=== PATIENT | male | born 1965 | race Caucasian/White ===

== ENCOUNTER 2018-11-05 15:27 | Inpatient (IN) ==
--- NOTE | 2018-11-05 16:39 | Emergency Department Note ---
History of Present Illness General Chief complaint: Groin Pain Stated complaint: GROIN SWELLING Time Seen by Provider: 11/05/18 15:53 History of Present Illness Maximum Pain Intensity: 4 This 52-year-old male presents to the ER from [facility] with chief complaint of mass in his right groin. The patient had a cardiac cath and stent placement on September 082018. Over the past 24 hours he has developed a large mass in the right inguinal area where they placed a stent. He denies any fever. The patient denies any right leg pain. The patient admits that he is on heparin twice daily. The also states that they were to have an appointment with Dr. Gabriel today at 3 PM but transportation did not arrive at [facility] in time and therefore they were directed to come to the emergency room. They thought that Dr. Gabriel was just going to meet them in the emergency room. Home Medications Home Medications Medication Instructions Recorded Confirmed Type acetaminophen 650 mg FEEDING TUBE Q4H PRN 11/05/18 11/05/18 History albuterol sulfate 2 puff INHALATION Q4H PRN 11/05/18 11/05/18 History amiodarone 200 mg FEEDING TUBE DAILY 11/05/18 11/05/18 History amoxicillin-pot clavulanate 1 tab FEEDING TUBE .DAILY@ LUNCH 11/05/18 11/05/18 History [Augmentin] amoxicillin-pot clavulanate 1 tab FEEDING TUBE UD 11/05/18 11/05/18 History [Augmentin] aspirin 81 mg FEEDING TUBE QAM 11/05/18 11/05/18 History bisacodyl 10 mg MT DAILY PRN 11/05/18 11/05/18 History calcium acetate 667 mg FEEDING TUBE TIDM 11/05/18 11/05/18 History clopidogrel 75 mg FEEDING TUBE DAILY 11/05/18 11/05/18 History codeine-guaifenesin 10 ml PO Q4H PRN 11/05/18 11/05/18 History colchicine 0.3 mg FEEDING TUBE UD 11/05/18 11/05/18 History darbepoetin ting in polysorbat 1 dose SUBCUT UD 11/05/18 11/05/18 History dextrose [Glucose Gel] 15 g PO UD PRN 11/05/18 11/05/18 History glucagon (human recombinant) 1 mg SUBCUT UD PRN 11/05/18 11/05/18 History heparin (porcine) 5,000 unit SUBCUT Q12H 11/05/18 11/05/18 History midodrine 5 mg FEEDING TUBE TIDM 11/05/18 11/05/18 History oxycodone 5 mg FEEDING TUBE Q4H PRN 11/05/18 11/05/18 History pantoprazole 40 mg FEEDING TUBE QAM 11/05/18 11/05/18 History phenol 1 spray MUCOUS MEMBRANE Q4H PRN 11/05/18 11/05/18 History saliva substitute combo no.3 1 spray MUCOUS MEMBRANE Q1H PRN 11/05/18 11/05/18 History sodium phosphates [Fleet Enema] 118 ml MT DAILY PRN 11/05/18 11/05/18 History Allergies Allergy/AdvReac Type Severity Reaction Status Date / Time No Known Allergies Allergy Verified 09/02/18 14:08 Past Med/Surg History Medical History Facial cellulitis (Resolved) Acute renal failure CAD (coronary artery disease) Cardiogenic shock Hemodialysis patient Renal function recovering Hx of extracorporeal membrane oxygenation treatment Myocardial infarct Surgical History Hx of angioplasty History of tooth extraction Hx of LASIK Social History Preferred Language: Chinese Beliefs That Will Affect Care: None Current Living Situation: Other Current Living Situation Comment: "LIVES WITH SOMEONE" current occupational status: employed Feels Safe at Home: Yes Smoking Status: Never smoker Hx Alcohol Use: Yes Hx Substance Use: No Review of Systems A total of 10 systems reviewed and were otherwise negative Physical Exam Vital Signs Vital Signs - 24 hr 11/05/18 15:30 11/05/18 18:13 11/05/18 18:14 Temperature 36.8 C Temperature Source Oral Sepsis Recent Fever Within 48 Hours No Sepsis New/Unexplained Change in Mental Status No Sepsis Action Taken by Nursing No Action Required Pulse Rate 89 90 88 Pulse Rate from SpO2 Sensor 90 88 Respiratory Rate 18 27 H 22 Respiratory Effort / Characteristics Non-Labored Respiratory Depth Normal Respiratory Pattern Regular Blood Pressure 104/71 91/64 L Blood Pressure Mean 82 73 Blood Pressure Position Sitting Pulse Oximetry 97 95 99 Oxygen Delivery Method Room Air 11/05/18 18:15 11/05/18 18:16 11/05/18 18:19 Temperature Temperature Source Sepsis Recent Fever Within 48 Hours Sepsis New/Unexplained Change in Mental Status Sepsis Action Taken by Nursing Pulse Rate 89 89 88 Pulse Rate from SpO2 Sensor 91 H 90 86 Respiratory Rate 15 13 20 Respiratory Effort / Characteristics Respiratory Depth Respiratory Pattern Blood Pressure 95/73 L 102/73 Blood Pressure Mean 80 82 Blood Pressure Position Pulse Oximetry 93 97 Oxygen Delivery Method 11/05/18 18:20 11/05/18 18:25 11/05/18 18:26 Temperature Temperature Source Sepsis Recent Fever Within 48 Hours Sepsis New/Unexplained Change in Mental Status Sepsis Action Taken by Nursing Pulse Rate 88 93 H 92 H Pulse Rate from SpO2 Sensor 89 94 H 92 H Respiratory Rate 21 26 H 30 H Respiratory Effort / Characteristics Respiratory Depth Respiratory Pattern Blood Pressure 115/78 116/79 125/95 Blood Pressure Mean 90 91 105 Blood Pressure Position Pulse Oximetry 96 99 100 Oxygen Delivery Method 11/05/18 18:30 11/05/18 18:35 11/05/18 18:38 Temperature Temperature Source Sepsis Recent Fever Within 48 Hours Sepsis New/Unexplained Change in Mental Status Sepsis Action Taken by Nursing Pulse Rate 93 H 94 H Pulse Rate from SpO2 Sensor 93 H 94 H Respiratory Rate 27 H 16 Respiratory Effort / Characteristics Respiratory Depth Respiratory Pattern Blood Pressure 121/87 127/85 122/88 Blood Pressure Mean 98 99 99 Blood Pressure Position Pulse Oximetry 96 98 Oxygen Delivery Method 11/05/18 18:40 11/05/18 18:54 Temperature Temperature Source Sepsis Recent Fever Within 48 Hours Sepsis New/Unexplained Change in Mental Status Sepsis Action Taken by Nursing Pulse Rate Pulse Rate from SpO2 Sensor Respiratory Rate Respiratory Effort / Characteristics Respiratory Depth Respiratory Pattern Blood Pressure 126/90 Blood Pressure Mean 102 Blood Pressure Position Pulse Oximetry Oxygen Delivery Method Room Air GENERAL: 52-year-old male appears in no acute distress. MENTAL Status: Alert and oriented x3. EYES: PERRLA. EOMs intact. NECK: Supple, no lymphadenopathy noted. No carotid bruits noted. LUNGS: Clear auscultation without wheezes rales or rhonchi. CARDIAC: Regular rate and rhythm without murmur. Pulses is full and equal throughout. ABDOMEN: Positive bowel sounds all 4 quadrants. There is approximately a 12 cm mass in the right inguinal area which is tender to palpation. It is slightly increased temperature to touch with mild erythema. Remainder of abdomen is unremarkable. Course Administered Medications Sodium Chloride (Nss 1000ml) 1,000 mls @ 999 mls/hr IV .Q1H1M ONE Stop: 11/05/18 19:15 Last Infusion: 11/05/18 18:58 Dose: 0 mls/hr Documented by: [id number] Admin: 11/05/18 18:28 Dose: 999 mls/hr Documented by: [id number] Sodium Chloride (Nss 1000ml) 1,000 mls @ 999 mls/hr IV .Q1H1M ONE Stop: 11/05/18 19:15 Last Infusion: 11/05/18 18:58 Dose: 100 mls/hr Documented by: [id number] Admin: 11/05/18 18:28 Dose: 999 mls/hr Documented by: [id number] Discontinued Medications Tranexamic Acid (Cyklokapron) Confirm Administered Dose 1,000 mg .ROUTE .STK-MED ONE Stop: 11/05/18 18:22 Last Admin: 11/05/18 18:28 Dose: 1,000 mg Documented by: [id number] Medical Decision Making Differential Diagnosis Hematoma, abscess Medical Records Attestation: I reviewed the patient's medical records. Home Medications Current Medication List: was personally reviewed by me Laboratory Data Result diagrams: 11/05/18 17:06 11/05/18 17:06 Lab Results 11/05/18 11/05/18 11/05/18 Range/Units 17:06 17:06 17:06 WBC 9.99 (4.8-10.8) K/uL RBC 3.21 L (4.7-6.1) M/uL Hgb 10.1 L (14.0-18.0) g/dL POC Hgb (14.0-18.0) g/dl Hct 30.6 L (42-52) % POC Hct (42-52) % MCV 95.3 (80-100) fL MCH 31.5 (25-34) pg MCHC 33.0 (32-36) g/dL RDW Std Deviation 51.4 H (36.4-46.3) fL RDW Coeff of Luna 14.8 H (11.5-14.5) % Plt Count 373 (130-400) K/uL MPV 10.6 H (7.4-10.4) fL Immature Gran % (Auto) 0.4 % Neut % (Auto) 80.3 % Lymph % (Auto) 8.2 % [place] % (Auto) 8.8 % Eos % (Auto) 2.2 % Baso % (Auto) 0.1 % Immature Gran # (Auto) 0.04 H (0.00-0.02) K/uL Neut # (Auto) 8.02 H (1.4-6.5) K/uL Lymph # (Auto) 0.82 L (1.2-3.4) K/uL [place] # (Auto) 0.88 H (0.11-0.59) K/uL Eos # (Auto) 0.22 (0-0.5) K/uL Baso # (Auto) 0.01 (0-0.2) K/uL PT 10.6 (9.0-12.0) Seconds INR 1.0 (0.9-1.1) POC Sodium (135-144) mEq/L Sodium 132 L (136-145) mmol/L POC Potassium (3.3-5.0) mEq/L Potassium 4.2 (3.5-5.1) mmol/L POC Chloride (101-112) mEq/L Chloride 97 L (98-107) mmol/L Carbon Dioxide 28 (21-32) mmol/L POC Total CO2 (24-31) mEq/l Anion Gap 7.0 (3-11) POC Anion Gap (16-25) mmol/L POC BUN (7-18) mg/dl BUN 62 H (7-18) mg/dl Creatinine 3.38 H (0.6-1.4) mg/dl POC Creatinine (0.6-1.3) mg/dl Est Cr Clr Drug Dosing 26.1 ml/min Est GFR ( Amer) 22.7 Est GFR (Non-Af Amer) 19.6 BUN/Creatinine Ratio 18.2 (10-20) Glucose 105 H (70-99) mg/dl POC Glucose (other) (70-99) mg/dl Calcium 9.2 (8.5-10.1) mg/dl POC Ioniz Calcium Yoly (1.12-1.32) mmol/l Phosphorus 5.5 H (2.5-4.9) mg/dl Total Bilirubin 0.5 (0.2-1) mg/dl AST 23 (15-37) U/L ALT 23 (12-78) U/L Alkaline Phosphatase 65 (45-117) U/L Total Protein 6.8 (6.4-8.2) gm/dl Albumin 2.7 L (3.4-5.0) gm/dl Globulin 4.1 H (2.5-4.0) gm/dl Albumin/Globulin Ratio 0.7 L (0.9-2) Crossmatch 11/05/18 11/05/18 Range/Units 18:19 18:24 WBC (4.8-10.8) K/uL RBC (4.7-6.1) M/uL Hgb (14.0-18.0) g/dL POC Hgb 10.5 L (14.0-18.0) g/dl Hct (42-52) % POC Hct 31 L (42-52) % MCV (80-100) fL MCH (25-34) pg MCHC (32-36) g/dL RDW Std Deviation (36.4-46.3) fL RDW Coeff of Luna (11.5-14.5) % Plt Count (130-400) K/uL MPV (7.4-10.4) fL Immature Gran % (Auto) % Neut % (Auto) % Lymph % (Auto) % [place] % (Auto) % Eos % (Auto) % Baso % (Auto) % Immature Gran # (Auto) (0.00-0.02) K/uL Neut # (Auto) (1.4-6.5) K/uL Lymph # (Auto) (1.2-3.4) K/uL [place] # (Auto) (0.11-0.59) K/uL Eos # (Auto) (0-0.5) K/uL Baso # (Auto) (0-0.2) K/uL PT (9.0-12.0) Seconds INR (0.9-1.1) POC Sodium 133 L (135-144) mEq/L Sodium (136-145) mmol/L POC Potassium 4.3 (3.3-5.0) mEq/L Potassium (3.5-5.1) mmol/L POC Chloride 96 L (101-112) mEq/L Chloride (98-107) mmol/L Carbon Dioxide (21-32) mmol/L POC Total CO2 25 (24-31) mEq/l Anion Gap (3-11) POC Anion Gap 16.0 (16-25) mmol/L POC BUN 59 H (7-18) mg/dl BUN (7-18) mg/dl Creatinine (0.6-1.4) mg/dl POC Creatinine 3.2 H (0.6-1.3) mg/dl Est Cr Clr Drug Dosing ml/min Est GFR ( Amer) Est GFR (Non-Af Amer) BUN/Creatinine Ratio (10-20) Glucose (70-99) mg/dl POC Glucose (other) 99 (70-99) mg/dl Calcium (8.5-10.1) mg/dl POC Ioniz Calcium Yoly 1.18 (1.12-1.32) mmol/l Phosphorus (2.5-4.9) mg/dl Total Bilirubin (0.2-1) mg/dl AST (15-37) U/L ALT (12-78) U/L Alkaline Phosphatase (45-117) U/L Total Protein (6.4-8.2) gm/dl Albumin (3.4-5.0) gm/dl Globulin (2.5-4.0) gm/dl Albumin/Globulin Ratio (0.9-2) Crossmatch See Detail Imaging Data Attestation: I personally reviewed and interpreted this imaging study as follows: Radiologist's Impression: NONVASCULAR RIGHT INGUINAL ULTRASOUND CLINICAL HISTORY: Right inguinal mass COMPARISON STUDY: No previous studies for comparison. FINDINGS: There is a complex septated avascular collection in the area of swelling/incision at the right inguinal level. This measures 9 x 7 x 7 cm. The findings are suggestive of a postprocedural organizing hematoma. Infection cannot be excluded. IMPRESSION: Complex collection in the right inguinal region measuring 9 x 7 x 7 cm. The appearance is suggestive of post procedural organizing hematoma. An infected collection cannot be excluded. Electronically signed by: Leoncio Gonzales M.D. 11/05/2018 4:39 PM Blood Pressure Blood Pressure Findings: Normal blood pressure MDM Narrative The patient was evaluated. I reviewed documents from [facility]. It appears that the patient was supposed to be scheduled for an ultrasound of this area today and had an appointment with Dr. Gabriel at 3 PM. It is unclear why he was directed to the ER. The patient currently is on heparin 5000 units every 12 gaurav rs. Ultrasound of this area was ordered interpreted by the radiologist as above with a 9 x 7 x 7 cm septated avascular collection. This is suggestive of a postprocedural organizing hematoma but infection cannot be excluded. Therefore IV access was obtained. CBC and differential, renal profile, coags were ordered. Labs are reviewed. White count was normal. I consulted Dr. Gabriel who agreed to come see the patient in the ER. Dr. Gabriel was evaluating the patient and pressed on the area of concern and the patient started bleeding profusely. It was spraying all over the room. He felt that he tore the arterial graft. He started holding pressure immediately. Dr. Lindsey came to bedside immediately and helped hold pressure. The patient's blood pressure began to drop and therefore he was placed in Trendelenburg. The patient's blood was typed and crossed. A second IV site was obtained. He was given 2 L of normal saline IV. The patient's blood pressure returned to normal at 126/90. Dr. Gleason was consulted as well as Dr. Aguiar. Dr. Gleason stated that the patient needed to go to the OR immediately. All forms were completed by the patient's power of admitted attorneys. Dr. Lindsey and myself remained at bedside until the patient left for the OR. Impression & Plan Arterial hemorrhage Critical Care Time I have personally spent greater than 60 minutes of critical care time in the d irect management of this patient. This includes bedside care, interpretation of diagnostic studies, and testing, discussion with consultants, patient, and family members, and other required patient management activities. This 60 minutes is in excess of all separately billable procedures. Critical Care Time: Yes Total Critical Care Time: 60 Discharge Plan Visit Data Chief Complaint: Groin Pain Stated Complaint: GROIN SWELLING ED Provider: Pierre Lindsey ED Midlevel Provider: Muna Lawson Discharge Problem: Arterial hemorrhage Patient Disposition: Being Evaluated by Surgeon Condition: Critical Discharge Instructions Interventions: ED Discharge Assessment Last Done: 11/05/18 18:54 Forms Stand Alone Forms: My [facility] [employer] Prescriptions Prescriptions: No Action amiodarone 200 mg Tablet 200 mg feeding tube DAILY RF: 0 aspirin 81 mg Tablet,Chewable 81 mg feeding tube QAM RF: 0 calcium acetate 667 mg Tablet 667 mg feeding tube TIDM RF: 0 clopidogrel 75 mg Tablet 75 mg feeding tube DAILY RF: 0 colchicine 0.6 mg Tablet 0.3 mg feeding tube UD RF: 0 heparin (porcine) 5,000 unit/mL Syringe 5,000 unit SUBCUT Q12H RF: 0 oxycodone 5 mg Tablet 5 mg feeding tube Q4H PRN (Reason: . PAIN ( 4-10 )) RF: 0 bisacodyl 10 mg Suppository 10 mg MT DAILY PRN (Reason: Constipation) RF: 0 Fleet Enema 19-7 gram/118 mL Enema 118 ml MT DAILY PRN (Reason: Constipation) RF: 0 acetaminophen 325 mg Tablet 650 mg feeding tube Q4H PRN (Reason: .PAIN ( 1-3 )) RF: 0 glucagon (human recombinant) 1 mg/mL Recon Soln 1 mg subcut UD PRN (Reason: Hypoglycemia) RF: 0 dextrose [Glucose Gel] 40 % Gel 15 g PO UD PRN (Reason: Hypoglycemia) RF: 0 pantoprazole [address] For Susp In Packet 40 mg feeding tube QAM RF: 0 saliva substitute combo no.3 Aerosol,[place] 1 spray mucous membrane Q1H PRN (Reason: Dry Mouth) RF: 0 midodrine 5 mg Tablet 5 mg feeding tube TIDM RF: 0 amoxicillin-pot clavulanate [Augmentin] 500-125 mg Tablet 1 tab feeding tube .DAILY@ LUNCH RF: 0 amoxicillin-pot clavulanate [Augmentin] 500-125 mg Tablet 1 tab feeding tube UD RF: 0 phenol 1.4 % Aerosol,[place] 1 spray MUCOUS MEMBRANE Q4H PRN (Reason: Sore Throat) RF: 0 darbepoetin ting in polysorbat 60 mcg/0.3 mL Syringe 1 dose subcut UD RF: 0 codeine-guaifenesin 6.3-100 mg/5 mL Liquid 10 ml PO Q4H PRN (Reason: Cough) RF: 0 albuterol sulfate 90 mcg/actuation Hfa Aerosol Inhaler 2 puff inhalation Q4H PRN (Reason: Wheezing) RF: 0 Referrals Referrals: Pedro Silveira MD [Primary Care Provider] -
--- NOTE | 2018-11-05 16:40 | Ultrasound Report ---
NONVASCULAR RIGHT INGUINAL ULTRASOUND CLINICAL HISTORY: Right inguinal mass COMPARISON STUDY: No previous studies for comparison. FINDINGS: There is a complex septated avascular collection in the area of swelling/incision at the ri ght inguinal level. This measures 9 x 7 x 7 cm. The findings are suggestive of a postprocedural organ izing hematoma. Infection cannot be excluded. IMPRESSION: Complex collection in the right inguinal region measuring 9 x 7 x 7 cm. The appearance i s suggestive of post procedural organizing hematoma. An infected collection cannot be excluded. Electronically signed by: Leoncio Gonzales M.D. 11/05/2018 4:39 PM
[2018-11-05 17:21] LABS: Basophils # (auto) 0.01 K/uL (0-0.2); Basophils % (auto) 0.1 %; Eosinophils # (auto) 0.22 K/uL (0-0.5); Eosinophils % (auto) 2.2 %; Hematocrit (blood only) 30.6 % (42-52); Hemoglobin 10.1 g/dL (14.0-18.0); Immature Granulocytes # (auto) 0.04 K/uL (0.00-0.02); Immature Granulocytes % (auto) 0.4 %; Lymphocytes # (auto) 0.82 K/uL (1.2-3.4); Lymphocytes % (auto) 8.2 %; Mean Corpuscular Volume 95.3 fL (80-100); Mean Platelet Volume 10.6 fL (7.4-10.4); Monocytes # (auto) 0.88 K/uL (0.11-0.59); Monocytes % (auto) 8.8 %; Neutrophils # (auto) 8.02 K/uL (1.4-6.5); Neutrophils % (auto) 80.3 %; Platelet Count 373 K/uL (130-400); RDW Coefficient of Variation 14.8 % (11.5-14.5); RDW Standard Deviation 51.4 fL (36.4-46.3); Red Blood Count 3.21 M/uL (4.7-6.1); White Blood Count 9.99 K/uL (4.8-10.8)
[2018-11-05 17:33] LABS: Prothrombin Time 10.6 Seconds (9.0-12.0)
[2018-11-05 17:40] LABS: Albumin Level 2.7 gm/dl (3.4-5.0); BUN Creatinine Ratio 18.2 (10-20); Calcium 9.2 mg/dl (8.5-10.1); Creatinine Clr Calc Pharmacy 26.1 ml/min; Est GFR (African American) 22.7; Est GFR (Non-African American) 19.6; Potassium 4.2 mmol/L (3.5-5.1)
[2018-11-05 17:42] LABS: Albumin Globulin Ratio 0.7 (0.9-2); Bilirubin,Total 0.5 mg/dl (0.2-1); Globulin 4.1 gm/dl (2.5-4.0); Phosphorus 5.5 mg/dl (2.5-4.9); Total Protein 6.8 gm/dl (6.4-8.2)
[2018-11-05] MEDS ORDERED: SODIUM CHLORIDE 0.9% 1000ML 1,000 ML IV ONE ×2 (18:15)
[2018-11-05] MEDS ORDERED: TRANEXAMIC ACID 100 MG/ML 10 ML VIAL ONE (18:21)
[2018-11-05] MEDS ORDERED: TRANEXAMIC ACID 1,000 MG in 0.9 % SODIUM CHLORIDE 100 ML IV STA (18:22)
[2018-11-05] MEDS ORDERED: HEPARIN (PORCINE) 1000 UNIT/ML 10 ML (CATH LAB USE ONLY) ONE (18:23)
[2018-11-05] MEDS ORDERED: PAPAVERINE HCL INJ 30 MG/ML 2 ML VIAL ONE (18:23)
[2018-11-05] MEDS ORDERED: THROMBIN 5000 UNITS KIT ONE (18:23)
[2018-11-05] MEDS ORDERED: LIDOCAINE HCL 1% 20 ML VIAL ONE (18:23)
[2018-11-05] MEDS ORDERED: IODIXANOL (VISIPAQUE) 270 MG/ML 50ML ONE (18:24)
[2018-11-05] MEDS ORDERED: GELATIN SPONGE SZ 100 ONE (18:24)
[2018-11-05] MEDS ORDERED: CEFAZOLIN 250 MG/ML 1 GM VIAL ONE (18:24)
[2018-11-05] MEDS ORDERED: BUPIVACAINE/EPINEPHRINE 0.5% MPF 1:200,000 30 ML VIAL ONE (18:24)
[2018-11-05] MEDS ORDERED: MIDAZOLAM HCL 1 MG/ML 2ML VIAL ONE (18:26)
[2018-11-05] MEDS ORDERED: fentaNYL citrate 100 MCG/2 ML VIAL ONE (18:26)
[2018-11-05 18:38] LABS: iSTAT Creatinine 3.2 mg/dl (0.6-1.3); iSTAT Hemoglobin 10.5 g/dl (14.0-18.0); iSTAT Ionized Calcium 1.18 mmol/l (1.12-1.32); iSTAT Potassium 4.3 mEq/L (3.3-5.0)
--- NOTE | 2018-11-05 18:47 | Anesthesiology Consultation ---
Date of Service November 05, 2018 Assessment & Plan (1) Encounter for pre-operative examination: Chart Review Chart Review: Acceptable Risk for Surgery (Emergency) History Surgery Operation Date: 11/05/18 18:20 Proposed Procedures p Femoral Popliteal Bypass Graft - Lisandro Gleason MD Height/Weight Height: 5 ft 10 in Weight: 80.286 kg Allergies Allergy/AdvReac Type Severity Reaction Status Date / Time No Known Allergies Allergy Verified 09/02/18 14:08 Medications Home Medications Medication Instructions Recorded Confirmed Last Taken acetaminophen 650 mg FEEDING TUBE Q4H PRN 11/05/18 11/05/18 Unknown amiodarone 200 mg FEEDING TUBE DAILY 11/05/18 11/05/18 Unknown amoxicillin-pot clavulanate 1 tab FEEDING TUBE .DAILY@ LUNCH 11/05/18 11/05/18 Unknown [Augmentin] aspirin 81 mg FEEDING TUBE QAM 11/05/18 11/05/18 Unknown bisacodyl 10 mg MD DAILY PRN 11/05/18 11/05/18 Unknown calcium acetate 667 mg FEEDING TUBE TIDM 11/05/18 11/05/18 Unknown clopidogrel 75 mg FEEDING TUBE DAILY 11/05/18 11/05/18 Unknown colchicine 0.3 mg FEEDING TUBE UD 11/05/18 11/05/18 Unknown dextrose [Glucose Gel] 15 g PO UD PRN 11/05/18 11/05/18 Unknown glucagon (human recombinant) 1 mg SUBCUT UD PRN 11/05/18 11/05/18 Unknown heparin (porcine) 5,000 unit SUBCUT Q12H 11/05/18 11/05/18 Unknown midodrine 5 mg FEEDING TUBE TIDM 11/05/18 11/05/18 Unknown oxycodone 5 mg FEEDING TUBE Q4H PRN 11/05/18 11/05/18 Unknown pantoprazole 40 mg FEEDING TUBE QAM 11/05/18 11/05/18 Unknown saliva substitute combo no.3 1 spray MUCOUS MEMBRANE Q1H PRN 11/05/18 11/05/18 Unknown sodium phosphates [Fleet Enema] 118 ml MD DAILY PRN 11/05/18 11/05/18 Unknown Active Medications Generic Name Dose Route Start Last Admin Trade Name Freq PRN Reason Stop Dose Admin Sodium Chloride 1,000 mls @ 999 mls/hr 11/05/18 18:15 11/05/18 18:28 Nss 1000ml IV 11/05/18 19:15 999 mls/hr .Q1H1M ONE Administration Sodium Chloride 1,000 mls @ 999 mls/hr 11/05/18 18:15 11/05/18 18:28 Nss 1000ml IV 11/05/18 19:15 999 mls/hr .Q1H1M ONE Administration Past Medical History Medical History Facial cellulitis (Resolved) Acute renal failure CAD (coronary artery disease) Cardiogenic shock Hemodialysis patient Renal function recovering Hx of extracorporeal membrane oxygenation treatment Myocardial infarct Past Surgical History Surgical History Hx of angioplasty History of tooth extraction Hx of LASIK Past Anesthesia History Difficult Airway (Vocal cord dysfunction afterward) Social History Smoking Status: Never smoker Hx Alcohol Use: Yes Alcohol type: wine alcohol intake frequency: holidays/special occasions only Hx Substance Use: No substance use type: does not use Physical Exam Vital Signs Last Vital Signs Temp 36.8 C 11/05/18 15:30 Pulse 89 11/05/18 15:30 Resp 18 11/05/18 15:30 BP 104/71 11/05/18 15:30 Pulse Ox 97 11/05/18 15:30 Testing Laboratory Results 11/05/18 17:06 11/05/18 17:06 PT 10.6 Seconds (9.0-12.0) 11/05/18 17:06 INR 1.0 (0.9-1.1) 11/05/18 17:06
[2018-11-05] MEDS ORDERED: CLINDAMYCIN PHOS 300 MG/2 ML VIAL ONE (19:12)
[2018-11-05] MEDS ORDERED: ONDANSETRON INJ 2 MG/ML 2 ML VIAL ONE (19:22)
[2018-11-05] MEDS ORDERED: CISATRACURIUM BESYLATE IV SOLN 2 MG/ML 10 ML VIAL IV ONE (19:22)
[2018-11-05] MEDS ORDERED: SUCCINYLCHOLINE CHLORIDE 20 MG/ML 10 ML VIAL ONE (19:22)
[2018-11-05] MEDS ORDERED: PROPOFOL IV EMULSION 10 MG/ML 20 ML VIAL IV ONE (19:22)
[2018-11-05] MEDS ORDERED: ETOMIDATE 2 MG/ML 20 ML VIAL IV ONE (19:22)
[2018-11-05] MEDS ORDERED: NEOSTIGMINE METHYLSULFATE 5 MG/5 ML SYR ONE (19:22)
[2018-11-05] MEDS ORDERED: GLYCOPYRROLATE 0.2 MG/ML VIAL ONE (19:22)
[2018-11-05] MEDS ORDERED: ePHEDrine sulfate 50 MG/ML SYR ONE (19:22)
[2018-11-05] MEDS ORDERED: MoRPHine SULFATE 4 MG/ML 1 ML CARP\\VIAL IV PRN (19:27)
[2018-11-05] MEDS ORDERED: ACETAMINOPHEN 325 MG TAB PEG PRN (19:34)
[2018-11-05] MEDS ORDERED: ALBUTEROL HFA 8 GM INHALER INH PRN (19:34)
[2018-11-05] MEDS ORDERED: SOD PHOSPHATE/SOD BIPHOSPHATE ENEMA 132 ML BTL PR PRN ×2 (19:34→20:45)
[2018-11-05] MEDS ORDERED: GLUCOSE 40% GEL 15 GM TUBE PO PRN (19:34)
[2018-11-05] MEDS ORDERED: GLUCAGON FOR INJ 1 MG VIAL SQ PRN (19:34)
[2018-11-05] MEDS ORDERED: BISACODYL 10 MG SUPP PR PRN (19:34)
[2018-11-05] MEDS ORDERED: [UNRECOGNIZED DRUG - OTHER] mucous membrane PRN (19:34)
[2018-11-05] MEDS ORDERED: ATROPINE SULFATE 0.1 MG/ML 10ML SYR IV PRN (19:35)
[2018-11-05] MEDS ORDERED: ONDANSETRON INJ 2 MG/ML 2 ML VIAL IV PRN (19:35)
[2018-11-05] MEDS ORDERED: AMOXICILLIN/CLAVULANATE 500 MG TAB PO SCH ×2 (19:45)
[2018-11-05] MEDS ORDERED: CLINDAMYCIN 600 MG in DEXTROSE 5% 50 ML IV SCH (19:45)
--- NOTE | 2018-11-05 19:52 | Post Operative Brief Note ---
Immediate Post Op Note v1 Date of Surgery November 05, 2018 Pre & Post Diagnosis Operation Date: 11/05/18 18:20 Pre-Op Diagnosis: Bleeding right groin Post-Op Diagnosis: Bleeding right groin Procedure Operation Date: 11/05/18 18:20 Actual Procedures p Exploration of Right Groin Evacuation of Hematoma(Right) - Lisandro Gleason MD Surgeon Lisandro Gleason MD Windows System Admin MD [place] Estimated Blood Loss 50 Findings Consistent with Post-Op Diagnosis Anesthesia Type General Complications none Disposition Accompanied Patient To Recovery: No Disposition: Recovery Room
--- NOTE | 2018-11-05 19:56 | Cardiology Consultation ---
Date of Consultation November 05, 2018 Assessment & Plan (1) Arterial hemorrhage: 2. Recent right GASKET INSPECTOR patch repair following extended Impella suport 3. Ischemic cardiomyopathy EF 30-35% 4. Coronary artery disease post PCI with 3 DESTINY (left main and the circumflex, ostial and proximal LAD). 5. Improving renal failure on intermittent dialysis 6. Persistent vocal cord dysfunction, dysphagia on PEG tube 7. Critical illness myopathy 8. Prior RP bleed post intercostal coil embolectomy 9. Prior A. fib with RVR, nonsustained VT on amiodarone 10. Relative hypotension on intermittent midodrine Patient taken emergently to OR by Dr. Gleason. Will follow from a cardiac standpoint postoperatively. Appreciate vascular surgery and emergency department care. History of Present Illness Attending Physician: Lisandro Gleason MD History of Present Illness Mr. Rivera is a 52-year-old man with a complex recent medical history who presented today in the setting of right groin swelling. Patient was previously seen in [facility] in August 2018 as a late presenting anterior STEMI. Intervention complicated by left main dissection, cardiogenic shock/rest requiring impella mechanical support and transferred to [facility]. Had a prolonged hospital course over 50 days with ECMO and impella for 30 days. Impella removed approximately 3 weeks ago while hospitalized by vascular surgery with right GASKET INSPECTOR patch repair. Patient discharged to rehab approximately week and a half ago. Has been doing well kidney function improving requiring intermittent dialysis, still on tube feeds but exercise tolerance improving. Yesterday noted new swelling at his right groin site. Swelling increased this morning with increasing pain and cardiology office contacted. Evaluation at ED recommended. Had an ultrasound which showed a 7 cm hematoma without clear flow from GASKET INSPECTOR. Was called to evaluate patient in the ED. While compressing hematoma surgical incision opened up and initially serosanguineous fluid sprayed across room later followed by tony blood. Compression held, fluids administered and vascular surgery consulted. Allergies Allergy/AdvReac Type Severity Reaction Status Date / Time cefepime Allergy Unknown Unverified 11/05/18 19:27 vancomycin Allergy Unknown Unverified 11/05/18 19:25 Home Medications Home Medications Medication Instructions Recorded Confirmed Type acetaminophen 650 mg FEEDING TUBE Q4H PRN 11/05/18 11/05/18 History albuterol sulfate 2 puff INHALATION Q4H PRN 11/05/18 11/05/18 History amiodarone 200 mg FEEDING TUBE DAILY 11/05/18 11/05/18 History amoxicillin-pot clavulanate 1 tab FEEDING TUBE .DAILY@ LUNCH 11/05/18 11/05/18 History [Augmentin] amoxicillin-pot clavulanate 1 tab FEEDING TUBE UD 11/05/18 11/05/18 History [Augmentin] aspirin 81 mg FEEDING TUBE QAM 11/05/18 11/05/18 History bisacodyl 10 mg CO DAILY PRN 11/05/18 11/05/18 History calcium acetate 667 mg FEEDING TUBE TIDM 11/05/18 11/05/18 History clopidogrel 75 mg FEEDING TUBE DAILY 11/05/18 11/05/18 History codeine-guaifenesin 10 ml PO Q4H PRN 11/05/18 11/05/18 History colchicine 0.3 mg FEEDING TUBE UD 11/05/18 11/05/18 History darbepoetin ting in polysorbat 1 dose SUBCUT UD 11/05/18 11/05/18 History dextrose [Glucose Gel] 15 g PO UD PRN 11/05/18 11/05/18 History glucagon (human recombinant) 1 mg SUBCUT UD PRN 11/05/18 11/05/18 History heparin (porcine) 5,000 unit SUBCUT Q12H 11/05/18 11/05/18 History midodrine 5 mg FEEDING TUBE TIDM 11/05/18 11/05/18 History oxycodone 5 mg FEEDING TUBE Q4H PRN 11/05/18 11/05/18 History pantoprazole 40 mg FEEDING TUBE QAM 11/05/18 11/05/18 History phenol 1 spray MUCOUS MEMBRANE Q4H PRN 11/05/18 11/05/18 History saliva substitute combo no.3 1 spray MUCOUS MEMBRANE Q1H PRN 11/05/18 11/05/18 History simethicone 20 mg FEEDING TUBE QAM 11/05/18 11/05/18 History sodium phosphates [Fleet Enema] 118 ml CO DAILY PRN 11/05/18 11/05/18 History Patient History Medical History Facial cellulitis (Resolved) Acute renal failure CAD (coronary artery disease) Cardiogenic shock Hemodialysis patient Renal function recovering Hx of extracorporeal membrane oxygenation treatment Myocardial infarct Surgical History Hx of angioplasty History of tooth extraction Hx of LASIK Social History Preferred Language: Burmese Beliefs That Will Affect Care: None Current Living Situation: Other Current Living Situation Comment: "LIVES WITH SOMEONE" current occupational status: employed Feels Safe at Home: Yes Smoking Status: Never smoker Hx Alcohol Use: Yes Hx Substance Use: No Review of Systems Otherwise negative see HPI Physical Exam Vital Signs (Past 24 Hours): Last Vital Signs Temp 36.8 C 11/05/18 15:30 Pulse 94 H 11/05/18 18:35 Resp 16 11/05/18 18:35 BP 126/90 11/05/18 18:40 Pulse Ox 98 11/05/18 18:35 Physical Exam: General: Comfortable initially with no acute distress Eyes: Sclerae anicteric, extraocular movements intact HENT: Oropharynx clear mucous membranes moist, missing dentition Lungs: Clear to auscultation bilaterally, no rhonchi or wheezes Cardiac: Regular rate and rhythm, no murmurs, rubs or gallops. Vascular: Initial surgical incision intact with large surrounding hematoma prior to bleeding event Abdomen: Soft, nontender, nondistended, positive bowel sounds. Extremities: Well perfused, no peripheral edema, 2+ distal pulses Skin: No rashes or lesions. Neuro: Nonfocal Psych: Alert orient x3, normal affect and mood
--- NOTE | 2018-11-05 19:58 | History & Physical Report ---
Date of Service November 05, 2018 Assessment & Plan (1) Bleeding: Due to the finding of bleeding from the right groin was operative exploration control the bleeding was recommended. I have discussed the risks options and benefits of the procedure with the patient. The patient understands the risks options and benefits and agrees to the procedure. History of Present Illness Chief Complaint: Bleeding right groin Primary Care Provider: Pedro Silveira MD Patient is a 52-year-old male who bleeding from his right groin. This was the site of of his decannulation from his ECMO Cannulas. He complains of swelling earlier today. In the emergency room this evening he had tony bleeding from the groin. This was controlled with pressure. He has a complicated history of myocardial infarction followed by stenting followed by respiratory insufficiency with intubation, renal failure, respiratory failure, cardiac shock, ECMO for 30 days, and a patch of his common femoral artery after the cannula was removed. Presently he is at rehab. Allergies Allergy/AdvReac Type Severity Reaction Status Date / Time cefepime Allergy Unknown Unverified 11/05/18 19:27 vancomycin Allergy Unknown Unverified 11/05/18 19:25 Home Medications Home Medications Medication Instructions Recorded Confirmed Type acetaminophen 650 mg FEEDING TUBE Q4H PRN 11/05/18 11/05/18 History albuterol sulfate 2 puff INHALATION Q4H PRN 11/05/18 11/05/18 History amiodarone 200 mg FEEDING TUBE DAILY 11/05/18 11/05/18 History amoxicillin-pot clavulanate 1 tab FEEDING TUBE .DAILY@ LUNCH 11/05/18 11/05/18 History [Augmentin] amoxicillin-pot clavulanate 1 tab FEEDING TUBE UD 11/05/18 11/05/18 History [Augmentin] aspirin 81 mg FEEDING TUBE QAM 11/05/18 11/05/18 History bisacodyl 10 mg ID DAILY PRN 11/05/18 11/05/18 History calcium acetate 667 mg FEEDING TUBE TIDM 11/05/18 11/05/18 History clopidogrel 75 mg FEEDING TUBE DAILY 11/05/18 11/05/18 History codeine-guaifenesin 10 ml PO Q4H PRN 11/05/18 11/05/18 History colchicine 0.3 mg FEEDING TUBE UD 11/05/18 11/05/18 History darbepoetin ting in polysorbat 1 dose SUBCUT UD 11/05/18 11/05/18 History dextrose [Glucose Gel] 15 g PO UD PRN 11/05/18 11/05/18 History glucagon (human recombinant) 1 mg SUBCUT UD PRN 11/05/18 11/05/18 History heparin (porcine) 5,000 unit SUBCUT Q12H 11/05/18 11/05/18 History midodrine 5 mg FEEDING TUBE TIDM 11/05/18 11/05/18 History oxycodone 5 mg FEEDING TUBE Q4H PRN 11/05/18 11/05/18 History pantoprazole 40 mg FEEDING TUBE QAM 11/05/18 11/05/18 History phenol 1 spray MUCOUS MEMBRANE Q4H PRN 11/05/18 11/05/18 History saliva substitute combo no.3 1 spray MUCOUS MEMBRANE Q1H PRN 11/05/18 11/05/18 History simethicone 20 mg FEEDING TUBE QAM 11/05/18 11/05/18 History sodium phosphates [Fleet Enema] 118 ml ID DAILY PRN 11/05/18 11/05/18 History Past Med/Surg History Medical History Facial cellulitis (Resolved) Acute renal failure CAD (coronary artery disease) Cardiogenic shock Hemodialysis patient Renal function recovering Hx of extracorporeal membrane oxygenation treatment Myocardial infarct Surgical History Hx of angioplasty History of tooth extraction Hx of LASIK Social History Preferred Language: Czech Beliefs That Will Affect Care: None Current Living Situation: Other Current Living Situation Comment: "LIVES WITH SOMEONE" current occupational status: employed Feels Safe at Home: Yes Smoking Status: Never smoker Hx Alcohol Use: Yes Hx Substance Use: No Review of Systems Unobtainable due to the emergent situation. Physical Exam Vital Signs (Past 24 Hours): Last Vital Signs Temp 36.8 C 11/05/18 15:30 Pulse 94 H 11/05/18 18:35 Resp 16 11/05/18 18:35 BP 126/90 11/05/18 18:40 Pulse Ox 98 11/05/18 18:35 Patient is awake alert and oriented. He was in moderate distress. There is bleeding noted from the right groin. Pressure was being held. He did have palpable pedal pulses in his feet. Abdominal exam is benign lungs were clear heart had a regular rhythm.
--- NOTE | 2018-11-05 20:04 | Operative Report ---
Post Operative Report Pre & Post Diagnosis Operation Date: 11/05/18 18:20 Pre-Op Diagnosis: Bleeding right groin Post-Op Diagnosis: Bleeding right groin Procedure Operation Date: 11/05/18 18:20 Actual Procedures p Exploration of Right Groin Evacuation of Hematoma(Right) - Lisandro Gleason MD Surgeon Dr. Rosibel Berumen MD Schedule Checker MD [place] Estimated Blood Loss 50 Findings Consistent with Post-Op Diagnosis The right groin was opened surgically and evaluated there was a large size hematoma that was evacuated and washed out no obvious signs of bleeding from the arterial site or the patch. The patch seem to be well incorporated without any oozing or bleeding around it. The remainder of the wound was evaluated hemostasis was achieved. No obvious sign of excessive bleeding was noted. Specimens None Anesthesia Type General Complications none Disposition Accompanied Patient To Recovery: Yes Disposition: Recovery Room Indications Bleeding right groin incision Description of Procedure The patient was placed supine on the operating room table. The right groin was prepped and draped in a sterile fashion. Using a 10 blade the prior incision wa s reopened. Digital dissection was used to dissect down the incision to the artery and patch. A large amount of clot and old hematoma was evacuated and suctioned. The patch was then examined and washed and it showed a well incorporated patch without any bleeding from the site of the patch or the artery. The remainder of the wound was washed thoroughly and examined for any sign of bleeding. There was no obvious sign of bleeding that was noted and so a thorough washout and hemostasis using electrocautery of the skin edges and raw surfaces was achieved. Once hemostasis was achieved a multilayered closure of the wound was completed with 2-0 Vicryl sutures a 3-0 Vicryl suture was then used to approximate the skin edges and the skin was closed with solo. A sterile dressing was applied over top of the incision and the patient was moved to the hospital bed. The patient tolerated the procedure well the end of the case the patient had palpable DP and PT pulses in the right foot. Dr. Gleason was present for the entirety of the procedure. I attest to the content of the Intraoperative Record and any orders documented therein. Any exceptions are noted below.
[2018-11-05] MEDS: fentaNYL citrate 100 MCG/2 ML VIAL IV PRN ×4 (20:28→20:43)
--- NOTE | 2018-11-05 20:35 | Anesthesiology Progress Note ---
Date of Service November 05, 2018 Anesthesia Post Procedure Vital Signs Vital Signs: Temp Pulse Pulse Resp BP BP Pulse Ox 11/05/18 20:31 94 H 26 H 100 11/05/18 20:30 95 H 24 126/91 100 11/05/18 20:27 100 H 27 H 125/85 98 11/05/18 20:26 36.6 C 88 20 134/95 93 11/05/18 20:25 100 H 20 99 11/05/18 20:20 94 H 24 125/89 100 11/05/18 20:15 100 H 22 11/05/18 20:11 98 H 32 H 11/05/18 20:10 99 H 12 134/95 11/05/18 18:40 126/90 11/05/18 18:38 122/88 11/05/18 18:35 94 H 16 127/85 98 11/05/18 18:30 93 H 27 H 121/87 96 11/05/18 18:26 92 H 30 H 125/95 100 11/05/18 18:25 93 H 26 H 116/79 99 11/05/18 18:20 88 21 115/78 96 11/05/18 18:19 88 20 102/73 11/05/18 18:16 89 13 95/73 L 97 11/05/18 18:15 89 15 93 11/05/18 18:14 88 22 99 11/05/18 18:13 90 27 H 91/64 L 95 11/05/18 15:30 36.8 C 89 18 104/71 97 Pain Intensity Right Groin: Pain Intensity: 0 Notes Mental Status: alert / awake / arousable Patient Amnestic to Procedure: Yes Nausea / Vomiting: adequately controlled Pain: adequately controlled Airway Patency, RR, SpO2: stable & adequate BP & HR: stable & adequate Hydration State: stable & adequate Anesthetic Complications: no major complications apparent
[2018-11-05 20:43] LABS: Basophils # (auto) 0.01 K/uL (0-0.2); Basophils % (auto) 0.1 %; Eosinophils # (auto) 0.34 K/uL (0-0.5); Eosinophils % (auto) 3.3 %; Hematocrit (blood only) 29.8 % (42-52); Immature Granulocytes # (auto) 0.02 K/uL (0.00-0.02); Immature Granulocytes % (auto) 0.2 %; Lymphocytes # (auto) 0.86 K/uL (1.2-3.4); Lymphocytes % (auto) 8.3 %; Mean Corpuscular Hgb Conc 33.6 g/dL (32-36); Mean Platelet Volume 10.2 fL (7.4-10.4); Monocytes # (auto) 0.87 K/uL (0.11-0.59); Monocytes % (auto) 8.4 %; Neutrophils # (auto) 8.27 K/uL (1.4-6.5); Neutrophils % (auto) 79.7 %; Platelet Count 351 K/uL (130-400); RDW Coefficient of Variation 15.3 % (11.5-14.5); RDW Standard Deviation 52.9 fL (36.4-46.3); Red Blood Count 3.17 M/uL (4.7-6.1); White Blood Count 10.37 K/uL (4.8-10.8)
[2018-11-05 21:03] LABS: BUN Creatinine Ratio 18.7 (10-20); Calcium 8.3 mg/dl (8.5-10.1); Creatinine Clr Calc Pharmacy 29.5 ml/min; Est GFR (African American) 26.4; Est GFR (Non-African American) 22.8; Magnesium 1.9 mg/dl (1.8-2.4); Potassium 4.3 mmol/L (3.5-5.1)
--- NOTE | 2018-11-05 21:21 | Critical Care Consultation ---
Date of Consultation November 05, 2018 Assessment & Plan (1) Admitted to intensive care unit: Reason Critically Ill: 52-year-old male status post evacuation of hematoma to the RIGHT groin. NEURO - * CAM ICU: NEGATIVE * PAIN: * Tylenol, Percocet, Morphine CARDIAC/VASCULAR - * Recent anterior ND on 09/02 with complication of cardiogenic shock requiring extended Impella device and ECMO therapies. * Continue all medications as previously prescribed. * Monitor on telemetry. RESPIRATORY - * Monitor for signs and symptoms of volume overload after aggressive IV fluid resuscitation and administration of 1 unit PRBCs in the setting of acute blood loss with concerns for anemia. GI/NUTRITION - * Continue nutrition through PED tube as prior. * Prophylaxis: RENAL/LYTES - * Renal Failure - Previously on HD T//Sat. * PermCath in place to the RIGHT chest. * Consider dialysis tomorrow after reassessment with chest x-ray for evaluation of volume accumulation. * Has not required hemodialysis since Saturday. * No significant electrolyte derangements at this point. * IVF: NSS per surgery. - * No concerns at this time. ENDO - * No h/o DM or Thyroid Dz * BSGs per unit protocol. ISS --> gtt per unit policy. HEME - * Stable H&H. * Received 1U PRBCs intraoperatively. * Will recheck AM H&H ID - * Prophylaxis w/ clindamycin LINES/IV ACCESS - * PIVs x2 DVT PROPHYLAXIS - * Heparin sq * SCDs I have personally spent 35 minutes of critical care time in the direct management of this patient. This is a life/limb threatening event. This includes time spent evaluating patient, direct bedside care, chart review, placing orders, interpretation of diagnostic studies, discussion with consultants, patient, and family members, as well as other required patient management activities. This time is exclusive of all separately billable procedures, and teaching time and separate from and in addition to any other critical care service time. Thank you for allowing us to participate in the care of this patient. Please refer to my attending physician's documentation for any further recommendations. (2) Hematoma of groin: (3) Bleeding: (4) S/P vascular surgery: (5) Renal failure: Supervising Physician Co-Signing Physician Notes I have personally evaluated and examined this patient. I agree with assessment and plan of S. Estuardo PA-C. History of Present Illness Attending Physician: Lisandro Gleason MD Patient is a 52-year-old male with recent past medical history of anterior STEMI on 09/02 requiring PTCI with DESTINY x2. Intra-procedurally, the patient did become unstable and dissection was noted of the LAD. This was repaired, however the patient did develop cardiogenic shock requiring placement of Impella device as well as vasoactive support. He was subsequently transferred to [facility]'s CT surgery ICU. While at [facility], the patient had ECMO placed in the RIGHT groin. The Impella device was in place for approximately 35 days while the ECMO cannulas were in place for 30 days. His stay was complicated by acute renal failure requiring CVVH with transition to hemodialysis on days Saturday//Saturday. Initial cardiac function was poor, but recent echocardiogram demonstrated an EF of approximately 35%. Eventually, the patient did make great improvement and he was able to be transferred to [facility] where he has been rehabbing for the past 2 weeks. The patient is to the point where he is able to ambulate with minimal assistance. He has been undergoing aggressive PT and OT to help regarding [facility]. Today, there is noted increasing swelling and pain to the RIGHT groin area at the site of cannulation. He was brought to the emergency department where there was concern for active bleeding at the cannulation site from previous graft placement. He was taken emergently to the operating room where he received a unit of blood as well as 2 L of IV fluids. After extensive evaluation, there appeared only to be hematoma and no active bleeding of the graft site. He tolerated intervention well and was brought to the ICU for continued monitoring. On evaluation in the ICU, the patient is awake, alert, and oriented. He complains of pain at the site of hematoma, but otherwise offers no complaints at this time. Allergies Allergy/AdvReac Type Severity Reaction Status Date / Time cefepime Allergy Unknown Unverified 11/05/18 19:27 vancomycin Allergy Unknown Unverified 11/05/18 19:25 Home Medications Home Medications Medication Instructions Recorded Confirmed Type acetaminophen 650 mg FEEDING TUBE Q4H PRN 11/05/18 11/05/18 History albuterol sulfate 2 puff INHALATION Q4H PRN 11/05/18 11/05/18 History amiodarone 200 mg FEEDING TUBE DAILY 11/05/18 11/05/18 History amoxicillin-pot clavulanate 1 tab FEEDING TUBE .DAILY@ LUNCH 11/05/18 11/05/18 History [Augmentin] amoxicillin-pot clavulanate 1 tab FEEDING TUBE UD 11/05/18 11/05/18 History [Augmentin] aspirin 81 mg FEEDING TUBE QAM 11/05/18 11/05/18 History bisacodyl 10 mg CA DAILY PRN 11/05/18 11/05/18 History calcium acetate 667 mg FEEDING TUBE TIDM 11/05/18 11/05/18 History clopidogrel 75 mg FEEDING TUBE DAILY 11/05/18 11/05/18 History codeine-guaifenesin 10 ml PO Q4H PRN 11/05/18 11/05/18 History colchicine 0.3 mg FEEDING TUBE UD 11/05/18 11/05/18 History darbepoetin ting in polysorbat 1 dose SUBCUT UD 11/05/18 11/05/18 History dextrose [Glucose Gel] 15 g PO UD PRN 11/05/18 11/05/18 History glucagon (human recombinant) 1 mg SUBCUT UD PRN 11/05/18 11/05/18 History heparin (porcine) 5,000 unit SUBCUT Q12H 11/05/18 11/05/18 History midodrine 5 mg FEEDING TUBE TIDM 11/05/18 11/05/18 History oxycodone 5 mg FEEDING TUBE Q4H PRN 11/05/18 11/05/18 History pantoprazole 40 mg FEEDING TUBE QAM 11/05/18 11/05/18 History phenol 1 spray MUCOUS MEMBRANE Q4H PRN 11/05/18 11/05/18 History saliva substitute combo no.3 1 spray MUCOUS MEMBRANE Q1H PRN 11/05/18 11/05/18 History simethicone 20 mg FEEDING TUBE QAM 11/05/18 11/05/18 History sodium phosphates [Fleet Enema] 118 ml CA DAILY PRN 11/05/18 11/05/18 History Patient History Medical History Facial cellulitis (Resolved) Acute renal failure CAD (coronary artery disease) Cardiogenic shock Hemodialysis patient Renal function recovering Hx of extracorporeal membrane oxygenation treatment Myocardial infarct Surgical History Hx of angioplasty History of tooth extraction Hx of LASIK Social History Preferred Language: Romanian Communication Ability: Effective Roadmaster Required: No Beliefs That Will Affect Care: None Current Living Situation: Rehab Current Living Situation Comment: "LIVES WITH SOMEONE" current occupational status: employed Other Information That Helps Us Care for You: No Feels Safe at Home: Yes Safety Concerns: Feels Safe At This Time Smoking Status: Never smoker Hx Alcohol Use: Yes Hx Substance Use: No Review of Systems A complete 10 point review of systems was reviewed with the patient with pertinent positives and negatives as per history of present illness. All else were negative. Physical Exam Vital Signs (Past 24 Hours): Last Vital Signs Temp 36.7 C 11/05/18 20:58 Pulse 91 H 11/05/18 20:51 Resp 17 11/05/18 20:51 BP 110/77 11/05/18 20:50 Pulse Ox 100 11/05/18 20:58 Physical Exam: VITAL SIGNS - Vital signs and nursing notes were reviewed. GENERAL - 52-year-old male appearing his stated age who is in no acute distress. Communicates well with provider and answers questions appropriately. HEAD - NC/AT. EYES - PERRL with EOMI bilaterally. Sclera anicteric. EARS - No deformities of external structures noted on gross examination bilaterally. NOSE - Midline and without cyanosis. No epistaxis or purulent drainage noted. MOUTH/OROPHARYNX - Without perioral cyanosis. Buccal mucosa pink and moist and without leukoplakia. NECK - Neck with FROM. Supple to palpation. LUNGS - Chest wall symmetric without accessory muscle use, intercostals retractions, or central cyanosis. Normal vesicular breath sounds CTA B/L. No wheezes, rales, or rhonchi appreciated. CARDIAC - RRR with S1/S2. No murmur, rubs, or gallops appreciated. ABDOMEN - Abdominal contour flat without pulsations or visible masses. BS normoactive all four quadrants. No tenderness, palpable masses, hepatosplenomegaly, or ascites noted. EXTREMITIES - Surgical dressing in place to the RIGHT groin with now bleeding noted. No clubbing or peripheral cyanosis. No pretibial edema present. +3/5 radial and dorsalis pedis pulses palpated throughout. +4/5 strength noted in UE/LE bilaterally. NEUROLOGIC - Cranial nerves II through XII grossly intact. Sensory intact to li ght touch throughout. PSYCH - A&Ox3 and cooperates fully with examiner. Pt is very pleasant and interacts well with examiner.
[2018-11-05] MEDS: SODIUM CHLORIDE 0.9% 1000ML 1,000 ML IV SCH (21:27)
[2018-11-05] MEDS ORDERED: AUGMENTIN CONSULT PHARMACY PRN (21:27)
[2018-11-05] MEDS: HEPARIN SOD 5,000 UNIT/0.5 ML VIAL SQ SCH (21:27)
[2018-11-05] MEDS: AMOXICILLIN/CLAV POTAS 600 MG/42.9MG/5 ML 75 ML PO SCH (22:16)
[2018-11-05] MEDS ORDERED: ICU PROTOCOL FOR HYPERGLYCEMIA PRN (22:33)
[2018-11-05] MEDS: CLINDAMYCIN 600 MG in DEXTROSE 5% 50 ML IV SCH (23:15)
[2018-11-06 04:52] LABS: Basophils # (auto) 0.01 K/uL (0-0.2); Basophils % (auto) 0.1 %; Eosinophils # (auto) 0.48 K/uL (0-0.5); Eosinophils % (auto) 4.8 %; Hematocrit (blood only) 28.6 % (42-52); Hemoglobin 9.3 g/dL (14.0-18.0); Immature Granulocytes # (auto) 0.03 K/uL (0.00-0.02); Immature Granulocytes % (auto) 0.3 %; Lymphocytes # (auto) 0.83 K/uL (1.2-3.4); Lymphocytes % (auto) 8.3 %; Mean Corpuscular Hgb Conc 32.5 g/dL (32-36); Mean Corpuscular Volume 95.3 fL (80-100); Mean Platelet Volume 10.6 fL (7.4-10.4); Monocytes # (auto) 0.77 K/uL (0.11-0.59); Monocytes % (auto) 7.7 %; Neutrophils # (auto) 7.92 K/uL (1.4-6.5); Neutrophils % (auto) 78.8 %; Platelet Count 346 K/uL (130-400); RDW Standard Deviation 56.1 fL (36.4-46.3); White Blood Count 10.04 K/uL (4.8-10.8)
[2018-11-06] MEDS: SODIUM CHLORIDE 0.9% 1000ML 1,000 ML IV SCH ×3 (04:55→21:35)
[2018-11-06 05:15] LABS: BUN Creatinine Ratio 19.3 (10-20); Calcium 8.1 mg/dl (8.5-10.1); Creatinine Clr Calc Pharmacy 31.1 ml/min; Est GFR (African American) 28.1; Est GFR (Non-African American) 24.2; Magnesium 1.8 mg/dl (1.8-2.4); Potassium 3.8 mmol/L (3.5-5.1)
[2018-11-06 05:16] LABS: Phosphorus 5.8 mg/dl (2.5-4.9)
[2018-11-06] MEDS: OXYCODONE HCL IR 5 MG TAB (IMMEDIATE RELEASE) PEG PRN ×2 (05:58→09:45)
--- NOTE | 2018-11-06 06:58 | XRay Report ---
XR chest 1V portable HISTORY: 52 years-old Male f/u follow-up study in a patient with acute shortness of breath COMPARISON: Chest radiograph 09/02/2018 TECHNIQUE: Portable AP view of the chest FINDINGS: Status post placement of a right internal jugular dual-lumen hemodialysis catheter, distal tip termin ating in the expected location of the right atrium. No postprocedural pneumothorax. Cardiac silhouett e is enlarged, unchanged. Trace pleural effusions. Mild right hemidiaphragmatic elevation. Progressiv e mixed interstitial and alveolar opacities throughout the left lung with improved aeration of the ri ght. Persistent interstitial coarsening throughout the right lung. Bibasilar densities persist. Degen erative changes of the shoulders and spine. IMPRESSION: 1. Right internal jugular central venous catheter, distal tip terminating in the expected location of the right atrium. No postprocedural pneumothorax identified. 2. Cardiomegaly with trace effusions. 3. Mixed interstitial and alveolar opacities are most pronounced about the left lung suggestive of as ymmetric pulmonary edema or multifocal pneumonia. The above report was generated using voice recognition software. It may contain grammatical, syntax o r spelling errors. Electronically signed by: Giovanny Quintero M.D. 11/06/2018 6:57 AM
--- NOTE | 2018-11-06 07:01 | Critical Care Progress Note ---
Date of Service November 06, 2018 Assessment & Plan (1) Admitted to intensive care unit: Reason Critically Ill: 52-year-old male here for s/p r groin hematoma evacuation. Past medical history significant for anterior STEMI on 09/02 requiring PTCI with DESTINY x2, cardiogenic shock requiring impella, LAD dissection, ELISABETH requiring HD, EF of 35% Neuro: -CAM ICU: NEGATIVE -AAOx3 -Pain -tylenol, percocet, morphine Cardiac: -HX recent MIcomplication by cardiogenic shock requiring impella and ecmo -continue home cardiac meds -on tele Respiratory: -S/p fluid resuscitation and unit prbc, monitor for si/sx of volume overload GI: -Tube feeding, resume today RENAL/LYTES: -No significant electrolyte derangement. -Replace lytes as needed. -Was on HD T//Sat -Permacath right chest -HD per primary team, last HD Wednesday 11/01 -NSS @ 125mls/hr per Simioni : - Johnson in place ENDO: -Hyperglycemia protocol HEME: -HGB droped from 10.0->9.3 overnight, dilutional?. s/p 1 unit prbc post op -no si/sx of acute anemia or bleeding ID: -[] [No concerns for infection at this point.] -[Monitor fever curve.] INTEGUMENTARY: -[] LINES/IV ACCESS: -PIVs intact. DVT PROPHYLAXIS: -[] [Heparin gtt.] Dispo:[] Thank you for allowing us to be part of this patient's care. Please refer to []'s documentation for any further recommendations. Subjective Pt laying in bed this morning talking with visitor. Pt in no acute distress, did well overnight. Pt slept well, making good uring, has not had tube feeding since yesterday. No current concerns answered all questions. Pt continues to recover well Physical Exam Vital Signs (Past 24 Hours): Last Vital Signs Temp 36.7 C 11/06/18 04:11 Pulse 85 11/06/18 06:30 Resp 21 11/06/18 06:30 BP 102/62 11/06/18 06:30 Pulse Ox 96 11/06/18 06:30 Physical Exam: Gen: WD/WN, NAD Eyes: EOMI/PERRLA Neck: Trachea midline, -JVD Resp:CTAB/L Cards: RRR, did not appreciate any MRG, Nl S1/S2 ABD: soft, nontender, nondistended. Nl Bs, peg in place MSK: moves extremities Skin: warm dry intact, surgical site clean dry and intact Neuro: AAOx3, Cooperative Results & Data Laboratory Results 11/06/18 04:12 11/06/18 04:12 11/06/18 11/06/18 11/05/18 Range/Units 04:12 04:12 23:32 WBC 10.04 (4.8-10.8) K/uL RBC 3.00 L (4.7-6.1) M/uL Hgb 9.3 L (14.0-18.0) g/dL POC Hgb (14.0-18.0) g/dl Hct 28.6 L (42-52) % POC Hct (42-52) % MCV 95.3 (80-100) fL MCH 31.0 (25-34) pg MCHC 32.5 (32-36) g/dL RDW Std Deviation 56.1 H (36.4-46.3) fL RDW Coeff of Luna 16.0 H (11.5-14.5) % Plt Count 346 (130-400) K/uL MPV 10.6 H (7.4-10.4) fL Immature Gran % (Auto) 0.3 % Neut % (Auto) 78.8 % Lymph % (Auto) 8.3 % Garfield % (Auto) 7.7 % Eos % (Auto) 4.8 % Baso % (Auto) 0.1 % Immature Gran # (Auto) 0.03 H (0.00-0.02) K/uL Neut # (Auto) 7.92 H (1.4-6.5) K/uL Lymph # (Auto) 0.83 L (1.2-3.4) K/uL Garfield # (Auto) 0.77 H (0.11-0.59) K/uL Eos # (Auto) 0.48 (0-0.5) K/uL Baso # (Auto) 0.01 (0-0.2) K/uL PT (9.0-12.0) Seconds INR (0.9-1.1) POC Sodium (135-144) mEq/L Sodium 137 (136-145) mmol/L POC Potassium (3.3-5.0) mEq/L Potassium 3.8 (3.5-5.1) mmol/L POC Chloride (101-112) mEq/L Chloride 106 (98-107) mmol/L Carbon Dioxide 24 (21-32) mmol/L POC Total CO2 (24-31) mEq/l Anion Gap 7.0 (3-11) POC Anion Gap (16-25) mmol/L POC BUN (7-18) mg/dl BUN 55 H (7-18) mg/dl Creatinine 2.84 H (0.6-1.4) mg/dl POC Creatinine (0.6-1.3) mg/dl Est Cr Clr Drug Dosing 31.1 ml/min Est GFR ( Amer) 28.1 Est GFR (Non-Af Amer) 24.2 BUN/Creatinine Ratio 19.3 (10-20) Glucose 89 (70-99) mg/dl POC Glucose 105 H (70-99) POC Glucose (other) (70-99) mg/dl Calcium 8.1 L (8.5-10.1) mg/dl POC Ioniz Calcium Yoly (1.12-1.32) mmol/l Phosphorus 5.8 H (2.5-4.9) mg/dl Magnesium 1.8 (1.8-2.4) mg/dl Total Bilirubin (0.2-1) mg/dl AST (15-37) U/L ALT (12-78) U/L Alkaline Phosphatase (45-117) U/L Total Protein (6.4-8.2) gm/dl Albumin (3.4-5.0) gm/dl Globulin (2.5-4.0) gm/dl Albumin/Globulin Ratio (0.9-2) Nasal Screen MRSA (PCR) (Negative) Blood Type Blood Type Recheck Antibody Screen Crossmatch 11/05/18 11/05/18 11/05/18 Range/Units 21:25 20:36 20:36 WBC 10.37 (4.8-10.8) K/uL RBC 3.17 L (4.7-6.1) M/uL Hgb 10.0 L (14.0-18.0) g/dL POC Hgb (14.0-18.0) g/dl Hct 29.8 L (42-52) % POC Hct (42-52) % MCV 94.0 (80-100) fL MCH 31.5 (25-34) pg MCHC 33.6 (32-36) g/dL RDW Std Deviation 52.9 H (36.4-46.3) fL RDW Coeff of Luna 15.3 H (11.5-14.5) % Plt Count 351 (130-400) K/uL MPV 10.2 (7.4-10.4) fL Immature Gran % (Auto) 0.2 % Neut % (Auto) 79.7 % Lymph % (Auto) 8.3 % Garfield % (Auto) 8.4 % Eos % (Auto) 3.3 % Baso % (Auto) 0.1 % Immature Gran # (Auto) 0.02 (0.00-0.02) K/uL Neut # (Auto) 8.27 H (1.4-6.5) K/uL Lymph # (Auto) 0.86 L (1.2-3.4) K/uL Garfield # (Auto) 0.87 H (0.11-0.59) K/uL Eos # (Auto) 0.34 (0-0.5) K/uL Baso # (Auto) 0.01 (0-0.2) K/uL PT (9.0-12.0) Seconds INR (0.9-1.1) POC Sodium (135-144) mEq/L Sodium 138 (136-145) mmol/L POC Potassium (3.3-5.0) mEq/L Potassium 4.3 (3.5-5.1) mmol/L POC Chloride (101-112) mEq/L Chloride 107 (98-107) mmol/L Carbon Dioxide 22 (21-32) mmol/L POC Total CO2 (24-31) mEq/l Anion Gap 10.0 (3-11) POC Anion Gap (16-25) mmol/L POC BUN (7-18) mg/dl BUN 56 H (7-18) mg/dl Creatinine 2.99 H D (0.6-1.4) mg/dl POC Creatinine (0.6-1.3) mg/dl Est Cr Clr Drug Dosing 29.5 ml/min Est GFR ( Amer) 26.4 Est GFR (Non-Af Amer) 22.8 BUN/Creatinine Ratio 18.7 (10-20) Glucose 102 H (70-99) mg/dl POC Glucose (70-99) POC Glucose (other) (70-99) mg/dl Calcium 8.3 L (8.5-10.1) mg/dl POC Ioniz Calcium Yoly (1.12-1.32) mmol/l Phosphorus (2.5-4.9) mg/dl Magnesium 1.9 (1.8-2.4) mg/dl Total Bilirubin (0.2-1) mg/dl AST (15-37) U/L ALT (12-78) U/L Alkaline Phosphatase (45-117) U/L Total Protein (6.4-8.2) gm/dl Albumin (3.4-5.0) gm/dl Globulin (2.5-4.0) gm/dl Albumin/Globulin Ratio (0.9-2) Nasal Screen MRSA (PCR) Negative (Negative) Blood Type Blood Type Recheck Antibody Screen Crossmatch 11/05/18 11/05/18 11/05/18 Range/Units 18:24 18:19 17:06 WBC (4.8-10.8) K/uL RBC (4.7-6.1) M/uL Hgb (14.0-18.0) g/dL POC Hgb 10.5 L (14.0-18.0) g/dl Hct (42-52) % POC Hct 31 L (42-52) % MCV (80-100) fL MCH (25-34) pg MCHC (32-36) g/dL RDW Std Deviation (36.4-46.3) fL RDW Coeff of Luna (11.5-14.5) % Plt Count (130-400) K/uL MPV (7.4-10.4) fL Immature Gran % (Auto) % Neut % (Auto) % Lymph % (Auto) % Garfield % (Auto) % Eos % (Auto) % Baso % (Auto) % Immature Gran # (Auto) (0.00-0.02) K/uL Neut # (Auto) (1.4-6.5) K/uL Lymph # (Auto) (1.2-3.4) K/uL Garfield # (Auto) (0.11-0.59) K/uL Eos # (Auto) (0-0.5) K/uL Baso # (Auto) (0-0.2) K/uL PT (9.0-12.0) Seconds INR (0.9-1.1) POC Sodium 133 L (135-144) mEq/L Sodium (136-145) mmol/L POC Potassium 4.3 (3.3-5.0) mEq/L Potassium (3.5-5.1) mmol/L POC Chloride 96 L (101-112) mEq/L Chloride (98-107) mmol/L Carbon Dioxide (21-32) mmol/L POC Total CO2 25 (24-31) mEq/l Anion Gap (3-11) POC Anion Gap 16.0 (16-25) mmol/L POC BUN 59 H (7-18) mg/dl BUN (7-18) mg/dl Creatinine (0.6-1.4) mg/dl POC Creatinine 3.2 H (0.6-1.3) mg/dl Est Cr Clr Drug Dosing ml/min Est GFR ( Amer) Est GFR (Non-Af Amer) BUN/Creatinine Ratio (10-20) Glucose (70-99) mg/dl POC Glucose (70-99) POC Glucose (other) 99 (70-99) mg/dl Calcium (8.5-10.1) mg/dl POC Ioniz Calcium Yoly 1.18 (1.12-1.32) mmol/l Phosphorus (2.5-4.9) mg/dl Magnesium (1.8-2.4) mg/dl Total Bilirubin (0.2-1) mg/dl AST (15-37) U/L ALT (12-78) U/L Alkaline Phosphatase (45-117) U/L Total Protein (6.4-8.2) gm/dl Albumin (3.4-5.0) gm/dl Globulin (2.5-4.0) gm/dl Albumin/Globulin Ratio (0.9-2) Nasal Screen MRSA (PCR) (Negative) Blood Type O Positive Blood Type Recheck O Positive Antibody Screen NEGATIVE Crossmatch See Detail 04/10/19 04/10/19 04/10/19 Range/Units 17:06 17:06 17:06 WBC 9.99 (4.8-10.8) K/uL RBC 3.21 L (4.7-6.1) M/uL Hgb 10.1 L (14.0-18.0) g/dL POC Hgb (14.0-18.0) g/dl Hct 30.6 L (42-52) % POC Hct (42-52) % MCV 95.3 (80-100) fL MCH 31.5 (25-34) pg MCHC 33.0 (32-36) g/dL RDW Std Deviation 51.4 H (36.4-46.3) fL RDW Coeff of Luna 14.8 H (11.5-14.5) % Plt Count 373 (130-400) K/uL MPV 10.6 H (7.4-10.4) fL Immature Gran % (Auto) 0.4 % Neut % (Auto) 80.3 % Lymph % (Auto) 8.2 % Garfield % (Auto) 8.8 % Eos % (Auto) 2.2 % Baso % (Auto) 0.1 % Immature Gran # (Auto) 0.04 H (0.00-0.02) K/uL Neut # (Auto) 8.02 H (1.4-6.5) K/uL Lymph # (Auto) 0.82 L (1.2-3.4) K/uL Garfield # (Auto) 0.88 H (0.11-0.59) K/uL Eos # (Auto) 0.22 (0-0.5) K/uL Baso # (Auto) 0.01 (0-0.2) K/uL PT 10.6 (9.0-12.0) Seconds INR 1.0 (0.9-1.1) POC Sodium (135-144) mEq/L Sodium 132 L (136-145) mmol/L POC Potassium (3.3-5.0) mEq/L Potassium 4.2 (3.5-5.1) mmol/L POC Chloride (101-112) mEq/L Chloride 97 L (98-107) mmol/L Carbon Dioxide 28 (21-32) mmol/L POC Total CO2 (24-31) mEq/l Anion Gap 7.0 (3-11) POC Anion Gap (16-25) mmol/L POC BUN (7-18) mg/dl BUN 62 H (7-18) mg/dl Creatinine 3.38 H (0.6-1.4) mg/dl POC Creatinine (0.6-1.3) mg/dl Est Cr Clr Drug Dosing 26.1 ml/min Est GFR ( Amer) 22.7 Est GFR (Non-Af Amer) 19.6 BUN/Creatinine Ratio 18.2 (10-20) Glucose 105 H (70-99) mg/dl POC Glucose (70-99) POC Glucose (other) (70-99) mg/dl Calcium 9.2 (8.5-10.1) mg/dl POC Ioniz Calcium Yoly (1.12-1.32) mmol/l Phosphorus 5.5 H (2.5-4.9) mg/dl Magnesium (1.8-2.4) mg/dl Total Bilirubin 0.5 (0.2-1) mg/dl AST 23 (15-37) U/L ALT 23 (12-78) U/L Alkaline Phosphatase 65 (45-117) U/L Total Protein 6.8 (6.4-8.2) gm/dl Albumin 2.7 L (3.4-5.0) gm/dl Globulin 4.1 H (2.5-4.0) gm/dl Albumin/Globulin Ratio 0.7 L (0.9-2) Nasal Screen MRSA (PCR) (Negative) Blood Type Blood Type Recheck Antibody Screen Crossmatch Medications Administered Current Inpatient Medications Acetaminophen (Tylenol) 650 mg PEG Q4H PRN PRN Reason: PAIN ( 1-3 ) Stop: 12/05/18 19:33 Albuterol (Ventolin Hfa) 2 puffs INH Q4H PRN PRN Reason: Wheezing Stop: 12/05/18 19:33 Amiodarone HCl (Cordarone) 200 mg PO DAILY [facility] Stop: 12/06/18 08:59 Last Admin: 11/06/18 07:40 Dose: 200 mg Documented by: Amoxicillin/Clavulanate Potassium (Augmentin Es Susp) 500 mg PO BIDM [facility]; Protocol Stop: 11/15/18 21:59 Last Admin: 11/06/18 07:39 Dose: 500 mg Documented by: Aspirin (Aspirin Chew) 81 mg PEG QAM [facility] Stop: 12/06/18 08:59 Last Admin: 11/06/18 07:40 Dose: 81 mg Documented by: Bisacodyl (Dulcolax) 10 mg AL DAILY PRN PRN Reason: Constipation Stop: 12/05/18 19:33 Calcium Acetate (Phoslo) 667 mg PO TIDM JIMMY Stop: 12/06/18 07:59 Last Admin: 11/06/18 07:39 Dose: 667 mg Documented by: Clopidogrel Bisulfate (Plavix) 75 mg PEG DAILY JIMMY Stop: 12/06/18 08:59 Last Admin: 11/06/18 07:42 Dose: 75 mg Documented by: Colchicine (Colcrys) 0.3 mg PO MoFr@0900 [facility] Stop: 12/07/18 08:59 Glucagon (Glucagen) 1 mg SQ UD PRN PRN Reason: Hypoglycemia Stop: 12/05/18 19:33 Glucose (Glucose 40%) 15 gm PO UD PRN PRN Reason: Hypoglycemia Stop: 12/05/18 19:33 Guaifenesin/Codeine Phosphate (Robitussin-Ac Sugar Free) 10 ml PO Q4H PRN PRN Reason: Cough Stop: 12/05/18 19:33 Heparin Sodium (Porcine) (Heparin Sodium (Porcine)) 5,000 units SQ Q12 [facility] Stop: 12/05/18 20:59 Last Admin: 11/06/18 07:41 Dose: 5,000 units Documented by: Sodium Chloride (Nss 1000ml) 1,000 mls @ 125 mls/hr IV .Q8H [facility] Stop: 12/05/18 20:44 Last Admin: 11/06/18 04:55 Dose: 125 mls/hr Documented by: Clindamycin Phosphate 600 mg/ (Dextrose) 54 mls @ 100 mls/hr IV Q8H [facility] Stop: 11/06/18 08:33 Last Admin: 11/06/18 07:38 Dose: 100 mls/hr Documented by: Lansoprazole (Prevacid) 30 mg PEG QAM [facility] Stop: 12/06/18 08:59 Last Admin: 11/06/18 07:43 Dose: 30 mg Documented by: Midodrine (Proamatine) 5 mg PO TIDM [facility] Stop: 12/06/18 07:59 Last Admin: 11/06/18 07:40 Dose: 5 mg Documented by: Miscellaneous (Order Awaiting Action) 1 ea N/A QS JIMMY Stop: 12/06/18 00:00 Last Admin: 11/06/18 07:28 Dose: Not Given Documented by: Ceciliacellaneous (Icu Protocol For Hyperglycemia) 1 ea N/A PRN PRN; Protocol PRN Reason: Hyperglycemia Protocol Stop: 11/07/18 22:32 Miscellaneous Information (Pharmacy Consult) 1 ea N/A UD PRN PRN Reason: Consult Stop: 12/05/18 21:26 Morphine Sulfate (Morphine Sulfate) 1 - 4 mg IV Q2H PRN PRN Reason: Severe Pain Stop: 11/19/18 19:26 Oxycodone HCl (Roxicodone Immediate Rel) 5 mg PEG Q4H PRN PRN Reason: PAIN ( 4-10 ) Stop: 11/19/18 19:33 Last Admin: 11/06/18 05:58 Dose: 5 mg Documented by: Phenol (Chloraseptic 1.4% [place]) 1 sprays GT Q4H PRN PRN Reason: Sore Throat Stop: 12/05/18 19:33 Simethicone (Mylicon) 20 mg PO QAM JIMMY Stop: 12/06/18 08:59 Last Admin: 11/06/18 07:41 Dose: 20 mg Documented by: Sodium Biphosphate/Sodium Phosphate (Fleet Enema) 132 ml AL DAILY PRN PRN Reason: Constipation Stop: 12/05/18 19:33
--- NOTE | 2018-11-06 07:31 | Surgery Progress Note ---
Date of Service November 06, 2018 Assessment & Plan (1) Bleeding: At this point he is doing well from his surgical exploration of the right groin. No further bleeding was noted. We will transfer him to the floor today and start physical therapy. Most likely will be ready to go back to rehab tomorrow. Subjective The patient is not complaining of any groin pain at this time. All his only complaint is some discomfort behind his right knee which is chronic. His occurred while he was at [place] and at rehab. He denies any foot pain or numbness of the foot. Physical Exam Vital Signs (Past 24 Hours): Last Vital Signs Temp 36.7 C 11/06/18 04:11 Pulse 85 11/06/18 06:30 Resp 21 11/06/18 06:30 BP 102/62 11/06/18 06:30 Pulse Ox 96 11/06/18 06:30 Patient is awake and oriented x3 is in no apparent distress. His vital signs are stable. He is afebrile. Groin incision is dry and clean. There is no evidence of hematoma seen. He has good distal pulses in the right foot.
[2018-11-06] MEDS: CLINDAMYCIN 600 MG in DEXTROSE 5% 50 ML IV SCH (07:38)
[2018-11-06] MEDS: AMOXICILLIN/CLAV POTAS 600 MG/42.9MG/5 ML 75 ML PO SCH ×2 (07:39→19:54)
[2018-11-06] MEDS: CALCIUM ACETATE 667 MG CAP PO SCH ×3 (07:39→17:38)
[2018-11-06] MEDS: AMIODARONE 200 MG TAB PO SCH (07:40)
[2018-11-06] MEDS: ASPIRIN 81 MG CHEW PEG SCH (07:40)
[2018-11-06] MEDS: MIDODRINE HCL 2.5 MG TAB PO SCH ×3 (07:40→17:41)
[2018-11-06] MEDS: SIMETHICONE 80 MG CHEW PO SCH (07:41)
[2018-11-06] MEDS: HEPARIN SOD 5,000 UNIT/0.5 ML VIAL SQ SCH ×2 (07:41→21:27)
[2018-11-06] MEDS: CLOPIDOGREL BISULFATE 75 MG TAB PEG SCH (07:42)
[2018-11-06] MEDS: LANSOPRAZOLE 30 MG SOLTAB PEG SCH (07:43)
--- NOTE | 2018-11-06 09:43 | Nephrology Consultation ---
Date of Consultation November 06, 2018 Assessment & Plan (1) ELISABETH (acute kidney injury): A 52-year-old gentlemen with recent dialysis requiring acute kidney injury in the setting of cardiogenic shock. Renal function seems to be relatively stable with acceptable electrolytes. Non oliguric, volume status acceptable. Last dialysis was on 11/01/18. Has right IJ tunnel dialysis catheter. --continue to monitor off dialysis with daily renal panel. --continue low-potassium diet, hemodynamics support --will have dialysis nurse change tunnel dialysis catheter dressing --okay to be discharged to [facility] when clinically stable --monitor for renal recovery, if patient can be kept off of dialysis through the weekend, will plan to take tunnel catheter out next week Will follow Thank you for allowing me to participate in your patient's care. It was a pleasure to see Krzysztof (2) Hematoma of groin: (3) Anemia: (4) Arterial hemorrhage: History of Present Illness Reason for Consultation: Evaluation and management for recent dialysis requiring acute kidney injury. Attending Physician: Lisandro Gleason MD History of Present Illness Krzysztof Rivera is a 52-year-old gentlemen with past medical history significant for hypertension, AFib, coronary artery disease admitted to the hospital with right inguinal hematoma requiring emergency surgery. Nephrology consult was requested the to manage dialysis requiring acute kidney injury. Electronic medical records including labs and imaging are reviewed in detail during patient's visit. Krzysztof was initially admitted to the hospital on with acute anterior AMI. Had a stent placed in had 2 drug eluting stent placed in LAD and left circumflex. Surgery was complicated by LAD dissection, was repaired however patient went to cardiogenic shock and he had pressor Impella device placed. Was transferred to [facility] where he was on ECMO for almost 35 days. Hospital course was complicated by acute kidney injury requiring CVVH eventually he was transitioned to intermittent hemodialysis on Saturday. He was transferred to [facility] 2 weeks ago for rehab as clinically he became stable. Prolonged hospital course was complicated by vocal cord paralysis, he has been NPO and has a PEG tube placed. Evaluated by ENT last week and he was told that he will still need to be on PEG tube feeding and NPO for recovery from vocal cord paralysis. On 11/05/18, while at [facility] he was noted to have swelling in the right groin and he was sent to ER for further evaluation. While the right groin swelling was examined, the suture from right common femoral artery patch repair was ruptured and he had acute bleeding from right groin. He became hypotensive, but eventually clinically stabilized and taken to OR emergently and had repair done. He had 1 PRBC transfusion and 2 L of IV fluid. Hemoglobin this morning stable at 9.3. He was on intermittent hemodialysis via right IJ tunnel dialysis catheter on Saturday, , Saturday. He has been the non oliguric with good urine output. Blood pressure and volume status has been acceptable. Electrolytes are acceptable. He was seen last 2 weeks at [facility] and he was kept off of dialysis since 10/24/18 except 1 dialysis treatment on 11/01/2018 for hyperkalem ia. PEG tube feeding was changed to low-potassium diet. Since admission yesterday his electrolyte has been on all creatinine has been staying around 2.8 to 3.0, blood pressure is soft but stable. Allergies Allergy/AdvReac Type Severity Reaction Status Date / Time cefepime Allergy Unknown Unverified 11/05/18 19:27 vancomycin Allergy Unknown Unverified 11/05/18 19:25 Home Medications Home Medications Medication Instructions Recorded Confirmed Type acetaminophen 650 mg FEEDING TUBE Q4H PRN 11/05/18 11/05/18 History albuterol sulfate 2 puff INHALATION Q4H PRN 11/05/18 11/05/18 History amiodarone 200 mg FEEDING TUBE DAILY 11/05/18 11/05/18 History amoxicillin-pot clavulanate 1 tab FEEDING TUBE .DAILY@ LUNCH 11/05/18 11/05/18 History [Augmentin] amoxicillin-pot clavulanate 1 tab FEEDING TUBE UD 11/05/18 11/05/18 History [Augmentin] aspirin 81 mg FEEDING TUBE QAM 11/05/18 11/05/18 History bisacodyl 10 mg DE DAILY PRN 11/05/18 11/05/18 History calcium acetate 667 mg FEEDING TUBE TIDM 11/05/18 11/05/18 History clopidogrel 75 mg FEEDING TUBE DAILY 11/05/18 11/05/18 History codeine-guaifenesin 10 ml PO Q4H PRN 11/05/18 11/05/18 History colchicine 0.3 mg FEEDING TUBE UD 11/05/18 11/05/18 History darbepoetin ting in polysorbat 1 dose SUBCUT UD 11/05/18 11/05/18 History dextrose [Glucose Gel] 15 g PO UD PRN 11/05/18 11/05/18 History glucagon (human recombinant) 1 mg SUBCUT UD PRN 11/05/18 11/05/18 History heparin (porcine) 5,000 unit SUBCUT Q12H 11/05/18 11/05/18 History midodrine 5 mg FEEDING TUBE TIDM 11/05/18 11/05/18 History oxycodone 5 mg FEEDING TUBE Q4H PRN 11/05/18 11/05/18 History pantoprazole 40 mg FEEDING TUBE QAM 11/05/18 11/05/18 History phenol 1 spray MUCOUS MEMBRANE Q4H PRN 11/05/18 11/05/18 History saliva substitute combo no.3 1 spray MUCOUS MEMBRANE Q1H PRN 11/05/18 11/05/18 History simethicone 20 mg FEEDING TUBE QAM 11/05/18 11/05/18 History sodium phosphates [Fleet Enema] 118 ml DE DAILY PRN 11/05/18 11/05/18 History Patient History Medical History Facial cellulitis (Resolved) Acute renal failure CAD (coronary artery disease) Cardiogenic shock Hemodialysis patient Renal function recovering Hx of extracorporeal membrane oxygenation treatment Myocardial infarct Surgical History Hx of angioplasty History of tooth extraction Hx of LASIK Social History Preferred Language: Portuguese Communication Ability: Effective 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 Physical Exam Vital Signs (Past 24 Hours): Last Vital Signs Temp 36.7 C 11/06/18 08:00 Pulse 88 11/06/18 08:01 Resp 25 H 11/06/18 08:01 BP 103/63 11/06/18 08:00 Pulse Ox 98 11/06/18 08:01 Physical Exam: GENERAL: Middle-aged, AAA x 3, pleasant, healthy-appearing, not in any distress. HEENT: Atraumatic, normocephalic. NECK: Supple, no JVD, no carotid bruit appreciated. ENT: No sinus tenderness MOUTH and THROAT: Moist oral mucosa, RESPIRATORY: Normal breathing efforts, clear to auscultation bilaterally, no wheezes or rales. CARDIOVASCULAR: S1, S2 normal, rate rhythm regular. ABDOMEN: Soft, nontender, positive bowel sound. MUSCULOSKELETAL: No CVA tenderness. No joint swelling, erythema or tenderness. Normal range of motion. SKIN: No skin rash EXTREMITY: No lower extremity edema NEURO: No gross focal neurological deficit, speech fluent. PSYCHIATRY: Normal mood and judgment
[2018-11-06] MEDS: NOVASOURCE RENAL 2.0 CAL 1000ML BAG PEG SCH (13:03)
--- NOTE | 2018-11-06 16:19 | Cardiology Progress Note ---
Date of Service November 06, 2018 Assessment & Plan (1) Hematoma of groin: As per Dr. Gleason. No further bleeding. (2) Ischemic cardiomyopathy: He has not yet been started on beta-jack or KATHY-inhibitor secondary to the need for Midodrine for orthostatic symptoms. Would hope to wean midodrine over time and initiate guideline directed medical therapy if blood pressure allows in the future. He appears euvolemic on exam. He follows with heart fa ilure program at [facility] as he did require mechanical support in the form of ECMO during recent prolonged hospital stay after STEMI. Consideration for ICD if no improvement in LV systolic function. This will be managed by his primary rn support services Dr. Gabriel. (3) CAD (coronary artery disease), [place] coronary artery: He is status post LAD, LMCA, circumflex PCI in the setting of STEMI which resulted in cardiogenic shock/arrest requiring extended mechanical support in August of 2018. He is free of angina. He has been weaned from mechanical support. Hopefully LV systolic function shows further improvement over time. Continue dual anti-platelet therapy. Consider high-intensity statin therapy. Statin therapy had not yet been started due to possible shock liver during recent hospitalization. Dr. Gabriel plans on Re visiting this in the near future according to outpatient records. (4) Paroxysmal atrial fibrillation: Apparently had paroxysmal atrial fibrillation while hospitalized at [facility]. On amiodarone. Long-term anticoagulation to be decided upon by primary physicians but he presented during this hospitalization with right groin hematoma and had retroperitoneal bleed with psoas hematoma and abdominal compartment syndrome requiring intercostal coil embolectomy, drainage, and transfusion of 15 units of packed red blood cells at [facility]. Therefore, no anticoagulation was started at this time. (5) Nonsustained ventricular tachycardia: On amiodarone therapy. Can be managed as an outpatient. Disposition: Continue to follow-up with Dr. Gabriel as an outpatient when discharged. Please call with any other questions or concerns. Dr. Gleason and I discussed patient care via telephone earlier today. Subjective He denies chest pain, shortness of breath, syncope, palpitations, or edema. He d id have some lightheadedness after standing up this morning. He admits that he spends a lot of time in a supine position and he felt a bit lightheaded when standing up to transfer. He is hoping to complete rehab to regain his strength. He did go to the operating room yesterday with Dr. Gleason, and fortunately, there was no visualized arterial injury. Review of systems: As above. Physical Exam Vital Signs (Past 24 Hours): Last Vital Signs Temp 36.4 C L 11/06/18 15:25 Pulse 90 11/06/18 15:25 Resp 16 11/06/18 15:25 BP 98/62 L 11/06/18 15:25 Pulse Ox 95 11/06/18 15:25 Physical Exam: Gen.: No acute distress. Alert and oriented. HEENT: Anicteric sclera. Neck: No JVD. Cardiac: Regular. Normal S1-S2. No murmurs, rubs, or gallops. Pulmonary: Clear to auscultation bilaterally without wheezes, rales, or rhonchi. Abdomen: Soft, nontender, nondistended, with normoactive bowel sounds. Extremities: No edema or cyanosis. Right groin surgical site with dressing in place. Psychiatric: Affect appears appropriate. Results & Data Laboratory Results Laboratory Results - last 24 hr 11/05/18 11/05/18 11/05/18 17:06 17:06 17:06 WBC 9.99 RBC 3.21 L Hgb 10.1 L POC Hgb Hct 30.6 L POC Hct MCV 95.3 MCH 31.5 MCHC 33.0 RDW Std Deviation 51.4 H RDW Coeff of Luna 14.8 H Plt Count 373 MPV 10.6 H Immature Gran % (Auto) 0.4 Neut % (Auto) 80.3 Lymph % (Auto) 8.2 [place] % (Auto) 8.8 Eos % (Auto) 2.2 Baso % (Auto) 0.1 Immature Gran # (Auto) 0.04 H Neut # (Auto) 8.02 H Lymph # (Auto) 0.82 L [place] # (Auto) 0.88 H Eos # (Auto) 0.22 Baso # (Auto) 0.01 PT 10.6 INR 1.0 POC Sodium Sodium 132 L POC Potassium Potassium 4.2 POC Chloride Chloride 97 L Carbon Dioxide 28 POC Total CO2 Anion Gap 7.0 POC Anion Gap POC BUN BUN 62 H Creatinine 3.38 H POC Creatinine Est Cr Clr Drug Dosing 26.1 Est GFR ( Amer) 22.7 Est GFR (Non-Af Amer) 19.6 BUN/Creatinine Ratio 18.2 Glucose 105 H POC Glucose POC Glucose (other) Calcium 9.2 POC Ioniz Calcium Yoly Phosphorus 5.5 H Magnesium Total Bilirubin 0.5 AST 23 ALT 23 Alkaline Phosphatase 65 Total Protein 6.8 Albumin 2.7 L Globulin 4.1 H Albumin/Globulin Ratio 0.7 L Nasal Screen MRSA (PCR) Blood Type Blood Type Recheck Antibody Screen Crossmatch 11/05/18 11/05/18 11/05/18 17:06 18:19 18:24 WBC RBC Hgb POC Hgb 10.5 L Hct POC Hct 31 L MCV MCH MCHC RDW Std Deviation RDW Coeff of Luna Plt Count MPV Immature Gran % (Auto) Neut % (Auto) Lymph % (Auto) [place] % (Auto) Eos % (Auto) Baso % (Auto) Immature Gran # (Auto) Neut # (Auto) Lymph # (Auto) [place] # (Auto) Eos # (Auto) Baso # (Auto) PT INR POC Sodium 133 L Sodium POC Potassium 4.3 Potassium POC Chloride 96 L Chloride Carbon Dioxide POC Total CO2 25 Anion Gap POC Anion Gap 16.0 POC BUN 59 H BUN Creatinine POC Creatinine 3.2 H Est Cr Clr Drug Dosing Est GFR ( Amer) Est GFR (Non-Af Amer) BUN/Creatinine Ratio Glucose POC Glucose POC Glucose (other) 99 Calcium POC Ioniz Calcium Yoly 1.18 Phosphorus Magnesium Total Bilirubin AST ALT Alkaline Phosphatase Total Protein Albumin Globulin Albumin/Globulin Ratio Nasal Screen MRSA (PCR) Blood Type O Positive Blood Type Recheck O Positive Antibody Screen NEGATIVE Crossmatch See Detail 11/05/18 11/05/18 11/05/18 20:36 20:36 21:25 WBC 10.37 RBC 3.17 L Hgb 10.0 L POC Hgb Hct 29.8 L POC Hct MCV 94.0 MCH 31.5 MCHC 33.6 RDW Std Deviation 52.9 H RDW Coeff of Luna 15.3 H Plt Count 351 MPV 10.2 Immature Gran % (Auto) 0.2 Neut % (Auto) 79.7 Lymph % (Auto) 8.3 [place] % (Auto) 8.4 Eos % (Auto) 3.3 Baso % (Auto) 0.1 Immature Gran # (Auto) 0.02 Neut # (Auto) 8.27 H Lymph # (Auto) 0.86 L [place] # (Auto) 0.87 H Eos # (Auto) 0.34 Baso # (Auto) 0.01 PT INR POC Sodium Sodium 138 POC Potassium Potassium 4.3 POC Chloride Chloride 107 Carbon Dioxide 22 POC Total CO2 Anion Gap 10.0 POC Anion Gap POC BUN BUN 56 H Creatinine 2.99 H D POC Creatinine Est Cr Clr Drug Dosing 29.5 Est GFR ( Amer) 26.4 Est GFR (Non-Af Amer) 22.8 BUN/Creatinine Ratio 18.7 Glucose 102 H POC Glucose POC Glucose (other) Calcium 8.3 L POC Ioniz Calcium Yoly Phosphorus Magnesium 1.9 Total Bilirubin AST ALT Alkaline Phosphatase Total Protein Albumin Globulin Albumin/Globulin Ratio Nasal Screen MRSA (PCR) Negative Blood Type Blood Type Recheck Antibody Screen Crossmatch 11/05/18 11/06/18 11/06/18 23:32 04:12 04:12 WBC 10.04 RBC 3.00 L Hgb 9.3 L POC Hgb Hct 28.6 L POC Hct MCV 95.3 MCH 31.0 MCHC 32.5 RDW Std Deviation 56.1 H RDW Coeff of Luna 16.0 H Plt Count 346 MPV 10.6 H Immature Gran % (Auto) 0.3 Neut % (Auto) 78.8 Lymph % (Auto) 8.3 [place] % (Auto) 7.7 Eos % (Auto) 4.8 Baso % (Auto) 0.1 Immature Gran # (Auto) 0.03 H Neut # (Auto) 7.92 H Lymph # (Auto) 0.83 L [place] # (Auto) 0.77 H Eos # (Auto) 0.48 Baso # (Auto) 0.01 PT INR POC Sodium Sodium 137 POC Potassium Potassium 3.8 POC Chloride Chloride 106 Carbon Dioxide 24 POC Total CO2 Anion Gap 7.0 POC Anion Gap POC BUN BUN 55 H Creatinine 2.84 H POC Creatinine Est Cr Clr Drug Dosing 31.1 Est GFR ( Amer) 28.1 Est GFR (Non-Af Amer) 24.2 BUN/Creatinine Ratio 19.3 Glucose 89 POC Glucose 105 H POC Glucose (other) Calcium 8.1 L POC Ioniz Calcium Yoly Phosphorus 5.8 H Magnesium 1.8 Total Bilirubin AST ALT Alkaline Phosphatase Total Protein Albumin Globulin Albumin/Globulin Ratio Nasal Screen MRSA (PCR) Blood Type Blood Type Recheck Antibody Screen Crossmatch Diagnostic Findings Right inguinal ultrasound 11/05/2018: Right inguinal complex collection 9 x 7 x 7 cm; suggestive of post procedural organizing hematoma. Medications Administered Current Inpatient Medications Acetaminophen (Tylenol) 650 mg PEG Q4H PRN PRN Reason: PAIN ( 1-3 ) Stop: 12/05/18 19:33 Albuterol (Ventolin Hfa) 2 puffs INH Q4H PRN PRN Reason: Wheezing Stop: 12/05/18 19:33 Amiodarone HCl (Cordarone) 200 mg PO DAILY [facility] Stop: 12/06/18 08:59 Last Admin: 11/06/18 07:40 Dose: 200 mg Documented by: Amoxicillin/Clavulanate Potassium (Augmentin Es Susp) 500 mg PO BIDM [facility]; Protocol Stop: 11/15/18 21:59 Last Admin: 11/06/18 07:39 Dose: 500 mg Documented by: Aspirin (Aspirin Chew) 81 mg PEG QAM [facility] Stop: 12/06/18 08:59 Last Admin: 11/06/18 07:40 Dose: 81 mg Documented by: Bisacodyl (Dulcolax) 10 mg [place] DAILY PRN PRN Reason: Constipation Stop: 12/05/18 19:33 Calcium Acetate (Phoslo) 667 mg PO TIDM [facility] Stop: 12/06/18 07:59 Last Admin: 11/06/18 13:03 Dose: 667 mg Documented by: Clopidogrel Bisulfate (Plavix) 75 mg PEG DAILY [facility] Stop: 12/06/18 08:59 Last Admin: 11/06/18 07:42 Dose: 75 mg Documented by: Colchicine (Colcrys) 0.3 mg PO MoFr@0900 [facility] Stop: 12/07/18 08:59 Enteral Nutritional Formula (Novasource Renal) 1,000 ml PEG 1030 [facility]; Protocol Stop: 12/06/18 10:29 Last Admin: 11/06/18 13:03 Dose: 1,000 ml Documented by: Glucagon (Glucagen) 1 mg SQ UD PRN PRN Reason: Hypoglycemia Stop: 12/05/18 19:33 Glucose (Glucose 40%) 15 gm PO UD PRN PRN Reason: Hypoglycemia Stop: 12/05/18 19:33 Guaifenesin/Codeine Phosphate (Robitussin-Ac Sugar Free) 10 ml PO Q4H PRN PRN Reason: Cough Stop: 12/05/18 19:33 Heparin Sodium (Porcine) (Heparin Sodium (Porcine)) 5,000 units SQ Q12 [facility] Stop: 12/05/18 20:59 Last Admin: 11/06/18 07:41 Dose: 5,000 units Documented by: Sodium Chloride (Nss 1000ml) 1,000 mls @ 125 mls/hr IV .Q8H [facility] Stop: 12/05/18 20:44 Last Admin: 11/06/18 13:37 Dose: 125 mls/hr Documented by: Lansoprazole (Prevacid) 30 mg PEG QAM [facility] Stop: 12/06/18 08:59 Last Admin: 11/06/18 07:43 Dose: 30 mg Documented by: Midodrine (Proamatine) 5 mg PO TIDM [facility] Stop: 12/06/18 07:59 Last Admin: 11/06/18 13:03 Dose: 5 mg Documented by: Miscellaneous (Order Awaiting Action) 1 ea N/A QS [facility] Stop: 12/06/18 00:00 Last Admin: 11/06/18 07:28 Dose: Not Given Documented by: Miscellaneous Information (Pharmacy Consult) 1 ea N/A UD PRN PRN Reason: Consult Stop: 12/05/18 21:26 Morphine Sulfate (Morphine Sulfate) 1 - 4 mg IV Q2H PRN PRN Reason: Severe Pain Stop: 11/19/18 19:26 Oxycodone HCl (Roxicodone Immediate Rel) 5 mg PEG Q4H PRN PRN Reason: PAIN ( 4-10 ) Stop: 11/19/18 19:33 Last Admin: 11/06/18 09:45 Dose: 5 mg Documented by: Phenol (Chloraseptic 1.4% [place]) 1 sprays GT Q4H PRN PRN Reason: Sore Throat Stop: 12/05/18 19:33 Simethicone (Mylicon) 20 mg PO QAM [facility] Stop: 12/06/18 08:59 Last Admin: 11/06/18 07:41 Dose: 20 mg Documented by: Sodium Biphosphate/Sodium Phosphate (Fleet Enema) 132 ml [place] DAILY PRN PRN Reason: Constipation Stop: 12/05/18 19:33
[2018-11-07] MEDS: SODIUM CHLORIDE 0.9% 1000ML 1,000 ML IV SCH ×3 (05:02→20:25)
--- NOTE | 2018-11-07 08:25 | Nephrology Progress Note ---
Date of Service November 07, 2018 Assessment & Plan (1) ELISABETH (acute kidney injury): A 52-year-old gentlemen with recent dialysis requiring acute kidney injury in the setting of cardiogenic shock. Renal function seems to be relatively stable with acceptable electrolytes. Non oliguric, volume status acceptable. Last dialysis was on 11/01/18. Has right IJ tunnel dialysis catheter. Labs from this morning pending, if there is any electrolyte abnormality or worsening renal function, will resume dialysis. --continue to monitor off dialysis with daily renal panel. Dialysis catheter dressing was changed yesterday, his infection. --continue low-potassium PEG feeding, hemodynamics support --okay to be discharged to [facility] when clinically stable --monitor for renal recovery, if patient can be kept off of dialysis through the weekend, will plan to take tunnel catheter out next week Will follow (2) Hematoma of groin: (3) Anemia: (4) Arterial hemorrhage: Stephen Blankenship was seen examined in his room this morning. His overall feeling well except having some cough. No bleeding from right groin site. Hemoglobin stable. Lab from this morning pending. Remain non-oliguric. Blood pressure low but asymptomatic Physical Exam Vital Signs (Past 24 Hours): Last Vital Signs Temp 37.0 C 11/07/18 07:49 Pulse 97 H 11/07/18 07:49 Resp 18 11/07/18 07:49 BP 98/62 L 11/07/18 07:49 Pulse Ox 93 11/07/18 07:49 Constitutional: WD/WN, vitals as above + ill appearing Neck: supple Respiratory: normal respiratory effort, lungs clear to auscultation Cardiovascular: RRR, no murmur, no edema Neurologic: moves all extremities and awake Psychiatric: A+Ox3, euthymic affect
[2018-11-07] MEDS: CHLORASEPTIC 1.4% SOLN 180 ML BTL GT PRN ×2 (08:30→13:00)
[2018-11-07 08:36] LABS: Albumin Level 2.5 gm/dl (3.4-5.0); BUN Creatinine Ratio 17.2 (10-20); Calcium 8.8 mg/dl (8.5-10.1); Creatinine Clr Calc Pharmacy 30.5 ml/min; Est GFR (African American) 27.5; Est GFR (Non-African American) 23.7; Potassium 4.1 mmol/L (3.5-5.1)
[2018-11-07 08:39] LABS: Phosphorus 3.7 mg/dl (2.5-4.9)
[2018-11-07] MEDS: OXYCODONE HCL IR 5 MG TAB (IMMEDIATE RELEASE) PEG PRN (09:21)
[2018-11-07] MEDS: GUAIFENESIN/CODEINE 200MG/20MG 10ML UDC PO PRN ×3 (09:21→23:59)
[2018-11-07] MEDS: SIMETHICONE 80 MG CHEW PO SCH (09:22)
[2018-11-07] MEDS: MIDODRINE HCL 2.5 MG TAB PO SCH ×3 (09:23→16:06)
[2018-11-07] MEDS: COLCHICINE 0.6 MG TAB PO SCH (09:23)
[2018-11-07] MEDS: ASPIRIN 81 MG CHEW PEG SCH (09:24)
[2018-11-07] MEDS: LANSOPRAZOLE 30 MG SOLTAB PEG SCH (09:24)
[2018-11-07] MEDS: CALCIUM ACETATE 667 MG CAP PO SCH ×3 (09:25→16:05)
[2018-11-07] MEDS: AMIODARONE 200 MG TAB PO SCH (09:27)
[2018-11-07] MEDS: CLOPIDOGREL BISULFATE 75 MG TAB PEG SCH (09:28)
[2018-11-07] MEDS: HEPARIN SOD 5,000 UNIT/0.5 ML VIAL SQ SCH ×2 (09:33→20:25)
[2018-11-07] MEDS: AMOXICILLIN/CLAV POTAS 600 MG/42.9MG/5 ML 75 ML PO SCH ×2 (09:33→16:06)
--- NOTE | 2018-11-07 12:10 | Surgery Progress Note ---
Date of Service November 07, 2018 Assessment & Plan (1) S/P vascular surgery: Pt doing well post op from R groin exploaration. Discussed with Dr Gleason, recommends d/c to rehab when placement arranged. Present on Admission?: Yes (2) Hematoma of groin: Now s/p RLE exploration. Present on Admission?: Yes Subjective 52 yo m with multiple significant medical problems, POD #2 after R groin exploration for bleeding, seen in f/u today. Pt admits chronic pain in BLE knees, likely arthritis. Has been OOB to chair and ambulating with walker. Pt states minimal pain in R groin. Denies any other complaints. Physical Exam Vital Signs (Past 24 Hours): Last Vital Signs Temp 37.0 C 11/07/18 07:49 Pulse 97 H 11/07/18 07:49 Resp 18 11/07/18 07:49 BP 98/62 L 11/07/18 07:49 Pulse Ox 93 11/07/18 07:49 Constitutional: WD/WN, vitals as above Respiratory: normal respiratory effort, lungs clear to auscultation Cardiovascular: Rate/Rhythm: regular rate and regular rhythm Extremities: + edema (+2 BLE ankles, slightly worse RLE) Gastrointestinal (Abdomen): normal bowel sounds, soft, nontender, no hepatosplenomegaly (g tube noted) Musculoskeletal: no cyanosis or clubbing, extremities motor strength 5/5 Skin: + incision (R groin C/I with staple.Mild edema, small amt bloody/serous drain) Psychiatric: A+Ox3, euthymic affect Orientation: alert and oriented x 3
[2018-11-07] MEDS: NOVASOURCE RENAL 2.0 CAL 1000ML BAG PEG SCH (12:58)
[2018-11-08] MEDS: SODIUM CHLORIDE 0.9% 1000ML 1,000 ML IV SCH ×3 (04:13→21:03)
[2018-11-08 07:50] LABS: Albumin Level 2.2 gm/dl (3.4-5.0); BUN Creatinine Ratio 17.7 (10-20); Calcium 8.7 mg/dl (8.5-10.1); Creatinine Clr Calc Pharmacy 36.1 ml/min; Est GFR (African American) 30.5; Est GFR (Non-African American) 26.3; Potassium 3.7 mmol/L (3.5-5.1)
[2018-11-08 07:51] LABS: Phosphorus 3.1 mg/dl (2.5-4.9)
[2018-11-08] MEDS: AMOXICILLIN/CLAV POTAS 600 MG/42.9MG/5 ML 75 ML PO SCH ×2 (08:08→17:39)
[2018-11-08] MEDS: LANSOPRAZOLE 30 MG SOLTAB PEG SCH (08:08)
[2018-11-08] MEDS: ASPIRIN 81 MG CHEW PEG SCH (08:09)
[2018-11-08] MEDS: AMIODARONE 200 MG TAB PO SCH (08:09)
[2018-11-08] MEDS: SIMETHICONE 80 MG CHEW PO SCH (08:09)
[2018-11-08] MEDS: CLOPIDOGREL BISULFATE 75 MG TAB PEG SCH (08:09)
[2018-11-08] MEDS: HEPARIN SOD 5,000 UNIT/0.5 ML VIAL SQ SCH ×2 (08:10→21:09)
[2018-11-08] MEDS: MIDODRINE HCL 2.5 MG TAB PO SCH ×3 (08:10→17:39)
[2018-11-08] MEDS: CALCIUM ACETATE 667 MG CAP PO SCH ×3 (08:10→17:42)
--- NOTE | 2018-11-08 08:55 | Surgery Progress Note ---
Date of Service November 08, 2018 Assessment & Plan (1) Bleeding: At this point he is doing well from his surgical exploration of the right groin. We await transfer to rehab. Subjective The patient is not complaining of any groin pain at this time. He has no complaints of the leg today. He does have a small amount of serous drainage in the right groin collection of fluid is noted. Physical Exam Vital Signs (Past 24 Hours): Last Vital Signs Temp 36.6 C 11/08/18 08:00 Pulse 105 H 11/08/18 08:00 Resp 16 11/08/18 08:00 BP 117/78 11/08/18 08:00 Pulse Ox 90 11/08/18 08:00 Patient awake oriented x3 is in no apparent distress. He has a small amount of serous drainage from the right groin. No hematoma or fluid collections noted.
[2018-11-08] MEDS: NOVASOURCE RENAL 2.0 CAL 1000ML BAG PEG SCH (11:19)
--- NOTE | 2018-11-08 12:18 | Nephrology Progress Note ---
Date of Service November 08, 2018 Assessment & Plan (1) ELISABETH (acute kidney injury): A 52-year-old gentlemen with recent dialysis requiring acute kidney injury in the setting of cardiogenic shock. Renal function seems to be relatively stable with acceptable electrolytes. Non oliguric, volume status acceptable. Last dialysis was on 11/01/18. Has right IJ tunnel dialysis catheter. Renal function slightly improved, electrolyte acceptable. --continue to monitor off dialysis with daily renal panel. If renal function continues to improve and normal for dialysis over the weekend, will plan to removed 100 can dialysis catheter Saturday --check CBC stat --continue low-potassium PEG feeding, hemodynamics support --okay to be discharged to [facility] when clinically stable Will follow (2) Hematoma of groin: (3) Anemia: (4) Arterial hemorrhage: Subjective Krzysztof was seen examined in his room this morning with family at bedside He is having caugh, SOba nd overall fatigued. No bleeding from right groin site. Remain non-oliguric. Blood pressure low but asymptomatic. Renal function slightly improved, electrolyte acceptable. Physical Exam Vital Signs (Past 24 Hours): Last Vital Signs Temp 36.6 C 11/08/18 08:00 Pulse 105 H 11/08/18 08:00 Resp 16 11/08/18 08:00 BP 117/78 11/08/18 08:00 Pulse Ox 90 11/08/18 08:00 Constitutional: WD/WN, vitals as above + ill appearing Respiratory: normal respiratory effort, lungs clear to auscultation Cardiovascular: RRR, no murmur, no edema Neurologic: moves all extremities and awake Psychiatric: A+Ox3, euthymic affect
[2018-11-08 12:35] LABS: Hematocrit (blood only) 29.6 % (42-52); Hemoglobin 9.5 g/dL (14.0-18.0); Mean Corpuscular Volume 96.4 fL (80-100); Platelet Count 447 K/uL (130-400); RDW Coefficient of Variation 15.8 % (11.5-14.5); RDW Standard Deviation 55.6 fL (36.4-46.3); Red Blood Count 3.07 M/uL (4.7-6.1); White Blood Count 12.03 K/uL (4.8-10.8)
[2018-11-08 12:37] LABS: Mean Corpuscular Hgb Conc 32.1 g/dL (32-36)
[2018-11-08] MEDS: ALBUT/IPRATROP 3MG/0.5MG NEB 3 ML VIAL NEB SCH ×2 (15:50→19:38)
[2018-11-08] MEDS: OXYCODONE HCL IR 5 MG TAB (IMMEDIATE RELEASE) PEG PRN (17:41)
[2018-11-08] MEDS: CHLORASEPTIC 1.4% SOLN 180 ML BTL GT PRN (18:18)
[2018-11-08] MEDS: GUAIFENESIN/CODEINE 200MG/20MG 10ML UDC PO PRN (18:24)
[2018-11-09] MEDS: SODIUM CHLORIDE 0.9% 1000ML 1,000 ML IV SCH ×3 (03:47→21:06)
[2018-11-09] MEDS: ALBUT/IPRATROP 3MG/0.5MG NEB 3 ML VIAL NEB SCH ×2 (07:10→11:30)
[2018-11-09 07:13] LABS: Hematocrit (blood only) 28.8 % (42-52); Mean Corpuscular Hgb Conc 31.3 g/dL (32-36); Platelet Count 510 K/uL (130-400); RDW Coefficient of Variation 15.7 % (11.5-14.5); RDW Standard Deviation 56.8 fL (36.4-46.3); Red Blood Count 2.94 M/uL (4.7-6.1); White Blood Count 13.38 K/uL (4.8-10.8)
[2018-11-09 07:42] LABS: Albumin Level 2.3 gm/dl (3.4-5.0); BUN Creatinine Ratio 18.8 (10-20); Calcium 8.7 mg/dl (8.5-10.1); Creatinine Clr Calc Pharmacy 38.4 ml/min; Est GFR (African American) 32.9; Est GFR (Non-African American) 28.4; Phosphorus 2.9 mg/dl (2.5-4.9); Potassium 3.7 mmol/L (3.5-5.1)
[2018-11-09] MEDS: CLOPIDOGREL BISULFATE 75 MG TAB PEG SCH (09:14)
[2018-11-09] MEDS: CALCIUM ACETATE 667 MG CAP PO SCH ×3 (09:14→17:19)
[2018-11-09] MEDS: MIDODRINE HCL 2.5 MG TAB PO SCH ×3 (09:15→17:20)
[2018-11-09] MEDS: AMIODARONE 200 MG TAB PO SCH (09:17)
[2018-11-09] MEDS: LANSOPRAZOLE 30 MG SOLTAB PEG SCH (09:18)
[2018-11-09] MEDS: SIMETHICONE 80 MG CHEW PO SCH (09:18)
[2018-11-09] MEDS: ASPIRIN 81 MG CHEW PEG SCH (10:22)
[2018-11-09] MEDS: AMOXICILLIN/CLAV POTAS 600 MG/42.9MG/5 ML 75 ML PO SCH ×2 (10:22→17:19)
[2018-11-09] MEDS: HEPARIN SOD 5,000 UNIT/0.5 ML VIAL SQ SCH ×2 (10:22→21:12)
[2018-11-09] MEDS: NOVASOURCE RENAL 2.0 CAL 1000ML BAG PEG SCH (11:09)
[2018-11-09] MEDS ORDERED: ALBUT/IPRATROP 3MG/0.5MG NEB 3 ML VIAL NEB PRN (11:33)
--- NOTE | 2018-11-09 11:35 | Nephrology Progress Note ---
Date of Service November 09, 2018 Assessment & Plan (1) ELISABETH (acute kidney injury): A 52-year-old gentlemen with recent dialysis requiring acute kidney injury in the setting of cardiogenic shock. Non oliguric, volume status acceptable. Last dialysis was on 11/01/18. Has right IJ tunnel dialysis catheter. Renal function has been slowly improving off of dialysis for last more than a week. --continue to monitor off dialysis with daily renal panel. Expect renal function to continue to improve. If renal function continues to improve , will schedule to remove tunnel dialysis catheter --continue low-potassium PEG feeding, hemodynamics support --okay to be discharged to [facility] when clinically stable --once he is discharged to rehab he should have renal panel checked at least twice a week --follow-up in CKD clinic in next 2-3 weeks Will follow (2) Hematoma of groin: (3) Anemia: (4) Arterial hemorrhage: Stephen Blankenship was seen examined in his room this morning with family at bedside. Overall feeling better, cough and shortness of breath improved No bleeding from right groin site. Remain non-oliguric. Blood pressure low but asymptomatic. Renal function continues to improve slowly, electrolyte acceptable. Hemoglobin low but stable. Physical Exam Vital Signs (Past 24 Hours): Last Vital Signs Temp 37.1 C 11/09/18 07:50 Pulse 108 H 11/09/18 07:50 Resp 18 11/09/18 07:50 BP 119/76 11/09/18 07:50 Pulse Ox 96 11/09/18 07:50 Constitutional: WD/WN, vitals as above + ill appearing Respiratory: normal respiratory effort, lungs clear to auscultation Cardiovascular: RRR, no murmur, no edema Neurologic: moves all extremities and awake Psychiatric: A+Ox3, euthymic affect
[2018-11-09] MEDS: GUAIFENESIN/CODEINE 200MG/20MG 10ML UDC PO PRN (15:40)
[2018-11-09] MEDS ORDERED: ALPRAZolam 0.5 MG TABLET PEG STA (23:35)
[2018-11-10] MEDS ORDERED: LORazepam 0.5 MG/1 ML VIAL IV ONE (01:45)
[2018-11-10] MEDS: SODIUM CHLORIDE 0.9% 1000ML 1,000 ML IV SCH (04:58)
[2018-11-10 06:51] LABS: Albumin Level 2.4 gm/dl (3.4-5.0); BUN Creatinine Ratio 19.6 (10-20); Creatinine Clr Calc Pharmacy 40.9 ml/min; Est GFR (African American) 34.8; Phosphorus 2.8 mg/dl (2.5-4.9); Potassium 3.6 mmol/L (3.5-5.1)
[2018-11-10] MEDS: AMIODARONE 200 MG TAB PO SCH (09:45)
[2018-11-10] MEDS: CALCIUM ACETATE 667 MG CAP PO SCH (09:46)
[2018-11-10] MEDS: CLOPIDOGREL BISULFATE 75 MG TAB PEG SCH (09:46)
[2018-11-10] MEDS: SIMETHICONE 80 MG CHEW PO SCH (09:46)
[2018-11-10] MEDS: MIDODRINE HCL 2.5 MG TAB PO SCH (09:47)
[2018-11-10] MEDS: LANSOPRAZOLE 30 MG SOLTAB PEG SCH (09:47)
[2018-11-10] MEDS: COLCHICINE 0.6 MG TAB PO SCH (09:48)
[2018-11-10] MEDS: HEPARIN SOD 5,000 UNIT/0.5 ML VIAL SQ SCH (09:50)
[2018-11-10] MEDS: ASPIRIN 81 MG CHEW PEG SCH (09:54)
[2018-11-10] MEDS: AMOXICILLIN/CLAV POTAS 600 MG/42.9MG/5 ML 75 ML PO SCH (09:54)
--- NOTE | 2018-11-10 10:06 | Surgery Progress Note ---
Date of Service November 10, 2018 Assessment & Plan (1) S/P vascular surgery: Pt doing well post op from R groin exploration. OK for d/c to rehab when transportation arranged. Also discussed with Nephrology, does not feel pt needs HD today. Further HD can be performed at [facility] if needed. (2) Hematoma of groin: Now s/p RLE exploration. Subjective 52 yo m with multiple significant medical problems, POD #5 after R groin exploration for bleeding, seen in f/u today. Pt states having some anxiety d/t remaining in [facility] longer than planned. Pt states minimal pain in R groin. Denies any other complaints. Physical Exam Vital Signs (Past 24 Hours): Last Vital Signs Temp 36.7 C 11/10/18 08:13 Pulse 106 H 11/10/18 09:27 Resp 26 H 11/10/18 09:27 BP 126/85 11/10/18 09:27 Pulse Ox 89 L 11/10/18 09:27 Constitutional: WD/WN, vitals as above Respiratory: normal respiratory effort, lungs clear to auscultation Cardiovascular: Rate/Rhythm: regular rate and regular rhythm (irregular) Extremities: + edema (mild generalized edema) Gastrointestinal (Abdomen): normal bowel sounds, soft, nontender, no hepatosplenomegaly (g tube noted) Musculoskeletal: no cyanosis or clubbing, extremities motor strength 5/5 Skin: + incision (R groin C/I with staple.Mild edema, small amt bloody/serous drain) Psychiatric: Orientation: alert and oriented x 3 Speech: normal rate/rhythm/volume of speech Affect: + anxious affect Mood: + anxious mood Insight: good insight
--- NOTE | 2018-11-10 10:12 | Nephrology Progress Note ---
Date of Service November 10, 2018 Assessment & Plan (1) ELISABETH (acute kidney injury): -- Ischemic ATN from cardiogenic shock -- Creatinine continues to improve -- Remains non oliguric, volume status acceptable -- TDC remains intact, dressing change per protocol -- Last dialysis was on 11/01/18 -- No indication for [employer] at this time -- Hypernatremia associated with lack of free water: additional 800 ml/day added to bolus -- Start NaHCO3 replacement (650 mg daily) -- Plan of care discussed with vascular surgery -- Repeat metabolic profile tomorrow and fax results to [phone] -- Plan to discharge to [facility] (2) Hematoma of groin: (3) Anemia: (4) Arterial hemorrhage: Subjective Krzysztof was seen examined in his room this morning with family at bedside. Overall feeling anxious. Breathing comfortably. Appetite fair. Denies significant pain. No bleeding from right groin site. Non-oliguric. Stool is loose but denies diarrhea. No abdominal pain. No fevers or chills. Blood pressure acceptable. Renal function continues to improve slowly, and electrolytes remain acceptable. Hemoglobin low but stable. Physical Exam Vital Signs (Past 24 Hours): Last Vital Signs Temp 36.7 C 11/10/18 08:13 Pulse 106 H 11/10/18 09:27 Resp 26 H 11/10/18 09:27 BP 126/85 11/10/18 09:27 Pulse Ox 89 L 11/10/18 09:27 Constitutional: well developed; no acute distress and not ill appearing Eyes: no scleral abnormality and no corneal abnormality ENMT: Mouth: no oral mucosal abnormality and oral mucous membranes not dry Neck: normal visual inspection and trachea midline Respiratory: normal respiratory effort; no respiratory distress Auscultation: lungs clear to auscultation bilaterally Cardiovascular: Heart Sounds: normal S1 and normal S2; no gallop, no murmur and no cardiac rub Extremities: + edema Chest (Breasts): Chest: + vascular access device or port (TDC) Gastrointestinal (Abdomen): Percussion/Palpation: abdomen soft; abdomen nontender Musculoskeletal: Extremities: no cyanosis and no clubbing Groin hematoma Skin: normal turgor; no rashes Neurologic: Motor/Sensory: no tremor and no asterixis Psychiatric: Affect: + anxious affect Mood: no depressed mood Results & Data Laboratory Results Laboratory Results - last 24 hr 11/10/18 06:19 Sodium 146 H Potassium 3.6 Chloride 117 H Carbon Dioxide 17 L Anion Gap 12.0 H BUN 47 H Creatinine 2.38 H Est Cr Clr Drug Dosing 40.9 Est GFR ( Amer) 34.8 Est GFR (Non-Af Amer) 30.0 BUN/Creatinine Ratio 19.6 Glucose 103 H Calcium 9.0 Phosphorus 2.8 Albumin 2.4 L
[2018-11-10] MEDS: NOVASOURCE RENAL 2.0 CAL 1000ML BAG PEG SCH (10:43)
[2018-11-10 12:14] VITALS: BP 127/89; PULSE 103; TEMP 97.9; O2SAT 97
[2018-11-10] MEDS ORDERED: SODIUM BICARBONATE 650 MG TAB PO SCH (21:00)
--- NOTE | 2018-11-14 12:54 | Discharge Summary ---
Date of Service November 14, 2018 Admission HPI Per Admitting Provider Patient is a 52-year-old male who bleeding from his right groin. This was the site of of his decannulation from his ECMO Cannulas. He complains of swelling earlier today. In the emergency room this evening he had tony bleeding from the groin. This was controlled with pressure. He has a complicated history of myocardial infarction followed by stenting followed by respiratory insufficiency with intubation, renal failure, respiratory failure, cardiac shock, ECMO for 30 days, and a patch of his common femoral artery after the cannula was removed. Presently he is at rehab. Admission Exam Per Admitting Provider Patient is awake alert and oriented. He was in moderate distress. There is bleeding noted from the right groin. Pressure was being held. He did have palpable pedal pulses in his feet. Abdominal exam is benign lungs were clear heart had a regular rhythm. Principal Diagnosis 1. s/p exploration R groin and evac of hematoma 2. Bleeding from Right groin wound Discharge Exam Constitutional WD/WN, vitals as above Respiratory normal respiratory effort, lungs clear to auscultation Cardiovascular Rate/Rhythm: regular rate and regular rhythm (irregular) Extremities: + edema (mild generalized edema) Gastrointestinal (Abdomen) normal bowel sounds, soft, nontender, no hepatosplenomegaly (g tube noted) Musculoskeletal no cyanosis or clubbing, extremities motor strength 5/5 Skin + incision (R groin C/I with staple.Mild edema, small amt bloody/serous drain) Psychiatric A+Ox3, euthymic affect Orientation: alert and oriented x 3 Speech: normal rate/rhythm/volume of speech Affect: + anxious affect Mood: + anxious mood Insight: good insight Discharge Data Allergies Allergy/AdvReac Type Severity Reaction Status Date / Time cefepime Allergy Unknown Unverified 11/11/18 02:04 vancomycin Allergy Unknown Unverified 11/11/18 02:04 Consultations 11/05/18 19:34 Consult Trolley Cleaner Routine 11/05/18 22:34 Consult Case Management - Discharge Planning Routine 11/06/18 07:21 Consult Nephrology Routine 11/06/18 08:00 Consult Case Management - Discharge Planning Routine Procedures Performed Operation Date: 11/05/18 18:20 Actual Procedures p Exploration of Right Groin Evacuation of Hematoma(Right) - Lisandro Gleason MD Ordered Studies 11/05/18 16:06 extremity non-vascular ltd Stat Hospital Course (1) S/P vascular surgery: Pt doing well post op from R groin exploration. OK for d/c to rehab when transportation arranged. Also discussed with Nephrology, does not feel pt needs HD today. Further HD can be performed at [facility] if needed. (2) Hematoma of groin: Now s/p RLE exploration. Total Time Total Time Spent Total Time Spent (In Minutes): 30 minutes Total Time Includes: Examination of the Patient, Discharge Planning and Medication Reconciliation Discharge Plan Discharge Items Patient Disposition: Transfer Inpatient Rehab Fac Reason For Visit: BLEEDING FROM RIGHT GROIN Discharge Diagnosis: 1. s/p R groin exploration and evacuation of hematoma 2. Bleeding from R groin wound Condition: Fair Discharge Goals: Therapeutic intervention Activity: Per 'Additional Instructions' section Lifting: No more than 10 pounds Lifting Comment: for 2 weeks Bathing Comment: May cleanse groin wound, no soaking in water Exercise/Sports: Gradually increase as tolerated Weightbearing: Left weightbearing and Right weightbearing Non-emergency contact: Primary Care Provider and Surgeon Call non-emergency contact if: you have any medication questions, your pain is not controlled, your temperature is above 101, your wound has increased redness and your wound has increased drainage Follow-up/Referrals: Pedro Silveira MD [Primary Care Provider] - Diet: Dialysis Renal and Enteral nutrition Addtl Provider Instructions: 1. Change dressing to R groin daily AND when saturated. Place dry 4x4s and paper tape. 2. May stop dressing changes when dry. Prescriptions: Continued amiodarone 200 mg Tablet 200 mg feeding tube DAILY RF: 0 aspirin 81 mg Tablet,Chewable 81 mg feeding tube QAM RF: 0 calcium acetate 667 mg Tablet 667 mg feeding tube TIDM RF: 0 clopidogrel 75 mg Tablet 75 mg feeding tube DAILY RF: 0 colchicine 0.6 mg Tablet 0.3 mg feeding tube 2XWK RF: 0 oxycodone 5 mg Tablet 5 mg feeding tube Q4H PRN (Reason: . PAIN ( 4-10 )) RF: 0 bisacodyl 10 mg Suppository 10 mg ND DAILY PRN (Reason: Constipation) RF: 0 Fleet Enema 19-7 gram/118 mL Enema 118 ml ND DAILY PRN (Reason: Constipation) RF: 0 acetaminophen 325 mg Tablet 650 mg feeding tube Q4H PRN (Reason: .PAIN ( 1-3 )) RF: 0 pantoprazole [address] For Susp In Packet 40 mg feeding tube QAM RF: 0 saliva substitute combo no.3 Aerosol,[place] 1 spray mucous membrane Q1H PRN (Reason: Dry Mouth) RF: 0 midodrine 5 mg Tablet 5 mg feeding tube TIDM RF: 0 amoxicillin-pot clavulanate [Augmentin] 500-125 mg Tablet 1 tab feeding tube BIDM RF: 0 phenol 1.4 % Aerosol,[place] 1 spray MUCOUS MEMBRANE Q4H PRN (Reason: Sore Throat) RF: 0 darbepoetin ting in polysorbat 60 mcg/0.3 mL Syringe 1 dose subcut WK RF: 0 codeine-guaifenesin 6.3-100 mg/5 mL Liquid 10 ml feeding tube Q4H PRN (Reason: Cough) RF: 0 albuterol sulfate 90 mcg/actuation Hfa Aerosol Inhaler 2 puff inhalation Q4H PRN (Reason: Wheezing) RF: 0 simethicone 80 mg Tablet,Chewable 20 mg feeding tube QAM RF: 0 No Action heparin (porcine) 5,000 unit/mL Syringe 5,000 unit SUBCUT Q12H RF: 0 sennosides-docusate sodium [Senokot-S] 8.6-50 mg Tablet 1 tab PO .LUNCH PRN (Reason: Constipation) RF: 0 polyethylene glycol 3350 [Miralax] 17 gram/dose Powder 17 g feeding tube .LUNCH PRN (Reason: Constipation) RF: 0 magnesium hydroxide [Milk of Magnesia] 400 mg/5 mL Suspension 30 ml feeding tube DAILY PRN (Reason: Constipation) RF: 0 docusate sodium 50 mg/5 mL Liquid 100 mg feeding tube BID RF: 0 sodium bicarbonate 325 mg tablet 650 mg feeding tube BID RF: 0 Stand-Alone Forms: [facility] Discharge Orders: Discharge Order (Routine); Ordered 11/10/18 Ordered By: Kiara Knox Skilled Items Patient informed of condition?: Yes DNR: No Discharge Level of Care: Acute rehab Communicable Disease: No Discharge Prognosis: Improving Admission Data Admit Date/Time: 11/05/18 19:32 Attending Provider: Lisandro Gleason Admit Provider: Lisandro Gleason Primary Care Provider: Pedro Silveira Other Providers: Edwin Grey ; Misael Hernandez ; Irineo Curry ; Stephanie Bartholomew ; Iraida Street ; Jaquan Dobson Service: Surgical Services Other Interventions: Discharge Summary Assessment (RN) Last Done: 11/10/18 11:04 Pending Studies at Discharge: No DC Date/Time DO NOT enter until pt leaves facility: 11/10/18 11:20
--- NOTE | 2018-11-17 09:36 | Surgery Progress Note ---
Date of Service November 17, 2018 Assessment & Plan (1) S/P vascular surgery: Pt R groin wound healing well, but still with copious serous drainage noted. No sign of infection or hematoma. Continued drainage likely d/t multiple surgeries in same location, as well as fluid imbalance/CKD. Recommend frequent dressing changes with nonocclusive dry dressings to absorb drainage and keep it away from the skin. As far as TDC removal, will tentatively schedule for tomorrow morning if pt remains admitted. If pt is d/c to [facility] today, we will schedule later this week as outpt. Please call if needed otherwise. Subjective 53 yo m s/p R groin exploration and evac of hematoma, seen inf/u today. Pt states having significant amt clear drainage from R groin site. No increased pain, edema, or erythema. Looking forward to d/c to [facility] today. Physical Exam Constitutional: WD/WN, vitals as above Skin: + incision (Rgroin intact solo, copious serous drain noted. ) No erythema, or purulent drainage noted. No odor.
== END 2018-11-10 11:20 | DRG 919 ==
LOC: ED 15:27 → OR 18:54 → 1E 19:32 → 3N 11-06 07:26

== ENCOUNTER 2018-11-10 23:34 | Inpatient (IN) ==
[2018-11-10] MEDS ORDERED: ALBUT/IPRATROP 3MG/0.5MG NEB 3 ML VIAL INH STA (23:45)
[2018-11-10] MEDS ORDERED: methylPREDNISolone 125 MG/2 ML VIAL IV STA (23:45)
[2018-11-10] MEDS ORDERED: PIPERACILL/TAZOBAC CONSULT ACTIVE PRN (23:48)
[2018-11-10] MEDS ORDERED: PIPERACILLIN/TAZOBACTAM 4.5 GM in DEXTROSE 5% 100 ML IV STA (23:48)
[2018-11-10] MEDS ORDERED: LEVOFLOXACIN/D5W 750 MG/150 ML BAG IV STA (23:48)
[2018-11-10] MEDS ORDERED: PIPERACILLIN/TAZOBACTAM 4.5 GM/120ML D5W ONE (23:53)
[2018-11-11 00:28] LABS: Basophils # (auto) 0.02 K/uL (0-0.2); Basophils % (auto) 0.1 %; Eosinophils # (auto) 0.43 K/uL (0-0.5); Eosinophils % (auto) 2.8 %; Hematocrit (blood only) 30.8 % (42-52); Hemoglobin 9.9 g/dL (14.0-18.0); Immature Granulocytes # (auto) 0.07 K/uL (0.00-0.02); Immature Granulocytes % (auto) 0.5 %; Lymphocytes # (auto) 0.94 K/uL (1.2-3.4); Lymphocytes % (auto) 6.2 %; Mean Corpuscular Hgb Conc 32.1 g/dL (32-36); Mean Corpuscular Volume 97.5 fL (80-100); Mean Platelet Volume 10.1 fL (7.4-10.4); Monocytes # (auto) 1.61 K/uL (0.11-0.59); Monocytes % (auto) 10.6 %; Neutrophils # (auto) 12.13 K/uL (1.4-6.5); Neutrophils % (auto) 79.8 %; Platelet Count 670 K/uL (130-400); RDW Coefficient of Variation 15.9 % (11.5-14.5); RDW Standard Deviation 56.2 fL (36.4-46.3); Red Blood Count 3.16 M/uL (4.7-6.1)
[2018-11-11 00:30] LABS: Appearance Urine Clear (Clear); Bilirubin Urine Negative (Negative); Blood Urine Negative (Negative); Color Urine Yellow; Glucose Urine UA Negative (Negative); Ketones Urine Negative (Negative); Leukocyte Esterase Urine Negative (Negative); Nitrite Urine Negative (Negative); Protein Urine Negative (Negative); Specific Gravity Urine 1.017 (1.000-1.030); Urobilinogen Urine Negative (Negative)
[2018-11-11 00:48] LABS: Albumin Level 2.5 gm/dl (3.4-5.0); BUN Creatinine Ratio 23.1 (10-20); Calcium 8.9 mg/dl (8.5-10.1); Creatinine Clr Calc Pharmacy 42.7 ml/min; Est GFR (African American) 36.4; Est GFR (Non-African American) 31.4
[2018-11-11 00:51] LABS: Albumin Globulin Ratio 0.5 (0.9-2); Bilirubin,Total 0.5 mg/dl (0.2-1); Globulin 4.7 gm/dl (2.5-4.0); Total Protein 7.2 gm/dl (6.4-8.2); Troponin I 0.052 ng/ml (0-0.045)
[2018-11-11 01:02] LABS: INR 1.2 (0.9-1.1); Partial Thromboplastin Time 27.3 Seconds (21.0-31.0); Prothrombin Time 11.7 Seconds (9.0-12.0)
[2018-11-11 01:06] LABS: Potassium 3.5 mmol/L (3.5-5.1)
[2018-11-11 01:12] LABS: Base Excess VBG -4.6 mEq/L; Oxygen Saturation VBG 63.2 %; pH VBG 7.39 (7.36-7.41)
--- NOTE | 2018-11-11 01:32 | Emergency Department Note ---
Entered by Martha Chi acting as a scribe for History of Present Illness General Chief complaint: Shortness of Breath/Dyspnea Time Seen by Provider: 11/10/18 23:36 Source: patient History of Present Illness Onset (ago): day(s) 1 Location: chest Pain Consistency: + constant Quality: + other (shortness of breath ) Associated symptoms: + cough The patient is a 52 year old male who presents to the Emergency Room with complaints of constant shortness of breath since yesterday. The patient reports he has also gained a lot of fluid in his legs. He notes he has a history of a heart attack. He states he was sent to [place] and stayed there for 5 weeks. He reports he was put into induced coma for 2 weeks. The patient also notes he has a chronic cough that comes and goes. Home Medications Home Medications Medication Instructions Recorded Confirmed Type Fleet Enema 118 ml AK DAILY PRN 11/05/18 11/05/18 History acetaminophen 650 mg FEEDING TUBE Q4H PRN 11/05/18 11/05/18 History albuterol sulfate 2 puff INHALATION Q4H PRN 11/05/18 11/05/18 History amiodarone 200 mg FEEDING TUBE DAILY 11/05/18 11/05/18 History amoxicillin-pot clavulanate 1 tab FEEDING TUBE .DAILY@ LUNCH 11/05/18 11/05/18 History [Augmentin] amoxicillin-pot clavulanate 1 tab FEEDING TUBE UD 11/05/18 11/05/18 History [Augmentin] aspirin 81 mg FEEDING TUBE QAM 11/05/18 11/05/18 History bisacodyl 10 mg AK DAILY PRN 11/05/18 11/05/18 History calcium acetate 667 mg FEEDING TUBE TIDM 11/05/18 11/05/18 History clopidogrel 75 mg FEEDING TUBE DAILY 11/05/18 11/05/18 History codeine-guaifenesin 10 ml PO Q4H PRN 11/05/18 11/05/18 History colchicine 0.3 mg FEEDING TUBE UD 11/05/18 11/05/18 History darbepoetin ting in polysorbat 1 dose SUBCUT UD 11/05/18 11/05/18 History dextrose [Glucose Gel] 15 g PO UD PRN 11/05/18 11/05/18 History glucagon (human recombinant) 1 mg SUBCUT UD PRN 11/05/18 11/05/18 History heparin (porcine) 5,000 unit SUBCUT Q12H 11/05/18 11/05/18 History midodrine 5 mg FEEDING TUBE TIDM 11/05/18 11/05/18 History oxycodone 5 mg FEEDING TUBE Q4H PRN 11/05/18 11/05/18 History pantoprazole 40 mg FEEDING TUBE QAM 11/05/18 11/05/18 History phenol 1 spray MUCOUS MEMBRANE Q4H PRN 11/05/18 11/05/18 History saliva substitute combo no.3 1 spray MUCOUS MEMBRANE Q1H PRN 11/05/18 11/05/18 History simethicone 20 mg FEEDING TUBE QAM 11/05/18 11/05/18 History sodium bicarbonate 650 mg PO BID #120 tab 11/10/18 Rx Allergies Allergy/AdvReac Type Severity Reaction Status Date / Time cefepime Allergy Unknown Unverified 11/05/18 19:27 vancomycin Allergy Unknown Unverified 11/05/18 19:25 Past Med/Surg History Medical History Facial cellulitis (Resolved) Acute renal failure CAD (coronary artery disease) Cardiogenic shock Hemodialysis patient Renal function recovering Hx of extracorporeal membrane oxygenation treatment Myocardial infarct Surgical History History of tooth extraction Hx of LASIK Hx of angioplasty Social History Preferred Language: Japanese Beliefs That Will Affect Care: None Current Living Situation: Rehab Current Living Situation Comment: "LIVES WITH SOMEONE" current occupational status: employed Feels Safe at Home: Yes Smoking Status: Never smoker Hx Alcohol Use: Yes Hx Substance Use: No Review of Systems See HPI for pertinent positives & negatives. and A total of 10 systems reviewed and were otherwise negative Physical Exam Vital Signs Vital Signs - 24 hr 11/10/18 23:47 11/11/18 00:00 11/11/18 00:31 Temperature 36.8 C Temperature Source Oral Sepsis Recent Fever Within 48 Hours No Sepsis New/Unexplained Change in Mental Status No Sepsis Action Taken by Nursing No Action Required Pulse Rate 111 H 109 H 108 H Pulse Rate from SpO2 Sensor 109 H 108 H Pulse Rhythm Regular Respiratory Rate 44 H 46 H 37 H Respiratory Effort / Characteristics Labored Short of Breath SOB on Exertion Respiratory Pattern Rapid/Deep Tachypnea Blood Pressure 133/94 137/98 139/97 Blood Pressure Mean 107 111 111 Blood Pressure Position Sitting Pulse Oximetry 94 97 93 Oxygen Delivery Method Nasal Cannula Nasal Cannula Nasal Cannula Oxygen Flow Rate 4 4 4 11/11/18 01:00 Temperature Temperature Source Sepsis Recent Fever Within 48 Hours Sepsis New/Unexplained Change in Mental Status Sepsis Action Taken by Nursing Pulse Rate 108 H Pulse Rate from SpO2 Sensor 116 H Pulse Rhythm Respiratory Rate 40 H Respiratory Effort / Characteristics Respiratory Pattern Blood Pressure 125/89 Blood Pressure Mean 101 Blood Pressure Position Pulse Oximetry Oxygen Delivery Method Oxygen Flow Rate CONSTITUTIONAL/VITAL SIGNS: Reviewed / noted above. GENERAL: Non-toxic in appearance. INTEGUMENTARY: Warm, dry, and [place]. HEAD: Normocephalic. EYES: without scleral icterus or trauma. ENT/OROPHARYNX: clear and moist. LYMPHADENOPATHY/NECK: Is supple without lymphadenopathy or meningismus. RESPIRATORY: Diminished breath sounds bilaterally with diffuse bilateral wheezing. 5 word conversational dyspnea. CARDIOVASCULAR: Regular rate and rhythm. GI/ABDOMEN: Soft and nontender. No organomegaly or pulsatile mass. No rebound or guarding. Normal bowel sounds. EXTREMITIES: Warm and well perfused. Bilateral pedal edema. BACK: No CVA tenderness. NEUROLOGICAL: Intact without focal deficits. PSYCHIATRIC: normal affect. MUSCULOSKELETAL: Normally developed with good muscle tone. Course 2338: The patient was evaluated in room C3, and a complete history and physical examination were performed. 0055: I reviewed the patient's case with Dr. Morrison, [facility] Hospitalist. He will evaluate the patient for further management. Administered Medications Discontinued Medications Albuterol (Duoneb) 3 ml INH NOW STA Stop: 11/10/18 23:46 Last Admin: 11/11/18 00:19 Dose: 3 ml Documented by: [id number] Levofloxacin/Dextrose (Levaquin/D5w) 750 mg in 150 mls @ 100 mls/hr IV Q24H STA Stop: 11/11/18 01:17 Last Admin: 11/11/18 00:42 Dose: 100 mls/hr Documented by: [id number] Methylprednisolone (Solumedrol) 125 mg IV NOW STA Stop: 11/10/18 23:46 Last Admin: 11/11/18 00:19 Dose: 125 mg Documented by: [id number] Piperacillin Sod/Tazobactam Sod (Zosyn) Confirm Administered Dose 4.5 gm .ROUTE .STK-MED ONE Stop: 11/10/18 23:54 Last Admin: 11/11/18 00:28 Dose: Not Given Documented by: [id number] Medical Decision Making Differential Diagnosis Etiologies such as infections, reactive airway disease, pneumonia, pneumothorax, COPD, CHF, cardiac ischemia, pulmonary embolism, musculoskeletal, gastrointestinal, as well as others were entertained. Medical Records Attestation: I reviewed the patient's medical records. Home Medications Current Medication List: was personally reviewed by me Laboratory Data Attestation: I reviewed the patient's lab results. Result diagrams: 11/11/18 00:17 11/11/18 00:38 Lab Results 11/11/18 11/11/18 11/11/18 Range/Units 00:12 00:17 00:17 WBC 15.20 H (4.8-10.8) K/uL RBC 3.16 L (4.7-6.1) M/uL Hgb 9.9 L (14.0-18.0) g/dL Hct 30.8 L (42-52) % MCV 97.5 (80-100) fL MCH 31.3 (25-34) pg MCHC 32.1 (32-36) g/dL RDW Std Deviation 56.2 H (36.4-46.3) fL RDW Coeff of Luna 15.9 H (11.5-14.5) % Plt Count 670 H (130-400) K/uL MPV 10.1 (7.4-10.4) fL Immature Gran % (Auto) 0.5 % Neut % (Auto) 79.8 % Lymph % (Auto) 6.2 % [place] % (Auto) 10.6 % Eos % (Auto) 2.8 % Baso % (Auto) 0.1 % Immature Gran # (Auto) 0.07 H (0.00-0.02) K/uL Neut # (Auto) 12.13 H (1.4-6.5) K/uL Lymph # (Auto) 0.94 L (1.2-3.4) K/uL [place] # (Auto) 1.61 H (0.11-0.59) K/uL Eos # (Auto) 0.43 (0-0.5) K/uL Baso # (Auto) 0.02 (0-0.2) K/uL PT Cancelled INR Cancelled APTT Cancelled PTT Ratio Cancelled VBG pH (7.36-7.41) VBG pCO2 (38-50) mmHg VBG pO2 mmHg VBG HCO3 mmol/L VBG O2 Saturation % VBG Base Excess mEq/L Barometric Pressure mm/Hg Sodium (136-145) mmol/L Potassium (3.5-5.1) mmol/L Chloride (98-107) mmol/L Carbon Dioxide (21-32) mmol/L Anion Gap (3-11) BUN (7-18) mg/dl Creatinine (0.6-1.4) mg/dl Est Cr Clr Drug Dosing ml/min Est GFR ( Amer) Est GFR (Non-Af Amer) BUN/Creatinine Ratio (10-20) Glucose (70-99) mg/dl POC Lactic Acid [place] 1.33 (0.90-1.70) mmol/L Calcium (8.5-10.1) mg/dl Total Bilirubin (0.2-1) mg/dl AST (15-37) U/L ALT (12-78) U/L Alkaline Phosphatase (45-117) U/L Troponin I (0-0.045) ng/ml Total Protein (6.4-8.2) gm/dl Albumin (3.4-5.0) gm/dl Globulin (2.5-4.0) gm/dl Albumin/Globulin Ratio (0.9-2) Urine Color Urine Appearance (Clear) Urine pH (4.5-7.5) Ur Specific [place] (1.000-1.030) Urine Protein (Negative) Urine Glucose (UA) (Negative) Urine Ketones (Negative) Urine Blood (Negative) Urine Nitrite (Negative) Urine Bilirubin (Negative) Urine Urobilinogen (Negative) Ur Leukocyte Esterase (Negative) 11/11/18 11/11/18 11/11/18 Range/Units 00:17 00:17 00:36 WBC (4.8-10.8) K/uL RBC (4.7-6.1) M/uL Hgb (14.0-18.0) g/dL Hct (42-52) % MCV (80-100) fL MCH (25-34) pg MCHC (32-36) g/dL RDW Std Deviation (36.4-46.3) fL RDW Coeff of Luna (11.5-14.5) % Plt Count (130-400) K/uL MPV (7.4-10.4) fL Immature Gran % (Auto) % Neut % (Auto) % Lymph % (Auto) % [place] % (Auto) % Eos % (Auto) % Baso % (Auto) % Immature Gran # (Auto) (0.00-0.02) K/uL Neut # (Auto) (1.4-6.5) K/uL Lymph # (Auto) (1.2-3.4) K/uL [place] # (Auto) (0.11-0.59) K/uL Eos # (Auto) (0-0.5) K/uL Baso # (Auto) (0-0.2) K/uL PT INR APTT PTT Ratio VBG pH 7.39 (7.36-7.41) VBG pCO2 33 L (38-50) mmHg VBG pO2 33 mmHg VBG HCO3 20 mmol/L VBG O2 Saturation 63.2 % VBG Base Excess -4.6 mEq/L Barometric Pressure 732.4 mm/Hg Sodium 144 (136-145) mmol/L Potassium (3.5-5.1) mmol/L Chloride 118 H (98-107) mmol/L Carbon Dioxide 19 L (21-32) mmol/L Anion Gap 7.0 (3-11) BUN 53 H (7-18) mg/dl Creatinine 2.29 H (0.6-1.4) mg/dl Est Cr Clr Drug Dosing 42.7 ml/min Est GFR ( Amer) 36.4 Est GFR (Non-Af Amer) 31.4 BUN/Creatinine Ratio 23.1 H (10-20) Glucose 115 H (70-99) mg/dl POC Lactic Acid [place] (0.90-1.70) mmol/L Calcium 8.9 (8.5-10.1) mg/dl Total Bilirubin 0.5 (0.2-1) mg/dl AST (15-37) U/L ALT 35 (12-78) U/L Alkaline Phosphatase 77 (45-117) U/L Troponin I 0.052 H* (0-0.045) ng/ml Total Protein 7.2 (6.4-8.2) gm/dl Albumin 2.5 L (3.4-5.0) gm/dl Globulin 4.7 H (2.5-4.0) gm/dl Albumin/Globulin Ratio 0.5 L (0.9-2) Urine Color Yellow Urine Appearance Clear (Clear) Urine pH 5.0 (4.5-7.5) Ur Specific [place] 1.017 (1.000-1.030) Urine Protein Negative (Negative) Urine Glucose (UA) Negative (Negative) Urine Ketones Negative (Negative) Urine Blood Negative (Negative) Urine Nitrite Negative (Negative) Urine Bilirubin Negative (Negative) Urine Urobilinogen Negative (Negative) Ur Leukocyte Esterase Negative (Negative) 11/11/18 11/11/18 Range/Units 00:38 00:38 WBC (4.8-10.8) K/uL RBC (4.7-6.1) M/uL Hgb (14.0-18.0) g/dL Hct (42-52) % MCV (80-100) fL MCH (25-34) pg MCHC (32-36) g/dL RDW Std Deviation (36.4-46.3) fL RDW Coeff of [place] (11.5-14.5) % Plt Count (130-400) K/uL MPV (7.4-10.4) fL Immature Gran % (Auto) % Neut % (Auto) % Lymph % (Auto) % [place] % (Auto) % Eos % (Auto) % Baso % (Auto) % Immature Gran # (Auto) (0.00-0.02) K/uL Neut # (Auto) (1.4-6.5) K/uL Lymph # (Auto) (1.2-3.4) K/uL [place] # (Auto) (0.11-0.59) K/uL Eos # (Auto) (0-0.5) K/uL Baso # (Auto) (0-0.2) K/uL PT 11.7 INR 1.2 H APTT 27.3 PTT Ratio 1.0 VBG pH (7.36-7.41) VBG pCO2 (38-50) mmHg VBG pO2 mmHg VBG HCO3 mmol/L VBG O2 Saturation % VBG Base Excess mEq/L Barometric Pressure mm/Hg Sodium (136-145) mmol/L Potassium 3.5 (3.5-5.1) mmol/L Chloride (98-107) mmol/L Carbon Dioxide (21-32) mmol/L Anion Gap (3-11) BUN (7-18) mg/dl Creatinine (0.6-1.4) mg/dl Est Cr Clr Drug Dosing ml/min Est GFR ( Amer) Est GFR (Non-Af Amer) BUN/Creatinine Ratio (10-20) Glucose (70-99) mg/dl POC Lactic Acid [place] (0.90-1.70) mmol/L Calcium (8.5-10.1) mg/dl Total Bilirubin (0.2-1) mg/dl AST 31 (15-37) U/L ALT (12-78) U/L Alkaline Phosphatase (45-117) U/L Troponin I (0-0.045) ng/ml Total Protein (6.4-8.2) gm/dl Albumin (3.4-5.0) gm/dl Globulin (2.5-4.0) gm/dl Albumin/Globulin Ratio (0.9-2) Urine Color Urine Appearance (Clear) Urine pH (4.5-7.5) Ur Specific [place] (1.000-1.030) Urine Protein (Negative) Urine Glucose (UA) (Negative) Urine Ketones (Negative) Urine Blood (Negative) Urine Nitrite (Negative) Urine Bilirubin (Negative) Urine Urobilinogen (Negative) Ur Leukocyte Esterase (Negative) Imaging Data Attestation: I personally reviewed and interpreted this imaging study as follows: My Impression: CHEST X-RAY: Bilateral infiltrative changes suggestive of bilateral pneumonia. ECG Data Attestation: I personally reviewed and interpreted this ECG as follows: Indication: SOB/dyspnea Rate (beats per minute): 109 Rhythm: sinus tachycardia Findings: no ST elevation and no ectopy Blood Pressure Blood Pressure Findings: Elevated blood pressure Blood Pressure Disposition: further management by hospitalist NIDIA Luciano This is a 52-year-old male who presents to the ED with a chief complaint of shortness of breath. He states that he has been short of breath for about 24 hours. He was discharged from the hospital this morning after having a hemorrhage from a right groin hematoma from a previous cardiac catheterization procedure. The patient underwent surgery for this hematoma. He was discharged earlier today and sent to [facility] rehab. He was found to be hypoxic and short of breath there and sent to the emergency department. His chest x-ray today reveals findings suggesting bilateral pneumonias. This was compared to an x-ray done on the , 5 days ago that appears to be worse now being bilateral as opposed to unilateral. His white blood cell count today is 15,000. EKG shows a sinus tach without acute ischemic changes. His BUN is 53 and creatinine is 2.29. These appear to be per the patient's baseline. Troponin was mildly elevated 0.052. This could be related to some hypoxia as the patient was hypoxic when he arrived. His oxygen saturations were 87%. Urine did not show infection. Lactic acid level was normal and a VBG did not reveal hypercarbia and had a normal acid-base status. The patient required about 3 L of oxygen to maintain her saturations in the mid 90 range. The patient was treated with a DuoNeb treatment as his lungs were diminished bilaterally with scattered wheezes. He was given IV Solu-Medrol as well as IV Levaquin and IV Zosyn. I spoke with the hospitalist, who will see the patient for further inpatient evaluation and care. Impression & Plan Hypoxia, Pneumonia, Elevated troponin Discharge Plan Visit Data Chief Complaint: Shortness of Breath/Dyspnea ED Provider: Jaquan Paulino Discharge Problem: Hypoxia, Pneumonia, Elevated troponin Patient Disposition: Being Evaluated by Hospitalist Condition: Serious Forms Stand Alone Forms: My [facility] Prescriptions Prescriptions: No Action amiodarone 200 mg Tablet 200 mg feeding tube DAILY RF: 0 aspirin 81 mg Tablet,Chewable 81 mg feeding tube QAM RF: 0 calcium acetate 667 mg Tablet 667 mg feeding tube TIDM RF: 0 clopidogrel 75 mg Tablet 75 mg feeding tube DAILY RF: 0 colchicine 0.6 mg Tablet 0.3 mg feeding tube UD RF: 0 heparin (porcine) 5,000 unit/mL Syringe 5,000 unit SUBCUT Q12H RF: 0 oxycodone 5 mg Tablet 5 mg feeding tube Q4H PRN (Reason: . PAIN ( 4-10 )) RF: 0 bisacodyl 10 mg Suppository 10 mg AK DAILY PRN (Reason: Constipation) RF: 0 Fleet Enema 19-7 gram/118 mL Enema 118 ml AK DAILY PRN (Reason: Constipation) RF: 0 acetaminophen 325 mg Tablet 650 mg feeding tube Q4H PRN (Reason: .PAIN ( 1-3 )) RF: 0 glucagon (human recombinant) 1 mg/mL Recon Soln 1 mg subcut UD PRN (Reason: Hypoglycemia) RF: 0 dextrose [Glucose Gel] 40 % Gel 15 g PO UD PRN (Reason: Hypoglycemia) RF: 0 pantoprazole [address] For Susp In Packet 40 mg feeding tube QAM RF: 0 saliva substitute combo no.3 Aerosol,[place] 1 spray mucous membrane Q1H PRN (Reason: Dry Mouth) RF: 0 midodrine 5 mg Tablet 5 mg feeding tube TIDM RF: 0 amoxicillin-pot clavulanate [Augmentin] 500-125 mg Tablet 1 tab feeding tube .DAILY@ LUNCH RF: 0 amoxicillin-pot clavulanate [Augmentin] 500-125 mg Tablet 1 tab feeding tube UD RF: 0 phenol 1.4 % Aerosol,[place] 1 spray MUCOUS MEMBRANE Q4H PRN (Reason: Sore Throat) RF: 0 darbepoetin ting in polysorbat 60 mcg/0.3 mL Syringe 1 dose subcut UD RF: 0 codeine-guaifenesin 6.3-100 mg/5 mL Liquid 10 ml PO Q4H PRN (Reason: Cough) RF: 0 albuterol sulfate 90 mcg/actuation Hfa Aerosol Inhaler 2 puff inhalation Q4H PRN (Reason: Wheezing) RF: 0 simethicone 80 mg Tablet,Chewable 20 mg feeding tube QAM RF: 0 sodium bicarbonate 325 mg tablet 650 mg PO BID Qty: 120 RF: 0 Referrals Referrals: Pedro Silveira MD [Primary Care Provider] - The royceibe's documentation has been prepared under my direction and personally reviewed by me in its entirety. I confirm that the note above accurately reflects all work, treatment, procedures, and medical decision making performed by me.
[2018-11-11] MEDS ORDERED: PIPERACILL/TAZOBAC CONSULT ACTIVE PRN (03:28)
[2018-11-11] MEDS ORDERED: PIPERACILLIN/TAZOBACTAM 4.5 GM in DEXTROSE 5% 100 ML IV STA (03:28)
[2018-11-11] MEDS ORDERED: LINEZOLID 600 MG/300 ML D5W IV SCH (03:28)
[2018-11-11] MEDS ORDERED: ALBUMIN 25% 50 ML with FUROSEMIDE 40 MG IV ONE (03:28)
[2018-11-11] MEDS ORDERED: OXYCODONE HCL IR 5 MG TAB (IMMEDIATE RELEASE) GT PRN (04:23)
[2018-11-11] MEDS ORDERED: SOD PHOSPHATE/SOD BIPHOSPHATE ENEMA 132 ML BTL PR PRN (04:23)
[2018-11-11] MEDS ORDERED: ACETAMINOPHEN SOL 650 MG/20.3 ML UDC PEG PRN (04:23)
[2018-11-11] MEDS ORDERED: BISACODYL 10 MG SUPP PR PRN (04:23)
[2018-11-11] MEDS ORDERED: POLYETHYLENE (MIRALAX) 17 GM PACK PEG PRN (04:23)
[2018-11-11] MEDS ORDERED: DOCUSATE SODIUM/SENNA 50/8.6MG TAB PO PRN (04:23)
[2018-11-11] MEDS ORDERED: [UNRECOGNIZED DRUG - OTHER] mucous membrane PRN (04:23)
[2018-11-11] MEDS ORDERED: METOPROLOL TARTRATE 1 MG/ML VIAL IV PRN (04:30)
[2018-11-11] MEDS ORDERED: HEPARIN 5000 UNIT SQ SCH (04:30)
--- NOTE | 2018-11-11 04:35 | History & Physical Report ---
Date of Service November 11, 2018 Assessment & Plan (1) Acute respiratory failure with hypoxia: Acute respiratory failure with hypoxia is multifactorial/multifocal pneumonia/acute CHF exacerbation-- Admit to the MICU. Present on Admission?: Yes (2) Multifocal pneumonia: Multifocal HCAP-- Zyvox 600 mg IV every 12 hours, due to vancomycin allergy. Zosyn 3.375 mg IV every 8 hours, levofloxacin 500 mg IV every 24 hours, Solu-Medrol 40 mg IV every 6 hours, Duonebs every 4 hours while awake and every 2 hours when necessary. Pulmicort Respules 0.5 mg inhaled twice daily Guaifenesin extended release 600 mg by mouth twice a day, nasal cannula 2 L of oxygen titrating to keep pulse ox greater than or equal to 92%. Sputum Gram stain and culture Present on Admission?: Yes (3) Acute exacerbation of CHF (congestive heart failure): Acute exacerbation of CHF/fluid overload/hypoalbuminemia-- Give albumin 25 g IV with Lasix 40 mg IV x1 now and assess response. Patient will need continued diuresis. Present on Admission?: Yes (4) CAD (coronary artery disease), [place] coronary artery: CAD/hypertension/ischemic cardiomyopathy/history of acute [place]/history of cardiogenic shock-- Continue aspirin, clopidogrel, amiodarone. Add Lopressor 5 mg IV every 4 hours as needed systolic blood pressure greater than 160. Consult cardiology Dr. Easton Gabriel. Present on Admission?: Yes (5) Elevated troponin: Troponin is decreasing from last known 09/02/18 of 4.920, to today of 0.052. We will follow serially Present on Admission?: Yes (6) Ischemic cardiomyopathy: As above. Present on Admission?: Yes (7) ELISABETH (acute kidney injury): Creatinine has continued to slowly improve, now 2.29. Will follow serial laboratories while diuresing. Consult nephrology Dr. Jaquan Dobson. Present on Admission?: Yes History of Present Illness Chief Complaint: The patient presented to the emergency department with persistently worsening shortness of breath over the past 24 hours. Primary Care Provider: Pedro Silveira MD The patient is a 52-year-old male most recently hospitalized from 11/05-11/10/18, after right groin exploration surgery for hematoma by Dr. Gleason on 11/05/18. The patient was transferred to [facility] yesterday for rehab, was noted to become more short of breath, was referred to the emergency department at [facility] [place] for assessment, and then was referred for evaluation for admission to the [facility]. Allergies Allergy/AdvReac Type Severity Reaction Status Date / Time cefepime Allergy Unknown Unverified 11/11/18 02:04 vancomycin Allergy Unknown Unverified 11/11/18 02:04 Home Medications Home Medications Medication Instructions Recorded Confirmed Type Fleet Enema 118 ml [place] DAILY PRN 11/05/18 11/11/18 History acetaminophen 650 mg FEEDING TUBE Q4H PRN 11/05/18 11/11/18 History albuterol sulfate 2 puff INHALATION Q4H PRN 11/05/18 11/11/18 History amiodarone 200 mg FEEDING TUBE DAILY 11/05/18 11/11/18 History amoxicillin-pot clavulanate 1 tab FEEDING TUBE BIDM 11/05/18 11/11/18 History [Augmentin] aspirin 81 mg FEEDING TUBE QAM 11/05/18 11/11/18 History bisacodyl 10 mg WA DAILY PRN 11/05/18 11/11/18 History calcium acetate 667 mg FEEDING TUBE TIDM 11/05/18 11/11/18 History clopidogrel 75 mg FEEDING TUBE DAILY 11/05/18 11/11/18 History codeine-guaifenesin 10 ml FEEDING TUBE Q4H PRN 11/05/18 11/11/18 History colchicine 0.3 mg FEEDING TUBE 2XWK 11/05/18 11/11/18 History darbepoetin ting in polysorbat 1 dose SUBCUT WK 11/05/18 11/11/18 History midodrine 5 mg FEEDING TUBE TIDM 11/05/18 11/11/18 History oxycodone 5 mg FEEDING TUBE Q4H PRN 11/05/18 11/11/18 History pantoprazole 40 mg FEEDING TUBE QAM 11/05/18 11/11/18 History phenol 1 spray MUCOUS MEMBRANE Q4H PRN 11/05/18 11/11/18 History saliva substitute combo no.3 1 spray MUCOUS MEMBRANE Q1H PRN 11/05/18 11/11/18 History simethicone 20 mg FEEDING TUBE QAM 11/05/18 11/11/18 History docusate sodium 100 mg FEEDING TUBE BID 11/11/18 11/11/18 History heparin (porcine) 5,000 unit SUBCUT Q12H 11/11/18 11/11/18 History magnesium hydroxide [Milk of 30 ml FEEDING TUBE DAILY PRN 11/11/18 11/11/18 History Magnesia] polyethylene glycol 3350 [Miralax] 17 g FEEDING TUBE .LUNCH PRN 11/11/18 11/11/18 History sennosides-docusate sodium 1 tab PO .LUNCH PRN 11/11/18 11/11/18 History [Senokot-S] sodium bicarbonate 650 mg FEEDING TUBE BID 11/11/18 11/11/18 History Past Med/Surg History Medical History Facial cellulitis (Resolved) Acute renal failure CAD (coronary artery disease) Cardiogenic shock Hemodialysis patient Renal function recovering Hx of extracorporeal membrane oxygenation treatment Myocardial infarct Surgical History History of tooth extraction Hx of LASIK Hx of angioplasty Social History Preferred Language: Bots[place] Communication Ability: Effective 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 Beliefs That Will Affect Care: None Current Living Situation: Rehab Current Living Situation Comment: "LIVES WITH SOMEONE" current occupational status: employed Other Information That Helps Us Care for You: No Feels Safe at Home: Yes Safety Concerns: Feels Safe At This Time Smoking Status: Never smoker Hx Alcohol Use: Yes Hx Substance Use: No Review of Systems The patient denies chest pain, sore throat, fevers, chills, sweats, nausea, vomiting, diarrhea , constipation, abdominal pain, pelvic pain, blood in urine or stool, dysuria, urinary frequency or urgency, lightheadedness, dizziness, headache, memory loss, loss of consciousness, imbalance, focal or weakness, numbness or tingling in arms or legs, generalized arthralgias or myalgias, back or neck pain, or night sweats. The review of systems is otherwise negative other than for that already noted above, and at least 10 systems have been reviewed. Physical Exam Vital Signs (Past 24 Hours): Last Vital Signs Temp 36.5 C 11/11/18 03:30 Pulse 96 H 11/11/18 04:25 Resp 26 H 11/11/18 04:25 BP 118/82 11/11/18 04:25 Pulse Ox 94 11/11/18 04:25 Physical Exam: The patient is awake, alert and oriented 3, appears mildly cachectic, sitting upright in bed and in mild to moderate respiratory distress. HEENT--PERRL, EOMI, mucous membranes and oropharynx dry. Neck--supple. No JVD. No bruits. Thyroid normal, trachea midline, no adenopathy. Heart--intermittently tachycardic, normal S1 and S2. No murmurs, rubs or gallops. Lungs--coarse breath sounds bilaterally, moderate respiratory distress with accessory muscle use. Abdomen--normal bowel sounds and soft. Nontender. Nondistended. Extremities--no cyanosis or clubbing. Bilateral pretibial 2+-3+ pitting edema. Dermatologic--normal skin turgor, normal color, no abnormal lymph nodes, no rash. Neurologic--cranial nerves II through XII grossly intact. Rheumatologic--limited exam Psychiatric--normal affect. Results & Data Laboratory Results Laboratory Results WBC 15.20 K/uL (4.8-10.8) H 11/11/18 00:17 RBC 3.16 M/uL (4.7-6.1) L 11/11/18 00:17 Hgb 9.9 g/dL (14.0-18.0) L 11/11/18 00:17 Hct 30.8 % (42-52) L 11/11/18 00:17 MCV 97.5 fL (80-100) 11/11/18 00:17 MCH 31.3 pg (25-34) 11/11/18 00:17 MCHC 32.1 g/dL (32-36) 11/11/18 00:17 RDW Std Deviation 56.2 fL (36.4-46.3) H 11/11/18 00:17 RDW Coeff of [place] 15.9 % (11.5-14.5) H 11/11/18 00:17 Plt Count 670 K/uL (130-400) H 11/11/18 00:17 MPV 10.1 fL (7.4-10.4) 11/11/18 00:17 Immature Gran % (Auto) 0.5 % 11/11/18 00:17 Neut % (Auto) 79.8 % 11/11/18 00:17 Lymph % (Auto) 6.2 % 11/11/18 00:17 [place] % (Auto) 10.6 % 11/11/18 00:17 Eos % (Auto) 2.8 % 11/11/18 00:17 Baso % (Auto) 0.1 % 11/11/18 00:17 Immature Gran # (Auto) 0.07 K/uL (0.00-0.02) H 11/11/18 00:17 Neut # (Auto) 12.13 K/uL (1.4-6.5) H 11/11/18 00:17 Lymph # (Auto) 0.94 K/uL (1.2-3.4) L 11/11/18 00:17 [place] # (Auto) 1.61 K/uL (0.11-0.59) H 11/11/18 00:17 Eos # (Auto) 0.43 K/uL (0-0.5) 11/11/18 00:17 Baso # (Auto) 0.02 K/uL (0-0.2) 11/11/18 00:17 PT 11.7 Seconds (9.0-12.0) 11/11/18 00:38 INR 1.2 (0.9-1.1) H 11/11/18 00:38 APTT 27.3 Seconds (21.0-31.0) 11/11/18 00:38 PTT Ratio 1.0 11/11/18 00:38 VBG pH 7.39 (7.36-7.41) 11/11/18 00:36 VBG pCO2 33 mmHg (38-50) L 11/11/18 00:36 VBG pO2 33 mmHg 11/11/18 00:36 VBG HCO3 20 mmol/L 11/11/18 00:36 VBG O2 Saturation 63.2 % 11/11/18 00:36 VBG Base Excess -4.6 mEq/L 11/11/18 00:36 Barometric Pressure 732.4 mm/Hg 11/11/18 00:36 Sodium 144 mmol/L (136-145) 11/11/18 00:17 Potassium 3.5 mmol/L (3.5-5.1) 11/11/18 00:38 Chloride 118 mmol/L (98-107) H 11/11/18 00:17 Carbon Dioxide 19 mmol/L (21-32) L 11/11/18 00:17 Anion Gap 7.0 (3-11) 11/11/18 00:17 BUN 53 mg/dl (7-18) H 11/11/18 00:17 Creatinine 2.29 mg/dl (0.6-1.4) H 11/11/18 00:17 Est Cr Clr Drug Dosing 42.7 ml/min 11/11/18 00:17 Est GFR ( Amer) 36.4 11/11/18 00:17 Est GFR (Non-Af Amer) 31.4 11/11/18 00:17 BUN/Creatinine Ratio 23.1 (10-20) H 11/11/18 00:17 Glucose 115 mg/dl (70-99) H 11/11/18 00:17 POC Lactic Acid [place] 1.33 mmol/L (0.90-1.70) 11/11/18 00:12 Calcium 8.9 mg/dl (8.5-10.1) 11/11/18 00:17 Total Bilirubin 0.5 mg/dl (0.2-1) 11/11/18 00:17 AST 31 U/L (15-37) 11/11/18 00:38 ALT 35 U/L (12-78) 11/11/18 00:17 Alkaline Phosphatase 77 U/L (45-117) 11/11/18 00:17 Troponin I 0.052 ng/ml (0-0.045) H* 11/11/18 00:17 Total Protein 7.2 gm/dl (6.4-8.2) 11/11/18 00:17 Albumin 2.5 gm/dl (3.4-5.0) L 11/11/18 00:17 Globulin 4.7 gm/dl (2.5-4.0) H 11/11/18 00:17 Albumin/Globulin Ratio 0.5 (0.9-2) L 11/11/18 00:17 Urine Color Yellow 11/11/18 00:17 Urine Appearance Clear (Clear) 11/11/18 00:17 Urine pH 5.0 (4.5-7.5) 04/16/19 00:17 Ur Specific [place] 1.017 (1.000-1.030) 11/11/18 00:17 Urine Protein Negative (Negative) 11/11/18 00:17 Urine Glucose (UA) Negative (Negative) 11/11/18 00:17 Urine Ketones Negative (Negative) 11/11/18 00:17 Urine Blood Negative (Negative) 11/11/18 00:17 Urine Nitrite Negative (Negative) 11/11/18 00:17 Urine Bilirubin Negative (Negative) 11/11/18 00:17 Urine Urobilinogen Negative (Negative) 11/11/18 00:17 Ur Leukocyte Esterase Negative (Negative) 11/11/18 00:17 Code Status & VTE Plan Code Status Full code VTE Prophylaxis Plan VTE Prophylaxis will be ordered: Yes
[2018-11-11] MEDS: LINEZOLID 600 MG/300 ML BAG IV SCH ×2 (05:29→15:26)
[2018-11-11] MEDS: methylPREDNISolone 40 MG in SYRINGE 0 ML IV SCH ×3 (05:29→17:11)
--- NOTE | 2018-11-11 06:30 | XRay Report ---
XR chest 1V portable CLINICAL HISTORY: Dyspnea COMPARISON STUDY: 11/06/2018 FINDINGS: The heart remains enlarged. There is a right-sided central venous catheter unchanged in pos ition. There are persistent extensive bilateral pulmonary airspace opacities with slight improvement within the left upper lobe, but slight worsening within the right lung. There are bilateral pleural e ffusions.[ IMPRESSION: Cardiomegaly, extensive bilateral pulmonary airspace opacities, and small bilateral pleur al effusions. Electronically signed by: Leoncio Gonzales M.D. 11/11/2018 6:29 AM
--- NOTE | 2018-11-11 06:45 | CT Scan Report ---
CT chest wo con CT DOSE: 461.72 mGy.cm HISTORY: Dysphagia pneumonia/hypoxia TECHNIQUE: Multiaxial CT images of the chest were performed without contrast. A dose lowering techni que was utilized adhering to the principles of ALARA. COMPARISON: None. FINDINGS: Findings of diffuse bilateral parenchymal infiltrative change versus pulmonary edema. Relat ively large right and to a lesser extent left pleural effusion. Moderate cardiomegaly. Complex collec tion posterior to the right hepatic lobe measuring 12 x 7.5 cm. IMPRESSION: 1. Findings of diffuse bilateral parenchymal infiltrative change versus pulmonary edema. 2. Right and to lesser extent left pleural effusion. 3. Moderate cardiomegaly. 4. Complex collection posterior to the right hepatic lobe measuring 12 x 7.5 cm. The above report was generated using voice recognition software. It may contain grammatical, syntax or spelling errors. Electronically signed by: Chance Lawson M.D. 11/11/2018 6:43 AM
--- NOTE | 2018-11-11 06:57 | CT Scan Report ---
CT abd pelvis wo con CT DOSE: 734.83 mGy.cm HISTORY: Pain. Nausea. 12x7 cm collection/mass RUQ on CT chest TECHNIQUE: Multiaxial CT images of the abdomen and pelvis were performed without contrast. A dose lo wering technique was utilized adhering to the principles of ALARA. COMPARISON STUDY: CT chest same date FINDINGS: Bilateral pleural effusions. 4 cm nodule defect posterior right hepatic lobe. This is assoc iated at least location dior a 12 x 7 cm complex collection. Possibility of hematoma combined with a posterior right hepatic lobe laceration is considered. This displaces the right kidney in an anterior fashion. Kidneys negative for hydronephrosis. Additional 2 x 4 cm potentially hematoma within the ri ght inferior iliopsoas vasculature. Trace fluid within the right paracolic gutter. Nonobstructive bow el pattern. Mild body wall anasarca. Postprocedural surgical clips in the angle regions bilaterally. Small associated hematomas most likel y on a postoperative basis of both sites. There is a gastrostomy tube in position. IMPRESSION: 1. 12 x 7 cm complex collection posterior to the right hepatic lobe. 2. This is associated location dior with a 4 cm defect of the posterior right hepatic lobe. 3. Possibility of hepatic laceration with associated hematoma is considered. 4.. Bilateral pleural effusions with mild body wall anasarca. 5. 2 x 4 cm hematoma within the right iliopsoas vasculature. 6. Postoperative changes in the inguinal regions bilaterally with small associated hematomas. The above report was generated using voice recognition software. It may contain grammatical, syntax or spelling errors. Electronically signed by: Chance Lawson M.D. 11/11/2018 6:56 AM
[2018-11-11] MEDS: BUDESONIDE 0.5 MG/2 ML VIAL (PULMICORT) NEB SCH ×2 (07:01→18:58)
[2018-11-11] MEDS: ALBUT/IPRATROP 3MG/0.5MG NEB 3 ML VIAL NEB SCH ×5 (07:01→19:00)
[2018-11-11] MEDS ORDERED: INFLUENZA VIRUS QUAD VACCINE 0.5 ML SYR IM ONE (07:30)
[2018-11-11] MEDS ORDERED: INFLUENZA ADMINISTRATION CHARGE ONE (07:30)
--- NOTE | 2018-11-11 07:59 | Post Operative Brief Note ---
Immediate Post Op Note v1 Date of Surgery November 11, 2018 Pre & Post Diagnosis right pleural effusion Procedure right thoracentesis under ultrasound guidance Surgeon Rustam Hurley MD, FACS [employer] none Estimated Blood Loss 0 Findings Consistent with Post-Op Diagnosis
[2018-11-11 08:04] LABS: iSTAT Arterial Blood Gas HCO3 17 meg/L (19-24); iSTAT Arterial Blood Gas pCO2 31 mmHg (35-46); iSTAT Arterial Blood Gas pH 7.34 (7.35-7.45); iSTAT Carbon Dioxide 17 mEq/l (24-31); iSTAT Site Heel Stick
[2018-11-11] MEDS: AMIODARONE 200 MG TAB PO SCH (08:10)
[2018-11-11] MEDS: SODIUM BICARBONATE 650 MG TAB PO SCH ×2 (08:10→19:28)
[2018-11-11] MEDS: LANSOPRAZOLE 30 MG SOLTAB PEG SCH (08:10)
[2018-11-11] MEDS: MIDODRINE HCL 2.5 MG TAB PO SCH ×3 (08:11→17:11)
[2018-11-11] MEDS: CALCIUM ACETATE 667 MG CAP PO SCH ×3 (08:11→17:11)
[2018-11-11] MEDS: DOCUSATE SODIUM SYRUP 100 MG/10 ML UDC PEG SCH ×2 (08:12→19:29)
[2018-11-11] MEDS: PIPERACILLIN/TAZOBACTAM 3.375 GM in DEXTROSE 5% 100 ML IV SCH ×2 (08:13→15:25)
--- NOTE | 2018-11-11 08:13 | XRay Report ---
XR chest 1V portable CLINICAL HISTORY: S/P Thoracentesis postthoracentesis COMPARISON STUDY: 11/11/2017 12:18 AM FINDINGS: No evidence for pneumothorax postthoracentesis. Bilateral parenchymal infiltrative change p ersists. Permacath remains in the right atrium. IMPRESSION: No evidence of pneumothorax post right thoracentesis. The above report was generated using voice recognition software. It may contain grammatical, syntax or spelling errors. Electronically signed by: Chance Lawson M.D. 11/11/2018 8:11 AM
--- NOTE | 2018-11-11 08:40 | Nephrology Consultation ---
Date of Consultation November 11, 2018 Assessment & Plan (1) ELISABETH (acute kidney injury): -- Consistent with ischemic ATN -- UA is now bland and acellular -- Abdominal CT does not demonstrate any evidence of obstruction -- No emergent need for MOBILE PRACTICE LEAD, continue to monitor renal recovery -- Creatinine continues to improve -- Non-oliguric -- Furosemide 60 mg IV provided this AM -- Document I'O's -- Repeat metabolic profile this afternoon -- Maintain net negative fluid balance -- Medications are appropriately dosed for kidney function (2) Hypoxia: -- Related to pulmonary edema and effusions -- Improving following thoracentesis -- Maintain net negative fluid balance -- Cannot exclude pneumonia, empiric treatment started -- Plan of care discussed with Dr. Benites this morning (3) Anemia: -- H/H stable (4) Liver laceration: -- New incidental finding noted on CT scan, H/H stable History of Present Illness Reason for Consultation: ELISABETH Requesting Physician: Oscar Benites MD Attending Physician: Oscar Benites MD History of Present Illness Krzysztof Rivera is a 52-year-old male with hypertension, AFib, coronary artery disease. Krzysztof was admitted to the hospital in August 2018 with acute anterior AMI. PCI was complicated by LAD dissection complicated by cardiogenic shock. Impella was placed in right groin. Krzysztof had a prolonged hospitalization at [facility] where he was on ECMO for almost 35 days. Hospital course was complicated by acute kidney injury requiring CVVH eventually he was transitioned to intermittent hemodialysis. He was transferred to [facility] 2-3 weeks ago for rehab. Prolonged hospital course was complicated by vocal cord paralysis, he has been NPO and has a PEG tube placed. Evaluated by ENT last week and he was told that he will still need to be on PEG tube feeding and NPO for recovery from vocal cord paralysis. On 11/05/18, while at [facility] he was noted to have swelling in the right groin and he was sent to ER for further evaluation. While the right groin swelling was examined, the suture from right common femoral artery patch repair was ruptured and he had acute bleeding from right groin. He became hypotensive, but eventually clinically stabilized and taken to OR emergently. He had 1 PRBC transfusion and 2 L of IV fluid. Following observation for several days, Krzysztof was discharged to [facility] yesterday but unfortunately readmitted within 24 hours with dyspnea and hypoxia. CXR demonstrated bilateral pleural effusions. Chest CT detailed these findings. Also, of note is a large liver laceration. Abdominal CT scan was reviewed. A right sided thoracentesis was performed this morning with 1.5 L of fluid removed. Post CXR reviewed. He was on intermittent hemodialysis via right IJ tunnel dialysis catheter on Saturday, , Saturday. He has been the non oliguric with good urine output. Blood pressure and volume status have been acceptable. Electrolytes are acceptable. He was kept off of dialysis since 10/24/18 except 1 dialysis treatment on 11/01/2018 for hyperkalemia. PEG tube feeding was changed to low- potassium diet. Allergies Allergy/AdvReac Type Severity Reaction Status Date / Time cefepime Allergy Unknown Unverified 11/11/18 02:04 vancomycin Allergy Unknown Unverified 11/11/18 02:04 Home Medications Home Medications Medication Instructions Recorded Confirmed Type Fleet Enema 118 ml LA DAILY PRN 11/05/18 11/11/18 History acetaminophen 650 mg FEEDING TUBE Q4H PRN 11/05/18 11/11/18 History albuterol sulfate 2 puff INHALATION Q4H PRN 11/05/18 11/11/18 History amiodarone 200 mg FEEDING TUBE DAILY 11/05/18 11/11/18 History amoxicillin-pot clavulanate 1 tab FEEDING TUBE BIDM 11/05/18 11/11/18 History [Augmentin] aspirin 81 mg FEEDING TUBE QAM 11/05/18 11/11/18 History bisacodyl 10 mg LA DAILY PRN 11/05/18 11/11/18 History calcium acetate 667 mg FEEDING TUBE TIDM 11/05/18 11/11/18 History clopidogrel 75 mg FEEDING TUBE DAILY 11/05/18 11/11/18 History codeine-guaifenesin 10 ml FEEDING TUBE Q4H PRN 11/05/18 11/11/18 History colchicine 0.3 mg FEEDING TUBE 2XWK 11/05/18 11/11/18 History darbepoetin ting in polysorbat 1 dose SUBCUT WK 11/05/18 11/11/18 History midodrine 5 mg FEEDING TUBE TIDM 11/05/18 11/11/18 History oxycodone 5 mg FEEDING TUBE Q4H PRN 11/05/18 11/11/18 History pantoprazole 40 mg FEEDING TUBE QAM 11/05/18 11/11/18 History phenol 1 spray MUCOUS MEMBRANE Q4H PRN 11/05/18 11/11/18 History saliva substitute combo no.3 1 spray MUCOUS MEMBRANE Q1H PRN 11/05/18 11/11/18 History simethicone 20 mg FEEDING TUBE QAM 11/05/18 11/11/18 History docusate sodium 100 mg FEEDING TUBE BID 11/11/18 11/11/18 History heparin (porcine) 5,000 unit SUBCUT Q12H 11/11/18 11/11/18 History magnesium hydroxide [Milk of 30 ml FEEDING TUBE DAILY PRN 11/11/18 11/11/18 History Magnesia] polyethylene glycol 3350 [Miralax] 17 g FEEDING TUBE .LUNCH PRN 11/11/18 11/11/18 History sennosides-docusate sodium 1 tab PO .LUNCH PRN 11/11/18 11/11/18 History [Senokot-S] sodium bicarbonate 650 mg FEEDING TUBE BID 11/11/18 11/11/18 History Patient History Medical History Facial cellulitis (Resolved) Acute renal failure CAD (coronary artery disease) Cardiogenic shock Hemodialysis patient Renal function recovering Hx of extracorporeal membrane oxygenation treatment Myocardial infarct Surgical History History of tooth extraction Hx of LASIK Hx of angioplasty Social History Preferred Language: Luxembourgish Communication Ability: Effective Fitness Coordinator Required: No Beliefs That Will Affect Care: None Current Living Situation: Rehab Current Living Situation Comment: "LIVES WITH SOMEONE" current occupational status: employed Other Information That Helps Us Care for You: No Feels Safe at Home: Yes Safety Concerns: Feels Safe At This Time Smoking Status: Never smoker Hx Alcohol Use: Yes Hx Substance Use: No Review of Systems Constitutional: no fever and no chills Eyes: no problem reported Ear, Nose, Mouth, Throat: no problem reported Respiratory: no problem reported Cardiovascular: + chest pain at rest, + dyspnea, + orthopnea and + edema; no palpitations and no lightheadedness Gastrointestinal: + diarrhea/loose stools; no abdominal pain Genitourinary (Male): no problem reported Musculoskeletal: + muscle weakness; no myalgia Integumentary: no problem reported Neurologic: no problem reported Psychiatric: no problem reported Hematologic / Lymphatic: + easy bruising; no easy bleeding and no problem reported Physical Exam Vital Signs (Past 24 Hours): Last Vital Signs Temp 36.6 C 11/11/18 07:07 Pulse 96 H 11/11/18 07:38 Resp 28 H 11/11/18 07:38 BP 127/90 11/11/18 07:07 Pulse Ox 92 11/11/18 07:38 Constitutional: + acute distress, + frail appearing and + edematous Eyes: no scleral abnormality and no corneal abnormality ENMT: Mouth: + dry oral mucous membranes; no oral mucosal abnormality Neck: normal visual inspection and trachea midline Respiratory: no respiratory distress Auscultation: + rales; no rhonchi and no wheezes Cardiovascular: Rate/Rhythm: + tachycardic Heart Sounds: normal S1 and normal S2; no gallop, no murmur and no cardiac rub Extremities: + edema Chest (Breasts): Chest: + vascular access device or port Gastrointestinal (Abdomen): Percussion/Palpation: abdomen soft; abdomen nontender Musculoskeletal: Extremities: no cyanosis and no clubbing Skin: normal turgor; no rashes Neurologic: Motor/Sensory: no tremor and no asterixis Genitourinary: bladder scan for 360 ml Results & Data Laboratory Results Laboratory Results - last 24 hr 11/11/18 11/11/18 11/11/18 00:12 00:17 00:17 WBC 15.20 H RBC 3.16 L Hgb 9.9 L Hct 30.8 L MCV 97.5 MCH 31.3 MCHC 32.1 RDW Std Deviation 56.2 H RDW Coeff of Luna 15.9 H Plt Count 670 H MPV 10.1 Immature Gran % (Auto) 0.5 Neut % (Auto) 79.8 Lymph % (Auto) 6.2 Green % (Auto) 10.6 Eos % (Auto) 2.8 Baso % (Auto) 0.1 Immature Gran # (Auto) 0.07 H Neut # (Auto) 12.13 H Lymph # (Auto) 0.94 L Green # (Auto) 1.61 H Eos # (Auto) 0.43 Baso # (Auto) 0.02 PT Cancelled INR Cancelled APTT Cancelled PTT Ratio Cancelled Sample Site POC pH POC pCO2 POC pO2 POC HCO3 POC Total CO2 POC Base Excess POC ABG O2 Sat Adriel Test VBG pH VBG pCO2 VBG pO2 VBG HCO3 VBG O2 Saturation VBG Base Excess Barometric Pressure Sodium Potassium Chloride Carbon Dioxide Anion Gap BUN Creatinine Est Cr Clr Drug Dosing Est GFR ( Amer) Est GFR (Non-Af Amer) BUN/Creatinine Ratio Glucose POC Lactic Acid Domingo 1.33 Calcium Total Bilirubin AST ALT Alkaline Phosphatase Lactate Dehydrogenase Troponin I Total Protein Albumin Globulin Albumin/Globulin Ratio Urine Color Urine Appearance Urine pH Ur Specific [place] Urine Protein Urine Glucose (UA) Urine Ketones Urine Blood Urine Nitrite Urine Bilirubin Urine Urobilinogen Ur Leukocyte Esterase Nasal Screen MRSA (PCR) 11/11/18 11/11/18 11/11/18 00:17 00:17 00:36 WBC RBC Hgb Hct MCV MCH MCHC RDW Std Deviation RDW Coeff of Luna Plt Count MPV Immature Gran % (Auto) Neut % (Auto) Lymph % (Auto) Green % (Auto) Eos % (Auto) Baso % (Auto) Immature Gran # (Auto) Neut # (Auto) Lymph # (Auto) Green # (Auto) Eos # (Auto) Baso # (Auto) PT INR APTT PTT Ratio Sample Site POC pH POC pCO2 POC pO2 POC HCO3 POC Total CO2 POC Base Excess POC ABG O2 Sat Adriel Test VBG pH 7.39 VBG pCO2 33 L VBG pO2 33 VBG HCO3 20 VBG O2 Saturation 63.2 VBG Base Excess -4.6 Barometric Pressure 732.4 Sodium 144 Potassium Chloride 118 H Carbon Dioxide 19 L Anion Gap 7.0 BUN 53 H Creatinine 2.29 H Est Cr Clr Drug Dosing 42.7 Est GFR ( Amer) 36.4 Est GFR (Non-Af Amer) 31.4 BUN/Creatinine Ratio 23.1 H Glucose 115 H POC Lactic Acid Domingo Calcium 8.9 Total Bilirubin 0.5 AST ALT 35 Alkaline Phosphatase 77 Lactate Dehydrogenase Troponin I 0.052 H* Total Protein 7.2 Albumin 2.5 L Globulin 4.7 H Albumin/Globulin Ratio 0.5 L Urine Color Yellow Urine Appearance Clear Urine pH 5.0 Ur Specific [place] 1.017 Urine Protein Negative Urine Glucose (UA) Negative Urine Ketones Negative Urine Blood Negative Urine Nitrite Negative Urine Bilirubin Negative Urine Urobilinogen Negative Ur Leukocyte Esterase Negative Nasal Screen MRSA (PCR) 11/11/18 11/11/18 11/11/18 00:38 00:38 03:15 WBC RBC Hgb Hct MCV MCH MCHC RDW Std Deviation RDW Coeff of Luna Plt Count MPV Immature Gran % (Auto) Neut % (Auto) Lymph % (Auto) Green % (Auto) Eos % (Auto) Baso % (Auto) Immature Gran # (Auto) Neut # (Auto) Lymph # (Auto) Green # (Auto) Eos # (Auto) Baso # (Auto) PT 11.7 INR 1.2 H APTT 27.3 PTT Ratio 1.0 Sample Site POC pH POC pCO2 POC pO2 POC HCO3 POC Total CO2 POC Base Excess POC ABG O2 Sat Adriel Test VBG pH VBG pCO2 VBG pO2 VBG HCO3 VBG O2 Saturation VBG Base Excess Barometric Pressure Sodium Potassium 3.5 Chloride Carbon Dioxide Anion Gap BUN Creatinine Est Cr Clr Drug Dosing Est GFR ( Amer) Est GFR (Non-Af Amer) BUN/Creatinine Ratio Glucose POC Lactic Acid Domingo Calcium Total Bilirubin AST 31 ALT Alkaline Phosphatase Lactate Dehydrogenase Troponin I Total Protein Albumin Globulin Albumin/Globulin Ratio Urine Color Urine Appearance Urine pH Ur Specific [place] Urine Protein Urine Glucose (UA) Urine Ketones Urine Blood Urine Nitrite Urine Bilirubin Urine Urobilinogen Ur Leukocyte Esterase Nasal Screen MRSA (PCR) Negative 11/11/18 11/11/18 07:51 08:13 WBC RBC Hgb Hct MCV MCH MCHC RDW Std Deviation RDW Coeff of Luna Plt Count MPV Immature Gran % (Auto) Neut % (Auto) Lymph % (Auto) Green % (Auto) Eos % (Auto) Baso % (Auto) Immature Gran # (Auto) Neut # (Auto) Lymph # (Auto) Green # (Auto) Eos # (Auto) Baso # (Auto) PT INR APTT PTT Ratio Sample Site Heel Stick POC pH 7.34 L POC pCO2 31 L POC pO2 98 H POC HCO3 17 L POC Total CO2 17 L POC Base Excess -9.0 POC ABG O2 Sat 97.0 H Adriel Test NA VBG pH VBG pCO2 VBG pO2 VBG HCO3 VBG O2 Saturation VBG Base Excess Barometric Pressure Sodium Potassium Chloride Carbon Dioxide Anion Gap BUN Creatinine Est Cr Clr Drug Dosing Est GFR ( Amer) Est GFR (Non-Af Amer) BUN/Creatinine Ratio Glucose POC Lactic Acid Domingo Calcium Total Bilirubin AST ALT Alkaline Phosphatase Lactate Dehydrogenase 408 H Troponin I Total Protein Albumin Globulin Albumin/Globulin Ratio Urine Color Urine Appearance Urine pH Ur Specific [place] Urine Protein Urine Glucose (UA) Urine Ketones Urine Blood Urine Nitrite Urine Bilirubin Urine Urobilinogen Ur Leukocyte Esterase Nasal Screen MRSA (PCR)
[2018-11-11] MEDS ORDERED: Nursing to Pharmacy Communication ONE (08:42)
[2018-11-11] MEDS ORDERED: FUROSEMIDE 40 MG/4 ML VIAL IV ONE ×2 (08:45→18:31)
--- NOTE | 2018-11-11 08:59 | Operative Report ---
DATE OF OPERATION: 11/11/2018 PROCEDURE: Right thoracentesis under ultrasound guidance. SURGEON: Rustam Hurley MD. ANESTHESIA: Local. SPECIFICS OF PROCEDURE: The patient seated at the bedside table while CPAP was on. We evaluated his right chest. A good window was seen in his right lateral lower chest posteriorly. This was marked with an indelible ink. Appropriate timeout was called. He was prepped and draped in usual sterile fashion. A 23 gauge needle was used with 1% Xylocaine to raise the skin wheal. A larger needle was used to anesthetize the deeper subcutaneous tissue. We got free flowing fluid out. I inserted a guidewire through the needle, needle removed. Triple lumen catheter slid into 17 cm and the guidewire removed. A 1450 mL of fluid was drained. This was serous and rust colored, although fairly light. It appears we got all of this out. He had some reexpansion coughing, but no pain. I removed the catheter without difficulty and had no bleeding. An antimicrobial dressing was placed. His x-ray showed no evidence of pneumothorax and good resolution of fluid. He was much more comfortable after we finished. I attest to the content of the Intraoperative Record and any orders documented therein. Any exception s are noted below.
[2018-11-11] MEDS ORDERED: FUROSEMIDE 60 MG in SYRINGE 0 ML IV ONE (09:00)
[2018-11-11] MEDS ORDERED: PANTOprazole 40 MG TAB PEG SCH (09:00)
[2018-11-11] MEDS ORDERED: HEPARIN SOD 5,000 UNIT/0.5 ML VIAL SQ SCH (09:00)
[2018-11-11] MEDS ORDERED: CLOPIDOGREL BISULFATE 75 MG TAB PEG SCH (09:00)
[2018-11-11] MEDS ORDERED: ASPIRIN 81 MG CHEW GT SCH (09:00)
--- NOTE | 2018-11-11 09:19 | Consultation Report ---
DATE OF CONSULTATION: 11/11/2018 REASON FOR CONSULTATION: Acute respiratory collapse and renal failure. 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 He went into acute renal failure and has been on dialysis. Earlier this year, he had 2 stents placed in the LAD and left circumflex for an acute anterior wall myocardial infarction. The LAD dissected and the patient was transferred to [facility] where he was on ECMO. He developed renal failure and came here when he had his right groin drained by Dr. Gleason. He has not been on dialysis for about 2 weeks. He was quite ill and had a PEG tube placed and has been improving, it was at [facility] when he was noted to be much more short of breath. He presented and was found to have bilateral pleural effusions and the right was much larger. He also had infiltrates. I evaluated this patient this morning on 12/11/2018 before I was going to the operating room and he looked very bad. His saturations were low. We had him on CPAP with acceptable saturations, but he did not look good. I have elected to proceed with an urgent thoracentesis as he has a significant right pleural effusion. PAST MEDICAL HISTORY: 1. Coronary artery disease. 2. Recent myocardial infarction. 3. Recent heart failure. 4. Cardiogenic shock. 5. Facial cellulitis. 6. Right groin hematoma. PAST SURGICAL HISTORY: 1. Angioplasty. 2. Tooth extraction. 3. LASIK. MEDICATIONS: Please see chart, but multiple include aspirin and Plavix. ALLERGIES: 1. CEFEPIME. 2. VANCOMYCIN. SOCIAL HISTORY: The patient is employed here. He does not smoke. He has a supportive living environment. REVIEW OF SYSTEMS: The patient has been tolerating his tube feeds. He has been eating better. He actually was improving until recently when he developed swelling in his legs and has developed a chronic cough. It is nonproductive. He became much more short of breath recently. He denied chest pain. He states he has been eating better. He also has a vocal cord paralysis, which was a complication of all what he went through. PHYSICAL EXAMINATION: GENERAL: This is a pale-appearing male who stands 5 feet 10 inches tall and weighs about 200 pounds. He is awake and answering questions. He is on CPAP. NECK: His veins are not really distended. He is awake and answering questions, but he appears to be quite anxious. LUNGS: Breath sounds are markedly decreased, especially on the right. HEART: He has a regular rate and rhythm of his heart. ABDOMEN: Soft, nontender. He has a PEG tube in place. He has a right hemodialysis catheter in the right infraclavicular area. He appears to be in respiratory distress. He does have edema of his lower extremities. His abdomen is nontender. MUSCULOSKELETAL: He really does not have much in the way of any skin breakdown otherwise. No joint effusions. NEUROLOGIC: He is moving everything. He is hoarse. ASSESSMENT AND PLAN: Bilateral pleural effusions, right much greater than left. He also has infiltrates in both lungs. I am going to perform a thoracentesis this morning as I am quite concerned about his status. RICKY
[2018-11-11 09:40] LABS: Total Protein Pleural Fluid 2.7 g/dl
[2018-11-11 10:10] LABS: Appearance Pleural Fluid CLOUDY; Color Pleural Fluid AMBER; Mononuclear WBC Pleural 38.9 %; Polynuclear WBC Pleural 61.1 %; RBC Pleural Fluid (A) 4000 /uL; Source Pleural Fluid RIGHT LUNG; WBC Pleural Fluid (A) 214 /uL
--- NOTE | 2018-11-11 12:52 | History & Physical Bridge Note ---
Date of Service November 11, 2018 History & Physical Bridge Note I saw and examined the patient today. Coughing after his thoracentesis, but otherwise stable. Denies any right flank or RUQ pain. Discussed extensively with [facility]. Apparently he had a RP bleed in 08/2018 during his prior admission and required an embolization of his right T11 intercostal artery. Then had a drain in from 09/23 - ~10/03 to drain his RP bleed. Drain was removed. Similar findings seen on CT a/p on 10/08 at [facility]. - Continue abx - Follow up with nephrology
[2018-11-11] MEDS ORDERED: LEVOFLOXACIN CONSULT ACTIVE PRN (13:11)
--- NOTE | 2018-11-11 15:58 | Progress Note ---
DATE: 11/11/2018 Mr. Rivera looks much better after we did our thoracentesis. Fluid looks benign. The pH was 7.31. Glucose is 142. The LDH is 201, but his serum LDH was 408, so this is technically a transudate. In addition, the Gram stain shows no organisms. It is not a tony empyema. He also is requiring less oxygen. He also has some fluid on the left that we could tap for symptomatic relief. We will continue to follow along and make a decision on that based on how he looks.
[2018-11-11 16:03] LABS: Hematocrit (blood only) 26.5 % (42-52); Hemoglobin 8.6 g/dL (14.0-18.0)
[2018-11-11 16:22] LABS: BUN Creatinine Ratio 24.5 (10-20); Creatinine Clr Calc Pharmacy 39.5 ml/min; Est GFR (African American) 33.2; Est GFR (Non-African American) 28.7; Potassium 3.9 mmol/L (3.5-5.1)
--- NOTE | 2018-11-11 16:32 | Cardiology Consultation ---
Date of Consultation November 11, 2018 Assessment & Plan (1) Acute exacerbation of CHF (congestive heart failure): 2. Pleural effusion post thoracentesis 3. Ischemic cardiomyopathy EF 30-35% 4. Coronary artery disease post PCI with 3 DESTINY (left main and the circumflex, ostial and proximal LAD). 5. Improving renal failure on intermittent dialysis 6. Persistent vocal cord dysfunction, dysphagia on PEG tube 7. Critical illness myopathy 8. Prior RP bleed post intercostal coil embolectomy, residual fluid collection surround RT hepatic lobe 9. Prior A. fib with RVR, nonsustained VT on amiodarone 10. Relative hypotension on intermittent midodrine Improving respiratory status following thoracentesis, IV diuresis. Suspect acute decompensation in part secondary fluid resuscitation last admission, up more than 10L. No other clear precipitants. Reasonable to reassess LV function. -- Repeat TTE -- Continued intermittent IV diuretics. No need for additional albumin. -- Continue DAPT with ASA/Clopidogrel -- Continue current amidoarone -- Would discontinue midodrine -- Assuming pressures stable plan to start low-dose beta-jack at some point. History of Present Illness Attending Physician: Oscar Benites MD History of Present Illness Mr. Rivera is a 52-year-old man with a complex recent medical history readmitted with progressive shortness of breath. Patient initally admitted to [facility] August 2018 as a late presenting anterior STEMI. Intervention complicated by left main dissection, cardiogenic shock/rest requiring impella mechanical support and transferred to [facility]. Had a prolonged hospital course over 50 days with ECMO and impella for 30 days. Course complicated by renal failure requiring CVVHD, now on intermitent HD. Also had a large RP/iliospoas bleed requiring intercostal emobolization. Patient admitted last week in the setting of acute RT groin swelling and bleeding. Underwent urgent surgical hematoma evacuation. HATCH BOSS repair was intact. Patient discharged yesterday back to rehab. During hospitalization renal function stable and did not require HD. Has been off GDMT for known cardiomyopathy (last EF 35%) due to hypotension. During hospitalization continued on prior midorine and continue IV fluids, up 10L at least 7Kg. Returned last night with worsening respiratory distress, tachypnea and tachyc ardia. ECG sinus tachycardia and troponin unremarkable. Chest Xray and CT chest showed large RT pleural effusion with diffuse bilateral airspace disease, and complex fluid collection surrounding rt hepatic lobe. Patient underwent thoracentesis with Dr. Hurley this AM with removal of 1450 ml of serous/rust colored fluid, transudate on labs. Started on broadspectrum antibiotics, IV steroids and received IV lasix 60mg x 1. IVF/UOP even thus far. Allergies Allergy/AdvReac Type Severity Reaction Status Date / Time cefepime Allergy Unknown Unverified 11/11/18 02:04 vancomycin Allergy Unknown Unverified 11/11/18 02:04 Home Medications Home Medications Medication Instructions Recorded Confirmed Type Fleet Enema [address] DAILY PRN 11/05/18 11/11/18 History acetaminophen 650 mg FEEDING TUBE Q4H PRN 11/05/18 11/11/18 History albuterol sulfate 2 puff INHALATION Q4H PRN 11/05/18 11/11/18 History amiodarone 200 mg FEEDING TUBE DAILY 11/05/18 11/11/18 History amoxicillin-pot clavulanate 1 tab FEEDING TUBE BIDM 11/05/18 11/11/18 History [Augmentin] aspirin 81 mg FEEDING TUBE QAM 11/05/18 11/11/18 History bisacodyl [address] DAILY PRN 11/05/18 11/11/18 History calcium acetate 667 mg FEEDING TUBE TIDM 11/05/18 11/11/18 History clopidogrel 75 mg FEEDING TUBE DAILY 11/05/18 11/11/18 History codeine-guaifenesin 10 ml FEEDING TUBE Q4H PRN 11/05/18 11/11/18 History colchicine 0.3 mg FEEDING TUBE 2XWK 11/05/18 11/11/18 History darbepoetin ting in polysorbat 1 dose SUBCUT WK 11/05/18 11/11/18 History midodrine 5 mg FEEDING TUBE TIDM 11/05/18 11/11/18 History oxycodone 5 mg FEEDING TUBE Q4H PRN 11/05/18 11/11/18 History pantoprazole 40 mg FEEDING TUBE QAM 11/05/18 11/11/18 History phenol 1 spray MUCOUS MEMBRANE Q4H PRN 11/05/18 11/11/18 History saliva substitute combo no.3 1 spray MUCOUS MEMBRANE Q1H PRN 11/05/18 11/11/18 History simethicone 20 mg FEEDING TUBE QAM 11/05/18 11/11/18 History docusate sodium 100 mg FEEDING TUBE BID 11/11/18 11/11/18 History heparin (porcine) 5,000 unit SUBCUT Q12H 11/11/18 11/11/18 History magnesium hydroxide [Milk of 30 ml FEEDING TUBE DAILY PRN 11/11/18 11/11/18 History Magnesia] polyethylene glycol 3350 [Miralax] 17 g FEEDING TUBE .LUNCH PRN 11/11/18 History sennosides-docusate sodium 1 tab PO .LUNCH PRN 11/11/18 11/11/18 History [Senokot-S] sodium bicarbonate 650 mg FEEDING TUBE BID 11/11/18 11/11/18 History Patient History Medical History Facial cellulitis (Resolved) Acute renal failure CAD (coronary artery disease) Cardiogenic shock Hemodialysis patient Renal function recovering Hx of extracorporeal membrane oxygenation treatment Myocardial infarct Surgical History History of tooth extraction Hx of LASIK Hx of angioplasty Social History Preferred Language: Bengali Communication Ability: Effective [place] [employer] Guide Required: No Beliefs That Will Affect Care: None Current Living Situation: Rehab Current Living Situation Comment: "LIVES WITH SOMEONE" current occupational status: employed Other Information That Helps Us Care for You: No Feels Safe at Home: Yes Safety Concerns: Feels Safe At This Time Smoking Status: Never smoker Hx Alcohol Use: Yes Hx Substance Use: No Review of Systems 10 point review of systems is negative Physical Exam Vital Signs (Past 24 Hours): Last Vital Signs Temp 36.1 C L 11/11/18 15:11 Pulse 90 11/11/18 16:00 Resp 18 11/11/18 15:20 BP 108/75 11/11/18 15:11 Pulse Ox 99 11/11/18 15:20 Constitutional: + ill appearing and + thin Eyes: + anicteric sclerae Respiratory: Auscultation: + crackles (bilaterally, dec breath sounds at left base.RT thoracentesis site intact) Cardiovascular: Rate/Rhythm: regular rate Heart Sounds: no murmur Vessels: + JVD (unable to assess) Extremities: normal capillary refill and + edema (trace lower extremity) Gastrointestinal (Abdomen): Inspection/Auscultation: abdomen not distended Percussion/Palpation: abdomen soft; abdomen nontender Skin: no rashes, warm and dry Neurologic: moves all extremities Psychiatric: A+Ox3, euthymic affect
[2018-11-11] MEDS ORDERED: FUROSEMIDE 40 MG/4 ML VIAL IV STA (18:05)
[2018-11-11] MEDS ORDERED: FUROSEMIDE 40 MG in SYRINGE 0 ML IV STA (18:14)
[2018-11-11] MEDS: GUAIFENESIN/CODEINE 100MG/10MG 5ML UDC PEG PRN (19:31)
[2018-11-12] MEDS: PIPERACILLIN/TAZOBACTAM 3.375 GM in DEXTROSE 5% 100 ML IV SCH ×4 (00:17→23:39)
[2018-11-12] MEDS: methylPREDNISolone 40 MG in SYRINGE 0 ML IV SCH ×4 (00:17→22:33)
[2018-11-12] MEDS ORDERED: LEVOFLOXACIN/D5W 500 MG/100 ML BAG IV SCH (01:00)
[2018-11-12] MEDS: LINEZOLID 600 MG/300 ML BAG IV SCH (03:31)
[2018-11-12 06:53] LABS: BUN Creatinine Ratio 26.2 (10-20); Calcium 8.8 mg/dl (8.5-10.1); Creatinine Clr Calc Pharmacy 38.4 ml/min; Est GFR (African American) 32.3; Est GFR (Non-African American) 27.9; Magnesium 1.8 mg/dl (1.8-2.4); Potassium 3.9 mmol/L (3.5-5.1)
[2018-11-12] MEDS: ALBUT/IPRATROP 3MG/0.5MG NEB 3 ML VIAL NEB SCH ×2 (07:07→11:08)
[2018-11-12] MEDS: BUDESONIDE 0.5 MG/2 ML VIAL (PULMICORT) NEB SCH ×2 (07:07→19:04)
--- NOTE | 2018-11-12 07:52 | XRay Report ---
XR chest 1V portable CLINICAL HISTORY: effusion SHORTNESS OF BREATH COMPARISON STUDY: 11/11/2018 FINDINGS: The heart remains enlarged. There are extensive bilateral pulmonary airspace opacities. The re is a right-sided central venous catheter unchanged in appearance. Small pleural effusions are agai n suspected.[ IMPRESSION: Cardiomegaly and persistent bilateral pulmonary airspace opacities, pulmonary edema versu s pneumonia. Small pleural effusions. Electronically signed by: Leoncio Gonzales M.D. 11/12/2018 7:50 AM
[2018-11-12 08:01] LABS: Basophils # (auto) 0.01 K/uL (0-0.2); Basophils % (auto) 0.1 %; Hematocrit (blood only) 24.6 % (42-52); Hemoglobin 7.9 g/dL (14.0-18.0); Immature Granulocytes # (auto) 0.07 K/uL (0.00-0.02); Immature Granulocytes % (auto) 0.6 %; Lymphocytes # (auto) 0.56 K/uL (1.2-3.4); Lymphocytes % (auto) 4.7 %; Mean Corpuscular Hgb Conc 32.1 g/dL (32-36); Mean Corpuscular Volume 94.6 fL (80-100); Mean Platelet Volume 10.2 fL (7.4-10.4); Neutrophils # (auto) 10.73 K/uL (1.4-6.5); Neutrophils % (auto) 89.6 %; Platelet Count 581 K/uL (130-400); RDW Coefficient of Variation 15.9 % (11.5-14.5); RDW Standard Deviation 54.9 fL (36.4-46.3); White Blood Count 11.97 K/uL (4.8-10.8)
--- NOTE | 2018-11-12 08:03 | Progress Note ---
DATE: 11/12/2018 Mr. Rivera was seen today. His night was much improved. He felt better. He slept better. He states his breathing is better. He has parenchymal opacities bilaterally. He is not really re-accumulating much in the way of fluid. He sounds better also. I would continue to follow him up with serial x-rays to make sure he does not re-accumulate.
[2018-11-12 08:44] LABS: Giant Platelets 2+
[2018-11-12] MEDS: AMIODARONE 200 MG TAB PO SCH (09:24)
[2018-11-12] MEDS: LANSOPRAZOLE 30 MG SOLTAB PEG SCH (09:25)
[2018-11-12] MEDS: CALCIUM ACETATE 667 MG CAP PO SCH ×3 (09:25→17:09)
[2018-11-12] MEDS: MIDODRINE HCL 2.5 MG TAB PO SCH ×3 (09:26→17:09)
[2018-11-12] MEDS: SODIUM BICARBONATE 650 MG TAB PO SCH ×2 (09:27→20:52)
[2018-11-12] MEDS: DOCUSATE SODIUM SYRUP 100 MG/10 ML UDC PEG SCH ×2 (09:28→20:52)
[2018-11-12] MEDS: FUROSEMIDE 60 MG in SYRINGE 0 ML IV SCH (09:29)
--- NOTE | 2018-11-12 09:38 | Nephrology Progress Note ---
Date of Service November 12, 2018 Assessment & Plan (1) ELISABETH (acute kidney injury): -- Consistent with ischemic ATN -- UA is bland and acellular -- Abdominal CT does not demonstrate any evidence of obstruction -- No emergent need for CREDIT AUTHORIZER, continue to monitor renal recovery -- Creatinine stable at 2.5 mg/dL -- Non-oliguric -- Furosemide 60 mg IV provided this AM -- Document I/O's -- Repeat metabolic profile tomorrow AM -- Maintain net negative fluid balance -- Medications are appropriately dosed for kidney function (2) Hypoxia: -- Related to pulmonary edema and effusions -- R thoracentesis (1.5 L) performed yesterday -- Maintain net negative fluid balance -- Cannot exclude pneumonia, empiric treatment continued (3) Anemia: -- H/H dropped overnight -- Dr. Benites reviewed CT findings with attending physician [place] [facility] [place] (4) Liver laceration: -- Noted previously on imaging from [facility] [place] report Subjective Review of Systems All systems reviewed & are unremarkable except as noted in HPI & below No acute events overnight. Krzysztof is feeling much better this morning. Dyspnea has improved. mild non-productive cough persists. No fevers or chills. Denies chest pain or palpitations. No lightheadedness or dizziness. Good urine output following IV furosemide. Edema also improving. Denies any evidence of bleeding. Speech therapy evaluation being performed this morning. I discussed the plan of care with Dr. Benites. H/H will be monitored closely; if it continues to fall, transfer to [facility] [place] may be necessary. Physical Exam Vital Signs (Past 24 Hours): Last Vital Signs Temp 35.7 C L 11/12/18 06:55 Pulse 86 11/12/18 07:08 Resp 16 11/12/18 07:08 BP 109/79 11/12/18 06:55 Pulse Ox 94 11/12/18 07:08 Constitutional: + frail appearing and + edematous; no acute distress Eyes: no scleral abnormality and no corneal abnormality ENMT: Mouth: no oral mucosal abnormality and oral mucous membranes not dry Neck: normal visual inspection and trachea midline Respiratory: no respiratory distress Auscultation: + diminished lung sounds and + rales; no rhonchi and no wheezes Cardiovascular: Rate/Rhythm: + tachycardic Heart Sounds: normal S1 and normal S2; no gallop, no murmur and no cardiac rub Extremities: + edema Chest (Breasts): Chest: + vascular access device or port Gastrointestinal (Abdomen): Percussion/Palpation: abdomen soft; abdomen nontender Musculoskeletal: Extremities: no cyanosis and no clubbing Skin: normal turgor; no rashes Neurologic: Motor/Sensory: no tremor and no asterixis Results & Data Laboratory Results Laboratory Results - last 24 hr 11/11/18 11/11/18 11/11/18 07:57 07:57 10:58 WBC RBC Hgb Hct MCV MCH MCHC RDW Std Deviation RDW Coeff of Luna Plt Count MPV Immature Gran % (Auto) Neut % (Auto) Lymph % (Auto) Eagle % (Auto) Eos % (Auto) Baso % (Auto) Immature Gran # (Auto) Neut # (Auto) Lymph # (Auto) Eagle # (Auto) Eos # (Auto) Baso # (Auto) Giant Platelets Sodium Potassium Chloride Carbon Dioxide Anion Gap BUN Creatinine Est Cr Clr Drug Dosing Est GFR ( Amer) Est GFR (Non-Af Amer) BUN/Creatinine Ratio Glucose Calcium Magnesium Procalcitonin 0.08 Pleural Fluid Source RIGHT LUNG Pleural Color MAURICIO Pleural Appearance CLOUDY Pleural WBC 214 Pleural RBC 4000 Pleural Polynuclear % 61.1 Pleural Mononuclear % 38.9 Pleural Total Protein 2.7 Pleural LDH 201 Pleural Amylase 16 11/11/18 11/11/18 11/12/18 15:55 15:55 06:21 WBC RBC Hgb 8.6 L Hct 26.5 L MCV MCH MCHC RDW Std Deviation RDW Coeff of Luna Plt Count MPV Immature Gran % (Auto) Neut % (Auto) Lymph % (Auto) Eagle % (Auto) Eos % (Auto) Baso % (Auto) Immature Gran # (Auto) Neut # (Auto) Lymph # (Auto) Eagle # (Auto) Eos # (Auto) Baso # (Auto) Giant Platelets Sodium 144 144 Potassium 3.9 3.9 Chloride 115 H 114 H Carbon Dioxide 22 21 Anion Gap 7.0 9.0 BUN 61 H 66 H Creatinine 2.47 H 2.53 H Est Cr Clr Drug Dosing 39.5 38.4 Est GFR ( Amer) 33.2 32.3 Est GFR (Non-Af Amer) 28.7 27.9 BUN/Creatinine Ratio 24.5 H 26.2 H Glucose 153 H 163 H Calcium 9.0 8.8 Magnesium 1.8 Procalcitonin Pleural Fluid Source Pleural Color Pleural Appearance Pleural WBC Pleural RBC Pleural Polynuclear % Pleural Mononuclear % Pleural Total Protein Pleural LDH Pleural Amylase 11/12/18 06:21 WBC 11.97 H RBC 2.60 L Hgb 7.9 L Hct 24.6 L MCV 94.6 MCH 30.4 MCHC 32.1 RDW Std Deviation 54.9 H RDW Coeff of Luna 15.9 H Plt Count 581 H MPV 10.2 Immature Gran % (Auto) 0.6 Neut % (Auto) 89.6 Lymph % (Auto) 4.7 Eagle % (Auto) 5.0 Eos % (Auto) 0.0 Baso % (Auto) 0.1 Immature Gran # (Auto) 0.07 H Neut # (Auto) 10.73 H Lymph # (Auto) 0.56 L Eagle # (Auto) 0.60 H Eos # (Auto) 0.00 Baso # (Auto) 0.01 Giant Platelets 2+ Sodium Potassium Chloride Carbon Dioxide Anion Gap BUN Creatinine Est Cr Clr Drug Dosing Est GFR ( Amer) Est GFR (Non-Af Amer) BUN/Creatinine Ratio Glucose Calcium Magnesium Procalcitonin Pleural Fluid Source Pleural Color Pleural Appearance Pleural WBC Pleural RBC Pleural Polynuclear % Pleural Mononuclear % Pleural Total Protein Pleural LDH Pleural Amylase
--- NOTE | 2018-11-12 10:24 | Cardiology Progress Note ---
Date of Service November 12, 2018 Assessment & Plan (1) Acute exacerbation of CHF (congestive heart failure): 2. Pleural effusion post thoracentesis 3. Ischemic cardiomyopathy EF 30-35% 4. Coronary artery disease post PCI with 3 DESTINY (left main and the circumflex, ostial and proximal LAD). 5. Improving renal failure on intermittent dialysis 6. Persistent vocal cord dysfunction, dysphagia on PEG tube 7. Critical illness myopathy 8. Prior RP bleed post intercostal coil embolectomy, residual fluid collection surround RT hepatic lobe 9. Prior A. fib with RVR, nonsustained VT on amiodarone 10. Relative hypotension on intermittent midodrine 11. Anemia Improving respiratory status following thoracentesis, IV diuresis. Renal function stable. Persistent pulmonary edema on chest xray. -- Continued current IV diuresis -- Continue DAPT with ASA/Clopidogrel -- Continue current amidoarone -- New anemia concerning in setting of edna-hepatic fluid collection. Repeat Hb pending - If still low dropping agree with transfer to tertiary center. Subjective Breathing easier overnight and this morning. No chest pain. Hb down to 7.9 today. No tony bleeding. CXR with persistent airspace opacities. Negative 1700 yesterday. SCr stable Physical Exam Vital Signs (Past 24 Hours): Last Vital Signs Temp 35.7 C L 11/12/18 06:55 Pulse 86 11/12/18 07:08 Resp 16 11/12/18 07:08 BP 109/79 11/12/18 06:55 Pulse Ox 94 11/12/18 07:08 Constitutional: + thin; no acute distress Eyes: + anicteric sclerae Respiratory: Auscultation: + diminished lung sounds (at bases) and + crackles (bilateral left > right) Cardiovascular: Rate/Rhythm: regular rate Heart Sounds: no murmur Extremities: no pedal edema Gastrointestinal (Abdomen): Inspection/Auscultation: abdomen normal to inspection Percussion/Palpation: abdomen soft; abdomen nontender Skin: no rashes, warm and dry right MASONRY INSTALLER access site - dressed, no hematoma. Neurologic: moves all extremities Psychiatric: A+Ox3, euthymic affect
--- NOTE | 2018-11-12 10:43 | Infectious Disease Consult ---
Date of Consultation November 12, 2018 Assessment & Plan (1) Multifocal pneumonia: 52-year-old male with a very complicated recent medical history status post MS, cardiogenic shock, renal failure, and right groin hematoma evacuation, now with acute shortness of breath, bilateral effusions and infiltrates. Given his low pro-calcitonin and rapid clinical improvement overnight, as well as the lack of preceding symptoms of fever and cough, with think that this is more likely pulmonary edema/fluid overload rather than pneumonia. Would favor discontinuation of antibiotics in the next 24-48 hours if continues to improve. Will follow. History of Present Illness Reason for Consultation: Linezolid approval Attending Physician: Oscar Benites MD History of Present Illness 52-year-old male with complicated recent past medical history including acute MS with cardiogenic shock, LAD dissection following stenting, acute renal failure requiring dialysis, recently hospitalized with right groin hematoma for evacuation, who was at rehab, and noted progressively worsening edema and yesterday became acutely short of breath and was brought back to the hospital. Chest x-ray showed large bilateral effusions along with bilateral infiltrates worrisome potentially for infectious process. Patient was started on IV antibiotics with Zyvox, Zosyn, levofloxacin, and underwent thoracentesis of large amount of fluid which appears transudate of in nature. Gram stain is negative, cultures are pending. Blood cultures are no growth to date. Patient significantly improved overnight, now much more comfortable and less short of breath. He has not had any report of fever, sputum production, chills, or other systemic complaints. Allergies Allergy/AdvReac Type Severity Reaction Status Date / Time cefepime Allergy Unknown Unverified 11/11/18 02:04 vancomycin Allergy Unknown Unverified 11/11/18 02:04 Home Medications Home Medications Medication Instructions Recorded Confirmed Type Fleet Enema 118 ml [place] DAILY PRN 11/05/18 11/11/18 History acetaminophen 650 mg FEEDING TUBE Q4H PRN 11/05/18 11/11/18 History albuterol sulfate 2 puff INHALATION Q4H PRN 11/05/18 11/11/18 History amiodarone 200 mg FEEDING TUBE DAILY 11/05/18 11/11/18 History amoxicillin-pot clavulanate 1 tab FEEDING TUBE BIDM 11/05/18 11/11/18 History [Augmentin] aspirin 81 mg FEEDING TUBE QAM 11/05/18 11/11/18 History bisacodyl 10 mg [place] DAILY PRN 11/05/18 11/11/18 History calcium acetate 667 mg FEEDING TUBE TIDM 11/05/18 11/11/18 History clopidogrel 75 mg FEEDING TUBE DAILY 11/05/18 11/11/18 History codeine-guaifenesin 10 ml FEEDING TUBE Q4H PRN 11/05/18 11/11/18 History colchicine 0.3 mg FEEDING TUBE 2XWK 11/05/18 11/11/18 History darbepoetin ting in polysorbat 1 dose SUBCUT WK 11/05/18 11/11/18 History midodrine 5 mg FEEDING TUBE TIDM 11/05/18 11/11/18 History oxycodone 5 mg FEEDING TUBE Q4H PRN 11/05/18 11/11/18 History pantoprazole 40 mg FEEDING TUBE QAM 11/05/18 11/11/18 History phenol 1 spray MUCOUS MEMBRANE Q4H PRN 11/05/18 11/11/18 History saliva substitute combo no.3 1 spray MUCOUS MEMBRANE Q1H PRN 11/05/18 11/11/18 History simethicone 20 mg FEEDING TUBE QAM 11/05/18 11/11/18 History docusate sodium 100 mg FEEDING TUBE BID 11/11/18 11/11/18 History heparin (porcine) 5,000 unit SUBCUT Q12H 11/11/18 11/11/18 History magnesium hydroxide [Milk of 30 ml FEEDING TUBE DAILY PRN 11/11/18 11/11/18 History Magnesia] polyethylene glycol 3350 [Miralax] 17 g FEEDING TUBE .LUNCH PRN 11/11/18 11/11/18 History sennosides-docusate sodium 1 tab PO .LUNCH PRN 11/11/18 11/11/18 History [Senokot-S] sodium bicarbonate 650 mg FEEDING TUBE BID 11/11/18 11/11/18 History Patient History Medical History Facial cellulitis (Resolved) Acute renal failure CAD (coronary artery disease) Cardiogenic shock Hemodialysis patient Renal function recovering Hx of extracorporeal membrane oxygenation treatment Myocardial infarct Surgical History History of tooth extraction Hx of LASIK Hx of angioplasty Social History Smoking Status: Never smoker second hand exposure: No substance use type: does not use Physical Exam Vital Signs (Past 24 Hours): Last Vital Signs Temp 35.7 C L 11/12/18 06:55 Pulse 86 11/12/18 07:08 Resp 16 11/12/18 07:08 BP 109/79 11/12/18 06:55 Pulse Ox 94 11/12/18 07:08 Constitutional: WD/WN, vitals as above + thin and comfortable; no acute distress Eyes: PERRL, conjunctivae normal, anicteric sclerae ENMT: external ear and nose normal, oropharynx normal Neck: trachea midline, no thyromegaly neck nontender Respiratory: normal respiratory effort; no respiratory distress, no labored breathing and does not use accessory muscles Auscultation: + rales Cardiovascular: Rate/Rhythm: regular rate and regular rhythm Heart Sounds: normal S1 and normal S2; no gallop, no murmur and no cardiac rub Vessels: normal peripheral pulses; no JVD Gastrointestinal (Abdomen): normal bowel sounds, soft, nontender, no hepatosplenomegaly Musculoskeletal: no cyanosis or clubbing, extremities motor strength 5/5 Spine: thoracic spine normal to inspection and lumbar spine normal to inspection; no cervical spinal tenderness Skin: no rashes, warm and dry normal turgor; no lesions Right groin dressing intact Neurologic: patellar DTR's 2+ bilat, sensation intact no focal motor deficits Psychiatric: A+Ox3, euthymic affect Orientation: cooperative Lymphatic: no cervical or axillary lymphadenopathy no inguinal lymphadenopathy Results & Data Laboratory Results Short CBC 11/11/18 11/12/18 11/12/18 Range/Units 15:55 06:21 06:21 WBC 11.97 H (4.8-10.8) K/uL Hgb 8.6 L 7.9 L 7.9 L (14.0-18.0) g/dL Hct 26.5 L 24.6 L (42-52) % Plt Count 581 H (130-400) K/uL BMP 11/11/18 11/12/18 15:55 06:21 Sodium 144 144 Potassium 3.9 3.9 Chloride 115 H 114 H Carbon Dioxide 22 21 BUN 61 H 66 H Creatinine 2.47 H 2.53 H Glucose 153 H 163 H Calcium 9.0 8.8 Diagnostic Findings Microbiology 11/11/18 00:36 Blood Blood Culture - Preliminary No growth to date. 11/11/18 00:17 Blood Blood Culture - Preliminary No growth to date. 11/11/18 07:57 Pleural Fluid Gram Stain - Final cc: ~ XR chest 1V portable CLINICAL HISTORY: effusion SHORTNESS OF BREATH COMPARISON STUDY: 11/11/2018 FINDINGS: The heart remains enlarged. There are extensive bilateral pulmonary airspace opacities. There is a right-sided central venous catheter unchanged in appearance. Small pleural effusions are again suspected.[ IMPRESSION: Cardiomegaly and persistent bilateral pulmonary airspace opacities, pulmonary edema versus pneumonia. Small pleural effusions. Electronically signed by: Leoncio Gonzales M.D.
[2018-11-12] MEDS: NOVASOURCE RENAL 2.0 CAL 1000ML BAG PEG SCH (11:03)
[2018-11-12] MEDS ORDERED: ALBUT/IPRATROP 3MG/0.5MG NEB 3 ML VIAL NEB PRN (13:01)
--- NOTE | 2018-11-12 13:16 | Hospitalist Progress Note ---
Date of Service November 12, 2018 Assessment & Plan (1) Liver laceration: CT a/p on 11/11 showed "12 x 7 cm complex collection posterior to the right hepatic lobe & a 4 cm defect of the posterior right hepatic lobe, along with 2 x 4 cm hematoma within the right iliopsoas vasculature." - Discussed on 11/11 with [facility] vascular surgeon - He had an RP bleed in 08/2018 during his prior admission and required an embolization of his right T11 intercostal artery. Then had a drain in from 09/23 - ~10/03 to drain his RP bleed. Drain was removed. Per our reading the radiology reads, the CT findings are stable from 10/08. - Hgb dropping slowly. Will repeat hgb tonight. If he drops further, will re- image a/p and discuss transfer with [facility]. (2) Acute exacerbation of CHF (congestive heart failure): Acute exacerbation of systolic CHF. - Continue Lasix 60mg IV daily - Monitor I&Os; net weights (3) Acute respiratory failure with hypoxia: Acute respiratory failure with hypoxia from pulmonary edema. - Plan as above - Wean O2 as able (4) Multifocal pneumonia: Initially felt he had multifocal HCAP; however, procalcitonin was 0.08. Quick turn-around (<24h after admission) also points to pulmonary edema being more likely as a cause. - Stopped linezolid on 11/11 due to negative MRSA swab - Continue Zosyn & levofloxacin for 24-48 more hours - Tapered steroids and DuoNebs on 11/12 - Follow up pleural fluid culture - Appreciate pulmonology recs (5) CKD (chronic kidney disease) stage 4, GFR 15-29 ml/min: Had renal failure and required dialysis at [facility] during his month-long admission. - Baseline Cr now ~2.5; eGFR ~30. - Creatinine stable on diuresis; monitor Cr - Continue PhosLo & NaBicarb (6) CAD (coronary artery disease), [place] coronary artery: No chest pain, stable EKG. Troponin was 0.05. No concern for ACS. - Continue aspirin & clopidogrel - Dr. Easton Gabriel follow - appreciate assistance (7) Vocal cord dysfunction: Due to prolonged intubation at [facility]. Has seen SPECIALIST FIELD ENGINEER as outpatient. - Tube feeds per gum cook - SPECIALIST FIELD ENGINEER consult (8) Ischemic cardiomyopathy: As above. (9) Atrial fibrillation with RVR: Episode in [facility]. Now in sinus. - Continue amiodarone (10) DVT prophylaxis: SCDs Subjective 52yo M w/ hx of UT resulting in cardiogenic shock and ECMO at [facility] who presented with volume overload vs. pneumonia. Feeling well today from a breathing standpoint. No major shortness of breath and cough has improved. Some mild back pain. Reports no fevers/chills, chest pain, shortness of breath, abdominal pain, nausea, or vomiting. Review of Systems Review of Systems: Please see subjective. Physical Exam Constitutional: WD/WN, vitals as above Eyes: EOM intact bilaterally; no conjunctival abnormality ENMT: external ear and nose normal, oropharynx normal Neck: trachea midline, no thyromegaly normal visual inspection Respiratory: normal respiratory effort, lungs clear to auscultation no respiratory distress Cardiovascular: RRR, no murmur, no edema Extremities: + edema Gastrointestinal (Abdomen): Inspection/Auscultation: abdomen normal to inspection; abdomen not distended Musculoskeletal: no cyanosis or clubbing, extremities motor strength 5/5 Mild back tenderness Skin: no rashes, warm and dry Neurologic: moves all extremities and awake Psychiatric: Orientation: alert, oriented to person and cooperative Results & Data Vital Signs (Past 12 Hours) Vital Signs Temp Pulse Resp BP Pulse Ox 11/12/18 12:00 36.6 C 94 H 23 105/80 96 11/12/18 11:08 93 H 22 96 11/12/18 07:08 86 16 94 11/12/18 06:55 35.7 C L 92 H 28 H 109/79 93 11/12/18 03:45 35.7 C L 80 20 96/68 L 96
[2018-11-13] MEDS: LEVOFLOXACIN/D5W 750 MG/150 ML BAG IV SCH (01:35)
[2018-11-13] MEDS: GUAIFENESIN/CODEINE 100MG/10MG 5ML UDC PEG PRN ×3 (01:57→20:12)
[2018-11-13 06:52] LABS: Hematocrit (blood only) 26.6 % (42-52); Hemoglobin 8.5 g/dL (14.0-18.0); Mean Corpuscular Volume 96.7 fL (80-100); Mean Platelet Volume 10.1 fL (7.4-10.4); Platelet Count 583 K/uL (130-400); RDW Standard Deviation 55.7 fL (36.4-46.3); Red Blood Count 2.75 M/uL (4.7-6.1); White Blood Count 14.56 K/uL (4.8-10.8)
[2018-11-13] MEDS: BUDESONIDE 0.5 MG/2 ML VIAL (PULMICORT) NEB SCH ×2 (06:52→19:36)
[2018-11-13 07:25] LABS: Albumin Level 2.3 gm/dl (3.4-5.0); BUN Creatinine Ratio 28.2 (10-20); Calcium 8.6 mg/dl (8.5-10.1); Creatinine Clr Calc Pharmacy 34.9 ml/min; Est GFR (African American) 29.6; Est GFR (Non-African American) 25.6; Magnesium 1.8 mg/dl (1.8-2.4); Potassium 3.7 mmol/L (3.5-5.1)
[2018-11-13 07:36] LABS: Albumin Globulin Ratio 0.6 (0.9-2); Bilirubin,Total 0.5 mg/dl (0.2-1); Globulin 3.8 gm/dl (2.5-4.0); Phosphorus 5.1 mg/dl (2.5-4.9); Total Protein 6.1 gm/dl (6.4-8.2)
[2018-11-13] MEDS: PIPERACILLIN/TAZOBACTAM 3.375 GM in DEXTROSE 5% 100 ML IV SCH ×2 (07:44→16:51)
[2018-11-13] MEDS: FUROSEMIDE 60 MG in SYRINGE 0 ML IV SCH ×2 (07:45→10:22)
[2018-11-13] MEDS: methylPREDNISolone 40 MG in SYRINGE 0 ML IV SCH ×2 (07:45→20:13)
[2018-11-13] MEDS: SODIUM BICARBONATE 650 MG TAB PO SCH ×2 (07:45→20:13)
[2018-11-13] MEDS: MIDODRINE HCL 2.5 MG TAB PO SCH ×3 (07:46→16:51)
[2018-11-13] MEDS: AMIODARONE 200 MG TAB PO SCH (07:46)
[2018-11-13] MEDS: LANSOPRAZOLE 30 MG SOLTAB PEG SCH (07:46)
[2018-11-13] MEDS: CALCIUM ACETATE 667 MG CAP PO SCH ×3 (07:46→16:51)
[2018-11-13] MEDS: DOCUSATE SODIUM SYRUP 100 MG/10 ML UDC PEG SCH ×2 (07:46→21:22)
--- NOTE | 2018-11-13 09:29 | Nephrology Progress Note ---
Date of Service November 13, 2018 Assessment & Plan (1) ELISABETH (acute kidney injury): -- Consistent with ischemic ATN -- Creatinine increased slightly in past 24 hours -- UOP appropriate -- Volume status improving -- Metabolic profile acceptable -- Suggest switching furosemide PO with next dose -- Furosemide 60 mg IV provided this AM -- I/O's even over past 24 hours, weight down 2 kg -- Document I/O's -- Repeat metabolic profile tomorrow AM -- Maintain net negative fluid balance -- Medications are appropriately dosed for kidney function (2) Hypoxia: -- Related to pulmonary edema and effusions -- R thoracentesis (1.5 L) performed 11/11 -- Maintain net even fluid balance -- Cannot exclude pneumonia, empiric treatment continued (3) Anemia: -- H/H stable overnight -- Check iron profile with next set of labs (4) Liver laceration: -- Noted [place] [facility] [place] Subjective No acute events overnight. Krzysztof is feeling well this morning. He remains weak. Dyspnea has improved. He denies cough. No fevers or chills. No chest pain or palpitations. Review of Systems Review of Systems: All systems reviewed & are unremarkable except as noted in HPI & below Physical Exam Constitutional: + frail appearing and + edematous; no acute distress Eyes: no scleral abnormality and no corneal abnormality ENMT: Mouth: no oral mucosal abnormality and oral mucous membranes not dry Neck: normal visual inspection and trachea midline Respiratory: no respiratory distress Auscultation: + diminished lung sounds and + rales; no rhonchi and no wheezes Cardiovascular: Rate/Rhythm: + tachycardic Heart Sounds: normal S1 and normal S2; no gallop, no murmur and no cardiac rub Extremities: + edema Chest (Breasts): Chest: + vascular access device or port Gastrointestinal (Abdomen): Percussion/Palpation: abdomen soft; abdomen nontender Musculoskeletal: Extremities: no cyanosis and no clubbing Skin: normal turgor; no rashes Neurologic: Motor/Sensory: no tremor and no asterixis Results & Data Vital Signs (Past 12 Hours) Vital Signs Temp Pulse Resp BP Pulse Ox 11/13/18 06:52 88 22 96 11/13/18 06:40 36.5 C 87 102/72 98 11/13/18 03:29 35.9 C L 87 24 109/71 96 11/13/18 00:40 36.6 C 90 24 101/76 95 Laboratory Results Laboratory Results - last 24 hr 11/12/18 11/12/18 11/12/18 06:21 10:58 18:17 WBC RBC Hgb 7.9 L 8.1 L 8.9 L Hct MCV MCH MCHC RDW Std Deviation RDW Coeff of Luna Plt Count MPV Sodium Potassium Chloride Carbon Dioxide Anion Gap BUN Creatinine Est Cr Clr Drug Dosing Est GFR ( Amer) Est GFR (Non-Af Amer) BUN/Creatinine Ratio Glucose Calcium Phosphorus Magnesium Total Bilirubin AST ALT Alkaline Phosphatase Total Protein Albumin Globulin Albumin/Globulin Ratio 11/13/18 11/13/18 06:30 06:30 WBC 14.56 H RBC 2.75 L Hgb 8.5 L Hct 26.6 L MCV 96.7 MCH 30.9 MCHC 32.0 RDW Std Deviation 55.7 H RDW Coeff of Luna 16.0 H Plt Count 583 H MPV 10.1 Sodium 144 Potassium 3.7 Chloride 113 H Carbon Dioxide 22 Anion Gap 9.0 BUN 76 H Creatinine 2.70 H Est Cr Clr Drug Dosing 34.9 Est GFR ( Amer) 29.6 Est GFR (Non-Af Amer) 25.6 BUN/Creatinine Ratio 28.2 H Glucose 130 H Calcium 8.6 Phosphorus 5.1 H Magnesium 1.8 Total Bilirubin 0.5 AST 15 ALT 24 Alkaline Phosphatase 59 Total Protein 6.1 L Albumin 2.3 L Globulin 3.8 Albumin/Globulin Ratio 0.6 L
--- NOTE | 2018-11-13 11:15 | Cardiology Progress Note ---
Date of Service November 13, 2018 Assessment & Plan (1) Acute exacerbation of CHF (congestive heart failure): 2. Pleural effusion post thoracentesis 3. Ischemic cardiomyopathy EF 30-35% 4. Coronary artery disease post PCI with 3 DESTINY (left main and the circumflex, ostial and proximal LAD). 5. Renal failure previously requiring dialysis 6. Persistent vocal cord dysfunction, dysphagia on PEG tube 7. Critical illness myopathy 8. Prior RP bleed post intercostal coil embolectomy, residual fluid collection surround RT hepatic lobe 9. Prior A. fib with RVR, nonsustained VT on amiodarone 10. Relative hypotension on intermittent midodrine 11. Anemia Respiratory status continues to gradually improve, on minimal O2 after diuresis/thoracentesis. Pulmonary congestion improved on exam. Creatinine gradually trending up. Hemoglobin stable. Will defer transition to p.o. diuretics to nephrology -- Continue DAPT with ASA/Clopidogrel -- Continue current amidoarone We will repeat echocardiogram today Subjective No acute events overnight. Shortness of breath improved from admission. States near recent baseline. Still feeling weak. Hopes to get out of bed today. Denies any chest pain. No palpitations. Telemetry reviewed no events. Not even I/os. Weight down 2 kg. Hemoglobin stable Review of Systems Review of Systems: All systems reviewed & are unremarkable except as noted in HPI & below Physical Exam Physical Exam: General: Comfortable, no acute distress Eyes: Sclerae anicteric, extraocular movements intact Lungs: Decreased breath sounds at left base, few scattered crackles bilaterally Cardiac: Regular rate and rhythm, no murmurs, rubs or gallops. Abdomen: Soft, nontender, nondistended, positive bowel sounds. Extremities: Well perfused, no peripheral edema Skin: No rashes or lesions. Neuro: Nonfocal Psych: Alert orient x3, normal affect and mood Results & Data Vital Signs (Past 12 Hours) Vital Signs Temp Pulse Resp BP Pulse Ox 11/13/18 06:52 88 22 96 11/13/18 06:40 36.5 C 87 102/72 98 11/13/18 03:29 35.9 C L 87 24 109/71 96 11/13/18 00:40 36.6 C 90 24 101/76 95
[2018-11-13] MEDS: NOVASOURCE RENAL 2.0 CAL 1000ML BAG PEG SCH (12:02)
--- NOTE | 2018-11-13 13:13 | Hospitalist Progress Note ---
Date of Service November 13, 2018 Assessment & Plan (1) Pulmonary hemorrhage: Seen on CT a/p on 11/13 with ovoid shaped area in the lungs. - Will discuss with thoracic and pulm (2) Liver laceration: CT a/p on 11/11 showed "12 x 7 cm complex collection posterior to the right hepatic lobe & a 4 cm defect of the posterior right hepatic lobe, along with 2 x 4 cm hematoma within the right iliopsoas vasculature." - Discussed on 11/11 with [facility] vascular surgeon - He had an RP bleed in 08/2018 during his prior admission and required an embolization of his right T11 intercostal artery. Then had a drain in from 09/23 - ~10/03 to drain his RP bleed. Drain was removed. Per our reading the radiology reads, the CT findings are stable from 10/08. - Hgb fairly stable on 11/13 - CT a/p on 11/13 showed no change in the right RP hematomas or the right alona opsoas hematomas (3) Acute exacerbation of CHF (congestive heart failure): Acute exacerbation of systolic CHF. - Continued Lasix 60mg IV daily on 11/13 - Reduce to PO Lasix on 11/14 - Monitor I&Os; net weights (4) Acute respiratory failure with hypoxia: Acute respiratory failure with hypoxia from pulmonary edema. - Plan as above - Wean O2 as able (5) Multifocal pneumonia: Initially felt he had multifocal HCAP; however, procalcitonin was 0.08. Quick turn-around (<24h after admission) also points to pulmonary edema being more likely as a cause. - Stopped linezolid on 11/11 due to negative MRSA swab - Continue Zosyn & levofloxacin for 24-48 more hours - Tapered steroids and DuoNebs on 11/12 - Follow up pleural fluid culture - Appreciate pulmonology recs (6) CKD (chronic kidney disease) stage 4, GFR 15-29 ml/min: Had renal failure and required dialysis at [facility] during his month-long admission. - Baseline Cr now ~2.5; eGFR ~30. - Creatinine stable on diuresis; monitor Cr - Continue PhosLo & NaBicarb (7) CAD (coronary artery disease), [place] coronary artery: No chest pain, stable EKG. Troponin was 0.05. No concern for ACS. - Continue aspirin & clopidogrel - Dr. Easton Gabriel follow - appreciate assistance (8) Vocal cord dysfunction: Due to prolonged intubation at [facility]. Has seen BANANA CARRIER as outpatient. - Tube feeds per draw bench operator helper - BANANA CARRIER consult (9) Ischemic cardiomyopathy: As above. (10) Atrial fibrillation with RVR: Episode in [facility]. Now in sinus. - Continue amiodarone (11) DVT prophylaxis: SCDs Subjective Feeling well today. Breathing better. Reports no fevers/chills, chest pain, shortness of breath, abdominal pain, nausea, or vomiting. Review of Systems Constitutional: no fever, no chills and no sweats Eyes: no diplopia Ear, Nose, Mouth, Throat: no ear trauma, no nasal discharge and no dental pain Respiratory: no cough, no chest congestion and no dyspnea Cardiovascular: no chest pain, no dyspnea on exertion, no palpitations and no syncope Gastrointestinal: no abdominal pain, no belching, no constipation, no diarrhea/loose stools, no blood in stools and no melena Musculoskeletal: no back pain, no joint pain and no muscle weakness Integumentary: no rash, no skin ulcer and no erythema Neurologic: no generalized weakness, no loss of sensation, no numbness and no paresthesia Psychiatric: no depression and no anxiety Endocrine: no fatigue, no polydipsia and no polyphagia Physical Exam Constitutional: WD/WN, vitals as above Eyes: EOM intact bilaterally; no conjunctival abnormality ENMT: external ear and nose normal, oropharynx normal Neck: trachea midline, no thyromegaly normal visual inspection Respiratory: normal respiratory effort, lungs clear to auscultation no respiratory distress Cardiovascular: RRR, no murmur, no edema Extremities: + edema Gastrointestinal (Abdomen): Inspection/Auscultation: abdomen normal to inspection; abdomen not distended Musculoskeletal: no cyanosis or clubbing, extremities motor strength 5/5 Skin: no rashes, warm and dry Neurologic: moves all extremities and awake Psychiatric: Orientation: alert, oriented to person and cooperative Results & Data Vital Signs (Past 12 Hours) Vital Signs Temp Pulse Resp BP Pulse Ox 11/13/18 11:13 36.5 C 94 H 24 102/73 92 11/13/18 06:52 88 22 96 11/13/18 06:40 36.5 C 87 102/72 98 11/13/18 03:29 35.9 C L 87 24 109/71 96
--- NOTE | 2018-11-13 13:23 | CT Scan Report ---
ABDOMEN AND PELVIS CT WITHOUT CONTRAST CT DOSE: 693.50 mGy.cm HISTORY: Liver hematoma; iliopsoas hematoma TECHNIQUE: Multiaxial CT images of the abdomen and pelvis were performed without contrast. A dose lo wering technique was utilized adhering to the principles of ALARA. COMPARISON STUDY: Abdomen and pelvis CT 11/11/2018. FINDINGS: Interlobular septal thickening and multifocal patchy airspace opacities are again noted wit hin the lungs. These have slightly improved. A central venous catheter terminates in the right atrium . The heart remains mildly enlarged. Stable small left pleural effusion. Decrease in size in the smal l right pleural effusion. Interval development of a 10 x 4 cm hyperdense oval-shaped abnormality with in the right lower lobe posteriorly. This demonstrates an air-fluid level. Therefore, this favors an intraparenchymal hematoma within the right lower lobe with associated pulmonary laceration. No pneumo peritoneum. No pneumatosis. No fractures within the visualized osseous structures. There is again not ed a 4 cm wedge-shaped defect within the right hepatic lobe posteriorly. This favors a laceration. Th e right retroperitoneal slightly hyperdense fluid collection is not significantly changed in size. Th is measures 12 x 6 cm and is consistent with a retroperitoneal hematoma. No gas within this abnormali ty to suggest an abscess at this time. Small right iliopsoas hematoma is also unchanged. There are sm all intermediate to low density fluid collections within the bilateral inguinal regions with surround ing surgical clips. These favor small subcutaneous hematomas. Pseudoaneurysms could also have a simil ar appearance. Diffuse body wall edema the bladder is mildly distended. The unenhanced kidneys, splee n, adrenal glands, gallbladder, and pancreas are unremarkable. A percutaneous gastrostomy tube is pre sent in position. No retroperitoneal lymphadenopathy. Normal caliber abdominal aorta. Suboptimal eval uation for bowel pathology due to the lack of intravenous and oral contrast. However, there is no def inite bowel wall thickening or obstruction. Fluid-filled colon. This remains unchanged. There are few punctate metallic densities posterior to the right retroperitoneal hematoma within the chest wall. IMPRESSION: 1. Decrease in size in the small right pleural effusion. However, there has been interval development of a 10 x 4 cm hyperdense oval-shaped abnormality within the right lower lobe posteriorly. This demo nstrates an air-fluid level. Therefore, this favors an intraparenchymal hematoma within the right low er lobe with associated pulmonary laceration. 2. Redemonstration of the 4 cm wedge-shaped defect within the right hepatic lobe posteriorly. This fa vors a laceration. This appears to connect to the right retroperitoneal hematoma. 3. No significant change in the right retroperitoneal and iliopsoas hematomas. 4. Small fluid collection within the groins favor hematomas. These could also represent pseudoaneurys ms. 5. Interval improvement in the bilateral lower lobe airspace opacities. 6. Small left pleural effusion, unchanged. 7. These findings were called/faxed to the referring physician following dictation. Electronically signed by: Freddy Mayes M.D. 11/13/2018 1:22 PM
--- NOTE | 2018-11-13 14:56 | Fluoroscopy Report ---
FL video swallow HISTORY: Dysphagia r/o aspiration TECHNIQUE: Video fluoroscopic evaluation of swallowing was performed in the AP and lateral projection s by the speech pathology staff. The patient is fed nectar-thick and thin liquid barium, a barium coa valentin wafer, and barium pudding. FLUOROSCOPY TIME: 2 minutes NUMBER OF FLUOROSCOPIC IMAGES: 513 COMPARISON STUDY: None. FINDINGS: There is normal hyoid excursion and epiglottic deflection. No significant penetration or as piration identified. Swallowing function is within normal limits. IMPRESSION: 1. No aspiration identified. 2. Please see the speech pathologist report for detailed findings and recommendations. The above report was generated using voice recognition software. It may contain grammatical, syntax or spelling errors. Electronically signed by: Chance Lawson M.D. 11/13/2018 2:54 PM
--- NOTE | 2018-11-13 18:06 | Infectious Disease Progress Nt ---
Date of Service November 13, 2018 Assessment & Plan (1) Multifocal pneumonia: 52-year-old male with a very complicated recent medical history status post CO, cardiogenic shock, renal failure, and right groin hematoma evacuation, now with acute shortness of breath, bilateral effusions and infiltrates. Given his low pro-calcitonin and rapid clinical improvement , as well as the lack of preceding symptoms of fever and cough, with think that this is more likely pulmonary edema/fluid overload rather than pneumonia. Would favor discontinuation of antibiotics. Will discuss with all involved. Subjective Seen in follow-up for possible pneumonia. Feeling much better today. Less short of breath. No chest pain. Echocardiogram shows severely decreased left ventricular function. No fever. Review of Systems Review of Systems: All systems reviewed & are unremarkable except as noted in HPI & below Physical Exam Constitutional: WD/WN, vitals as above + thin and comfortable; no acute distress Eyes: PERRL, conjunctivae normal, anicteric sclerae ENMT: external ear and nose normal, oropharynx normal Neck: trachea midline, no thyromegaly neck nontender Respiratory: normal respiratory effort; no respiratory distress, no labored breathing and does not use accessory muscles Auscultation: + rales Cardiovascular: Rate/Rhythm: regular rate and regular rhythm Heart Sounds: normal S1 and normal S2; no gallop, no murmur and no cardiac rub Vessels: normal peripheral pulses; no JVD Gastrointestinal (Abdomen): normal bowel sounds, soft, nontender, no hepa tosplenomegaly Musculoskeletal: no cyanosis or clubbing, extremities motor strength 5/5 Spine: thoracic spine normal to inspection and lumbar spine normal to inspection; no cervical spinal tenderness Skin: no rashes, warm and dry normal turgor; no lesions Neurologic: patellar DTR's 2+ bilat, sensation intact no focal motor deficits Psychiatric: A+Ox3, euthymic affect Orientation: cooperative Lymphatic: no cervical or axillary lymphadenopathy no inguinal lymphadenopathy Results & Data Vital Signs (Past 12 Hours) Vital Signs Temp Pulse Resp BP Pulse Ox 11/13/18 14:01 97 11/13/18 11:13 36.5 C 94 H 24 102/73 92 11/13/18 06:52 88 22 96 11/13/18 06:40 36.5 C 87 102/72 98 Laboratory Results Short CBC 11/12/18 11/13/18 Range/Units 18:17 06:30 WBC 14.56 H (4.8-10.8) K/uL Hgb 8.9 L 8.5 L (14.0-18.0) g/dL Hct 26.6 L (42-52) % Plt Count 583 H (130-400) K/uL BMP 11/13/18 06:30 Sodium 144 Potassium 3.7 Chloride 113 H Carbon Dioxide 22 BUN 76 H Creatinine 2.70 H Glucose 130 H Calcium 8.6 Liver Function 11/13/18 Range/Units 06:30 Total Bilirubin 0.5 (0.2-1) mg/dl AST 15 (15-37) U/L ALT 24 (12-78) U/L Alkaline Phosphatase 59 (45-117) U/L Albumin 2.3 L (3.4-5.0) gm/dl Diagnostic Findings Microbiology 11/11/18 07:57 Pleural Fluid Gram Stain - Final 11/11/18 07:57 Pleural Fluid Aerobic and Anaerobic Culture - Preliminary No growth to date. 11/11/18 07:57 Pleural Fluid Acid Fast Bacilli Smear - Final 11/11/18 00:36 Blood Blood Culture - Preliminary No growth to date. 11/11/18 00:17 Blood Blood Culture - Preliminary No growth to date.
--- NOTE | 2018-11-13 19:25 | Progress Note ---
DATE: 11/13/2018 Krzysztof Rivera was seen today. He looks great. He is on room air. Feels much better. CT scan of the abdomen was reviewed and there was concern over possible hematoma in the base of the right pleural cavity. I believe this is simply a result of the large retroperitoneal hematoma he has. There is not enough fluid that I would go after. I would let this patient recover. He has had a near experience and was on ECMO for a long period of time. I think I would let him continue to regain his strength. We will continue to follow along but at this point, I see no need to intervene. RICKY
[2018-11-14] MEDS: PIPERACILLIN/TAZOBACTAM 3.375 GM in DEXTROSE 5% 100 ML IV SCH (00:03)
[2018-11-14 06:58] LABS: Hemoglobin 8.7 g/dL (14.0-18.0); Mean Corpuscular Hgb Conc 32.2 g/dL (32-36); Mean Corpuscular Volume 94.7 fL (80-100); Mean Platelet Volume 9.9 fL (7.4-10.4); Nucleated RBC # (auto) 0.04 K/uL (0-0); Nucleated RBC % (auto) 0.2 %; Platelet Count 590 K/uL (130-400); RDW Coefficient of Variation 15.8 % (11.5-14.5); RDW Standard Deviation 53.9 fL (36.4-46.3); Red Blood Count 2.85 M/uL (4.7-6.1); White Blood Count 15.69 K/uL (4.8-10.8)
[2018-11-14] MEDS: BUDESONIDE 0.5 MG/2 ML VIAL (PULMICORT) NEB SCH (07:26)
[2018-11-14 07:30] LABS: Albumin Level 2.4 gm/dl (3.4-5.0); BUN Creatinine Ratio 31.7 (10-20); Calcium 8.4 mg/dl (8.5-10.1); Est GFR (African American) 31.7; Est GFR (Non-African American) 27.4; Magnesium 1.8 mg/dl (1.8-2.4); Potassium 3.7 mmol/L (3.5-5.1)
[2018-11-14 07:48] LABS: Ferritin 2291.2 ng/ml (8-388); Phosphorus 4.8 mg/dl (2.5-4.9)
--- NOTE | 2018-11-14 08:54 | Nephrology Progress Note ---
Date of Service November 14, 2018 Assessment & Plan (1) ELISABETH (acute kidney injury): -- Creatinine stable at 2.5 mg/dL -- UOP appropriate -- Volume status remains acceptable -- Metabolic profile otherwise within normal limits -- Continue furosemide 40 mg PO daily, goal is to continue to maintain a slightly negative fluid balance -- Repeat metabolic profile on Saturday (results can be faxed to my office at [phone]) -- Follow up with Dr. Street in the nephrology clinic within 2 weeks of dis charge -- HD catheter dressing changes per protocol -- Discussed dialysis catheter removal with vascular surgery: this will be scheduled for next week and can be coordinated with [facility] if patient discharged -- Last HD treatment 11/01/18 -- Medications are appropriately dosed for kidney function (2) Hypoxia: -- Related to pulmonary edema and effusions -- R thoracentesis (1.5 L) performed 11/11 -- Maintain slightly negative fluid balance -- Cannot exclude pneumonia, empiric treatment continued (3) Anemia: -- H/H stable -- Tsat acceptable --Epogen 73122 units provided today (4) Liver laceration: Subjective No acute events overnight. Krzysztof feels well this morning. He was out of bed yesterday. He is breathing comfortably. No fevers or chills. Edema improving but some LE edema persists. Review of Systems Review of Systems: All systems reviewed & are unremarkable except as noted in HPI & below Physical Exam Constitutional: + frail appearing and + edematous; no acute distress Eyes: no scleral abnormality and no corneal abnormality ENMT: Mouth: no oral mucosal abnormality and oral mucous membranes not dry Neck: normal visual inspection and trachea midline Respiratory: no respiratory distress Auscultation: + diminished lung sounds and + rales; no rhonchi and no wheezes Cardiovascular: Rate/Rhythm: + tachycardic Heart Sounds: normal S1 and normal S2; no gallop, no murmur and no cardiac rub Extremities: + edema Chest (Breasts): Chest: + vascular access device or port Gastrointestinal (Abdomen): Percussion/Palpation: abdomen soft; abdomen nontender Musculoskeletal: Extremities: no cyanosis and no clubbing Skin: normal turgor; no rashes Neurologic: Motor/Sensory: no tremor and no asterixis Results & Data Vital Signs (Past 12 Hours) Vital Signs Temp Pulse Pulse Resp BP Pulse Ox 11/14/18 07:26 89 14 92 11/14/18 07:01 36.9 C 88 18 107/79 95 11/14/18 03:10 36.9 C 86 18 108/81 93 11/14/18 01:20 86 11/13/18 23:15 36.8 C 88 17 102/76 93 Laboratory Results Laboratory Results - last 24 hr 11/14/18 11/14/18 06:39 06:39 WBC 15.69 H RBC 2.85 L Hgb 8.7 L Hct 27.0 L MCV 94.7 MCH 30.5 MCHC 32.2 RDW Std Deviation 53.9 H RDW Coeff of Luna 15.8 H Plt Count 590 H MPV 9.9 Absolute Nucleated RBC 0.04 H Nucleated RBC % (auto) 0.2 Sodium 140 Potassium 3.7 Chloride 108 H Carbon Dioxide 24 Anion Gap 8.0 BUN 81 H Creatinine 2.55 H Est Cr Clr Drug Dosing 37.0 Est GFR ( Amer) 31.7 Est GFR (Non-Af Amer) 27.4 BUN/Creatinine Ratio 31.7 H Glucose 154 H Calcium 8.4 L Phosphorus 4.8 Magnesium 1.8 Iron 79 TIBC 177 L Transferrin 150 L Transferrin % Sat 37 Ferritin 2291.2 H Albumin 2.4 L
[2018-11-14] MEDS ORDERED: COLCHICINE 0.6 MG TAB PO SCH (09:00)
[2018-11-14] MEDS ORDERED: EPOETIN ALFA 10,000 UNITS/ML VIAL SQ ONE (09:15)
[2018-11-14] MEDS: MIDODRINE HCL 2.5 MG TAB PO SCH ×3 (09:32→17:17)
[2018-11-14] MEDS: CALCIUM ACETATE 667 MG CAP PO SCH ×3 (09:32→17:17)
[2018-11-14] MEDS: AMIODARONE 200 MG TAB PO SCH (09:32)
[2018-11-14] MEDS: LANSOPRAZOLE 30 MG SOLTAB PEG SCH (09:35)
[2018-11-14] MEDS: DOCUSATE SODIUM SYRUP 100 MG/10 ML UDC PEG SCH ×2 (09:35→20:59)
[2018-11-14] MEDS: FUROSEMIDE 40 MG TAB PO SCH (09:35)
[2018-11-14] MEDS: SODIUM BICARBONATE 650 MG TAB PO SCH ×2 (09:36→21:01)
[2018-11-14] MEDS: methylPREDNISolone 40 MG in SYRINGE 0 ML IV SCH (09:36)
--- NOTE | 2018-11-14 10:41 | Progress Note ---
DATE: 11/14/2018 Mr. Rivera was seen with his sister today. He is on room air. He had a "great night." He is on room air, 92% sat. His vital signs are stable. He is afebrile. White count is 15,600, hemoglobin of 8.7. His creatinine is 2.55 with a BUN of 81. He underwent a swallowing study yesterday which showed that he has no evidence of aspiration. At this point, I would not intervene, but I would start feeding him and pushing him in therapy. This is going to take a long process. We may end up having to do something down the road, but at this point I would continue to let him improve.
--- NOTE | 2018-11-14 12:10 | Hospitalist Progress Note ---
Date of Service November 14, 2018 Assessment & Plan (1) Pulmonary hemorrhage: Seen on CT a/p on 11/13 with ovoid shaped area in the RLL. Discussed with Dr. Hurley who feels no intervention necessary. - Hgb stable on 11/14. - Would likely benefit from CT chest in 1 month or sooner if any further symptoms. (2) Liver laceration: CT a/p on 11/11 showed "12 x 7 cm complex collection posterior to the right hepatic lobe & a 4 cm defect of the posterior right hepatic lobe, along with 2 x 4 cm hematoma within the right iliopsoas vasculature." - Discussed on 11/11 with [place] vascular surgeon - He had an RP bleed in 08/2018 during his prior admission and required an embolization of his right T11 intercostal artery. Then had a drain in from 09/23 - ~10/03 to drain his RP bleed. Drain was removed. Per our reading the radiology reads, the CT findings are stable from 10/08. - Hgb stable on 11/14 - CT a/p on 11/13 showed no change in the right RP hematomas or the right iliopsoas hematomas - Would likely benefit from repeat CT a/p in 1 month or sooner if he has fevers, hemoglobin drop, or abdominal/right flank pain. (3) Acute exacerbation of CHF (congestive heart failure): Acute exacerbation of systolic CHF. - Continued Lasix 60mg IV daily on 11/13 - Reduce to Lasix 40mg PO daily on 11/14 - Monitor I&Os; net weights (4) Acute respiratory failure with hypoxia: Acute respiratory failure with hypoxia from pulmonary edema. - Plan as above - Weaned O2 on 11/13 - Some desaturation on exertion, but nothing lower than 90% on room air. (5) Multifocal pneumonia: Initially felt he had multifocal HCAP; however, procalcitonin was 0.08. Quick turn-around (<24h after admission) also points to pulmonary edema being mo re likely as a cause. - Stopped linezolid on 11/11 due to negative MRSA swab - Stopped Zosyn on 11/14 - Continue levofloxacin through today - Tapered steroids and DuoNebs on 11/12 - Pleural fluid culture is negative as of 11/14 (6) CKD (chronic kidney disease) stage 4, GFR 15-29 ml/min: Had renal failure and required dialysis at [place] during his month-long admission. - Baseline Cr now ~2.5; eGFR ~30. - Creatinine stable on diuresis; Cr is 2.55 on 11/14 - Continue PhosLo & NaBicarb - Plan to follow up with Dr. Street in 2 weeks. Will get dialysis catheter removed by vascular surgery next week. (7) CAD (coronary artery disease), [place] coronary artery: No chest pain, stable EKG. Troponin was 0.05. No concern for ACS. - Continue aspirin & clopidogrel - Dr. Easton Gabriel following - appreciate assistance (8) Vocal cord dysfunction: Due to prolonged intubation at [place]. Has seen [facility] as outpatient. - Tube feeds per faculty research assistant - [facility] consulted - On 11/13, he passed a barium swallow test. Cleared for mechanical soft diet and thin liquids. Still getting some tube feeds for nutrition until his PO intake can satisfy caloric and nutritional demand. - Will likely need re-assessment every few days or a week to see if he is eating enough to stop tube feeds. (9) Ischemic cardiomyopathy: Echo on this admission showed EF 20-25%. - Plan as above. (10) Atrial fibrillation with RVR: Episode in [place]. Now in sinus. - Continue amiodarone (11) DVT prophylaxis: SCDs Subjective Feeling well today. Slept well. Minimal shortness of breath. No nausea. Had some last night when eating, but he is taking it slow. Reports no fevers/chills, chest pain, shortness of breath, abdominal pain, nausea, or vomiting. Review of Systems Respiratory: + cough; no chest congestion, no dyspnea and no dyspnea on exertion Physical Exam Constitutional: WD/WN, vitals as above Eyes: EOM intact bilaterally; no conjunctival abnormality ENMT: external ear and nose normal, oropharynx normal Neck: trachea midline, no thyromegaly normal visual inspection Respiratory: normal respiratory effort, lungs clear to auscultation no respiratory distress Cardiovascular: RRR, no murmur, no edema Extremities: + edema Gastrointestinal (Abdomen): Inspection/Auscultation: abdomen normal to inspection; abdomen not distended Musculoskeletal: no cyanosis or clubbing, extremities motor strength 5/5 Skin: no rashes, warm and dry Neurologic: moves all extremities and awake Psychiatric: Orientation: alert, oriented to person and cooperative Results & Data Vital Signs (Past 12 Hours) Vital Signs Temp Pulse Pulse Resp BP Pulse Ox 11/14/18 11:02 36.4 C L 88 20 114/87 93 11/14/18 08:00 86 11/14/18 07:26 89 14 92 11/14/18 07:01 36.9 C 88 18 107/79 95 11/14/18 03:10 36.9 C 86 18 108/81 93 11/14/18 01:20 86
[2018-11-14] MEDS: NOVASOURCE RENAL 2.0 CAL 1000ML BAG PEG SCH (12:15)
--- NOTE | 2018-11-14 14:47 | Cardiology Progress Note ---
Date of Service November 14, 2018 Assessment & Plan (1) Acute exacerbation of CHF (congestive heart failure): 2. Pleural effusion post thoracentesis 3. Ischemic cardiomyopathy EF 30-35% 4. Coronary artery disease post PCI with 3 DESTINY (left main and the circumflex, ostial and proximal LAD). 5. Renal failure previously requiring dialysis 6. Persistent vocal cord dysfunction, dysphagia on PEG tube 7. Critical illness myopathy 8. Prior RP bleed post intercostal coil embolectomy, residual fluid collection surround RT hepatic lobe 9. Prior A. fib with RVR, nonsustained VT on amiodarone 10. Relative hypotension on intermittent midodrine 11. Anemia Patient feeling well. At recent baseline. Pulmonary congestion improved. Normal intra-cardiac filling pressures on echo. Renal function stable. Hemoglobin stable Echo shows persistent severe LV dysfunction. From a cardiac standpoint okay with plan discharge back to rehab. Continue maintenance Lasix 40 p.o. daily Continue dual antiplatelet therapy with aspirin, clopidogrel Continue amiodarone for now, will attempt to wean off as an outpatient For ICM need to start on guideline directed medical therapystart low-dose beta-jack Toprol 12.5 twice daily today. Home on Toprol 25 XL tomorrow Now that off dialysis would discontinue midodrin. Will discuss ICD further as an outpatient Patient with scheduled follow-up with me in the next 1-2 weeks and has scheduled follow-up with advanced heart failure team at [facility] in the near future Subjective Feeling well today. Breathing feels recent baseline. Denies any chest pain. Passed speech eval was able to take some food and yesterday. No other new concerns today. Echoshowed persistent severe LV dysfunction EF around 25-30%. LAD distribution akinesis. Estimated filling pressure is normal. Moderate pulmonary hypertension. Next Telemetry reviewno events Review of Systems Review of Systems: All systems reviewed & are unremarkable except as noted in HPI & below Physical Exam Constitutional: + ill appearing and + thin; no acute distress Eyes: + anicteric sclerae Respiratory: Auscultation: + crackles (Minimal at bases) Cardiovascular: Rate/Rhythm: regular rate Heart Sounds: no murmur Vessels: no JVD (unable to assess) Extremities: normal capillary refill; no pedal edema Gastrointestinal (Abdomen): Inspection/Auscultation: abdomen normal to inspection; abdomen not distended Percussion/Palpation: abdomen soft; abdomen nontender Skin: no rashes, warm and dry Neurologic: moves all extremities Psychiatric: A+Ox3, euthymic affect Results & Data Vital Signs (Past 12 Hours) Vital Signs Temp Pulse Pulse Resp BP Pulse Ox 11/14/18 11:02 36.4 C L 88 20 114/87 93 11/14/18 08:00 86 11/14/18 07:26 89 14 92 11/14/18 07:01 36.9 C 88 18 107/79 95 11/14/18 03:10 36.9 C 86 18 108/81 93
[2018-11-14] MEDS: GUAIFENESIN/CODEINE 100MG/10MG 5ML UDC PEG PRN (15:47)
[2018-11-14] MEDS: BUDESONIDE 90 MCG INH INH SCH (21:03)
--- NOTE | 2018-11-14 22:38 | Infectious Disease Progress Nt ---
Date of Service November 14, 2018 Assessment & Plan (1) Multifocal pneumonia: 52-year-old male with a very complicated recent medical history status post MN, cardiogenic shock, renal failure, and right groin hematoma evacuation, now with acute shortness of breath, bilateral effusions and infiltrates. Given his low pro-calcitonin and rapid clinical improvement , as well as the lack of preceding symptoms of fever and cough, with think that this is more likely pulmonary edema/fluid overload rather than pneumonia. Would favor discontinuation of antibiotics. Will discuss with all involved. Subjective Patient seen in follow-up for possible pneumonia. Feeling better, less shortness of breath, no significant cough or sputum production. Remains afebrile. Cultures remain negative. Review of Systems Review of Systems: All systems reviewed & are unremarkable except as noted in HPI & below Physical Exam Constitutional: WD/WN, vitals as above + thin and comfortable; no acute distress Eyes: PERRL, conjunctivae normal, anicteric sclerae ENMT: external ear and nose normal, oropharynx normal Neck: trachea midline, no thyromegaly neck nontender Respiratory: normal respiratory effort; no respiratory distress, no labored breathing and does not use accessory muscles Auscultation: + rales Cardiovascular: Rate/Rhythm: regular rate and regular rhythm Heart Sounds: normal S1 and normal S2; no gallop, no murmur and no cardiac rub Vessels: normal peripheral pulses; no JVD Gastrointestinal (Abdomen): normal bowel sounds, soft, nontender, no hepatosplenomegaly Musculoskeletal: no cyanosis or clubbing, extremities motor strength 5/5 Spine: thoracic spine normal to inspection and lumbar spine normal to inspection; no cervical spinal tenderness Skin: no rashes, warm and dry normal turgor; no lesions Neurologic: patellar DTR's 2+ bilat, sensation intact no focal motor deficits Psychiatric: A+Ox3, euthymic affect Orientation: cooperative Lymphatic: no cervical or axillary lymphadenopathy no inguinal lymphadenopathy Results & Data Vital Signs (Past 12 Hours) Vital Signs Temp Pulse Resp BP Pulse Ox 11/14/18 19:50 36.9 C 90 22 119/87 94 11/14/18 15:29 36.7 C 92 H 22 104/82 96 11/14/18 11:02 36.4 C L 88 20 114/87 93 Laboratory Results Short CBC 11/14/18 Range/Units 06:39 WBC 15.69 H (4.8-10.8) K/uL Hgb 8.7 L (14.0-18.0) g/dL Hct 27.0 L (42-52) % Plt Count 590 H (130-400) K/uL BMP 11/14/18 06:39 Sodium 140 Potassium 3.7 Chloride 108 H Carbon Dioxide 24 BUN 81 H Creatinine 2.55 H Glucose 154 H Calcium 8.4 L Liver Function 11/14/18 Range/Units 06:39 Albumin 2.4 L (3.4-5.0) gm/dl Diagnostic Findings Microbiology 11/11/18 07:57 Pleural Fluid Gram Stain - Final 11/11/18 07:57 Pleural Fluid Aerobic and Anaerobic Culture - Preliminary No growth to date. 11/11/18 07:57 Pleural Fluid Acid Fast Bacilli Smear - Final 11/11/18 00:36 Blood Blood Culture - Preliminary No growth to date. 11/11/18 00:17 Blood Blood Culture - Preliminary No growth to date.
[2018-11-15] MEDS: LEVOFLOXACIN/D5W 750 MG/150 ML BAG IV SCH (00:36)
[2018-11-15 06:47] LABS: Hematocrit (blood only) 28.7 % (42-52); Hemoglobin 9.3 g/dL (14.0-18.0); Mean Corpuscular Hgb Conc 32.4 g/dL (32-36); Mean Platelet Volume 10.2 fL (7.4-10.4); Nucleated RBC # (auto) 0.04 K/uL (0-0); Nucleated RBC % (auto) 0.2 %; Platelet Count 633 K/uL (130-400); RDW Coefficient of Variation 15.5 % (11.5-14.5); RDW Standard Deviation 53.3 fL (36.4-46.3); Red Blood Count 2.99 M/uL (4.7-6.1); White Blood Count 17.79 K/uL (4.8-10.8)
[2018-11-15 07:29] LABS: Albumin Level 2.3 gm/dl (3.4-5.0); BUN Creatinine Ratio 34.8 (10-20); Calcium 8.4 mg/dl (8.5-10.1); Creatinine Clr Calc Pharmacy 42.1 ml/min; Est GFR (African American) 37.1; Potassium 3.2 mmol/L (3.5-5.1)
[2018-11-15] MEDS: DOCUSATE SODIUM SYRUP 100 MG/10 ML UDC PEG SCH ×2 (08:20→21:04)
[2018-11-15] MEDS: ASPIRIN 81 MG CHEW PO SCH (08:20)
[2018-11-15] MEDS: BUDESONIDE 90 MCG INH INH SCH ×2 (08:20→21:04)
[2018-11-15] MEDS: CLOPIDOGREL BISULFATE 75 MG TAB PO SCH (08:21)
[2018-11-15] MEDS: SODIUM BICARBONATE 650 MG TAB PO SCH ×2 (08:21→21:04)
[2018-11-15] MEDS: AMIODARONE 200 MG TAB PO SCH (08:21)
[2018-11-15] MEDS: LANSOPRAZOLE 30 MG SOLTAB PEG SCH (08:22)
[2018-11-15] MEDS: FUROSEMIDE 40 MG TAB PO SCH (08:22)
[2018-11-15] MEDS: CALCIUM ACETATE 667 MG CAP PO SCH ×3 (08:23→15:53)
[2018-11-15] MEDS ORDERED: POTASSIUM CHLORIDE PWD 20 MEQ PACK GT ONE (08:24)
[2018-11-15] MEDS: METOPROLOL SUCC 25MG EXT REL TAB PO SCH (08:26)
--- NOTE | 2018-11-15 10:18 | Nephrology Progress Note ---
Date of Service November 15, 2018 Assessment & Plan (1) ELISABETH (acute kidney injury): -- Creatinine improved to 2.2. Patient remains nonoliguric -- Continue furosemide 40 mg PO daily, goal is to continue to maintain a slightly negative fluid balance -- Repeat metabolic profile on Saturday (results can be faxed to my office at [phone]) -- Follow up with Dr. Street in the nephrology clinic within 2 weeks of discharge -- HD catheter dressing changes per protocol -- Discussed dialysis catheter removal with vascular surgery: this will be scheduled for next week and can be coordinated with [facility] if patient discharged -- Last HD treatment 11/01/18 (2) Hypoxia: -- Related to pulmonary edema and effusions -- R thoracentesis (1.5 L) performed 11/11 -- Maintain slightly negative fluid balance -- Cannot exclude pneumonia, empiric treatment continued (3) Anemia: -- H/H stable -- Tsat acceptable --Epogen 79069 units provided 11/14 (4) Liver laceration: -- Noted previously on imaging from [facility] by report Subjective Mr. Rivera was seen & examined in the PCU this mornine. He was sitting up in a chair visiting with his sister. Mr. Rivera denies angina, dyspnea or overt bleeding. He remains weak and is hopeful that he will [facility] for ongoing physical therapy. Echoshowed persistent severe LV dysfunction EF around 25-30%. LAD distribution akinesis. Estimated filling pressure is normal. Moderate pulmonary hypertension. Next Telemetry reviewno events Review of Systems Cardiovascular: + edema; no chest pain at rest, no dyspnea and no palpitations Gastrointestinal: no abdominal pain Musculoskeletal: + muscle weakness; no myalgia Physical Exam Eyes: PERRL, conjunctivae normal, anicteric sclerae Neck: trachea midline, no thyromegaly Respiratory: normal respiratory effort, lungs clear to auscultation Cardiovascular: Rate/Rhythm: regular rate and regular rhythm Heart Sounds: no murmur Gastrointestinal (Abdomen): normal bowel sounds, soft, nontender, no hepatosplenomegaly Results & Data Vital Signs (Past 12 Hours) Vital Signs Temp Pulse Pulse Resp BP BP Pulse Ox 11/15/18 08:29 87 111/80 11/15/18 06:54 35.7 C L 87 20 107/72 95 11/15/18 02:30 36.4 C L 82 18 99/71 L 97/76 L 94 11/15/18 00:22 90 11/14/18 23:40 36.5 C 89 18 108/79 94 Laboratory Tests 11/11/18 11/14/18 11/15/18 00:38 06:39 06:16 WBC 17.79 H Hgb 9.3 L Hct 28.7 L Plt Count 633 H INR 1.2 H Sodium Potassium Chloride Carbon Dioxide BUN Creatinine Glucose Calcium Transferrin % Sat 37 Ferritin 2291.2 H Albumin 11/15/18 06:16 WBC Hgb Hct Plt Count INR Sodium 138 Potassium 3.2 L Chloride 104 Carbon Dioxide 24 BUN 78 H Creatinine 2.24 H D Glucose 112 H Calcium 8.4 L Transferrin % Sat Ferritin Albumin 2.3 L
[2018-11-15] MEDS: NOVASOURCE RENAL 2.0 CAL 1000ML BAG PEG SCH (10:39)
--- NOTE | 2018-11-15 10:43 | Surgery Progress Note ---
Date of Service November 15, 2018 Assessment & Plan (1) Pleural effusion: -pt. is s/p right thoracentesis on 11/11/18 -cytology noted to be (-) for malignancy -AFB, fungal cultures are (-) -no organisms noted on gram stain and culture (-) Subjective Pt. notes his breathing feels pretty good today and he has noted improvement since his admission to hospital. Physical Exam Respiratory: normal respiratory effort; no respiratory distress and no labored breathing Slight decrease of BS noted at bases Results & Data Vital Signs (Past 12 Hours) Vital Signs Temp Pulse Pulse Resp BP BP Pulse Ox 11/15/18 08:29 87 111/80 11/15/18 06:54 35.7 C L 87 20 107/72 95 11/15/18 02:30 36.4 C L 82 18 99/71 L 97/76 L 94 11/15/18 00:22 90 11/14/18 23:40 36.5 C 89 18 108/79 94
[2018-11-15] MEDS ORDERED: Nursing to Pharmacy Communication ONE (13:29)
--- NOTE | 2018-11-15 13:31 | Hospitalist Progress Note ---
Date of Service November 15, 2018 Assessment & Plan (1) Acute exacerbation of CHF (congestive heart failure): Acute exacerbation of systolic CHF. Echo in the hospital showed EF 20-25%. - Continued Lasix 60mg IV daily on 11/13 - Reduce to Lasix 40mg PO daily on 11/14 - Added Toprol XL 12.5mg PO daily on 11/15. Will monitor BP on this as he was on midodrine and runs low already. - Monitor I&Os; net weights (2) Pulmonary hemorrhage: Seen on CT a/p on 11/13 with ovoid shaped area in the RLL. Discussed with Dr. Hurley who feels no intervention necessary. - Hgb stable on 11/15. - Would likely benefit from CT chest in 1 month or sooner if any further symptoms. (3) Liver laceration: CT a/p on 11/11 showed "12 x 7 cm complex collection posterior to the right hepatic lobe & a 4 cm defect of the posterior right hepatic lobe, along with 2 x 4 cm hematoma within the right iliopsoas vasculature." - Discussed on 11/11 with [facility] vascular surgeon - He had an RP bleed in 08/2018 during his prior admission and required an embolization of his right T11 intercostal artery. Then had a drain in from 09/23 - ~10/03 to drain his RP bleed. Drain was removed. Per our reading the radiology reads, the CT findings are stable from 10/08. - CT a/p on 11/13 showed no change in the right RP hematomas or the right iliopsoas hematomas - Hgb stable on 11/15 - Would likely benefit from repeat CT a/p in 1 month or sooner if he has fevers, hemoglobin drop, or abdominal/right flank pain. (4) Acute respiratory failure with hypoxia: Acute respiratory failure with hypoxia from pulmonary edema. - Weaned off O2 on 11/13 - Some desaturation on exertion, but nothing lower than 90% on room air. (5) Multifocal pneumonia: Initially felt he had multifocal HCAP; however, procalcitonin was 0.08. Quick turn-around (<24h after admission) also points to pulmonary edema being more likely as a cause. Pleural fluid culture was negative. - Stopped linezolid on 11/11 due to negative MRSA swab - Stopped Zosyn on 11/14 - Stopped levofloxacin on 11/15 (6) CKD (chronic kidney disease) stage 4, GFR 15-29 ml/min: Had renal failure and required dialysis at [facility] during his month-long admission. - Baseline Cr now ~2.5; eGFR ~30. - Creatinine stable on diuresis; Cr is 2.2 on 11/15 - Continue PhosLo & NaBicarb - Plan to follow up with Dr. Street in 2 weeks. Will get dialysis catheter removed by vascular surgery next week. (7) CAD (coronary artery disease), [place] coronary artery: No chest pain, stable EKG. Troponin was 0.05. No concern for ACS. - Continue aspirin & clopidogrel - Dr. Easton Gabriel following - appreciate assistance (8) Vocal cord dysfunction: Due to prolonged intubation at [facility]. Has seen PRINTING ROLLER HANDLER as outpatient. - PRINTING ROLLER HANDLER consulted - On 11/13, he passed a barium swallow test. - Now on regular diet - Reassess with shank piece tacker re: tube feeds in 2-3 days to see if he still needs them. (9) Ischemic cardiomyopathy: Echo on this admission showed EF 20-25%. - Plan as above. (10) Atrial fibrillation with RVR: Episode in [facility]. Now in sinus. - Continue amiodarone (11) DVT prophylaxis: SCDs Subjective No shortness of breath today. Still some LE edema. Reports no fevers/chills, chest pain, shortness of breath, abdominal pain, nausea, or vomiting. Review of Systems Respiratory: + cough; no chest congestion, no dyspnea and no dyspnea on exertion Physical Exam Constitutional: WD/WN, vitals as above Eyes: EOM intact bilaterally; no conjunctival abnormality ENMT: external ear and nose normal, oropharynx normal Neck: trachea midline, no thyromegaly normal visual inspection Respiratory: normal respiratory effort, lungs clear to auscultation no respiratory distress Cardiovascular: RRR, no murmur, no edema Extremities: + edema Gastrointestinal (Abdomen): Inspection/Auscultation: abdomen normal to inspection; abdomen not distended Musculoskeletal: no cyanosis or clubbing, extremities motor strength 5/5 Skin: no rashes, warm and dry Neurologic: moves all extremities and awake Psychiatric: Orientation: alert, oriented to person and cooperative Results & Data Vital Signs (Past 12 Hours) Vital Signs Temp Pulse Resp BP BP Pulse Ox 11/15/18 12:01 36.8 C 85 17 117/81 97 11/15/18 08:29 87 111/80 11/15/18 06:54 35.7 C L 87 20 107/72 95 11/15/18 02:30 36.4 C L 82 18 99/71 L 97/76 L 94
[2018-11-15] MEDS: MIDODRINE HCL 2.5 MG TAB PO SCH (13:51)
[2018-11-16 06:38] LABS: Hemoglobin 9.5 g/dL (14.0-18.0); Mean Corpuscular Hgb Conc 32.8 g/dL (32-36); Mean Corpuscular Volume 93.5 fL (80-100); Mean Platelet Volume 9.8 fL (7.4-10.4); Platelet Count 587 K/uL (130-400); RDW Coefficient of Variation 15.4 % (11.5-14.5); RDW Standard Deviation 51.1 fL (36.4-46.3); White Blood Count 21.31 K/uL (4.8-10.8)
[2018-11-16 07:19] LABS: Albumin Level 2.3 gm/dl (3.4-5.0); BUN Creatinine Ratio 36.4 (10-20); Calcium 8.3 mg/dl (8.5-10.1); Creatinine Clr Calc Pharmacy 42.5 ml/min; Est GFR (African American) 41.3; Est GFR (Non-African American) 35.7; Phosphorus 4.3 mg/dl (2.5-4.9); Potassium 3.4 mmol/L (3.5-5.1)
[2018-11-16] MEDS: BUDESONIDE 90 MCG INH INH SCH ×2 (08:52→22:10)
[2018-11-16] MEDS: CALCIUM ACETATE 667 MG CAP PO SCH ×3 (08:53→17:37)
[2018-11-16] MEDS: AMIODARONE 200 MG TAB PO SCH (08:53)
[2018-11-16] MEDS: METOPROLOL SUCC 25MG EXT REL TAB PO SCH (08:54)
[2018-11-16] MEDS: CLOPIDOGREL BISULFATE 75 MG TAB PO SCH (08:54)
[2018-11-16] MEDS: FUROSEMIDE 40 MG TAB PO SCH (08:54)
[2018-11-16] MEDS: ASPIRIN 81 MG CHEW PO SCH (08:54)
[2018-11-16] MEDS: DOCUSATE SODIUM SYRUP 100 MG/10 ML UDC PEG SCH ×2 (08:55→22:10)
[2018-11-16] MEDS: SODIUM BICARBONATE 650 MG TAB PO SCH ×2 (08:55→22:10)
[2018-11-16] MEDS: PANTOprazole 40 MG TAB PO SCH (08:56)
--- NOTE | 2018-11-16 11:03 | Nephrology Progress Note ---
Date of Service November 16, 2018 Assessment & Plan (1) ELISABETH (acute kidney injury): -- Creatinine improved to 2.0. Patient remains nonoliguric -- Continue furosemide 40 mg PO daily, goal is to continue to maintain a slightly negative fluid balance -- Follow up with Dr. Street in the nephrology clinic within 2 weeks of discharge -- Discussed dialysis catheter removal with vascular surgery: this will be scheduled for next week and can be coordinated with [facility] if patient discharged (2) Hypoxia: -- R thoracentesis (1.5 L) performed 11/11 -- Maintain slightly negative fluid balance (3) Anemia: -- H/H trending up -- Epogen [id number] units provided 11/14 Subjective Mr. Rivera was seen & examined in the PCU this morning. He currently denies fever, angina, dyspnea or uremic symptoms. Review of Systems Cardiovascular: + edema; no chest pain at rest, no dyspnea and no palpitations Musculoskeletal: + muscle weakness; no myalgia Physical Exam Eyes: PERRL, conjunctivae normal, anicteric sclerae Neck: trachea midline, no thyromegaly Respiratory: normal respiratory effort, lungs clear to auscultation Cardiovascular: Rate/Rhythm: regular rate and regular rhythm Heart Sounds: no murmur Gastrointestinal (Abdomen): normal bowel sounds, soft, nontender, no hepatosplenomegaly Results & Data Vital Signs (Past 12 Hours) Vital Signs Temp Pulse Resp BP BP Pulse Ox 11/16/18 06:54 36.2 C L 85 20 106/68 11/16/18 03:27 36.6 C 88 18 109/70 93 11/15/18 23:06 36.7 C 87 24 103/69 94 Laboratory Results Laboratory Tests 11/11/18 11/16/18 11/16/18 00:17 06:28 06:28 WBC 21.31 H Hgb 9.5 L Hct 29.0 L Plt Count 587 H Sodium 136 Potassium 3.4 L Chloride 103 Carbon Dioxide 25 BUN 75 H Creatinine 2.05 H Glucose 102 H Urine Color Yellow Urine Appearance Clear Urine pH 5.0 Ur Specific [place] 1.017 Urine Protein Negative Urine Glucose (UA) Negative Urine Ketones Negative Urine Blood Negative Urine Nitrite Negative Urine Bilirubin Negative Urine Urobilinogen Negative
[2018-11-16] MEDS: NOVASOURCE RENAL 2.0 CAL 1000ML BAG PEG SCH (12:15)
--- NOTE | 2018-11-16 13:52 | Hospitalist Progress Note ---
Date of Service November 16, 2018 Assessment & Plan (1) Leukocytosis: WBC was high-normal (12) on admission, and has steadily edged up since then. On 11/16, now 21. - Initially thought to be due to steroids for lung issues. These were stopped on 11/14. - Was on levofloxacin until 11/15 for possible pneumonia (in the end more likely due to volume overload) - Now off steroids since 11/14 and WBC still rising. No erythema at right groin surgical site, no other rashes. Discussed with Dr. Meade who no action needed. - Trend WBC (2) Acute exacerbation of CHF (congestive heart failure): Acute exacerbation of systolic CHF. Echo in the hospital showed EF 20-25%. - Initially on Lasix 60mg IV daily - Reduced to Lasix 40mg PO daily on 11/14 - Added Toprol XL 12.5mg PO daily on 11/15. Will monitor BP on this as he was on midodrine and runs low already. - Monitor I&Os; net weights (3) Pulmonary hemorrhage: Seen on CT a/p on 11/13 with ovoid shaped area in the RLL. Discussed with Dr. Hurley who feels no intervention necessary. - Hgb stable on 11/15. - Would likely benefit from CT chest in 1 month or sooner if any further symptoms. (4) Liver laceration: CT a/p on 11/11 showed "12 x 7 cm complex collection posterior to the right hepatic lobe & a 4 cm defect of the posterior right hepatic lobe, along with 2 x 4 cm hematoma within the right iliopsoas vasculature." - Discussed on 11/11 with [place] vascular surgeon - He had an RP bleed in 08/2018 during his prior admission and required an embolization of his right T11 intercostal artery. Then had a drain in from 09/23 - ~10/03 to drain his RP bleed. Drain was removed. Per our reading the radiology reads, the CT findings are stable from 10/08. - CT a/p on 11/13 showed no change in the right RP hematomas or the right iliopsoas hematomas - Hgb stable on 11/15 - Would likely benefit from repeat CT a/p in 1 month or sooner if he has fevers, hemoglobin drop, or abdominal/right flank pain. (5) Acute respiratory failure with hypoxia: Acute respiratory failure with hypoxia from pulmonary edema. - Weaned off O2 on 11/13 - Some desaturation on exertion, but nothing lower than 90% on room air. (6) Multifocal pneumonia: Initially felt he had multifocal HCAP; however, procalcitonin was 0.08. Quick turn-around (<24h after admission) also points to pulmonary edema being more likely as a cause. Pleural fluid culture was negative. - Stopped linezolid on 11/11 due to negative MRSA swab - Stopped Zosyn on 11/14 - Stopped levofloxacin on 11/15 (7) CKD (chronic kidney disease) stage 4, GFR 15-29 ml/min: Had renal failure and required dialysis at [place] during his month-long admission. - Baseline Cr now ~2.5; eGFR ~30. - Creatinine stable on diuresis; Cr is 2.2 on 11/15 - Continue PhosLo & NaBicarb - Plan to follow up with Dr. Street in 2 weeks. Will get dialysis catheter removed by vascular surgery next week. (8) CAD (coronary artery disease), [place] coronary artery: No chest pain, stable EKG. Troponin was 0.05. No concern for ACS. - Continue aspirin & clopidogrel - Dr. Easton Gabriel following - appreciate assistance (9) Vocal cord dysfunction: Due to prolonged intubation at [place]. Has seen ADMISSIONS RECRUITER as outpatient. - ADMISSIONS RECRUITER consulted - On 11/13, he passed a barium swallow test. - Now on regular diet - Reassess with common[facility] attorney re: tube feeds in 2-3 days to see if he still needs them. (10) Ischemic cardiomyopathy: Echo on this admission showed EF 20-25%. - Plan as above. (11) Atrial fibrillation with RVR: Episode in [place]. Now in sinus. - Continue amiodarone (12) DVT prophylaxis: SCDs Subjective Feeling well. Notes the right groin is seeping serous fluid. Reports no fevers/chills, chest pain, shortness of breath, abdominal pain, nausea, or vomiting. Review of Systems Respiratory: + cough; no chest congestion, no dyspnea and no dyspnea on exertion Physical Exam Constitutional: WD/WN, vitals as above Eyes: EOM intact bilaterally; no conjunctival abnormality ENMT: external ear and nose normal, oropharynx normal Neck: trachea midline, no thyromegaly normal visual inspection Respiratory: normal respiratory effort, lungs clear to auscultation no respiratory distress Cardiovascular: RRR, no murmur, no edema Extremities: + edema Gastrointestinal (Abdomen): Inspection/Auscultation: abdomen normal to inspection; abdomen not distended Musculoskeletal: no cyanosis or clubbing, extremities motor strength 5/5 Skin: no rashes, warm and dry Right groin incision without any erythema or purulent drainage. Neurologic: moves all extremities and awake Psychiatric: Orientation: alert, oriented to person and cooperative Results & Data Vital Signs (Past 12 Hours) Vital Signs Temp Pulse Resp BP BP Pulse Ox 11/16/18 12:10 36.7 C 89 14 101/74 96 11/16/18 06:54 36.2 C L 85 20 106/68 11/16/18 03:27 36.6 C 88 18 109/70 93
[2018-11-16] MEDS: GUAIFENESIN/CODEINE 100MG/10MG 5ML UDC PEG PRN (20:01)
[2018-11-17 06:24] LABS: Hematocrit (blood only) 25.5 % (42-52); Hemoglobin 8.4 g/dL (14.0-18.0); Mean Corpuscular Hgb Conc 32.9 g/dL (32-36); Mean Corpuscular Volume 93.8 fL (80-100); Mean Platelet Volume 10.2 fL (7.4-10.4); Platelet Count 528 K/uL (130-400); RDW Coefficient of Variation 15.8 % (11.5-14.5); RDW Standard Deviation 51.9 fL (36.4-46.3); Red Blood Count 2.72 M/uL (4.7-6.1); White Blood Count 20.02 K/uL (4.8-10.8)
[2018-11-17 06:51] LABS: BUN Creatinine Ratio 30.4 (10-20); Calcium 8.1 mg/dl (8.5-10.1); Est GFR (African American) 38.4; Est GFR (Non-African American) 33.1; Potassium 3.5 mmol/L (3.5-5.1)
--- NOTE | 2018-11-17 08:11 | XRay Report ---
XR chest 1V portable HISTORY: 53 years-old Male effusion follow-up study in a patient with pleural effusion COMPARISON: Chest radiograph 11/12/2018, CT abdomen and pelvis 11/13/2018 TECHNIQUE: Portable AP view of the chest FINDINGS: Cardiomediastinal and hilar silhouettes are unchanged. Stable positioning of the right internal jugul ar dual-lumen hemodialysis catheter, distal tip terminating in the expected location of the right atr ium. No pneumothorax. Small bilateral pleural effusions redemonstrated, slightly decreased on the rig ht. Bibasilar and perihilar predominant mixed interstitial and alveolar opacities. Bones of the chest appear grossly intact. IMPRESSION: 1. Small pleural effusions are again noted with slightly decreased size of the right pleural effusion . 2. Bilateral bibasilar and perihilar predominant alveolar opacities redemonstrated. The above report was generated using voice recognition software. It may contain grammatical, syntax o r spelling errors. Electronically signed by: Giovanny Quintero M.D. 11/17/2018 8:09 AM
[2018-11-17] MEDS: CLOPIDOGREL BISULFATE 75 MG TAB PO SCH (08:20)
[2018-11-17] MEDS: CALCIUM ACETATE 667 MG CAP PO SCH ×2 (08:20→12:05)
[2018-11-17] MEDS: SODIUM BICARBONATE 650 MG TAB PO SCH (08:20)
[2018-11-17] MEDS: ASPIRIN 81 MG CHEW PO SCH (08:21)
[2018-11-17] MEDS: FUROSEMIDE 40 MG TAB PO SCH (08:21)
[2018-11-17] MEDS: METOPROLOL SUCC 25MG EXT REL TAB PO SCH (08:21)
[2018-11-17] MEDS: PANTOprazole 40 MG TAB PO SCH (08:21)
[2018-11-17] MEDS: BUDESONIDE 90 MCG INH INH SCH (08:22)
[2018-11-17] MEDS: AMIODARONE 200 MG TAB PO SCH (08:22)
[2018-11-17] MEDS: DOCUSATE SODIUM SYRUP 100 MG/10 ML UDC PEG SCH (08:23)
--- NOTE | 2018-11-17 10:13 | Nephrology Progress Note ---
Date of Service November 17, 2018 Assessment & Plan (1) ELISABETH (acute kidney injury): -- Creatinine improved to ~ 2.0. Patient remains nonoliguric -- Continue furosemide 40 mg PO daily, goal is to continue to maintain a slightly negative fluid balance -- Follow up with Dr. Street in the nephrology clinic within 2 weeks of discharge -- I have spoken w/ Vascular Surgery this am. They will reassess R inguinal incision this am and coordinate removal of IJ THC (2) Hypoxia: -- R thoracentesis (1.5 L) performed 11/11 -- Maintain slightly negative fluid balance (3) Anemia: -- H/H trending up -- Epogen [id number] units provided 11/14 Subjective Mr. Rivera was seen & examined in the PCU this morning. He denies fever, angina, dyspnea or uremic symptoms. He does note serosanguineous drainage from his R inguinal incision Review of Systems Constitutional: no fever Respiratory: no dyspnea Cardiovascular: + edema; no chest pain at rest and no palpitations Gastrointestinal: no diarrhea/loose stools Genitourinary: no urinary hesitancy Musculoskeletal: + muscle weakness; no myalgia Physical Exam Eyes: PERRL, conjunctivae normal, anicteric sclerae Neck: trachea midline, no thyromegaly Respiratory: normal respiratory effort, lungs clear to auscultation Cardiovascular: Rate/Rhythm: regular rate and regular rhythm Heart Sounds: no murmur Gastrointestinal (Abdomen): normal bowel sounds, soft, nontender, no hepatosplenomegaly Results & Data Vital Signs (Past 12 Hours) Vital Signs Temp Pulse Resp BP Pulse Ox 11/17/18 07:35 37.0 C 90 18 104/69 91 11/17/18 02:47 36.0 C L 93 H 18 104/70 94 11/16/18 23:38 37.0 C 94 H 18 106/65 92 Laboratory Results Laboratory Tests 11/17/18 11/17/18 06:08 06:08 WBC 20.02 H Hgb 8.4 L Hct 25.5 L Plt Count 528 H Sodium 136 Potassium 3.5 Chloride 102 Carbon Dioxide 26 BUN 66 H Creatinine 2.18 H Glucose 112 H
[2018-11-17] MEDS: NOVASOURCE RENAL 2.0 CAL 1000ML BAG PEG SCH (11:08)
[2018-11-17 11:44] VITALS: BP 99/59; TEMP 97.7; O2SAT 95
[2018-11-17 13:43] VITALS: PULSE 93
--- NOTE | 2018-11-17 17:45 | Progress Note ---
DATE: 11/17/2018 Mr. Rivera looks great. He is sitting up in bed. He has been eating well which he is quite pleased with. His lungs actually sound pretty good. I reviewed his x-ray today and I think the right pleural fluid is actually a bit smaller. I think his parenchymal opacities are a bit better. At this point, I think he looks quite good. I agree with his discharge. We will follow up in the office in 1-2 weeks with an x-ray.
--- NOTE | 2018-11-24 07:27 | Discharge Summary ---
Date of Service November 17, 2018 Admission HPI Per Admitting Provider The patient is a 52-year-old male most recently hospitalized from 11/05-11/10/18, after right groin exploration surgery for hematoma by Dr. Gleason on 11/05/18. The patient was transferred to [facility] yesterday for rehab, was noted to become more short of breath, was referred to the emergency department at [facility] for assessment, and then was referred for evaluation for admission to the [facility] service. Principal Diagnosis Acute respiratory failure with hypoxia Discharge Exam Constitutional: WD/WN, vitals as above Eyes: EOM intact bilaterally; no conjunctival abnormality ENMT: external ear and nose normal, oropharynx normal Neck: trachea midline, no thyromegaly normal visual inspection Respiratory: normal respiratory effort, lungs clear to auscultation no respiratory distress Cardiovascular: RRR, no murmur, no edema Extremities: + edema Gastrointestinal (Abdomen): Inspection/Auscultation: abdomen normal to inspection; abdomen not distended Musculoskeletal: no cyanosis or clubbing, extremities motor strength 5/5 Skin: no rashes, warm and dry Right groin incision without any erythema or purulent drainage. Neurologic: moves all extremities and awake Psychiatric: Orientation: alert, oriented to person and cooperative Discharge Data Allergies Allergy/AdvReac Type Severity Reaction Status Date / Time cefepime Allergy Intermediate Rash Verified 11/21/18 07:56 vancomycin Allergy Intermediate Rash Verified 11/21/18 07:56 Consultations 11/11/18 00:56 ED Decision to Admit Stat 11/11/18 03:28 Consult Case Management - Discharge Planning Routine 11/11/18 05:02 Consult Cardiology Routine Consult Nephrology Routine 11/11/18 06:51 Consult Thoracic Surgery Routine 11/11/18 10:38 Consult Infectious Diseases Routine Ordered Studies 11/11/18 01:22 CT chest wo con Urgent 11/11/18 05:08 CT abd pelvis wo con Urgent 11/13/18 08:52 CT abd pelvis wo con Routine 11/13/18 14:30 FL video swallow Routine Hospital Course (1) Leukocytosis: WBC was high-normal (12) on admission, and has steadily edged up since then. On 11/16, now 21. - Initially thought to be due to steroids for lung issues. These were stopped on 11/14. - Was on levofloxacin until 11/15 for possible pneumonia (in the end more likely due to volume overload) - Now off steroids since 11/14 and WBC still rising. No erythema at right groin surgical site, no other rashes. Discussed with Dr. Meade who no action needed. WBC improved to 20 (2) Acute exacerbation of CHF (congestive heart failure): Acute exacerbation of systolic CHF. Echo in the hospital showed EF 20-25%. - Initially on Lasix 60mg IV daily - Reduced to Lasix 40mg PO daily on 11/14 - Added Toprol XL 12.5mg PO daily on 11/15. Will monitor BP on this as he was on midodrine and runs low already. - Monitor I&Os; net weights (3) Pulmonary hemorrhage: Seen on CT a/p on 11/13 with ovoid shaped area in the RLL. Discussed with Dr. Hurley who feels no intervention necessary. - Hgb stable on 11/15. - Would likely benefit from CT chest in 1 month or sooner if any further symptoms. (4) Liver laceration: CT a/p on 11/11 showed "12 x 7 cm complex collection posterior to the right hepatic lobe & a 4 cm defect of the posterior right hepatic lobe, along with 2 x 4 cm hematoma within the right iliopsoas vasculature." - Discussed on 11/11 with [facility] vascular surgeon - He had an RP bleed in 08/2018 during his prior admission and required an embolization of his right T11 intercostal artery. Then had a drain in from 09/23 - ~10/03 to drain his RP bleed. Drain was removed. Per our reading the radiology reads, the CT findings are stable from 10/08. - CT a/p on 11/13 showed no change in the right RP hematomas or the right iliopsoas hematomas - Hgb stable on 11/15 - Would likely benefit from repeat CT a/p in 1 month or sooner if he has fevers, hemoglobin drop, or abdominal/right flank pain. (5) Acute respiratory failure with hypoxia: Acute respiratory failure with hypoxia from pulmonary edema. - Weaned off O2 on 11/13 - Some desaturation on exertion, but nothing lower than 90% on room air. (6) Multifocal pneumonia: Initially felt he had multifocal HCAP; however, procalcitonin was 0.08. Quick turn-around (<24h after admission) also points to pulmonary edema being more likely as a cause. Pleural fluid culture was negative. - Stopped linezolid on 11/11 due to negative MRSA swab - Stopped Zosyn on 11/14 - Stopped levofloxacin on 11/15 (7) CKD (chronic kidney disease) stage 4, GFR 15-29 ml/min: Had renal failure and required dialysis at [facility] during his month-long admission. - Baseline Cr now ~2.5; eGFR ~30. - Creatinine stable on diuresis; Cr is 2.2 on 11/15 - Continue PhosLo & NaBicarb - Plan to follow up with Dr. Street in 2 weeks. Will get dialysis catheter removed by vascular surgery next week. (8) CAD (coronary artery disease), [place] coronary artery: No chest pain, stable EKG. Troponin was 0.05. No concern for ACS. - Continue aspirin & clopidogrel - Dr. Easton Gabriel following - appreciate assistance (9) Vocal cord dysfunction: Due to prolonged intubation at [facility]. Has seen [facility] as outpatient. - [facility] consulted - On 11/13, he passed a barium swallow test. 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 (10) Ischemic cardiomyopathy: Echo on this admission showed EF 20-25%. - Plan as above. (11) Atrial fibrillation with RVR: Episode in [facility]. Now in sinus. - Continue amiodarone (12) DVT prophylaxis: SCDs Total Time Total Time Spent Total Time Spent (In Minutes): 33 Total Time Includes: Examination of the Patient, Discharge Planning and Medication Reconciliation Discharge Plan Discharge Items Patient Disposition: Transfer Inpatient Rehab Fac Reason For Visit: ACUTE RESP FAILURE WITH HYPOXIA, MULTILOBAR HCAP Discharge Diagnosis: Acute resp failure with hypoxia, multilobar HCAP. Condition: Serious Discharge Goals: Decrease discomfort Activity: Resume your previous activity Non-emergency contact: Primary Care Provider Call non-emergency contact if: you have any medication questions Follow-up/Referrals: Pedro Silveira MD [Primary Care Provider] - Diet: Heart Healthy Addtl Provider Instructions: Repeat CT a/p in 1 month or sooner if he has fevers, hemoglobin drop, or abdominal/right flank pain. Plan to follow up with Dr. Street in 2 weeks. Dialysis catheter removed by vascular surgery later this week. Followup with Dr. Hurley in 1 week for chest x-ray. Prescriptions: New furosemide 40 mg Tablet 40 mg PO QAM Qty: 30 RF: 0 metoprolol succinate 25 mg Tablet Extended Release 24 Hr 12.5 mg PO QAM Qty: 45 RF: 0 Pulmicort Flexhaler 90 mcg/actuation Aerosol Powdr Breath Activated 1 puff inhalation BID Qty: 1 RF: 0 Continued amiodarone 200 mg Tablet 200 mg feeding tube DAILY RF: 0 aspirin 81 mg Tablet,Chewable 81 mg feeding tube QAM RF: 0 calcium acetate 667 mg Tablet 667 mg feeding tube TIDM RF: 0 clopidogrel 75 mg Tablet 75 mg feeding tube DAILY RF: 0 colchicine 0.6 mg Tablet 0.3 mg feeding tube 2XWK RF: 0 bisacodyl 10 mg Suppository 10 mg NC DAILY PRN (Reason: Constipation) RF: 0 Fleet Enema 19-7 gram/118 mL Enema 118 ml NC DAILY PRN (Reason: Constipation) RF: 0 acetaminophen 325 mg Tablet 650 mg feeding tube Q4H PRN (Reason: .PAIN ( 1-3 )) RF: [address]opraz[address] For Susp In Packet 40 mg PO QAM RF: 0 saliva substitute combo no.3 Aerosol,[place] 1 spray mucous membrane Q1H PRN (Reason: Dry Mouth) RF: 0 midodrine 5 mg Tablet 5 mg feeding tube TIDM RF: 0 phenol 1.4 % Aerosol,[place] 1 spray MUCOUS MEMBRANE Q4H PRN (Reason: Sore Throat) RF: 0 codeine-guaifenesin 6.3-100 mg/5 mL Liquid 10 ml feeding tube Q4H PRN (Reason: Cough) RF: 0 albuterol sulfate 90 mcg/actuation Hfa Aerosol Inhaler 2 puff inhalation Q4H PRN (Reason: Wheezing) RF: 0 simethicone 80 mg Tablet,Chewable 20 mg feeding tube QAM RF: 0 sennosides-docusate sodium [Senokot-S] 8.6-50 mg Tablet 1 tab PO .LUNCH PRN (Reason: Constipation) RF: 0 polyethylene glycol 3350 [Miralax] 17 gram/dose Powder 17 g feeding tube .LUNCH PRN (Reason: Constipation) RF: 0 magnesium hydroxide [Milk of Magnesia] 400 mg/5 mL Suspension 30 ml feeding tube DAILY PRN (Reason: Constipation) RF: 0 docusate sodium 50 mg/5 mL Liquid 100 mg feeding tube BID RF: 0 sodium bicarbonate 325 mg tablet 650 mg PO BID RF: 0 Discontinued oxycodone 5 mg Tablet 5 mg feeding tube Q4H PRN (Reason: . PAIN ( 4-10 )) RF: 0 amoxicillin-pot clavulanate [Augmentin] 500-125 mg Tablet 1 tab feeding tube BIDM RF: 0 heparin (porcine) 5,000 unit/mL Syringe 5,000 unit SUBCUT Q12H RF: 0 No Action tramadol 50 mg Tablet See Rx Instructions .ROUTE .COMPLEX RF: 0 lidocaine [Lidoderm] 5 % Adhesive Patch,Medicated 2 patch TOPICAL DAILY RF: 0 Stand-Alone Forms: [facility] Discharge Orders: Discharge Order (Routine); Ordered 11/17/18 Ordered By: Tre Miller Skilled Items Patient informed of condition?: Yes DNR: No Discharge Level of Care: Skilled Communicable Disease: No Discharge Prognosis: Stable Admission Data Admit Date/Time: 11/11/18 01:58 Attending Provider: Tre Miller Admit Provider: Rory Morrison Primary Care Provider: Pedro Silveira Other Providers: Thomas Gabriel ; Jaquan Dobson ; Rustam Hurley ; Oscar Benites ; Yuniel Meade Service: Telemetry Medical Other Interventions: Discharge Summary Assessment (RN) Last Done: 11/17/18 13:42 DC Date/Time DO NOT enter until pt leaves facility: 11/17/18 14:00
== END 2018-11-17 14:00 | DRG 291 ==
LOC: ED 23:34 → 2E 11-11 01:58 → SUATTDRO 11-11 01:58 → 2E 11-11 02:52

== ENCOUNTER 2018-12-19 07:48 | Inpatient (IN) ==
[2018-12-19] MEDS ORDERED: NITROGLYCERIN SL 0.4 MG/TAB TAB SL STA (08:01)
[2018-12-19] MEDS ORDERED: ASPIRIN CHEW 324 MG PO STA (08:01)
[2018-12-19] MEDS ORDERED: ASPIRIN 81 MG CHEW ONE (08:07)
[2018-12-19 08:17] LABS: Basophils # (auto) 0.06 K/uL (0-0.2); Basophils % (auto) 0.4 %; Eosinophils # (auto) 0.25 K/uL (0-0.5); Eosinophils % (auto) 1.5 %; Hematocrit (blood only) 28.8 % (42-52); Hemoglobin 9.6 g/dL (14.0-18.0); Immature Granulocytes # (auto) 0.04 K/uL (0.00-0.02); Immature Granulocytes % (auto) 0.2 %; Lymphocytes # (auto) 1.53 K/uL (1.2-3.4); Mean Corpuscular Hgb Conc 33.3 g/dL (32-36); Mean Corpuscular Volume 88.3 fL (80-100); Mean Platelet Volume 9.2 fL (7.4-10.4); Monocytes # (auto) 1.01 K/uL (0.11-0.59); Neutrophils # (auto) 14.05 K/uL (1.4-6.5); Neutrophils % (auto) 82.9 %; Platelet Count 523 K/uL (130-400); RDW Coefficient of Variation 16.7 % (11.5-14.5); RDW Standard Deviation 53.6 fL (36.4-46.3); Red Blood Count 3.26 M/uL (4.7-6.1); White Blood Count 16.94 K/uL (4.8-10.8)
[2018-12-19] MEDS ORDERED: NITROGLYCERIN 2% OINTMENT 30GM TUBE EXT STA (08:20)
[2018-12-19] MEDS ORDERED: SODIUM CHLORIDE 0.9% 1000ML 1,000 ML IV ONE (08:22)
[2018-12-19 08:33] LABS: Albumin Level 2.7 gm/dl (3.4-5.0); BUN Creatinine Ratio 15.3 (10-20); Calcium 9.6 mg/dl (8.5-10.1); Creatinine Clr Calc Pharmacy 48.4 ml/min; Est GFR (African American) 48.4; Est GFR (Non-African American) 41.7
--- NOTE | 2018-12-19 08:35 | XRay Report ---
XR chest 1V portable HISTORY: 53 years-old Male Chest Pain acute atypical chest pain COMPARISON: Chest radiograph 11/24/2018 TECHNIQUE: Portable AP view of the chest FINDINGS: Cardiac silhouette is enlarged, unchanged. Multifocal patchy mid and lower lung zone alveolar opaciti es are redemonstrated appears stable to slightly improved from comparison. Suggestion of trace pleura l effusions. No pneumothorax or overt pulmonary edema. Bones of the chest appear grossly intact. IMPRESSION: 1. Persistent alveolar opacities of the left greater than right mid and lower lung zones which appear stable to slightly improved from comparison. 2. Suggestion of trace pleural effusions. The above report was generated using voice recognition software. It may contain grammatical, syntax o r spelling errors. Electronically signed by: Giovanny Quintero M.D. 12/19/2018 8:34 AM
[2018-12-19 08:38] LABS: Albumin Globulin Ratio 0.7 (0.9-2); Bilirubin,Total 0.4 mg/dl (0.2-1); Creatine Kinase MB 1.8 ng/ml (0.5-3.6); Globulin 4.1 gm/dl (2.5-4.0); Total Protein 6.8 gm/dl (6.4-8.2); Troponin I 0.02 ng/ml (0-0.045)
--- NOTE | 2018-12-19 09:02 | History & Physical Report ---
Date of Service December 19, 2018 Assessment & Plan (1) Chest pain: - Admit to tele for r/o - Hx of anterior STEMI, LAD stent and left main dissection placed the patient at high risk for possible cardiac event. Heart score of 6. - Trend cardiac biomarkers, initial set was negative at 0.020 - EKG reviewed as above - Hold on Echo at this time as recently had one 11/13/18 showing LVEF of 20-25% - Low threshold to do a CTA chest to r/o PE with hx of hypercoagulable state - PT/OT consulted - Cardiology consulted and I have personally discussed the pt with Dr. Gabriel. Follows with [facility] cardiology There is plan for pt to start cardiac rehab with [facility], however the pt does not know the details about when this is starting. Discussion was apparently held regarding insertion of ICD. - Continue aspirin 81mg daily, plavix 75 mg daily, lasix 40 mg QAM, metoprolol succinate 12.5 mg daily (2) CAD (coronary artery disease), [place] coronary artery: - s/p anterior STEMI 09/02/18 and DESTINY x 2 with resulting dissection of the left main and cardiogenic shock requiring transfer to [facility] with placement of Impella device and ECMO support with prolonged hospitalization -Continue aspirin, Plavix, statin, low-dose metoprolol (3) Ischemic cardiomyopathy: Most recent EF 35% at [facility] as per cardiology records Has not been able to be on goal-directed therapy due to hypotension and multiple complications Is euvolemic at this time with the exception of some residual pulmonary edema seen on chest x-ray -Continue Lasix 40 mg daily -Continue Toprol-XL 12.5 mg daily -Not able to tolerate KATHY inhibitor at this time due to hypotension -Consideration being made for ICD placement (4) Paroxysmal atrial fibrillation: - Noted, occurred in Aug-September at [facility]. No longer on anticoagulation due to history of spontaneous retroperitoneal hemorrhage during that hospitalization which required coil embolization and 15 units of PRBCs transfused With recurrence shortly after admission here with rates in the 140s Was recently discontinued from his amiodarone on 12/11 by cardiology -IV Lopressor given -Continue home Toprol-XL -Start amiodarone drip -Follow on telemetry -Consideration to be made to restart anticoagulation- will defer to cardiology (5) CKD (chronic kidney disease) stage 4, GFR 15-29 ml/min: - Has initially reguired dialysis after [place] from [place] in beginning of Aug with CVVM, then had tunnel dialysis catheter placed. He was on intermittent dialysis for almost 2 months. Pt has been off hemodialysis since 11/01/18. Tunnel dialysis catheter was removed on 11/21/18. - Cr. stable to improved today at 1.8. Electrolytes are acceptable. Volume status fairly acceptable - BP is slightly lower at 95/65 at time of admission. - No fluids, continue lasix for now. (6) Atrial fibrillation with RVR: -As above (7) Leukocytosis: - Appears to be chronically elevated, today at ~17 K, likely reactive leukocytosis given critical illness over the last 2 to 3 months -Does not appear to be an infectious etiology at this time although does have a chronic cough and continued opacities on chest x-ray -Question of intermittent aspiration? Video swallow was normal within the last month Is afebrile -Follow CBC (8) Open wound of RLQ of abdominal wall w/o penentrat into periton cavity: - Secondary to Impella insertion - Wound consulted for daily dressing changes and packing. Following with wound clinic as an outpatient. -Was to have a CT of the abdomen pelvis today as ordered by the wound care clinic-defer for now given rapid atrial fibrillation -Consider imaging here tomorrow (9) Liver laceration: - CT a/p on 11/11 showed "12 x 7 cm complex collection posterior to the right hepatic lobe & a 4 cm defect of the posterior right hepatic lobe, along with 2 x 4 cm hematoma within the right iliopsoas vasculature." - Discussed on 11/11 with [facility] vascular surgeon - He had an RP bleed in 08/2018 during his prior admission and required an embolization of his right T11 intercostal artery. Then had a drain in from 09/23 - ~10/03 to drain his RP bleed. Drain was removed. Per our reading the radiology reads, the CT findings are stable from 10/08. Also with possible "pulmonary laceration" seen on imaging here last admission on CT of chest which our thoracic surgeon thought was part of his previous retroperitoneal bleed - Hgb is stable at this time at 9 but not increased much from previous He has no abdominal or back pain at this time and abdomen is nontender -Follow CBC (10) Sarcopenia: - Albumin decreased at 2.7. Consider boost supplementation for snacks in between meals and HS once allowed diet. If unable to drink during the day, would specifically want the patient to consume this prior to going to bed. (11) Vocal cord dysfunction: - Due to prolonged intubation at [facility] - following with Speech as outpatient - Had peg tube placed and then removed -Seen by ENT as an outpatient and started on omeprazole (12) Hematoma of groin: - Resolved (13) Thrombocytosis: Platelets improved from previous-currently in the 500s and previously in the 900s just 2 weeks ago Also likely reactive process due to extreme stress and chronic illness and iron deficiency from previous blood loss -Follow CBC (14) Anemia: Iron studies consistent with anemia of chronic disease likely due to critical illness over the last several months, hemoglobin stable and not much improved from a month ago around 9, normocytic. With reactive leukocytosis and thrombocytosis, secondary to chronic inflammation -Also with retroperitoneal bleed and massive transfusion 2 months ago No evidence of ongoing bleeding at this time -Follow CBC (15) DVT prophylaxis: - Teds, plavix. Disposition-admit to PCU History of Present Illness Primary Care Provider: Pedro Silveira MD This is an unfortunate 53 yo M. Recent PMHx includes anterior STEMI on 09/02/18 requiring PTCI with DESTINY x2. Intra-procedurally, the patient did become unstable and dissection was noted of the LM. This was repaired, however the patient did develop cardiogenic shock requiring placement of Impella device as well as vasoactive support. He was subsequently transferred to [facility]'s CT surgery ICU. While under the care of [facility], the patient had ECMO placed in the RIGHT groin. The Impella device was in place for approximately 35 days while the ECMO cannulas were in place for 30 days. His stay was complicated by acute renal failure requiring central veno-venous hemofiltration(CVVH) with transition to hemodialysis on days Saturday//Saturday. Initial cardiac function was poor, but recent echocardiogram demonstrated an EF of approximately 35%. He suffered pericardial effusion with resultant tamponade requiring pericardiocentesis. He had an episode of atrial fibrillation with RVR but resolved. During that admission he also suffered a spontaneous retroperitoneal bleed with abdominal compression syndrome undergoing urgent intercostal choroidal embolization of right T 11 intercostal artery, drainage and transfusion fo 15 U PRBCs. The RP drain was in place from 2/26/19-10/03/18. He developed multi organ failure with "shock liver, renal and respiratory failure. Respiratory failure was likely secondary to pleural effusion likely from volume resuscitation. The patient was hospitalized for 50 days. Eventually he patient did make great improvement and he was able to be transferred to [facility] locally where he was at rehab for about 2 weeks. Following this he was readmitted on 11/05/18-11/17/18 due increase pain and edema in the right femoral region and found to have a hematoma without active bleeding. He was found to be in acute heart failure likely secondary to volume resuscitation and was treated with IV diuretic. This caused acute hypoxic respiratory failure which resolved. Pt was monitored and followed by cardiology and vascular surgery. On 11/11 pt was found to have a liver laceration which subsequently developed a hematoma and fluid collection. He did not require surgical intervention for this. He was again discharge to [facility]. The patient has been home for ~3 weeks now. And has been doing well until this morning when a heavy chest pain awoke him from sleep at 0430. His "housemate" Jh, is present at bedside. The patient reports he was going to get up to urinate and realized the chest discomfort and rated it as an 8/10 at that time. He presented to the ER and was treated with topical nitropaste, which improved his pain to a 4/10, and currently feels much better. He denies any other sx such as SOB, headache, lightheadedness, dizziness. Pt reports he has been participating in outpatient physical therapy being discharged, and goes at least 2 times per week. Patient also has been able to climb a flight of stairs, 15 steps, without difficulty. His other complaint includes a cough which has been ongoing for several weeks now. During his last admission he was treated for a possible multifocal pneumonia, however it appears that volume overload had been a large component of his acute hypoxic respiratory failure. He was treated at that point in time with IV antibiotics however did not get placed on further antibiotics. He does follow with ENT as an outpatient, and has been worked up for possible acute allergic causes of cough. There does not appear to be an acute infectious etiology. Patient reports cough is dry, rarely has clear sputum which is produced. He also mentions that occasionally that he coughs up gastric contents. There is an outpatient gastric evaluation scheduled in a few weeks per the patient, possibly with an EGD to evaluate if this is influencing his cough. Allergies Allergy/AdvReac Type Severity Reaction Status Date / Time cefepime Allergy Intermediate Rash Verified 12/19/18 08:24 vancomycin Allergy Intermediate Rash Verified 12/19/18 08:24 Home Medications Home Medications Medication Instructions Recorded Confirmed Type aspirin 81 mg PO QAM 11/05/18 12/19/18 History clopidogrel 75 mg PO QAM 11/05/18 12/19/18 History colchicine 0.3 mg PO 2XWK 11/05/18 12/19/18 History midodrine 5 mg PO TIDM 11/05/18 12/19/18 History Pulmicort Flexhaler 1 puff INHALATION BID #1 ea 11/17/18 12/19/18 Rx furosemide 40 mg PO QAM #30 tab 11/17/18 12/19/18 Rx metoprolol succinate 12.5 mg PO QAM #45 tab 11/17/18 12/19/18 Rx lidocaine [Lidoderm] 2 patch TOPICAL UD 11/21/18 12/19/18 History docusate sodium 100 mg PO QAM 12/08/18 12/19/18 History acetaminophen [Tylenol Extra 500 mg PO Q6H PRN 12/19/18 12/19/18 History Strength] atorvastatin 20 mg PO HS 12/19/18 12/19/18 History cholecalciferol (vitamin D3) 1,000 unit PO QDL 12/19/18 12/19/18 History [Vitamin D3] fexofenadine [Briana Allergy] 180 mg PO HS 12/19/18 12/19/18 History fluticasone furoate [Arnuity 100 mcg INHALATION DAILY 12/19/18 12/19/18 History Ellipta] omeprazole 20 mg PO BID 12/19/18 12/19/18 History Past Med/Surg History Medical History Anemia Chronic systolic CHF (congestive heart failure) Hypotension Ischemic cardiomyopathy History of atrial fibrillation (Acute) Hx of pleural effusion (Acute) CAD (coronary artery disease) Cardiogenic shock Hx of extracorporeal membrane oxygenation treatment Myocardial infarct STEMI (ST elevation myocardial infarction) 09/02/2018--heart cath with stents placed Surgical History Status post pericardiocentesis History of thoracentesis (Acute) Hx of heart artery stent (Acute) 2 stents History of cardiac cath 09/02/2018 with stents placed @ [facility], follows with Dr. Gabriel History of colonoscopy History of tooth extraction Hx of LASIK Hx of angioplasty Status post insertion of hemodialysis catheter removed--no longer has Status post insertion of percutaneous endoscopic gastrostomy (PEG) tube Family History Mother Coronary heart disease Hypertension Other No family history of adverse response to anesthesia Social History Preferred Language: Yi Communication Ability: Effective Visual Impairment: Limited Hearing Ability: Normal Outpatient Physical Therapist Required: No Beliefs That Will Affect Care: None marital status: Life Partner Current Living Situation: Significant Other Current Living Situation Comment: "LIVES WITH SOMEONE" current occupational status: employed Other Information That Helps Us Care for You: No Feels Safe at Home: Yes Safety Concerns: Feels Safe At This Time Smoking Status: Never smoker Do You Dip or Chew Tobacco: No Second Hand Exposure: No Tobacco Cessation Education Requested by Patient: No Hx Alcohol Use: Yes Alcohol type: wine Hx Substance Use: No Review of Systems Review of Systems: Constitutional: No fever, sweats or chills Eyes: No diplopia, no worsening or blurred vision ENT: normal hearing, no trouble swallowing Respiratory: No cough, sputum, dyspnea at rest or on exertion Cardiovascular: + chest pain as per HPI, no current tightness or palpitations Abdomen: No pain, nausea, vomiting, diarrhea or constipation. Last BM was yesterday, formed and soft. Musculoskeletal: No joint pain, calf pain, swelling Neurologic: No weakness, numbness/tingling, or balance problems Psychiatric: No anxiety or depression Skin: No rash or itch for Physical Exam Physical Exam: General: awake, alert, no apparent distress, + diffuse muscle atrophy Head: Normocephalic, atraumatic ENT: PERRL, EOMI, no pharyngeal exudate, mucous membranes moist, + missing front right tooth Chest: Clear to auscultation, on room air, slightly diminished breath sounds in the LLL, no adventitious breath sounds Cardiac: Regular rate and rhythm, no murmur, no JVD, normal peripheral pulses, good capillary refill Abdominal: NABS x 4 quadrants, soft, nontender to palpation, no rebound, guarding or tenderness, + RLQ nonhealing tracking wound at least 5-6cm. Healing peg tube site LUQ. Extremities: Normal inspection, no peripheral edema or erythema, calfs nontender to palpation Psych: Normal mood and affect Neuro: AAO x 3, strength intact bilaterally and related 5/5, no motor deficits, speech is clear. Results & Data Vital Signs (Past 12 Hours) Vital Signs Temp Pulse Pulse Resp BP BP Pulse Ox 12/19/18 08:18 97 H 16 97/65 L 12/19/18 07:54 36.5 C 105 H 24 124/85 98 Laboratory Results 12/19/18 12/19/18 12/19/18 Range/Units 14:10 07:58 07:58 WBC 16.94 H (4.8-10.8) K/uL RBC 3.26 L (4.7-6.1) M/uL Hgb 9.6 L (14.0-18.0) g/dL Hct 28.8 L (42-52) % MCV 88.3 (80-100) fL MCH 29.4 (25-34) pg MCHC 33.3 (32-36) g/dL RDW Std Deviation 53.6 H (36.4-46.3) fL RDW Coeff of [place] 16.7 H (11.5-14.5) % Plt Count 523 H (130-400) K/uL MPV 9.2 (7.4-10.4) fL Immature Gran % (Auto) 0.2 % Neut % (Auto) 82.9 % Lymph % (Auto) 9.0 % [place] % (Auto) 6.0 % Eos % (Auto) 1.5 % Baso % (Auto) 0.4 % Immature Gran # (Auto) 0.04 H (0.00-0.02) K/uL Neut # (Auto) 14.05 H (1.4-6.5) K/uL Lymph # (Auto) 1.53 (1.2-3.4) K/uL [place] # (Auto) 1.01 H (0.11-0.59) K/uL Eos # (Auto) 0.25 (0-0.5) K/uL Baso # (Auto) 0.06 (0-0.2) K/uL Sodium 136 (136-145) mmol/L Potassium 4.0 (3.5-5.1) mmol/L Chloride 105 (98-107) mmol/L Carbon Dioxide 22 (21-32) mmol/L Anion Gap 10.0 (3-11) BUN 28 H (7-18) mg/dl Creatinine 1.80 H (0.6-1.4) mg/dl Est Cr Clr Drug Dosing 48.4 ml/min Est GFR ( Amer) 48.4 Est GFR (Non-Af Amer) 41.7 BUN/Creatinine Ratio 15.3 (10-20) Glucose 97 (70-99) mg/dl Calcium 9.6 (8.5-10.1) mg/dl Total Bilirubin 0.4 (0.2-1) mg/dl AST 11 L (15-37) U/L ALT 17 (12-78) U/L Alkaline Phosphatase 49 (45-117) U/L Total Creatine Kinase 33 L (39-308) U/L CK-MB (CK-2) 1.8 (0.5-3.6) ng/ml CK/CKMB % Calc 5.5 H (0-3.0) Troponin I < 0.015 0.020 (0-0.045) ng/ml Total Protein 6.8 (6.4-8.2) gm/dl Albumin 2.7 L (3.4-5.0) gm/dl Globulin 4.1 H (2.5-4.0) gm/dl Albumin/Globulin Ratio 0.7 L (0.9-2) Lipase 76 (73-393) U/L Diagnostic Findings XR chest 1V portable HISTORY: 53 years-old Male Chest Pain acute atypical chest pain COMPARISON: Chest radiograph 11/24/2018 TECHNIQUE: Portable AP view of the chest FINDINGS: Cardiac silhouette is enlarged, unchanged. Multifocal patchy mid and lower lung zone alveolar opacities are redemonstrated appears stable to slightly improved from comparison. Suggestion of trace pleural effusions. No pneumothorax or overt pulmonary edema. Bones of the chest appear grossly intact. IMPRESSION: 1. Persistent alveolar opacities of the left greater than right mid and lower lung zones which appear stable to slightly improved from comparison. 2. Suggestion of trace pleural effusions. ECG Additional Comments: ECG #1 sinus tachycardia, rate 104, left anterior fascicular block, nonspecific ST changes ECG #2 rapid atrial fibrillation with PVCs or aberrancy, rate 141, left axis deviation, no acute ischemic changes Code Status & VTE Plan Code Status Full Code - discussed wtih pt and friend at bedside Supervising Physician Co-Signing Physician Notes PA Supervision Note: I personally saw and examined the patient. I verified all appiah points and agree with WESTON Yepez with the following exceptions and/or additions: Patient with extremely complex medical history recently as noted above. Presents with lower sternal chest pain that came on early this morning and has been constant ever since. He has been coughing a lot for several weeks that is nonproductive. He was coughing a lot through the night and thinks he strained something in his chest. The pain is slightly reproducible when he touches it. Given his complex history and recent STEMI, he is admitted for cardiac work-up. Shortly after admission, he went into rapid atrial fibrillation and was asymptomatic with this. He denied chest pain other than what brought him in, denied lightheadedness or palpitations. His blood pressure remained stable in the low normal range as before. Discussed the case at length with cardiology. History reviewed in depth and spent 60 minutes reviewing old records both inpatient and outpatient ROS as above Vitals reviewed Gen: AAOx3, thin, NAD HEENT: Anicteric sclerae, EOMI, missing front incisor on the right CV: Irregularly irregular, rapid rate, no mgr nl S1S2, trace pitting edema of the legs bilaterally Pulm: Positive crackles at the bases bilaterally, no wheezes or rhonchi Abd: +BS soft NT ND no masses or hernias, right groin with open wound with mild serous drainage, no surrounding erythema, no hematoma or bleeding Ext: Trace edema of the legs bilaterally as above, 2+ DP pulses Skin: No rashes, warm/dry, right groin wound as above Neuro: Full strength throughout Troponin negative x2 thus far, creatinine improved from previous, hemoglobin stable as above Chest x-ray image personally reviewed by me and shows bilateral infiltrates slightly improved from previous with bilateral effusions that are small 53-year-old male with complex history as above, here with what seems like muscular skeletal chest pain. Also with rapid atrial fibrillation -Managing A. fib above-appreciate cardiology consultation. Starting amiodarone drip and metoprolol p.o. to continue, can give IV Lopressor as needed for rate control -Considering anticoagulation but given spontaneous massive retroperitoneal bleed, hesitant at this time. We will repeat CT chest/abdomen/pelvis likely tomorrow to further evaluate for previous hemorrhage as well as persistent pulmonary infiltrates and subacute cough. If no further evidence of bleeding, will start likely Eliquis tomorrow -Serial troponin and monitor on telemetry -For subacute cough and abnormal chest x-ray, with vocal cord dysfunction-we will consult pulmonology to see him here and to get CT of the chest likely tomorrow
[2018-12-19] MEDS ORDERED: ACETAMINOPHEN 500 MG TAB PO PRN (11:57)
[2018-12-19] MEDS ORDERED: ACETAMINOPHEN 325 MG TAB PO PRN (11:57)
[2018-12-19] MEDS ORDERED: METOPROLOL TARTRATE 1 MG/ML VIAL IV ONE (13:13)
[2018-12-19] MEDS ORDERED: AMIODARONE IV BOLUS / DRIP IV STA (14:05)
[2018-12-19] MEDS ORDERED: AMIODARONE / D5W 150 MG/100 ML BAG IV STA (14:10)
[2018-12-19] MEDS ORDERED: COUGH DROP (SUGAR FREE) LOZ 24 LOZ/1 BOX BUCCAL ONE (14:15)
[2018-12-19] MEDS ORDERED: AMIODARONE / D5W 360 MG/200 ML BAG IV SCH (14:19)
--- NOTE | 2018-12-19 16:36 | Cardiology Consultation ---
Date of Consultation December 19, 2018 Assessment & Plan (1) Chest pain: Seems at the time of his initial presentation in August he had symptoms consistent with a gastrointestinal process. It is curious that he currently has some epigastric discomfort. It is somewhat reproducible on exam. It appears to be improved with lying on the left side. More comforting is the fact that the symptoms have been present now for many hours without any elevation is cardiac biomarkers or objective changes on his EKG. His symptoms seem to have resolved at this time. (2) Ischemic cardiomyopathy: He is known to have a significant cardiomyopathy due to akinesis of the anterior wall. He has not been on a very aggressive regimen for his cardiomyopathy due to persistent hypotension in the need for mid a drain. Takes a very small dose of metoprolol tartrate daily. It is unclear whether he would tolerate a more aggressive regimen over time. Given the remote nature of his myocardial infarction in the persistently low ejection fraction he does seem to be a good candidate for a defibrillator as primary prevention against sudden cardiac . He does not appear to be a candidate for COAL DIGGER. He is not currently have a pacing indication although with his atrial fibrillation the addition of an atrial lead and associated atrial therapies may be an attractive option. This would need to be weighed against the benefits of a subcutaneous device. (3) CAD (coronary artery disease), nondalton coronary artery: Patient's initial presentation in August resulted from occlusion of the left anterior descending artery. 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 He appears to have been on amiodarone for period of time. Recently has not been on amiodarone. With the time of his admission he was in sinus rhythm but did transition in and out of atrial fibrillation briefly. Now he is in an extended episode of atrial fibrillation. Curiously, he is not symptomatic. He has not been aware of any palpitations. Hemodynamically appears quite stable with the exception of a tachycardia. It seems likely that he will have recurrent episodes of atrial fibrillation at this point. He is quite remote from his initial episode. Ideally we would be more aggressive with rate control, but his blood pressures are relatively low and he has had difficulty with hypotension in the past requiring midodrine as an outpatient. Also, he would be a better candidate for antiarrhythmics other than amiodarone given his relatively young age. However the options are limited primarily to dofetilide and amiodarone. Dronedarone would be potentially a 3rd line agent. In the acute setting I do not think we have too many options as dofetilide is not likely to be effective. I think an amiodarone infusion at this time is the most efficacious way to either return him to sinus rhythm or control his heart rate. We may require additional rate-controlling agents over the course of the evening as his blood pressure tolerates. At this point I think we will also initiate anticoagulation. It seems that he will require long-term anticoagulation at this point. I think heparin in the short term is worthwhile while we monitor his clinical status. He could easily be transition to a novel oral anticoagulant at some point during his admission and discharged on the same. History of Present Illness Reason for Consultation: Chest pain, atrial fibrillation Requesting Physician: Maxi Attending Physician: Marjorie German MD History of Present Illness Patient is a 53-year-old gentleman with an extensive past medical history to include acute myocardial infarction in August of 2018 with multiple associated complications. The patient recently transition from a rehab facility and has been doing quite well at home with respect to activity and symptoms. It seems that he has become more mobile and is ambulating with a cane. His strength is improving. He does not report symptoms of exertional chest or abdominal di scomfort and does not report significant limitations with respect to breathing. This morning he was woken at 4 a.m. with symptoms of epigastric discomfort. He describes this as a pounding" in the epigastric region just below the xiphoid process. This symptom was fairly mild at 1st and he went back to bed. He woke at 7 a.m. with similar symptoms that was slightly more intense. The did not taqueria ear to be associated dizziness, lightheadedness or breathing difficulty. There was no radiation of the symptom to the back her arm. He stated that this symptom was distinct from that he experienced during his myocardial infarction. However, based on the nature of the symptom and his prior history he felt an evaluation was warranted and presented to our emergency room. EKG at that time was normal. His symptoms have nearly resolved. He did not report any specific intervention which made his symptoms better. Based on his history was admitted for observation on telemetry. Patient was noted on telemetry to have very brief episodes of atrial fibrillation and associated high rates. This afternoon around lunchtime the patient developed an extended period of atrial fibrillation with associated high rates. He did not report any specific symptoms. He is not currently aware of an elevated heart rate or palpitations. He states that his breathing is fine. He is not currently having symptoms of chest pain. The presenting complaint is almost entirely resolved. Allergies Allergy/AdvReac Type Severity Reaction Status Date / Time cefepime Allergy Intermediate Rash Verified 12/19/18 08:24 vancomycin Allergy Intermediate Rash Verified 12/19/18 08:24 Home Medications Home Medications Medication Instructions Recorded Confirmed Type aspirin 81 mg PO QAM 11/05/18 12/19/18 History clopidogrel 75 mg PO QAM 11/05/18 12/19/18 History colchicine 0.3 mg PO 2XWK 11/05/18 12/19/18 History midodrine 5 mg PO TIDM 11/05/18 12/19/18 History Pulmicort Flexhaler 1 puff INHALATION BID #1 ea 11/17/18 12/19/18 Rx furosemide 40 mg PO QAM #30 tab 11/17/18 12/19/18 Rx metoprolol succinate 12.5 mg PO QAM #45 tab 11/17/18 12/19/18 Rx lidocaine [Lidoderm] 2 patch TOPICAL UD 11/21/18 12/19/18 History docusate sodium 100 mg PO QAM 12/08/18 12/19/18 History acetaminophen [Tylenol Extra 500 mg PO Q6H PRN 12/19/18 12/19/18 History Strength] atorvastatin 20 mg PO HS 12/19/18 12/19/18 History cholecalciferol (vitamin D3) 1,000 unit PO QDL 12/19/18 12/19/18 History [Vitamin D3] fexofenadine [Briana Allergy] 180 mg PO HS 12/19/18 12/19/18 History fluticasone furoate [Arnuity 100 mcg INHALATION DAILY 12/19/18 12/19/18 History Ellipta] omeprazole 20 mg PO QAM 12/19/18 12/19/18 History Patient History Medical History History of atrial fibrillation (Acute) Hx of pleural effusion (Acute) CAD (coronary artery disease) Cardiogenic shock Hx of extracorporeal membrane oxygenation treatment Myocardial infarct STEMI (ST elevation myocardial infarction) 09/02/2018--heart cath with stents placed Surgical History History of thoracentesis (Acute) Hx of heart artery stent (Acute) 2 stents History of cardiac cath 09/02/2018 with stents placed @ [facility], follows with Dr. Gabriel History of colonoscopy History of tooth extraction Hx of LASIK Hx of angioplasty Status post insertion of hemodialysis catheter removed--no longer has Status post insertion of percutaneous endoscopic gastrostomy (PEG) tube Family History Other No family history of adverse response to anesthesia Social History Preferred Language: Chinese Communication Ability: Effective Visual Impairment: Limited Hearing Ability: Normal Automobile Damage Appraiser Required: No Beliefs That Will Affect Care: None marital status: Life Partner Current Living Situation: Significant Other Current Living Situation Comment: "LIVES WITH SOMEONE" current occupational status: employed Other Information That Helps Us Care for You: No Feels Safe at Home: Yes Safety Concerns: Feels Safe At This Time Smoking Status: Never smoker Do You Dip or Chew Tobacco: No Second Hand Exposure: No Tobacco Cessation Education Requested by Patient: No Hx Alcohol Use: Yes Alcohol type: wine Hx Substance Use: No Review of Systems Review of Systems: All systems reviewed & are unremarkable except as noted in HPI & below Physical Exam Physical Exam: The patient is alert and oriented. Mood and affect appeared normal. He answered all questions appropriately. HEENT: Pupils are equal and reactive to light and accommodation. Extraocular movements are intact. The sclerae are anicteric. He is missing 1 tooth Neuro: Cranial nerves intact Neck: Patient's neck is supple. He has palpable carotid pulses bilaterally without bruits on auscultation. There is no evidence of jugular venous distention. The thyroid is not enlarged. Lungs: Clear to auscultation bilaterally. He has good air movement without use of accessory muscles. No rales wheezes or rhonchi. Cardiac: Heart demonstrates an irregular rate and rhythm. Normal S1 and S2. No murmurs on examination. Pulses: The patient has palpable radial pulses bilaterally that are equal in intensity Extremities: There was no evidence of hypoperfusion. There is no cyanosis or clubbing. There is no edema. Skin: I did not appreciate any rashes on examination today. Results & Data Vital Signs (Past 12 Hours) Vital Signs Temp Pulse Pulse Resp BP BP BP 12/19/18 15:58 12/19/18 15:39 37.1 C 92 H 18 96/62 L 12/19/18 13:22 138 H 94/54 L 12/19/18 11:05 82 18 94/58 L 12/19/18 10:05 83 20 90/57 L 12/19/18 09:36 83 18 95/65 L 12/19/18 08:18 97 H 16 97/65 L 12/19/18 07:54 36.5 C 105 H 24 124/85 Pulse Ox 12/19/18 15:58 98 12/19/18 15:39 99 12/19/18 13:22 12/19/18 11:05 95 12/19/18 10:05 12/19/18 09:36 95 12/19/18 08:18 12/19/18 07:54 98 Laboratory Results Abnormal Lab Results 12/19/18 12/19/18 12/19/18 07:58 07:58 14:10 WBC 16.94 H RBC 3.26 L Hgb 9.6 L Hct 28.8 L MCV 88.3 MCH 29.4 MCHC 33.3 RDW Std Deviation 53.6 H RDW Coeff of Luna 16.7 H Plt Count 523 H MPV 9.2 Immature Gran % (Auto) 0.2 Neut % (Auto) 82.9 Lymph % (Auto) 9.0 [place] % (Auto) 6.0 Eos % (Auto) 1.5 Baso % (Auto) 0.4 Immature Gran # (Auto) 0.04 H Neut # (Auto) 14.05 H Lymph # (Auto) 1.53 [place] # (Auto) 1.01 H Eos # (Auto) 0.25 Baso # (Auto) 0.06 Sodium 136 Potassium 4.0 Chloride 105 Carbon Dioxide 22 Anion Gap 10.0 BUN 28 H Creatinine 1.80 H Est Cr Clr Drug Dosing 48.4 Est GFR ( Amer) 48.4 Est GFR (Non-Af Amer) 41.7 BUN/Creatinine Ratio 15.3 Glucose 97 Calcium 9.6 Total Bilirubin 0.4 AST 11 L ALT 17 Alkaline Phosphatase 49 Total Creatine Kinase 33 L CK-MB (CK-2) 1.8 CK/CKMB % Calc 5.5 H Troponin I 0.020 < 0.015 Total Protein 6.8 Albumin 2.7 L Globulin 4.1 H Albumin/Globulin Ratio 0.7 L Lipase 76
[2018-12-19] MEDS: LIDOCAINE 5% 1 PATCH TD SCH (18:15)
[2018-12-19] MEDS: MIDODRINE HCL 2.5 MG TAB PO SCH ×2 (18:15→18:26)
[2018-12-19] MEDS: CHOLECALCIFEROL 1,000 UNITS TAB PO SCH (18:15)
[2018-12-19] MEDS: ATORVASTATIN 20 MG TAB PO SCH (20:32)
[2018-12-19] MEDS: FEXOFENADINE HCL 180 MG TAB PO SCH (20:33)
[2018-12-19] MEDS: BUDESONIDE 90 MCG INH INH SCH (20:34)
[2018-12-19] MEDS: AMIODARONE / D5W 360 MG/200 ML BAG IV SCH (20:39)
[2018-12-19] MEDS: GUAIFENESIN/CODEINE 100MG/10MG 5ML UDC PO PRN (22:12)
[2018-12-20] MEDS: GUAIFENESIN/CODEINE 100MG/10MG 5ML UDC PO PRN ×4 (03:30→20:11)
[2018-12-20 06:09] LABS: Hematocrit (blood only) 26.9 % (42-52); Hemoglobin 8.7 g/dL (14.0-18.0); Mean Corpuscular Hgb Conc 32.3 g/dL (32-36); Mean Corpuscular Volume 88.8 fL (80-100); Mean Platelet Volume 9.5 fL (7.4-10.4); Platelet Count 476 K/uL (130-400); RDW Coefficient of Variation 16.9 % (11.5-14.5); RDW Standard Deviation 55.5 fL (36.4-46.3); Red Blood Count 3.03 M/uL (4.7-6.1); White Blood Count 16.47 K/uL (4.8-10.8)
[2018-12-20 06:34] LABS: Albumin Level 2.8 gm/dl (3.4-5.0); BUN Creatinine Ratio 13.4 (10-20); Calcium 9.7 mg/dl (8.5-10.1); Est GFR (African American) 43.1; Est GFR (Non-African American) 37.2; Magnesium 1.8 mg/dl (1.8-2.4); Potassium 4.3 mmol/L (3.5-5.1)
[2018-12-20 06:39] LABS: Albumin Globulin Ratio 0.7 (0.9-2); Bilirubin,Total 0.3 mg/dl (0.2-1); Globulin 4.1 gm/dl (2.5-4.0); Phosphorus 4.4 mg/dl (2.5-4.9); Total Protein 6.9 gm/dl (6.4-8.2)
--- NOTE | 2018-12-20 06:52 | Emergency Department Note ---
Entered by Floresita Sanchez acting as a scribe for History of Present Illness General Chief complaint: Chest Pain Stated complaint: CHEST PAIN, HX OF HEART ATTACKS Time Seen by Provider: 12/19/18 07:51 Source: patient Limitations: no limitations History of Present Illness Provider complaint: chest pain Onset (ago): hour(s) 4 Location: chest Radiation: abdomen Current Pain Intensity: 8 Relieved By: + none Exacerbated By: + none Associated symptoms: + cough Treatments prior to arrival: other (+metoprolol) The patient is a 53 year old male who presents to the Emergency Room with complaints of chest pain that began 4 hours prior to arrival when he woke up. The patient rates his pain a 8/10 in severity upon arrival. The patient denies that taking a deep breath exacerbates his chest pain. The patient states that he has a dry cough and mild abdominal pain. The patient states that he had a IL in August and states that he had 2-3 stents placed. The patient states that his pain today feels different from his previous IL but states that his pain is around the same area as his previous IL pain. The patient denies taking any Aspirin but states that he did take metoprolol prior to arrival. The patient denies wearing oxygen at home. Home Medications Home Medications Medication Instructions Recorded Confirmed Type aspirin 81 mg PO QAM 11/05/18 12/19/18 History clopidogrel 75 mg PO QAM 11/05/18 12/19/18 History colchicine 0.3 mg PO 2XWK 11/05/18 12/19/18 History midodrine 5 mg PO TIDM 11/05/18 12/19/18 History Pulmicort Flexhaler 1 puff INHALATION BID #1 ea 11/17/18 12/19/18 Rx furosemide 40 mg PO QAM #30 tab 11/17/18 12/19/18 Rx metoprolol succinate 12.5 mg PO QAM #45 tab 11/17/18 12/19/18 Rx lidocaine [Lidoderm] 2 patch TOPICAL UD 11/21/18 12/19/18 History docusate sodium 100 mg PO QAM 12/08/18 12/19/18 History acetaminophen [Tylenol Extra 500 mg PO Q6H PRN 12/19/18 12/19/18 History Strength] atorvastatin 20 mg PO HS 12/19/18 12/19/18 History cholecalciferol (vitamin D3) 1,000 unit PO QDL 12/19/18 12/19/18 History [Vitamin D3] fexofenadine [Briana Allergy] 180 mg PO HS 12/19/18 12/19/18 History fluticasone furoate [Arnuity 100 mcg INHALATION DAILY 12/19/18 12/19/18 History Ellipta] omeprazole 20 mg PO BID 12/19/18 12/19/18 History Allergies Allergy/AdvReac Type Severity Reaction Status Date / Time cefepime Allergy Intermediate Rash Verified 12/19/18 08:24 vancomycin Allergy Intermediate Rash Verified 12/19/18 08:24 Past Med/Surg History Medical History Anemia Chronic systolic CHF (congestive heart failure) Hypotension Ischemic cardiomyopathy History of atrial fibrillation (Acute) Hx of pleural effusion (Acute) CAD (coronary artery disease) Cardiogenic shock Hx of extracorporeal membrane oxygenation treatment Myocardial infarct STEMI (ST elevation myocardial infarction) 09/02/2018--heart cath with stents placed Surgical History Status post pericardiocentesis History of thoracentesis (Acute) Hx of heart artery stent (Acute) 2 stents History of cardiac cath 09/02/2018 with stents placed @ [facility], follows with Dr. Gabirel History of colonoscopy History of tooth extraction Hx of LASIK Hx of angioplasty Status post insertion of hemodialysis catheter removed--no longer has Status post insertion of percutaneous endoscopic gastrostomy (PEG) tube Family History Mother Coronary heart disease Hypertension Other No family history of adverse response to anesthesia Social History Preferred Language: Vincentian Communication Ability: Effective Visual Impairment: Limited Hearing Ability: Normal [employer] Required: No Beliefs That Will Affect Care: None marital status: Life Partner Current Living Situation: Significant Other Current Living Situation Comment: "LIVES WITH SOMEONE" current occupational status: employed Other Information That Helps Us Care for You: No Feels Safe at Home: Yes Safety Concerns: Feels Safe At This Time Smoking Status: Never smoker Do You Dip or Chew Tobacco: No Second Hand Exposure: No Tobacco Cessation Education Requested by Patient: No Hx Alcohol Use: Yes Alcohol type: wine Hx Substance Use: No Review of Systems See HPI for pertinent positives & negatives. and A total of 10 systems reviewed and were otherwise negative Physical Exam Vital Signs Vital Signs - 24 hr 12/19/18 07:54 12/19/18 08:18 12/19/18 09:36 Temperature 36.5 C Temperature Source Oral Sepsis Recent Fever Within 48 Hours No Sepsis Action Taken by Nursing No Action Required Pulse Rate 105 H Pulse Rate [Apical] 97 H 83 Respiratory Rate 24 16 18 Respiratory Effort / Characteristics Spontaneous Blood Pressure 124/85 Blood Pressure [Right Arm] 97/65 L 95/65 L Blood Pressure Mean 98 Blood Pressure Mean [Right Arm] 75 75 Pulse Oximetry 98 95 Oxygen Delivery Method Room Air Room Air GENERAL: Awake, alert, well-appearing, in no acute distress HENT: Normocephalic, atraumatic. Oropharynx unremarkable. EYES: Normal conjunctiva. Sclera non-icteric. NECK: Supple. No nuchal rigidity. FROM. No JVD. RESPIRATORY: Clear to auscultation. CARDIAC: Regular rate, normal rhythm. Extremities warm and well perfused. Pulses equal. ABDOMEN: Soft, non-distended. No tenderness to palpation. No rebound or guar ding. No masses. RECTAL: Deferred. MUSCULOSKELETAL: Chest examination reveals no tenderness. The back is symmetrical on inspection without obvious abnormality. There is no CVA tenderness to palpation. No joint edema. LOWER EXTREMITIES: Calves are equal size bilaterally and non-tender. No edema. No discoloration. NEURO: Normal sensorium. No sensory or motor deficits noted. SKIN: No rash or jaundice noted. Course 0752: The patient was evaluated in room A2, and a complete history and physical examination were performed. 0849: I [facility] the patient's [facility] will evaluate the patient for further hospitalization. Consultations Consultation #1: [facility]ian[facility] who will [facility] the [facility] Time: 08:49 Administered Medications Atorvastatin Calcium (Lipitor) 20 mg PO HS JIMMY Stop: 01/18/19 20:59 Last Admin: 12/19/18 20:32 Dose: 20 mg Documented by: [id number] Budesonide (Pulmicort Flexhaler) 1 puffs INH BID JIMMY Stop: 01/18/19 20:59 Last Admin: 12/19/18 20:34 Dose: 1 puffs Documented by: [id number] Fexofenadine HCl (Briana) 180 mg PO HS JIMMY Stop: 01/18/19 20:59 Last Admin: 12/19/18 20:33 Dose: 180 mg Documented by: [id number] Guaifenesin/Codeine Phosphate (Robitussin-Ac Sugar Free) 5 ml PO Q4 PRN PRN Reason: Cough Stop: 01/18/19 20:12 Last Admin: 12/20/18 03:30 Dose: 5 ml Documented by: [id number] Admin: 12/19/18 22:12 Dose: 5 ml Documented by: [id number] Amiodarone HCl/Dextrose (Nexterone / D5w) 360 mg in 200 mls @ 16.667 mls/hr IV .Q12H [facility] Stop: 01/18/19 20:17 Last Admin: 12/19/18 20:39 Dose: 0.5 mg/min, 16.7 mls/hr Documented by: [id number] Cosigned by: [id number] Lidocaine (Lidoderm 5%) 2 patch TD DAILY@0900 [facility] Stop: 01/18/19 11:56 Last Admin: 12/19/18 18:15 Dose: Not Given Documented by: [id number] Midodrine (Proamatine) 5 mg PO TIDM [facility] Stop: 01/18/19 11:59 Last Admin: 12/19/18 18:26 Dose: 5 mg Documented by: [id number] Admin: 12/19/18 18:15 Dose: Not Given Documented by: [id number] Miscellaneous (Remove Lidoderm Patch) 1 ea N/A DAILY@2100 [facility] Stop: 01/18/19 20:59 Last Admin: 12/19/18 20:36 Dose: Not Given Documented by: [id number] Vitamin D (Vitamin D3) 1,000 units PO QDL [facility] Stop: 01/18/19 11:56 Last Admin: 12/19/18 18:15 Dose: Not Given Documented by: [id number] Discontinued Medications Aspirin (Aspirin) 324 mg PO NOW STA Stop: 12/19/18 08:02 Last Admin: 12/19/18 08:09 Dose: Not Given Documented by: [id number] Aspirin (Aspirin Chew) Confirm Administered Dose 324 mg .ROUTE .STK-MED ONE Stop: 12/19/18 08:08 Last Admin: 12/19/18 08:09 Dose: 324 mg Documented by: [id number] Sodium Chloride (Nss 1000ml) 1,000 mls @ 999 mls/hr IV .Q1H1M ONE Stop: 12/19/18 09:22 Last Admin: 12/19/18 08:42 Dose: Not Given Documented by: [id number] Amiodarone HCl/Dextrose (Nexterone / D5w) 150 mg in 100 mls @ 600 mls/hr IV NOW STA Stop: 12/19/18 14:19 Last Infusion: 12/19/18 14:43 Dose: 0 mls/hr Documented by: [id number] Cosigned by: [id number] Admin: 12/19/18 14:32 Dose: 600 mls/hr Documented by: [id number] Cosigned by: [id number] Amiodarone HCl/Dextrose (Nexterone / D5w) 360 mg in 200 mls @ 33.333 mls/hr IV .Q6H JIMMY Stop: 12/19/18 20:18 Last Infusion: 12/19/18 20:54 Dose: 0 mg/min, 0 mls/hr Documented by: [id number] Cosigned by: [id number] Admin: 12/19/18 14:32 Dose: 1 mg/min, 33.3 mls/hr Documented by: [id number] Cosigned by: [id number] Menthol (Nice) Confirm Administered Dose 24 zofia BUCCAL .STK-MED ONE Stop: 12/19/18 14:16 Last Admin: 12/19/18 18:26 Dose: 24 zofia Documented by: [id number] Metoprolol Tartrate (Lopressor) Confirm Administered Dose 5 mg IV .STK-MED ONE Stop: 12/19/18 13:14 Last Admin: 12/19/18 13:22 Dose: 5 mg Documented by: [id number] Nitroglycerin (Nitrostat) 0.4 mg SL NOW STA Stop: 12/19/18 08:02 Last Admin: 12/19/18 08:09 Dose: 0.4 mg Documented by: [id number] Nitroglycerin (Nitro-Bid 2%) 1 inch EXT NOW STA Stop: 12/19/18 08:21 Last Admin: 12/19/18 08:42 Dose: 1 inch Documented by: [id number] Medical Decision Making Differential Diagnosis Differential diagnoses includes acute coronary syndrome, pulmonary embolus, aortic dissection, musculoskeletal pain, pneumonia, pleural effusion, pneumothorax, gastritis, peptic ulcer disease. Medical Records Attestation: I reviewed the patient's medical records. Home Medications Current Medication List: was personally reviewed by me Laboratory Data Attestation: I reviewed the patient's lab results. Result diagrams: 12/20/18 05:42 12/20/18 05:42 Lab Results 12/19/18 12/19/18 Range/Units 07:58 07:58 WBC 16.94 H (4.8-10.8) K/uL RBC 3.26 L (4.7-6.1) M/uL Hgb 9.6 L (14.0-18.0) g/dL Hct 28.8 L (42-52) % MCV 88.3 (80-100) fL MCH 29.4 (25-34) pg MCHC 33.3 (32-36) g/dL RDW Std Deviation 53.6 H (36.4-46.3) fL RDW Coeff of [place] 16.7 H (11.5-14.5) % Plt Count 523 H (130-400) K/uL MPV 9.2 (7.4-10.4) fL Immature Gran % (Auto) 0.2 % Neut % (Auto) 82.9 % Lymph % (Auto) 9.0 % [place] % (Auto) 6.0 % Eos % (Auto) 1.5 % Baso % (Auto) 0.4 % Immature Gran # (Auto) 0.04 H (0.00-0.02) K/uL Neut # (Auto) 14.05 H (1.4-6.5) K/uL Lymph # (Auto) 1.53 (1.2-3.4) K/uL [place] # (Auto) 1.01 H (0.11-0.59) K/uL Eos # (Auto) 0.25 (0-0.5) K/uL Baso # (Auto) 0.06 (0-0.2) K/uL Sodium 136 (136-145) mmol/L Potassium 4.0 (3.5-5.1) mmol/L Chloride 105 (98-107) mmol/L Carbon Dioxide 22 (21-32) mmol/L Anion Gap 10.0 (3-11) BUN 28 H (7-18) mg/dl Creatinine 1.80 H (0.6-1.4) mg/dl Est Cr Clr Drug Dosing 48.4 ml/min Est GFR ( Amer) 48.4 Est GFR (Non-Af Amer) 41.7 BUN/Creatinine Ratio 15.3 (10-20) Glucose 97 (70-99) mg/dl Calcium 9.6 (8.5-10.1) mg/dl Total Bilirubin 0.4 (0.2-1) mg/dl AST 11 L (15-37) U/L ALT 17 (12-78) U/L Alkaline Phosphatase 49 (45-117) U/L Total Creatine Kinase 33 L (39-308) U/L CK-MB (CK-2) 1.8 (0.5-3.6) ng/ml CK/CKMB % Calc 5.5 H (0-3.0) Troponin I 0.020 (0-0.045) ng/ml Total Protein 6.8 (6.4-8.2) gm/dl Albumin 2.7 L (3.4-5.0) gm/dl Globulin 4.1 H (2.5-4.0) gm/dl Albumin/Globulin Ratio 0.7 L (0.9-2) Lipase 76 (73-393) U/L Imaging Data Radiologist's Impression: Radiology results as stated below per my review and the radiologist's interpretation: XR chest 1V portable HISTORY: 53 years-old Male Chest Pain acute atypical chest pain COMPARISON: Chest radiograph 11/24/2018 TECHNIQUE: Portable AP view of the chest FINDINGS: Cardiac silhouette is enlarged, unchanged. Multifocal patchy mid and lower lung zone alveolar opacities are redemonstrated appears stable to slightly improved from comparison. Suggestion of trace pleural effusions. No pneumothorax or overt pulmonary edema. Bones of the chest appear grossly intact. IMPRESSION: 1. Persistent alveolar opacities of the left greater than right mid and lower lung zones which appear stable to slightly improved from comparison. 2. Suggestion of trace pleural effusions. The above report was generated using voice recognition software. It may contain grammatical, syntax or spelling errors. Electronically signed by: Giovanny Quintero M.D. 12/19/2018 8:34 AM ECG Data Attestation: I personally reviewed and interpreted this ECG as follows: Indication: chest pain Rate (beats per minute): 104 Rhythm: sinus tachycardia Findings: + other (old septal infarct); no ST depression and no ST elevation Comparison ECG Date: from (11/13/2018) Change: no significant change Blood Pressure Blood Pressure Findings: Low blood pressure MDM Narrative This is a 53-year-old male with a significant medical history who comes to the emergency department complaining of chest pain. His chest pain was relieved here in the emergency department with nitro. Because of the patient's significant heart history he was admitted for observation. Patient and family were in agreement with the treatment plan. Impression & Plan Chest pain Discharge Plan Visit Data *Final* Discharge Date/Time: 12/19/18 11:05 Chief Complaint: Chest Pain Stated Complaint: CHEST PAIN, HX OF HEART ATTACKS ED Provider: Jaquan Carroll Discharge Problem: Chest pain Patient Disposition: Admitted As Inpatient Discharge Instructions Interventions: ED Discharge Assessment Last Done: 12/19/18 11:05 The scribe's documentation has been prepared under my direction and personally reviewed by me in its entirety. I confirm that the note above accurately reflects all work, treatment, procedures, and medical decision making performed by me.
[2018-12-20] MEDS ORDERED: METOPROLOL TARTRATE 1 MG/ML VIAL IV STA (07:26)
[2018-12-20] MEDS ORDERED: METOPROLOL TARTRATE 1 MG/ML VIAL IV ONE (07:31)
[2018-12-20] MEDS: AMIODARONE / D5W 360 MG/200 ML BAG IV SCH ×2 (07:33→18:56)
[2018-12-20] MEDS: MIDODRINE HCL 2.5 MG TAB PO SCH ×3 (07:37→17:41)
[2018-12-20] MEDS: DOCUSATE SODIUM 100 MG CAP PO SCH (07:38)
[2018-12-20] MEDS: LIDOCAINE 5% 1 PATCH TD SCH (07:39)
[2018-12-20] MEDS: METOPROLOL SUCC 25MG EXT REL TAB PO SCH (07:39)
[2018-12-20] MEDS: BUDESONIDE 90 MCG INH INH SCH ×2 (07:40→20:04)
[2018-12-20] MEDS: PANTOprazole 40 MG TAB PO SCH (07:40)
[2018-12-20] MEDS ORDERED: ASPIRIN 81 MG ECTAB PO SCH (09:00)
[2018-12-20] MEDS ORDERED: CLOPIDOGREL BISULFATE 75 MG TAB PO SCH (09:00)
[2018-12-20] MEDS ORDERED: FLUTICASONE FUROATE 100 MCG INH SCH (09:00)
[2018-12-20] MEDS ORDERED: FUROSEMIDE 40 MG TAB PO SCH (09:00)
--- NOTE | 2018-12-20 09:28 | Cardiology Progress Note ---
Date of Service December 20, 2018 Assessment & Plan (1) Atrial fibrillation with RVR: Continue the amiodarone while initiating oral amiodarone to complete amiodarone loading. If any recurrent atrial fibrillation with rapid ventricular response use a IV metoprolol on a p.r.n. basis.. If he remains in sinus rhythm throughout the day, discontinue amiodarone later this evening. If he remains in sinus overnight, possible discharge tomorrow (2) Ischemic cardiomyopathy: Seems reasonably well compensated, but does have some crackles on exam and mild neck vein elevation. Monitor volume status and adjust diuretics as needed. (3) CKD (chronic kidney disease) stage 4, GFR 15-29 ml/min: Renal function stable overnight. Continue to monitor. (4) CAD (coronary artery disease), [place] coronary artery: Negative enzymes, no evidence of ongoing ischemia. (5) Hypotension: BP low normal to mildly hypotensive (chronic for him). This may limit administration of vaso active medications to control his atrial fibrillation. Subjective 53-year-old man with ischemic cardiomyopathy after acute UT August 2018 with multiple complications a admitted 12/19/2018 for the with epigastric discomfort and atypical palpitations (pounding in the epigastric region). Patient ruled out for myocardial ischemia by serial ECGs and enzymes, but did demonstrate paroxysmal atrial fibrillation. Treated with IV amiodarone, he remained in sinus overnight but returned to atrial fibrillation with rapid ventricular response from 7 a.m. this morning until 8:30 a.m., when he reverted to sinus rhythm. He was comfortable at the time of my evaluation this morning (9:30 a.m.), noting no chest discomfort, epigastric discomfort, or dyspnea at rest. He notes that the recurrent atrial fibrillation this morning coincided with him walking to the bathroom. No complaints. He move Review of Systems Eyes: no problem reported Ear, Nose, Mouth, Throat: no problem reported Respiratory: no cough Cardiovascular: as per Subjective / HPI Gastrointestinal: no abdominal pain Genitourinary: no problem reported Musculoskeletal: no myalgia Integumentary: no new lesions Neurologic: no gait abnormality, no falls, no generalized weakness, no numbness and no syncope Psychiatric: no problem reported Endocrine: no problem reported Hematologic / Lymphatic: no easy bleeding and no easy bruising Allergy / Immunological: no problem reported Physical Exam Physical Exam: No distress. Appears comfortable. Skin: No unusual lesions or ecchymosis. HEENT: Unremarkable. Neck: Jugular venous pulse just above the clavicle at 90, no carotid bruits. Lungs: Few bibasilar crackles, no wheezing, generally clear. Cardiac: Regular rhythm currently with normal S1 and S2. No obvious murmur or gallop. Abdomen: Benign. Extremities: Nontender with trace to 1+ pretibial edema. Intact peripheral pulses. Neurologic: Normal affect, nonfocal Results & Data Vital Signs (Past 12 Hours) Vital Signs Temp Pulse Pulse Pulse Resp BP BP 12/20/18 07:59 110 H 12/20/18 07:44 102/70 12/20/18 07:33 135 H 107/72 12/20/18 07:27 36.7 C 116 H 18 107/72 12/20/18 03:26 36.9 C 98 H 16 107/73 12/19/18 23:22 37.6 C H 97 H 16 96/59 L Pulse Ox 12/20/18 07:59 12/20/18 07:44 12/20/18 07:33 12/20/18 07:27 98 12/20/18 03:26 97 12/19/18 23:22 97
[2018-12-20] MEDS ORDERED: AMIODARONE 200 MG TAB PO ONE (09:43)
[2018-12-20] MEDS ORDERED: METOPROLOL TARTRATE 1 MG/ML VIAL IV PRN (09:48)
[2018-12-20] MEDS: CHOLECALCIFEROL 1,000 UNITS TAB PO SCH (10:19)
--- NOTE | 2018-12-20 10:44 | Hospitalist Progress Note ---
Date of Service December 20, 2018 Assessment & Plan (1) Chest pain: Pain at lower sternum seems to be worse with cough, not positional so much -Does have a history of anterior STEMI, LAD stent and left main dissection but serial troponins are negative ECG without evidence of acute ischemia With findings of pericardial effusion seen on CT of the chest today, question of could have pain from pericarditis Appreciate cardiology consultation given extremely complex history -Check echocardiogram tomorrow to further assess the pericardial effusion - Continue aspirin 81mg daily, plavix 75 mg daily, lasix 40 mg QAM, metoprolol succinate 12.5 mg daily (2) CAD (coronary artery disease), [place] coronary artery: - s/p anterior STEMI 09/02/18 and DESTINY x 2 with resulting dissection of the left main and cardiogenic shock requiring transfer to [facility] with placement of Impella device and ECMO support with prolonged hospitalization x50 days With resultant ischemic cardiomyopathy -Continue aspirin, Plavix, statin, low-dose metoprolol (3) Ischemic cardiomyopathy: Most recent EF 35% at [place] as per cardiology records Has not been able to be on goal-directed therapy due to hypotension and multiple complications Is euvolemic at this time with the exception of some residual pulmonary edema seen on chest x-ray -Continue Lasix 40 mg daily -Continue Toprol-XL 12.5 mg daily -Not able to tolerate KATHY inhibitor at this time due to hypotension -Consideration being made for ICD placement (4) Paroxysmal atrial fibrillation: - Noted, occurred in Aug[place] [facility] [place] Not on anticoagulation due to history of spontaneous massive retroperitoneal hemorrhage during that hospitalization which required coil embolization of the T11 intercostal artery and 15 units of PRBCs transfused With ongoing paroxysmal rapid A. fib here with rates into the 150s at times Was recently discontinued from his amiodarone on 12/11 by cardiology as an outpatient as he had remained in sinus rhythm Given new pericardial effusion as above since 1 month ago, question if this is contributing to recurrence -Continue PRN IV Lopressor for heart rate greater than 120 -Continue home Toprol-XL 12.5 mg daily -Continue amiodarone drip and now overlapping with p.o. amiodarone -Follow on telemetry -Discussed anticoagulation with cardiology and quite hesitant to do so at this point given continued evidence on CT of the chest/abdomen/pelvis on 12/20 of retroperitoneal hemorrhage, intrathoracic hemorrhage on the right, persistent anemia with hemoglobin slightly dropped from yesterday-we will hold off on starting anticoagulation at this point (5) CKD (chronic kidney disease) stage 4, GFR 15-29 ml/min: -He reguired dialysis after [facility] from [place] with multisystem organ failure in 08/2018 with CVVM, then had tunnel dialysis catheter placed. He was on intermittent dialysis for almost 2 months. Pt has been off hemodialysis since 11/01/18. Tunnel dialysis catheter was removed on 11/21/18. - Cr. Fairly stable and around his baseline at 1.98, electrolytes are acceptable. Volume status fairly acceptable, he is making urine - BP low normal but stable - No fluids, continue lasix -Follow BMP in the morning (6) Atrial fibrillation with RVR: -As above (7) Leukocytosis: - Appears to be chronically elevated since his critical illness began several months ago, at 16 K, likely reactive leukocytosis given critical illness over the last 2 to 3 months as well as iron deficiency anemia -Does not appear to be an infectious etiology at this time although does have a chronic cough and continued opacities on chest x-ray, question organized pneumonia? -Question of intermittent aspiration? Video swallow was normal within the last month Is afebrile -Follow CBC (8) Open wound of RLQ of abdominal wall w/o penentrat into periton cavity: - Secondary to Impella insertion - Wound consulted for daily dressing changes and packing. Following with wound clinic as an outpatient. CT of the abdomen/pelvis on 12/20 shows 50% reduction in size of hematoma in the right groin Wound culture growing coagulase-negative Staphylococcus and Corynebacterium, with wound noted to be bigger and with more drainage in the last few days -Start Unasyn -Consult infectious disease for further recommendations (9) Liver laceration: - CT a/p on 11/11 showed "12 x 7 cm complex collection posterior to the right hepatic lobe & a 4 cm defect of the posterior right hepatic lobe, along with 2 x 4 cm hematoma within the right iliopsoas vasculature." - Discussed on 11/11 with [facility] vascular surgeon - He had an RP bleed in 08/2018 during his prior admission and required an embolization of his right T11 intercostal artery. Then had a drain in from 09/23 - ~10/03 to drain his RP bleed. Drain was removed. Most likely, the previously read "liver laceration" is not truly liver laceration but is from his previous retroperitoneal bleed-CT abdomen/pelvis here shows stable size Also with possible "pulmonary laceration" seen on imaging here last admission on CT of chest which our thoracic surgeon thought was part of his previous retroperitoneal bleed-repeat CT today with stable intrathoracic hematoma at the right lower lobe - Hgb is slightly decreased today to 8.7 He has no abdominal or back pain at this time and abdomen is nontender -Follow CBC (10) Sarcopenia: - Albumin decreased at 2.7. -Dietary consult (11) Vocal cord dysfunction: - Due to prolonged intubation at [facility] - following with Speech as outpatient - Had peg tube placed and then removed -Seen by ENT as an outpatient and started on omeprazole and Briana (12) Hematoma of groin: -Much improved based on repeat imaging on 12/20 (13) Thrombocytosis: Platelets improved from previous-currently in the 400s and previously in the 900s just 2 weeks ago Also likely reactive process due to extreme stress and chronic illness and iron deficiency from previous blood loss -Follow CBC (14) Anemia: Iron studies consistent with anemia of chronic disease likely due to critical illness over the last several months, hemoglobin stable and not much improved from a month ago around 9, normocytic. With reactive leukocytosis and thrombocytosis, secondary to chronic inflammation -Also with retroperitoneal bleed and massive transfusion 2 months ago No evidence of ongoing bleeding at this time -Follow CBC -Start ferrous sulfate 325 mg p.o. twice daily (15) Pneumonia: With bibasilar infiltrates progressed from previous with nodularity, cough x2 months Unclear if this is an organized pneumonia? Appreciate pulmonology consultation -Started on Unasyn today empirically May need bronchoscopy but could be arranged as outpatient if stable for discharge otherwise prior to next week (16) DVT prophylaxis: - Teds, aspirin, Plavix. Disposition-continued stay in PCU Subjective Patient reports persistent cough. He is still having the lower sternal chest pain intermittently. He was in and out of rapid atrial fibrillation today with rates to the 160s at times. He was given IV Lopressor and continued on IV amiodarone as well as started on p.o. amiodarone today by cardiology and converted spontaneously. He denies abdominal pain or back pain. I discussed the case with cardiology, pulmonology Review of Systems Review of Systems: All systems reviewed & are unremarkable except as noted in HPI & below Physical Exam Physical Exam: Vitals reviewed Gen: AAOx3, thin, NAD HEENT: Anicteric sclerae, EOMI, missing front incisor on the right CV: Regular rate and rhythm, no mgr nl S1S2, no edema of the lower extremities Pulm: Positive crackles at the left base, decreased breath sounds at the right base, no wheezes or rhonchi Abd: +BS soft NT ND no masses or hernias, right groin with open wound with mild serous drainage, no surrounding erythema, no hematoma or bleeding Ext: 2+ DP pulses Skin: No rashes, warm/dry, right groin wound as above Neuro: Full strength throughout Results & Data Vital Signs (Past 12 Hours) Vital Signs Temp Pulse Pulse Pulse Resp BP BP 12/20/18 10:42 36.8 C 85 18 99/66 L 12/20/18 07:59 110 H 12/20/18 07:44 102/70 12/20/18 07:33 135 H 107/72 12/20/18 07:27 36.7 C 116 H 18 107/72 12/20/18 03:26 36.9 C 98 H 16 107/73 12/19/18 23:22 37.6 C H 97 H 16 96/59 L Pulse Ox 12/20/18 10:42 97 12/20/18 07:59 12/20/18 07:44 12/20/18 07:33 12/20/18 07:27 98 12/20/18 03:26 97 12/19/18 23:22 97 Laboratory Results 12/20/18 12/20/18 12/19/18 Range/Units 05:42 05:42 21:58 WBC 16.47 H (4.8-10.8) K/uL RBC 3.03 L (4.7-6.1) M/uL Hgb 8.7 L (14.0-18.0) g/dL Hct 26.9 L (42-52) % MCV 88.8 (80-100) fL MCH 28.7 (25-34) pg MCHC 32.3 (32-36) g/dL RDW Std Deviation 55.5 H (36.4-46.3) fL RDW Coeff of Luna 16.9 H (11.5-14.5) % Plt Count 476 H (130-400) K/uL MPV 9.5 (7.4-10.4) fL Sodium 135 L (136-145) mmol/L Potassium 4.3 (3.5-5.1) mmol/L Chloride 103 (98-107) mmol/L Carbon Dioxide 24 (21-32) mmol/L Anion Gap 9.0 (3-11) BUN 27 H (7-18) mg/dl Creatinine 1.98 H (0.6-1.4) mg/dl Est Cr Clr Drug Dosing 44.0 ml/min Est GFR ( Amer) 43.1 Est GFR (Non-Af Amer) 37.2 BUN/Creatinine Ratio 13.4 (10-20) Glucose 109 H (70-99) mg/dl Calcium 9.7 (8.5-10.1) mg/dl Phosphorus 4.4 (2.5-4.9) mg/dl Magnesium 1.8 (1.8-2.4) mg/dl Total Bilirubin 0.3 (0.2-1) mg/dl AST 12 L (15-37) U/L ALT 15 (12-78) U/L Alkaline Phosphatase 55 (45-117) U/L Troponin I 0.020 (0-0.045) ng/ml Total Protein 6.9 (6.4-8.2) gm/dl Albumin 2.8 L (3.4-5.0) gm/dl Globulin 4.1 H (2.5-4.0) gm/dl Albumin/Globulin Ratio 0.7 L (0.9-2) Diagnostic Findings CT chest wo con CT DOSE: 832.25 mGy.cm HISTORY: Cough abnormal chest xray,chronic cough TECHNIQUE: Multiaxial CT images of the chest were performed without contrast. A dose lowering technique was utilized adhering to the principles of ALARA. COMPARISON: 11/11/2018 FINDINGS: Mixed findings compared to the prior study. Improved aeration right mid to upper lung region. Improved aeration and clearing of the left upper lobe. Progressive bibasilar infiltrative change most prominent on the left. Bilateral pleural effusions slightly diminished from the prior study. IMPRESSION: 1. Mixed findings compared to the prior exam. 2. Somewhat progressive bibasilar parenchymal infiltrates. 3. Moderately diminished bilateral pleural effusions 4. interval development of a pericardial effusion measuring 1 cm at maximum thickness 5. Improved aeration pulmonary apices. CT abd pelvis oral con only CT DOSE: HISTORY: Pain. . f/o retroperitoneal hemorrhage,right groin wound TECHNIQUE: Multiaxial CT images of the abdomen and pelvis were performed following the use of oral contrast. A dose lowering technique was utilized adhering to the principles of ALARA. COMPARISON STUDY: 11/13/2018 FINDINGS: Stable loculated hemorrhage right lung base. This has been described previously. Improved by lateral pleural effusions. Interval development of a pericardial effusion. The right retroperitoneal hematoma is similar compared to the prior study. Shows no major change in size. There is anterior displacement of the right kidney unchanged. Kidneys are considered negative for hydronephrosis. Bowel pattern is nonobstructive. Interval improvement of the bilateral inguinal hematomas. These have diminished in volume by 50% bilaterally. IMPRESSION: 1. Mixed findings. 2. Stable right retroperitoneal hematoma. 3. Stable right basilar hematoma with improving bilateral pleural effusions. 4. Improving bilateral inguinal hematomas improved in volume by 50% bilaterally. 5. Progressive left basilar somewhat nodular appearing infiltrate. 6. Interval development of a pericardial effusion demonstrating a maximum thickness of 12 mm
--- NOTE | 2018-12-20 14:00 | CT Scan Report ---
CT chest wo con CT DOSE: 832.25 mGy.cm HISTORY: Cough abnormal chest xray,chronic cough TECHNIQUE: Multiaxial CT images of the chest were performed without contrast. A dose lowering techni que was utilized adhering to the principles of ALARA. COMPARISON: 11/11/2018 FINDINGS: Mixed findings compared to the prior study. Improved aeration right mid to upper lung regio n. Improved aeration and clearing of the left upper lobe. Progressive bibasilar infiltrative change most prominent on the left. Bilateral pleural effusions sli ghtly diminished from the prior study. IMPRESSION: 1. Mixed findings compared to the prior exam. 2. Somewhat progressive bibasilar parenchymal infiltrates. 3. Moderately diminished bilateral pleural effusions 4. interval development of a pericardial effusion measuring 1 cm at maximum thickness 5. Improved aeration pulmonary apices. The above report was generated using voice recognition software. It may contain grammatical, syntax or spelling errors. Electronically signed by: Chance Lawson M.D. 12/20/2018 1:59 PM
--- NOTE | 2018-12-20 14:05 | CT Scan Report ---
CT abd pelvis oral con only CT DOSE: HISTORY: Pain. . f/o retroperitoneal hemorrhage,right groin wound TECHNIQUE: Multiaxial CT images of the abdomen and pelvis were performed following the use of oral co ntrast. A dose lowering technique was utilized adhering to the principles of ALARA. COMPARISON STUDY: 11/13/2018 FINDINGS: Stable loculated hemorrhage right lung base. This has been described previously. Improved b y lateral pleural effusions. Interval development of a pericardial effusion. The right retroperitoneal hematoma is similar compared to the prior study. Shows no major change in s ize. There is anterior displacement of the right kidney unchanged. Kidneys are considered negative for hydronephrosis. Bowel pattern is nonobstructive. Interval improvement of the bilateral inguinal hematomas. These have diminished in volume by 50% bilaterally. IMPRESSION: 1. Mixed findings. 2. Stable right retroperitoneal hematoma. 3. Stable right basilar hematoma with improving bilateral pleural effusions. 4. Improving bilateral inguinal hematomas improved in volume by 50% bilaterally. 5. Progressive left basilar somewhat nodular appearing infiltrate. 6. Interval development of a pericardial effusion demonstrating a maximum thickness of 12 mm The above report was generated using voice recognition software. It may contain grammatical, syntax or spelling errors. Electronically signed by: Chance Lawson M.D. 12/20/2018 2:04 PM
[2018-12-20] MEDS ORDERED: LORazepam 0.5 MG TAB PO PRN (19:17)
--- NOTE | 2018-12-20 19:34 | Consultation Report ---
DATE OF CONSULTATION: 12/20/2018 PULMONARY MEDICINE CONSULTATION REASON FOR CONSULTATION: Chronic cough. HISTORY OF PRESENT ILLNESS: A 53-year-old white male with history of ischemic cardiomyopathy after a significant acute RI in 08/2018 that resulted in the patient's transfer to [facility] where he underwent mechanical ventilator assistance and prolonged intubation with a chemical-induced coma, although has made a full recovery. He states he was intubated and received mechanical ventilation for greater than 2 weeks. Yesterday, he had some palpitations with unusual epigastric discomfort and came into the Emergency Room. He was found to be in atrial fibrillation and treated with IV amiodarone and was converted to normal sinus rhythm overnight, but returned to atrial fibrillation with a rapid ventricular response at 0700 this morning and then at 8:30 a.m., he converted to sinus rhythm. According to Dr. Abel, amiodarone will be switched to p.o. If the patient remains in sinus rhythm throughout the day, the amiodarone will be discontinued and possible discharge tomorrow. He has been on Eliquis. He has had a persistent cough, he states, since being removed from the ventilator in mid winter. He has seen specifically ENT, Sigrid Weber from Dr. Clarke's office who has treated him for reflux and for postnasal drainage, both with omeprazole, and prior to that with antihistamines. He states the cough has persisted, is nonproductive, not associated with hoarseness, and has been poorly responsive to intervention. He admits to some mild dyspnea with exertion. Denies history of asthma. 11/17/2018 x-ray showed progressive left basilar infiltrate and stable to improved right basilar infiltrate. He has been seen by Dr. Meade for a groin abscess where a vascular procedure was performed on the right side. He was placed on a long course of amoxicillin with improvement. He was told he had vocal cord weakness. In reading Sigrid Weber's note, specifically her laryngoscopy exam, it was relatively unremarkable with no sign of vocal cord paralysis that I could discern. He is missing a right front tooth status post intubation. He last saw Dr. Easton Gabriel on 12/11/2018 who notes his anterior STEMI complicated by LM dissection post-PCI with DESTINY x2 to the LAD, DESTINY to the LM into the circumflex with subsequent cardiogenic shock. His EF was 25% on 11/13/2018 and does have multivessel disease with residual 40% of the mid RCA and 80% of the right PDA. He went into acute renal failure, but is now off hemodialysis. There was dysphagia and vocal cord injury at that time that seems to have resolved and the PEG tube has been removed. He had been on amiodarone in the past. He required VA-ECMO placement and apparently received mechanical ventilator support for 31 days. His hospital course was complicated by pericardial effusion with tamponade, required pericardiocentesis on day #7, retroperitoneal bleed with transfusion of at least 15 units of packed red blood cells as well as acute renal failure. Apparently, he had to be reintubated on multiple occasions. He underwent a right thoracentesis with Dr. Hurley with removal of 1450 mL of transudative fluid in the remote past. FOR DETAILS OF PAST MEDICAL HISTORY, MEDICATIONS, FAMILY AND SOCIAL HISTORY: I refer you to current and past record. PHYSICAL EXAMINATION: GENERAL: Reveals a well-developed, well-nourished white male in no obvious distress at rest. VITAL SIGNS: Current blood pressure 107/72, pulse 110 and regular, respiratory rate 18, temperature 36.7. O2 sat 98% on room air. SKIN: Without lesion. HEENT: Atraumatic, normocephalic. PERRLA. EOMI. Conjunctivae pale. Sclerae nonicteric. Fundi poorly visualized. NECK: Neck veins are not distended at 45 degrees. No lymphadenopathy in the supra or infraclavicular area. LUNGS: Left basilar crackles and rales are audible. No inspiratory stridor. CARDIAC: Regular rate and rhythm. I do not appreciate a gallop. ABDOMEN: Soft, scaphoid. EXTREMITIES: Perhaps trace pedal edema, no clubbing, peripheral cyanosis. NEUROLOGIC: Intact. No lateralizing signs. DATA: Chest x-ray reviewed shows persistent alveolar opacities, left greater than right mid to lower lung zones, which appear stable, perhaps improved from previous chest radiograph on 11/24/2018, suggestion of trace pleural effusion. Video swallow on 11/13 shows no aspiration. Chest CT on 11/11; diffuse parenchymal infiltrative changes versus pulmonary edema, right greater than left and left pleural effusion noted. OVERALL ASSESSMENT: A 53-year-old status post anterior wall STEMI complicated by left main dissection and cardiogenic shock requiring prolonged mechanical ventilator support with multiple intubations and apparently dysphagia and vocal cord injury initially,(?resolved) admitted now with atypical chest pain and paroxysmal atrial fibrillation with a rapid ventricular response. Effectively treated with IV amiodarone, currently in sinus rhythm but with persistent cough. The patient's chest x-ray continues to be abnormal as does his clinical examination. Although there may be some improvement on the most recent chest x-ray, there is persistent alveolar opacity in the left greater than right mid to lower lung zone, which for the most part looked chronic and still seem to be residual from previous CT scan on 11/11 and even present on 09/02/2018 and 11/05/2018. While this could have represented a pulmonary edema pattern or even acute and now chronic aspiration, I believe that the radiographic findings regardless of their etiology are contributing to the patient's cough, but I cannot discern any inspiratory audible or palpable stridor to suggest tracheal stenosis or even for that matter clinically a significant vocal cord injury currently. I do not think reflux or postnasal drip is the cause currently of his cough. The patient may very well require bronchoscopic intervention as an outpatient if patient's cough does not improve, although at this juncture, I suspect additional workup is required. RICKY
[2018-12-20] MEDS: AMPICILLIN/SULBACTAM SOD 3,000 MG in 0.9 % SODIUM CHLORIDE 100 ML IV SCH (20:02)
[2018-12-20] MEDS: FEXOFENADINE HCL 180 MG TAB PO SCH (20:04)
[2018-12-20] MEDS: AMIODARONE 200 MG TAB PO SCH (20:05)
[2018-12-20] MEDS: ATORVASTATIN 20 MG TAB PO SCH (20:05)
[2018-12-20] MEDS ORDERED: MAGNESIUM SULFATE / D5W 1 GM/100 ML BAG IV ONE (21:20)
[2018-12-20] MEDS: ONDANSETRON INJ 2 MG/ML 2 ML VIAL IV PRN (21:48)
[2018-12-21] MEDS ORDERED: SIMETHICONE 80 MG CHEW PO PRN (00:36)
[2018-12-21] MEDS: AMPICILLIN/SULBACTAM SOD 3,000 MG in 0.9 % SODIUM CHLORIDE 100 ML IV SCH ×2 (00:46→08:03)
[2018-12-21] MEDS ORDERED: PROMETHAZINE HCL 6.25 MG in SODIUM CHLORIDE 0.9% 50 ML IV STA (00:49)
[2018-12-21] MEDS ORDERED: ACETAMINOPHEN 65 ML IV ONE (03:32)
[2018-12-21] MEDS ORDERED: ACETAMINOPHEN 325 MG TAB PO PRN (03:32)
[2018-12-21 05:58] LABS: Hematocrit (blood only) 27.8 % (42-52); Hemoglobin 9.1 g/dL (14.0-18.0); Mean Corpuscular Hgb Conc 32.7 g/dL (32-36); Mean Platelet Volume 9.1 fL (7.4-10.4); Platelet Count 453 K/uL (130-400); RDW Coefficient of Variation 16.6 % (11.5-14.5); Red Blood Count 3.16 M/uL (4.7-6.1); White Blood Count 19.53 K/uL (4.8-10.8)
[2018-12-21 06:38] LABS: Albumin Level 2.6 gm/dl (3.4-5.0); Calcium 8.9 mg/dl (8.5-10.1); Creatinine Clr Calc Pharmacy 48.4 ml/min; Est GFR (African American) 48.4; Est GFR (Non-African American) 41.7; Potassium 3.8 mmol/L (3.5-5.1)
[2018-12-21 06:39] LABS: Albumin Globulin Ratio 0.6 (0.9-2); Bilirubin,Total 0.4 mg/dl (0.2-1); Globulin 4.1 gm/dl (2.5-4.0); Phosphorus 4.7 mg/dl (2.5-4.9); Total Protein 6.7 gm/dl (6.4-8.2)
--- NOTE | 2018-12-21 06:47 | Progress Note ---
Date of Service December 21, 2018 Assessment & Plan (1) Abdominal pain: - Associated nausea, gas and loose stools - Little relief with supportive tx; Simethicone, Ranitidine, Tylenol Plan; - Cdiff, KUB Results & Data Vital Signs (Past 12 Hours) Vital Signs Temp Pulse Resp BP BP Pulse Ox 12/21/18 03:50 36.5 C 82 18 95/61 L 99 12/20/18 23:36 37.1 C 83 20 93/59 L 98 12/20/18 19:29 36.8 C 81 20 102/68 99
[2018-12-21] MEDS: AMIODARONE / D5W 360 MG/200 ML BAG IV SCH (07:19)
[2018-12-21] MEDS: ONDANSETRON INJ 2 MG/ML 2 ML VIAL IV PRN ×2 (07:30→10:03)
[2018-12-21] MEDS ORDERED: PIPERACILLIN/TAZOBACTAM 4.5 GM in DEXTROSE 5% 100 ML IV STA (07:58)
[2018-12-21] MEDS ORDERED: PIPERACILL/TAZOBAC CONSULT ACTIVE PRN (07:58)
[2018-12-21] MEDS ORDERED: FERROUS SULFATE 325 MG TAB PO SCH (08:00)
[2018-12-21] MEDS ORDERED: PIPERACILLIN/TAZOBACTAM 3.375 GM in DEXTROSE 5% 100 ML IV SCH ×2 (08:00→14:00)
--- NOTE | 2018-12-21 08:05 | Critical Care Consultation ---
Date of Consultation December 21, 2018 Assessment & Plan (1) AMI (acute mesenteric ischemia): Discussed with Radiology at 08:00 Discussed with General Surgery 08:05 Reason Critically Ill: 53-year-old male with acute mesenteric ischemia presumptive embolic in origin secondary to cardiomyopathy (ischemic) PLAN: Neuro: Analgesia -25 mcg IV fentanyl every 15 minutes as needed severe pain Resp: Infiltrates on CT -Currently on antibiotics -Tolerating room air CV: Ischemic cardiomyopathy Paroxysmal atrial fibrillation Moderate pericardial effusion -Echo performed Fluids/Renal: Chronic kidney disease -Making urine -Recently discontinued renal replacement therapy Normosol at 100 mL's per hour ID: Expanded coverage to Zosyn and daptomycin -Coverage for mesenteric ischemia -Right chronic hemothorax -Right chronic retroperitoneal hematoma -Concern both could have formed abscesses -Right chronic wound GI/Nutrition: Mesenteric ischemia -Discussed with surgery -Portal gas and changes consistent with colitis on interval CT Heme: Anemia -Chronic disease DVT prophylaxis: Starting heparin per surgery recommendations from [facility] Endocrine: Vascular access: Peripheral 20-gauge IV Code Status: Full I discussed the patient with Dr. Raymon Mcneill of general surgery Dr. Abel of cardiology Dr. German of [facility] medicine, I discussed the patient's care with [facility] from 825 until 9 AM I have personally spent 115 minutes of critical care time in the direct management of this patient. This is a life/limb threatening event. This includes time spent evaluating patient, direct bedside care, chart review, placing orders, interpretation of diagnostic studies, discussion with consultants, patient, and/or family members regarding treatment decisions, as well as other required patient management activities. This time is exclusive of all separately billable procedures, and teaching time and separate from and in addition to any other critical care service time. Present on Admission?: No History of Present Illness Attending Physician: Marjorie German MD Patient is a 53-year-old male who presented to the hospital yesterday for chest pain shortness of breath. He was recently found to have paroxysmal atrial fibrillation, he was not on anticoagulation for known retroperitoneal hematoma, right-sided hemothorax, pericardial effusion. Acutely this morning the patient developed severe upper abdominal pain, he received a CT scan, the abdominal pain occurred in the setting of recent atrial fibrillation with rapid ventricular response. CT scan was found to have portal venous gas and interval changes consistent with colitis given the clinical history the concern is for mesenteric ischemia embolic of origin. Reportedly the patient was recently decannulated and off renal replacement therapy for approximately 1 week. Allergies Allergy/AdvReac Type Severity Reaction Status Date / Time cefepime Allergy Intermediate Rash Verified 12/19/18 08:24 vancomycin Allergy Intermediate Rash Verified 12/19/18 08:24 Home Medications Home Medications Medication Instructions Recorded Confirmed Type aspirin 81 mg PO QAM 11/05/18 12/19/18 History clopidogrel 75 mg PO QAM 11/05/18 12/19/18 History colchicine 0.3 mg PO 2XWK 11/05/18 12/19/18 History midodrine 5 mg PO TIDM 11/05/18 12/19/18 History Pulmicort Flexhaler 1 puff INHALATION BID #1 ea 11/17/18 12/19/18 Rx furosemide 40 mg PO QAM #30 tab 11/17/18 12/19/18 Rx metoprolol succinate 12.5 mg PO QAM #45 tab 11/17/18 12/19/18 Rx lidocaine [Lidoderm] 2 patch TOPICAL UD 11/21/18 12/19/18 History docusate sodium 100 mg PO QAM 12/08/18 12/19/18 History acetaminophen [Tylenol Extra 500 mg PO Q6H PRN 12/19/18 12/19/18 History Strength] atorvastatin 20 mg PO HS 12/19/18 12/19/18 History cholecalciferol (vitamin D3) 1,000 unit PO QDL 12/19/18 12/19/18 History [Vitamin D3] fexofenadine [Briana Allergy] 180 mg PO HS 12/19/18 12/19/18 History fluticasone furoate [Arnuity 100 mcg INHALATION DAILY 12/19/18 12/19/18 History Ellipta] omeprazole 20 mg PO BID 12/19/18 12/19/18 History Patient History Medical History History of atrial fibrillation (Acute) Hx of pleural effusion (Acute) Anemia CAD (coronary artery disease) Cardiogenic shock Chronic systolic CHF (congestive heart failure) Hx of extracorporeal membrane oxygenation treatment Hypotension Ischemic cardiomyopathy Myocardial infarct STEMI (ST elevation myocardial infarction) 09/02/2018--heart cath with stents placed Surgical History History of thoracentesis (Acute) Hx of heart artery stent (Acute) 2 stents History of cardiac cath 09/02/2018 with stents placed @ [facility], follows with Dr. Gabriel History of colonoscopy History of tooth extraction Hx of LASIK Hx of angioplasty Status post insertion of hemodialysis catheter removed--no longer has Status post insertion of percutaneous endoscopic gastrostomy (PEG) tube Status post pericardiocentesis Family History Mother Coronary heart disease Hypertension Other No family history of adverse response to anesthesia Social History Preferred Language: Sami Communication Ability: Effective Visual Impairment: Limited Hearing Ability: Normal Storage Architect Required: No Beliefs That Will Affect Care: None marital status: Life Partner Current Living Situation: Significant Other Current Living Situation Comment: "LIVES WITH SOMEONE" current occupational status: employed Other Information That Helps Us Care for You: No Feels Safe at Home: Yes Safety Concerns: Feels Safe At This Time Smoking Status: Never smoker Do You Dip or Chew Tobacco: No Second Hand Exposure: No Tobacco Cessation Education Requested by Patient: No Hx Alcohol Use: Yes Alcohol type: wine Hx Substance Use: No Physical Exam Physical Exam: General: Middle-aged male in mild discomfort I have reviewed the recorded vital signs Neurological: RASS score: 0, Moves all 4 extremities, Psychological: GCS 15 following complex commands Eyes: Pupils are equal, round and reactive to light, anicteric sclera. Symmetrical lids. HENT: Oropharynx is clear, mucous membranes are moist. Neck: Supple. Symmetric. trachea midline. No thyromegaly. Cardiovascular: Normal peripheral perfusion. Distal pulses and capillary refill intact. No JVD. Respiratory: Respirations are non-labored, no accessory muscle use. Breath sounds are equal. Gastrointestinal: Tenderness with palpation, no guarding no rebound. Non- distended. Lymphatic: No cervical lymphadenopathy. Musculoskeletal: Packed wound in the right groin, no cyanosis Results & Data Vital Signs (Past 12 Hours) Vital Signs Temp Pulse Resp BP BP Pulse Ox 12/21/18 07:16 88 20 107/74 99 12/21/18 07:05 36.8 C 88 24 106/64 98 12/21/18 03:50 36.5 C 82 18 95/61 L 99 12/20/18 23:36 37.1 C 83 20 93/59 L 98 Laboratory Results 12/21/18 12/21/18 12/21/18 Range/Units 08:28 08:20 08:19 WBC 23.85 H (4.8-10.8) K/uL RBC 3.43 L (4.7-6.1) M/uL Hgb 9.8 L (14.0-18.0) g/dL Hct 30.0 L (42-52) % MCV 87.5 (80-100) fL MCH 28.6 (25-34) pg MCHC 32.7 (32-36) g/dL RDW Std Deviation 53.9 H (36.4-46.3) fL RDW Coeff of Luna 16.7 H (11.5-14.5) % Plt Count 497 H (130-400) K/uL MPV 9.5 (7.4-10.4) fL Immature Gran % (Auto) 0.3 Neut % (Auto) 89.0 Lymph % (Auto) 4.1 Sampson % (Auto) 6.2 Eos % (Auto) 0.3 Baso % (Auto) 0.1 Immature Gran # (Auto) 0.07 H Neut # (Auto) 21.25 H Lymph # (Auto) 0.97 L Sampson # (Auto) 1.47 H Eos # (Auto) 0.06 Baso # (Auto) 0.03 Absolute Nucleated RBC Nucleated RBC % (auto) Neutrophils % (Manual) Band Neutrophils % Lymphocytes % (Manual) Prolymphocyte % Reactive Lymphs % (Man) Monocytes % (Manual) Eosinophils % (Manual) Basophils % (Manual) Metamyelocytes % (Man) Myelocytes % (Man) Promyelocytes % (Man) Blast Cells % (Manual) Plasma Cell % (Manual) Other Cells % Nucleated RBC % Neutrophils # (Manual) Band Neutrophils # Total Absolute Neuts Lymphocytes # (Manual) Prolymphocyte # Reactive Lymphs # Total Abs Lymphocytes Monocytes # (Manual) Eosinophils # (Manual) Basophils # (Manual) Metamyelocytes # (Man) Myelocytes # (Manual) Promyelocytes # (Man) Blast Cells # (Man) Plasma Cell # (Manual) Other Cells # Nucleated RBCs # (Man) Hypersegmented Neuts Hyposegmented Neuts Hypogranular Neuts Large Granular Lymphs # Lrg Granular Lymphs Hairy Cells Smudge Cells Toxic Granulation Toxic Vacuolation Dohle Bodies Danny Rods Platelet Estimate Hypogranular Platelets Clumped Platelets Giant Platelets Platelet Satelliting RBC Morphology Polychromasia Hypochromasia Poikilocytosis Basophilic Stippling Anisocytosis Microcytosis Macrocytosis Spherocytes Pappenheimer Bodies Sickle Cells Target Cells Tear Drop Cells Ovalocytes Stomatocytes [place] Bodies Echinocytes 1+ Acanthocytes (Spur) Rouleaux RBC Agglutinates Schistocytes RBC Morph Comment Sezary Cell PT (9.0-12.0) Seconds INR (0.9-1.1) APTT (21.0-31.0) Seconds PTT Ratio Fibrinogen (184-400) mg/dl Sodium 134 L (136-145) mmol/L Potassium 3.8 (3.5-5.1) mmol/L Chloride 100 (98-107) mmol/L Carbon Dioxide 22 (21-32) mmol/L Anion Gap 11.0 (3-11) BUN 26 H (7-18) mg/dl Creatinine 1.85 H (0.6-1.4) mg/dl Est Cr Clr Drug Dosing 47.1 ml/min Est GFR ( Amer) 46.8 Est GFR (Non-Af Amer) 40.4 BUN/Creatinine Ratio 14.1 (10-20) Glucose 124 H (70-99) mg/dl Lactate 1.4 (0.4-2.0) mmol/L Calcium 9.5 (8.5-10.1) mg/dl Phosphorus (2.5-4.9) mg/dl Magnesium (1.8-2.4) mg/dl Total Bilirubin 0.3 (0.2-1) mg/dl AST 14 L (15-37) U/L ALT 18 (12-78) U/L Alkaline Phosphatase 64 (45-117) U/L Troponin I < 0.015 (0-0.045) ng/ml Total Protein 7.0 (6.4-8.2) gm/dl Albumin 2.7 L (3.4-5.0) gm/dl Globulin 4.3 H (2.5-4.0) gm/dl Albumin/Globulin Ratio 0.6 L (0.9-2) Stl C. diff Tox B Gene (Neg) 12/21/18 12/21/18 12/21/18 Range/Units 08:19 05:50 05:50 WBC (4.8-10.8) K/uL RBC (4.7-6.1) M/uL Hgb (14.0-18.0) g/dL Hct (42-52) % MCV (80-100) fL MCH (25-34) pg MCHC (32-36) g/dL RDW Std Deviation (36.4-46.3) fL RDW Coeff of Luna (11.5-14.5) % Plt Count (130-400) K/uL MPV (7.4-10.4) fL Immature Gran % (Auto) Neut % (Auto) Lymph % (Auto) Sampson % (Auto) Eos % (Auto) Baso % (Auto) Immature Gran # (Auto) Neut # (Auto) Lymph # (Auto) Sampson # (Auto) Eos # (Auto) Baso # (Auto) Absolute Nucleated RBC FAMILY PRACTITIONER Nucleated RBC % (auto) FAMILY PRACTITIONER Neutrophils % (Manual) FAMILY PRACTITIONER Band Neutrophils % FAMILY PRACTITIONER Lymphocytes % (Manual) FAMILY PRACTITIONER Prolymphocyte % FAMILY PRACTITIONER Reactive Lymphs % (Man) FAMILY PRACTITIONER Monocytes % (Manual) FAMILY PRACTITIONER Eosinophils % (Manual) FAMILY PRACTITIONER Basophils % (Manual) FAMILY PRACTITIONER Metamyelocytes % (Man) FAMILY PRACTITIONER Myelocytes % (Man) FAMILY PRACTITIONER Promyelocytes % (Man) FAMILY PRACTITIONER Blast Cells % (Manual) FAMILY PRACTITIONER Plasma Cell % (Manual) FAMILY PRACTITIONER Other Cells % FAMILY PRACTITIONER Nucleated RBC % FAMILY PRACTITIONER Neutrophils # (Manual) FAMILY PRACTITIONER Band Neutrophils # FAMILY PRACTITIONER Total Absolute Neuts FAMILY PRACTITIONER Lymphocytes # (Manual) FAMILY PRACTITIONER Prolymphocyte # FAMILY PRACTITIONER Reactive Lymphs # FAMILY PRACTITIONER Total Abs Lymphocytes FAMILY PRACTITIONER Monocytes # (Manual) FAMILY PRACTITIONER Eosinophils # (Manual) FAMILY PRACTITIONER Basophils # (Manual) FAMILY PRACTITIONER Metamyelocytes # (Man) FAMILY PRACTITIONER Myelocytes # (Manual) FAMILY PRACTITIONER Promyelocytes # (Man) FAMILY PRACTITIONER Blast Cells # (Man) FAMILY PRACTITIONER Plasma Cell # (Manual) FAMILY PRACTITIONER Other Cells # FAMILY PRACTITIONER Nucleated RBCs # (Man) FAMILY PRACTITIONER Hypersegmented Neuts FAMILY PRACTITIONER Hyposegmented Neuts FAMILY PRACTITIONER Hypogranular Neuts FAMILY PRACTITIONER Large Granular Lymphs FAMILY PRACTITIONER # Lrg Granular Lymphs FAMILY PRACTITIONER Hairy Cells FAMILY PRACTITIONER Smudge Cells FAMILY PRACTITIONER Toxic Granulation FAMILY PRACTITIONER Toxic Vacuolation FAMILY PRACTITIONER Dohle Bodies FAMILY PRACTITIONER Danny Rods FAMILY PRACTITIONER Platelet Estimate FAMILY PRACTITIONER Hypogranular Platelets FAMILY PRACTITIONER Clumped Platelets FAMILY PRACTITIONER Giant Platelets FAMILY PRACTITIONER Platelet Satelliting FAMILY PRACTITIONER RBC Morphology FAMILY PRACTITIONER Polychromasia FAMILY PRACTITIONER Hypochromasia FAMILY PRACTITIONER Poikilocytosis FAMILY PRACTITIONER Basophilic Stippling FAMILY PRACTITIONER Anisocytosis FAMILY PRACTITIONER Microcytosis FAMILY PRACTITIONER Macrocytosis FAMILY PRACTITIONER Spherocytes FAMILY PRACTITIONER Pappenheimer Bodies FAMILY PRACTITIONER Sickle Cells FAMILY PRACTITIONER Target Cells FAMILY PRACTITIONER Tear Drop Cells FAMILY PRACTITIONER Ovalocytes FAMILY PRACTITIONER Stomatocytes FAMILY PRACTITIONER [place] Bodies FAMILY PRACTITIONER Echinocytes Acanthocytes (Spur) FAMILY PRACTITIONER Rouleaux FAMILY PRACTITIONER RBC Agglutinates FAMILY PRACTITIONER Schistocytes FAMILY PRACTITIONER RBC Morph Comment FAMILY PRACTITIONER Sezary Cell FAMILY PRACTITIONER PT 12.2 H (9.0-12.0) Seconds INR 1.2 H (0.9-1.1) APTT 33.2 H (21.0-31.0) Seconds PTT Ratio 1.2 Fibrinogen 536 H (184-400) mg/dl Sodium 132 L (136-145) mmol/L Potassium 3.8 (3.5-5.1) mmol/L Chloride 99 (98-107) mmol/L Carbon Dioxide 24 (21-32) mmol/L Anion Gap 9.0 (3-11) BUN 27 H (7-18) mg/dl Creatinine 1.80 H (0.6-1.4) mg/dl Est Cr Clr Drug Dosing 48.4 ml/min Est GFR ( Amer) 48.4 Est GFR (Non-Af Amer) 41.7 BUN/Creatinine Ratio 15.0 (10-20) Glucose 134 H (70-99) mg/dl Lactate (0.4-2.0) mmol/L Calcium 8.9 (8.5-10.1) mg/dl Phosphorus 4.7 (2.5-4.9) mg/dl Magnesium 2.0 (1.8-2.4) mg/dl Total Bilirubin 0.4 (0.2-1) mg/dl AST 12 L (15-37) U/L ALT 17 (12-78) U/L Alkaline Phosphatase 64 (45-117) U/L Troponin I (0-0.045) ng/ml Total Protein 6.7 (6.4-8.2) gm/dl Albumin 2.6 L (3.4-5.0) gm/dl Globulin 4.1 H (2.5-4.0) gm/dl Albumin/Globulin Ratio 0.6 L (0.9-2) Stl C. diff Tox B Gene (Neg) 12/21/18 12/21/18 Range/Units 05:50 05:45 WBC 19.53 H (4.8-10.8) K/uL RBC 3.16 L (4.7-6.1) M/uL Hgb 9.1 L (14.0-18.0) g/dL Hct 27.8 L (42-52) % MCV 88.0 (80-100) fL MCH 28.8 (25-34) pg MCHC 32.7 (32-36) g/dL RDW Std Deviation 54.0 H (36.4-46.3) fL RDW Coeff of Luna 16.6 H (11.5-14.5) % Plt Count 453 H (130-400) K/uL MPV 9.1 (7.4-10.4) fL Immature Gran % (Auto) Cancelled Neut % (Auto) Cancelled Lymph % (Auto) Cancelled Sampson % (Auto) Cancelled Eos % (Auto) Cancelled Baso % (Auto) Cancelled Immature Gran # (Auto) Cancelled Neut # (Auto) Cancelled Lymph # (Auto) Cancelled Sampson # (Auto) Cancelled Eos # (Auto) Cancelled Baso # (Auto) Cancelled Absolute Nucleated RBC Nucleated RBC % (auto) Neutrophils % (Manual) Cancelled Band Neutrophils % Cancelled Lymphocytes % (Manual) Cancelled Prolymphocyte % Cancelled Reactive Lymphs % (Man) Cancelled Monocytes % (Manual) Cancelled Eosinophils % (Manual) Cancelled Basophils % (Manual) Cancelled Metamyelocytes % (Man) Cancelled Myelocytes % (Man) Cancelled Promyelocytes % (Man) Cancelled Blast Cells % (Manual) Cancelled Plasma Cell % (Manual) Cancelled Other Cells % Cancelled Nucleated RBC % Cancelled Neutrophils # (Manual) Cancelled Band Neutrophils # Cancelled Total Absolute Neuts Cancelled Lymphocytes # (Manual) Cancelled Prolymphocyte # Cancelled Reactive Lymphs # Cancelled Total Abs Lymphocytes Cancelled Monocytes # (Manual) Cancelled Eosinophils # (Manual) Cancelled Basophils # (Manual) Cancelled Metamyelocytes # (Man) Cancelled Myelocytes # (Manual) Cancelled Promyelocytes # (Man) Cancelled Blast Cells # (Man) Cancelled Plasma Cell # (Manual) Cancelled Other Cells # Cancelled Nucleated RBCs # (Man) Cancelled Hypersegmented Neuts Cancelled Hyposegmented Neuts Cancelled Hypogranular Neuts Cancelled Large Granular Lymphs Cancelled # Lrg Granular Lymphs Cancelled Hairy Cells Cancelled Smudge Cells Cancelled Toxic Granulation Cancelled Toxic Vacuolation Cancelled Dohle Bodies Cancelled Danny Rods Cancelled Platelet Estimate Hypogranular Platelets Cancelled Clumped Platelets Cancelled Giant Platelets Cancelled Platelet Satelliting Cancelled RBC Morphology Cancelled Polychromasia Cancelled Hypochromasia Cancelled Poikilocytosis Cancelled Basophilic Stippling Cancelled Anisocytosis Cancelled Microcytosis Cancelled Macrocytosis Cancelled Spherocytes Cancelled Pappenheimer Bodies Cancelled Sickle Cells Cancelled Target Cells Cancelled Tear Drop Cells Cancelled Ovalocytes Cancelled Stomatocytes Cancelled [place] Bodies Cancelled Echinocytes Cancelled Acanthocytes (Spur) Cancelled Rouleaux Cancelled RBC Agglutinates Cancelled Schistocytes Cancelled RBC Morph Comment Cancelled Sezary Cell Cancelled PT (9.0-12.0) Seconds INR (0.9-1.1) APTT (21.0-31.0) Seconds PTT Ratio Fibrinogen (184-400) mg/dl Sodium (136-145) mmol/L Potassium (3.5-5.1) mmol/L Chloride (98-107) mmol/L Carbon Dioxide (21-32) mmol/L Anion Gap (3-11) BUN (7-18) mg/dl Creatinine (0.6-1.4) mg/dl Est Cr Clr Drug Dosing ml/min Est GFR ( Amer) Est GFR (Non-Af Amer) BUN/Creatinine Ratio (10-20) Glucose (70-99) mg/dl Lactate (0.4-2.0) mmol/L Calcium (8.5-10.1) mg/dl Phosphorus (2.5-4.9) mg/dl Magnesium (1.8-2.4) mg/dl Total Bilirubin (0.2-1) mg/dl AST (15-37) U/L ALT (12-78) U/L Alkaline Phosphatase (45-117) U/L Troponin I (0-0.045) ng/ml Total Protein (6.4-8.2) gm/dl Albumin (3.4-5.0) gm/dl Globulin (2.5-4.0) gm/dl Albumin/Globulin Ratio (0.9-2) Stl C. diff Tox B Gene Negative Cdiff Gene (Neg) ECG Additional Comments: EKG dated December 21, 2018 at 0 720 reveals a normal sinus rhythm with sinus arrhythmia, left anterior fascicular block, rate of 82, QTc is 460, this is an abnormal EKG, no prior for comparison.
--- NOTE | 2018-12-21 08:12 | CT Scan Report ---
ABDOMEN AND PELVIS CT WITHOUT CONTRAST CT DOSE: 513.01 mGy.cm HISTORY: severe abdominal pain , retroperitoneal hemorrhage TECHNIQUE: Multiaxial CT images of the abdomen and pelvis were performed without contrast. A dose lo wering technique was utilized adhering to the principles of ALARA. COMPARISON STUDY: Abdomen and pelvis CT 12/20/2018. FINDINGS: Small bilateral pleural effusions and a moderate pericardial effusion remain unchanged. The pericardial effusion measures up to 1.5 cm in diameter. The heart is mildly enlarged. A 9.2 cm focal right basilar pleural hyperdensity favors a loculated hemothorax. This is also unchanged. Multifocal patchy airspace opacities within the left lung base persist. This likely represents a pneumonia. Sma ll bilateral inguinal hematomas/scarring remains unchanged. The bladder is unremarkable. Small amount of pelvic free fluid. A right retroperitoneal fluid collection is not significantly changed in size. This favors a hematoma. This measures 10 cm in diameter and demonstrates a thickened wall. No gas as sociated with this hematoma. Interval development of a small amount of portal venous gas within the l iver. Small amount of gas within the portal veins extending to the thickened ascending colon and roth sverse colon which is new prior study. Therefore, this is consistent with ischemic colitis. The adren al glands are unremarkable. No hydronephrosis. No renal calculi. The adrenal glands, pancreas, and sp kimberly are unremarkable. No gallbladder wall thickening. No retroperitoneal lymphadenopathy. IMPRESSION: 1. Interval development of a small amount of portal venous gas as well as thickening of the ascending colon and transverse colon. This is consistent with ischemic colitis. 2. No significant change in the right retroperitoneal hematoma and right basilar focal hemothorax. 3. Small to moderate pericardial effusion, unchanged. 4. Small bilateral pleural effusions, unchanged. 5. Left basilar airspace opacity consistent with a pneumonia. 6. These findings were discussed with Dr. Grey at 8:00 AM on 12/21/2018. Electronically signed by: Freddy Mayes M.D. 12/21/2018 8:11 AM
--- NOTE | 2018-12-21 08:14 | XRay Report ---
XR chest 1V portable HISTORY: Shortness of breath. COMPARISON: Chest 12/19/2018. FINDINGS: Bibasilar airspace opacities and small bilateral pleural effusions persist. The heart remai ns enlarged. Mild congestive change. No pneumothorax. IMPRESSION: 1. No change in the bibasilar airspace opacities and small bilateral pleural effusions. 2. Cardiomegaly with mild congestive change. Electronically signed by: Freddy Mayes M.D. 12/21/2018 8:12 AM
[2018-12-21] MEDS ORDERED: PIPERACILLIN/TAZOBACTAM 4.5 GM in DEXTROSE 5% 100 ML IV SCH (08:30)
--- NOTE | 2018-12-21 08:30 | XRay Report ---
KUB HISTORY: Generalized abdominal pain. Nausea. COMPARISON: Abdomen and pelvis CT 12/20/2018. FINDINGS: The bowel gas pattern is unremarkable. There are no dilated loops of small bowel to suggest an obstruction. No renal calculi. No ureteral calculi. No pneumoperitoneum or pneumatosis. Bilatera l inguinal surgical clips are noted. Small amount of contrast within the distal colon and rectum. Vas cular port are noted overlying the right hepatic lobe. Left basilar airspace opacities. IMPRESSION: Unremarkable bowel gas pattern. No evidence for bowel obstruction. Electronically signed by: Freddy Mayes M.D. 12/21/2018 8:29 AM
--- NOTE | 2018-12-21 08:35 | Infectious Disease Consult ---
Date of Consultation December 21, 2018 Assessment & Plan (1) Ischemic colitis: agree with broad spectrum abx and transfer to [facility]. will need blood cultures. lab in room attempting to obtain labs during my exam. discussed with primary service. History of Present Illness Attending Physician: Marjorie German MD pt admitted from home with chest pain. recent [place] with multiple complications requiring transfer to [facility], CVVHD, ECMO and prolonged hospital stay. He most recently has been following at [facility] with Dr. 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 He was on Augme ntin for this per last ID noted 12/11 but pt states he was not taking abx recently. has chronic drainage from wound. no f/c at home. was found to have pericardial effusion, retroperiteneal hematoma and hemothorax. Overnight he had abd pain and ct of abdomin done this am is now showing ischemic colitis. He was transferred to ICU this am, seen shortly after transfer. He continues to complain of abd pain, no n/v. He was placed emperically on zosyn and dapto due to new ct findings. 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 Pt is being evaluated by ICU, primary, surgery, cardiology during my exam. family at bedside. discussion regarding surgery vs transfer to [facility]. pt awake, alert, in discomfort Allergies Allergy/AdvReac Type Severity Reaction Status Date / Time cefepime Allergy Intermediate Rash Verified 12/19/18 08:24 vancomycin Allergy Intermediate Rash Verified 12/19/18 08:24 Home Medications Home Medications Medication Instructions Recorded Confirmed Type aspirin 81 mg PO QAM 11/05/18 12/19/18 History clopidogrel 75 mg PO QAM 11/05/18 12/19/18 History colchicine 0.3 mg PO 2XWK 11/05/18 12/19/18 History midodrine 5 mg PO TIDM 11/05/18 12/19/18 History Pulmicort Flexhaler 1 puff INHALATION BID #1 ea 11/17/18 12/19/18 Rx furosemide 40 mg PO QAM #30 tab 11/17/18 12/19/18 Rx metoprolol succinate 12.5 mg PO QAM #45 tab 11/17/18 12/19/18 Rx lidocaine [Lidoderm] 2 patch TOPICAL UD 11/21/18 12/19/18 History docusate sodium 100 mg PO QAM 12/08/18 12/19/18 History acetaminophen [Tylenol Extra 500 mg PO Q6H PRN 12/19/18 12/19/18 History Strength] atorvastatin 20 mg PO HS 12/19/18 12/19/18 History cholecalciferol (vitamin D3) 1,000 unit PO QDL 12/19/18 12/19/18 History [Vitamin D3] fexofenadine [Briana Allergy] 180 mg PO HS 12/19/18 12/19/18 History fluticasone furoate [Arnuity 100 mcg INHALATION DAILY 12/19/18 12/19/18 History Ellipta] omeprazole 20 mg PO BID 12/19/18 12/19/18 History Patient History Medical History History of atrial fibrillation (Acute) Hx of pleural effusion (Acute) Anemia CAD (coronary artery disease) Cardiogenic shock Chronic systolic CHF (congestive heart failure) Hx of extracorporeal membrane oxygenation treatment Hypotension Ischemic cardiomyopathy Myocardial infarct STEMI (ST elevation myocardial infarction) 09/02/2018--heart cath with stents placed Surgical History History of thoracentesis (Acute) Hx of heart artery stent (Acute) 2 stents History of cardiac cath 09/02/2018 with stents placed @ [facility], follows with Dr. Gabriel History of colonoscopy History of tooth extraction Hx of LASIK Hx of angioplasty Status post insertion of hemodialysis catheter removed--no longer has Status post insertion of percutaneous endoscopic gastrostomy (PEG) tube Status post pericardiocentesis Family History Mother Coronary heart disease Hypertension Other No family history of adverse response to anesthesia Social History Preferred Language: Urdu Communication Ability: Effective Visual Impairment: Limited Hearing Ability: Normal Zoogler Required: No Beliefs That Will Affect Care: None marital status: Life Partner Current Living Situation: Significant Other Current Living Situation Comment: "LIVES WITH SOMEONE" current occupational status: employed Other Information That Helps Us Care for You: No Feels Safe at Home: Yes Safety Concerns: Feels Safe At This Time Smoking Status: Never smoker Do You Dip or Chew Tobacco: No Second Hand Exposure: No Tobacco Cessation Education Requested by Patient: No Hx Alcohol Use: Yes Alcohol type: wine Hx Substance Use: No Review of Systems Review of Systems: All systems reviewed & are unremarkable except as noted in HPI & below Physical Exam Constitutional: WD/WN, vitals as above Eyes: PERRL, conjunctivae normal, anicteric sclerae ENMT: dry mm Neck: normal visual inspection Respiratory: normal respiratory effort, lungs clear to auscultation normal respiratory effort; no respiratory distress Auscultation: + diminished lung sounds Cardiovascular: Rate/Rhythm: regular rate Heart Sounds: no murmur Gastrointestinal (Abdomen): Inspection/Auscultation: + abdomen distended Percussion/Palpation: + abdomen tender Musculoskeletal: Head/Neck/Chest: normocephalic, head atraumatic and neck supple Extremities: extremities normal to inspection Skin: bean in appearance Psychiatric: A+Ox3, euthymic affect Results & Data Vital Signs (Past 12 Hours) Vital Signs Temp Pulse Resp BP BP Pulse Ox 12/21/18 07:16 88 20 107/74 99 12/21/18 07:05 36.8 C 88 24 106/64 98 12/21/18 03:50 36.5 C 82 18 95/61 L 99 12/20/18 23:36 37.1 C 83 20 93/59 L 98
[2018-12-21 08:40] LABS: Fibrinogen 536 mg/dl (184-400); INR 1.2 (0.9-1.1); Partial Thromboplastin Ratio 1.2; Partial Thromboplastin Time 33.2 Seconds (21.0-31.0); Prothrombin Time 12.2 Seconds (9.0-12.0)
[2018-12-21 08:42] LABS: Hemoglobin 9.8 g/dL (14.0-18.0); Mean Corpuscular Volume 87.5 fL (80-100); Mean Platelet Volume 9.5 fL (7.4-10.4); Platelet Count 497 K/uL (130-400); RDW Coefficient of Variation 16.7 % (11.5-14.5); RDW Standard Deviation 53.9 fL (36.4-46.3); Red Blood Count 3.43 M/uL (4.7-6.1); White Blood Count 23.85 K/uL (4.8-10.8)
[2018-12-21 08:43] LABS: Alanine Aminotransferase 18 U/L (12-78); Albumin Level 2.7 gm/dl (3.4-5.0); Aspartate Aminotransferase 14 U/L (15-37); BUN Creatinine Ratio 14.1 (10-20); Blood Urea Nitrogen 26 mg/dl (7-18); Calcium 9.5 mg/dl (8.5-10.1); Carbon Dioxide 22 mmol/L (21-32); Chloride 100 mmol/L (98-107); Creatinine Clr Calc Pharmacy 47.1 ml/min; Est GFR (African American) 46.8; Est GFR (Non-African American) 40.4; Glucose 124 mg/dl (70-99); Potassium 3.8 mmol/L (3.5-5.1); Sodium 134 mmol/L (136-145)
[2018-12-21 08:44] LABS: Mean Corpuscular Hgb Conc 32.7 g/dL (32-36)
--- NOTE | 2018-12-21 08:44 | Discharge Summary ---
Date of Service December 21, 2018 Admission HPI Per Admitting Provider This is an unfortunate 53 yo M. Recent PMHx includes anterior STEMI on 09/02/18 requiring PTCI with DESTINY x2. Intra-procedurally, the patient did become unstable and dissection was noted of the LM. This was repaired, however the patient did develop cardiogenic shock requiring placement of Impella device as well as vasoactive support. He was subsequently transferred to [facility]'s CT surgery ICU. While under the care of [facility], the patient had ECMO placed in the RIGHT groin. The Impella device was in place for approximately 35 days while the ECMO cannulas were in place for 30 days. His stay was complicated by acute renal failure requiring central veno-venous hemofiltration(CVVH) with transition to hemodialysis on days Saturday//Saturday. Initial cardiac function was poor, but recent echocardiogram demonstrated an EF of approximately 35%. He suffered pericardial effusion with resultant tamponade requiring pericardiocentesis. He had an episode of atrial fibrillation with RVR but resolv ed. During that admission he also suffered a spontaneous retroperitoneal bleed with abdominal compression syndrome undergoing urgent intercostal choroidal embolization of right T 11 intercostal artery, drainage and transfusion fo 15 U PRBCs. The RP drain was in place from 09/23/18-10/03/18. He developed multi organ failure with "shock liver, renal and respiratory failure. Respiratory failure was likely secondary to pleural effusion likely from volume resuscitation. The patient was hospitalized for 50 days. Eventually he patient did make great improvement and he was able to be transferred to [facility] locally where he was at rehab for about 2 weeks. Following this he was readmitted on 11/05/18-11/17/18 due increase pain and edema in the right femoral region and found to have a hematoma without active bleeding. He was found to be in acute heart failure likely secondary to volume resuscitation and was treated with IV diuretic. This caused acute hypoxic respiratory failure which resolved. Pt was monitored and followed by cardiology and vascular surgery. On 11/11 pt was found to have a liver laceration which subsequently developed a hematoma and fluid collection. He did not require surgical intervention for this. He was again discharge to [facility]. The patient has been home for ~3 weeks now. And has been doing well until this morning when a heavy chest pain awoke him from sleep at 0430. His "housemate" Jh, is present at bedside. The patient reports he was going to get up to urinate and realized the chest discomfort and rated it as an 8/10 at that time. He presented to the ER and was treated with topical nitropaste, which improved his pain to a 4/10, and currently feels much better. He denies any other sx such as SOB, headache, lightheadedness, dizziness. Pt reports he has been participating in outpatient physical therapy being discharged, and goes at least 2 times per week. Patient also has been able to climb a flight of stairs, 15 steps, without difficulty. His other complaint includes a cough which has been ongoing for several weeks now. During his last admission he was treated for a possible multifocal pneumonia, however it appears that volume overload had been a large component of his acute hypoxic respiratory failure. He was treated at that point in time with IV antibiotics however did not get placed on further antibiotics. He does follow with ENT as an outpatient, and has been worked up for possible acute allergic causes of cough. There does not appear to be an acute infectious etiology. Patient reports cough is dry, rarely has clear sputum which is produced. He also mentions that occasionally that he coughs up gastric contents. There is an outpatient gastric evaluation scheduled in a few weeks per the patient, possibly with an EGD to evaluate if this is influencing his cough. Principal Diagnosis Ischemic colitis, rapid atrial fibrillation, pericardial effusion, pneumonia Discharge Exam Constitutional + ill appearing and + thin; no acute distress Eyes PERRL, conjunctivae normal, anicteric sclerae ENMT external ear and nose normal, oropharynx normal Neck trachea midline, no thyromegaly Respiratory + tachypneic (Mild but may be due to anxiety) Auscultation: + diminished lung sounds (At the right base) and + crackles (At the left base); no rhonchi and no wheezes Cardiovascular Rate/Rhythm: regular rate and regular rhythm Heart Sounds: no murmur Extremities: no calf tenderness and no edema Gastrointestinal (Abdomen) Inspection/Auscultation: abdomen normal to inspection and normal bowel sounds; abdomen not distended Percussion/Palpation: + abdomen tender (Diffusely tender but with guarding in the right upper quadrant, no rebound tenderness), + guarding and abdomen soft; abdomen not rigid and no abdominal mass Musculoskeletal Extremities: extremities normal to inspection; no cyanosis and no clubbing Skin no rashes, warm and dry Neurologic moves all extremities and awake; no focal motor deficits Psychiatric Orientation: alert and oriented x 3 Affect: + anxious affect Discharge Data Allergies Allergy/AdvReac Type Severity Reaction Status Date / Time cefepime Allergy Intermediate Rash Verified 12/19/18 08:24 vancomycin Allergy Intermediate Rash Verified 12/19/18 08:24 Consultations 12/19/18 08:51 ED Decision to Admit Stat 12/19/18 09:44 Consult Cardiology Routine 12/19/18 20:14 Consult Pulmonology Routine 12/20/18 18:03 Consult Infectious Diseases Routine 12/21/18 08:03 Consult Pharmaceutical Operator Stat General surgery Ordered Studies 12/20/18 10:20 CT abd pelvis oral con only Routine CT chest wo con Routine 12/21/18 07:25 CT abd pelvis wo con Stat Echocardiogram Chest x-ray [facility] Hospital Course (1) Chest pain: Initial presenting symptom was chest pain at lower sternum seems to be worse with cough, not positional so much -Does have a history of anterior STEMI, LAD stent and left main dissection but serial troponins are negative ECG without evidence of acute ischemia With findings of pericardial effusion seen on CT and then on echocardiogram with moderate pericardial effusion without evidence of tamponade- question of could have pain from pericarditis Appreciate cardiology consultation given extremely complex history - Continue aspirin 81mg daily, plavix 75 mg daily, metoprolol succinate 12.5 mg daily -Hold Lasix 40 mg QAM while having ischemic colitis and receiving IV fluids as below (2) Abdominal pain: Developed acute onset of severe right-sided abdominal pain mechanic insulator hours on 12/21. This was associated with nausea and vomiting and some rust colored loose stools. Stools were negative for C. difficile. Repeat CT scan of the abdomen pelvis showed new onset portal venous gas and ischemic colitis of the ascending and transverse colon His retroperitoneal hemorrhage was stable from previous Lactate was normal at the time at 1.4, leukocytosis had worsened to 20,000, and hemoglobin remained fairly stable around 9 He was afebrile He likely had an embolic event either from an LV thrombus due to his significant LV hypokinesis or from his paroxysmal atrial fibrillation. As his retroperitoneal hemorrhage is stable, he will be started on a heparin drip -Start Zosyn and daptomycin, discontinue previous Unasyn -Start Normosol at 100 mL's per hour and keep n.p.o. General surgery saw the patient here and recommended colectomy Given his extremely complex comorbidities and current medical issues, transfer to [facility] was arranged for urgent surgical evaluation and treatment (3) Ischemic colitis: As above, ascending and transverse colon, possibly due to an embolic event Treatment as above (4) Paroxysmal atrial fibrillation: - Noted, occurred in Aug-September at [facility]. Was not on anticoagulation due to history of spontaneous massive retroperitoneal hemorrhage during that hospitalization which required coil embolization of the T11 intercostal artery and 15 units of PRBCs transfused. Has continued stable retroperitoneal and intrathoracic hematomas With ongoing paroxysmal rapid A. fib here with rates into the 150s at times. Seems to spontaneously convert to normal sinus rhythm after about 1 to 2 hours of atrial fibrillation each time He remains hemodynamically stable surprisingly with his rapid atrial fibrillation Was recently discontinued from his amiodarone on 12/11 by cardiology as an outpatient as he had remained in sinus rhythm Given new pericardial effusion as above since 1 month ago, question if this is contributing to recurrence -Continue PRN IV Lopressor for heart rate greater than 120 -Continue home Toprol-XL 12.5 mg daily -Continue amiodarone drip and now overlapping with p.o. amiodarone 200 mg p.o. twice daily -Follow on telemetry -Discussed anticoagulation with cardiology and previously hesitant to do so at this point given continued evidence on CT of the chest/abdomen/pelvis on 12/20 of retroperitoneal hemorrhage, intrathoracic hemorrhage on the right, persistent anemia with hemoglobin slightly dropped from previous and certainly not improving overall-now with ischemic colitis possibly due to embolus-would start heparin drip and with eventual transition to chronic anticoagulation after recovery from bowel surgery (5) CAD (coronary artery disease), [place] coronary artery: - s/p anterior STEMI 09/02/18 and DESTINY x 2 with resulting dissection of the left main and cardiogenic shock requiring transfer to [facility] with placement of Impella device and ECMO support with prolonged hospitalization x50 days With resultant ischemic cardiomyopathy -Continue aspirin, Plavix, statin, low-dose metoprolol (6) Ischemic cardiomyopathy: Most recent EF 35% at [place] as per cardiology records Has not been able to be on goal-directed therapy due to hypotension and multiple complications Is euvolemic at this time with the exception of some residual pulmonary edema seen on chest x-ray -Continue Lasix 40 mg daily -Continue Toprol-XL 12.5 mg daily -Not able to tolerate KATHY inhibitor at this time due to hypotension -Consideration being made for ICD placement (7) CKD (chronic kidney disease) stage 4, GFR 15-29 ml/min: -He reguired dialysis after [facility] from [place] with multisystem organ failure in 08/2018 with CVVM, then had tunnel dialysis catheter placed. He was on intermittent dialysis for almost 2 months. Pt has been off hemodialysis since 11/01/18. Tunnel dialysis catheter was removed on 11/21/18. - Cr. Fairly stable and around his baseline at 1.8, electrolytes are acceptable. Volume status fairly acceptable, he is making urine - BP low normal but stable -Holding Lasix now giving IV fluids while n.p.o. for ischemic colitis as above -Follow BMP in the morning (8) Atrial fibrillation with RVR: -As above (9) Leukocytosis: - Appears to be chronically elevated since his critical illness began several months ago, at 16 K, likely reactive leukocytosis given critical illness over the last 2 to 3 months as well as iron deficiency anemia Now worsened today with new onset of ischemic colitis He also has organized pneumonia bibasilar infiltrates left greater than right on chest CT which are worse from previous-needs bronchoscopy for further evaluation and collect sputum samples -Question of intermittent aspiration? Video swallow was normal within the last month Also with retroperitoneal and intrathoracic loculated hematoma-with some inflammatory stranding around them on CT imaging-question of he has infection of his hematomas? With right groin wound tracking close to the abdomen, question if this is the source of infection? Needs further evaluation after transfer to tertiary care center for ongoing infection at these above-mentioned sites. (10) Open wound of RLQ of abdominal wall w/o penentrat into periton cavity: - Secondary to Impella insertion - Wound consulted for daily dressing changes and packing. Following with wound clinic as an outpatient. CT of the abdomen/pelvis on 12/20 shows 50% reduction in size of hematoma in the right groin Wound culture growing coagulase-negative Staphylococcus and Corynebacterium, with wound noted to be bigger and with more drainage in the last few days -Started initially on Unasyn and then switched to Zosyn and daptomycin for ischemic colitis as above -Consult infectious disease for further recommendations (11) Liver laceration: - CT a/p on 11/11 showed "12 x 7 cm complex collection posterior to the right hepatic lobe & a 4 cm defect of the posterior right hepatic lobe, along with 2 x 4 cm hematoma within the right iliopsoas vasculature." - Discussed on 11/11 with [place] vascular surgeon - He had an RP bleed in 08/2018 during his prior admission and required an embolization of his right T11 intercostal artery. Then had a drain in from 09/23 - ~10/03 to drain his RP bleed. Drain was removed. Most likely, the previously read "liver laceration" is not truly liver laceration but is from his previous retroperitoneal bleed-CT abdomen/pelvis here shows stable size Also with possible "pulmonary laceration" seen on imaging here last admission on CT of chest which our thoracic surgeon thought was part of his previous retroperitoneal bleed-repeat CT today with stable intrathoracic hematoma at the right lower lobe - Hgb is stable today at 9 Abdominal pain is not from worsening retroperitoneal hematoma but rather from ischemic colitis as above -Okay to continue aspirin and Plavix but would hold Plavix for now for upcoming surgery (12) Sarcopenia: - Albumin decreased at 2.7. -Dietary consult (13) Vocal cord dysfunction: - Due to prolonged intubation at [facility] - following with Speech as outpatient -Seen by ENT as an outpatient and started on omeprazole and Briana (14) Hematoma of groin: -Much improved based on repeat imaging on 12/20 but with tracking and evidence of infection as above -Continue antibiotics -Continue wound care (15) Thrombocytosis: Platelets improved from previous-currently in the 400s and previously in the 900s just 2 weeks ago Also likely reactive process due to extreme stress and chronic illness and iron deficiency from previous blood loss, as well as infectious pneumonia and question infection of hematomas as above -Follow CBC (16) Anemia: Iron studies consistent with anemia of chronic disease likely due to critical illness over the last several months, hemoglobin stable and not much improved from a month ago around 9, normocytic. With reactive leukocytosis and thrombocytosis, secondary to chronic inflammation -Also with retroperitoneal bleed and massive transfusion 2 months ago No evidence of ongoing bleeding at this time -Follow CBC -Start ferrous sulfate 325 mg p.o. twice daily (17) Pneumonia: With bibasilar infiltrates progressed from previous with nodularity, cough x2 months Unclear if this is an organized pneumonia? Appreciate pulmonology consultation -Started on antibiotics empirically as above May need bronchoscopy postoperatively once intubated for his upcoming bowel surgery (18) DVT prophylaxis: - Teds, aspirin, Plavix. Heparin drip Disposition-transferred urgently by [facility] to [facility] Total Time Total Time Spent Total Time Spent (In Minutes): Greater than 30 minutes Total Time Includes: Examination of the Patient, Discharge Planning, Medication Reconciliation and Communication With Other Providers (Pulmonology, cardiology, ornamental plaster sticker, general surgery, infectious disease) Discharge Plan Discharge Items Patient Disposition: Transfer Acute Care Hospital Reason For Visit: CHEST PAIN, HX OF HEART ATTACKS Discharge Diagnosis: Ischemic colitis, paroxysmal rapid atrial fibrillation Condition: Critical Discharge Goals: Decrease discomfort, Diagnostic testing, Improve disease control and Learn about illness Activity: As commented below Lifting: None Bathing: No limitations Exercise/Sports: Rest today Non-emergency contact: Primary Care Provider and Splicing Machine Operator Call non-emergency contact if: you have any medication questions and your symp toms worsen Follow-up/Referrals: Pedro Silveira MD [Primary Care Provider] - Diet: Nothing by mouth Addtl Provider Instructions: Transferred urgently to [facility] Prescriptions: New amiodarone 200 mg Tablet 200 mg PO BID Qty: 60 RF: 0 lorazepam 0.5 mg Tablet 0.5 mg PO HS PRN (Reason: sleep) Qty: 10 RF: 0 ferrous sulfate 325 mg (65 mg iron) Tablet,Delayed Release (Dr/Ec) 325 mg PO BIDM Qty: 60 RF: 0 Heparin Iv Standard With Bolus 1 ea IV Q10M Qty: 1 RF: 0 Piperacill/Tazobac Consult [Consult] 1 ea N/A UD Qty: 1 RF: 0 Continued aspirin 81 mg Tablet,Chewable 81 mg PO QAM RF: 0 clopidogrel 75 mg Tablet 75 mg PO QAM RF: 0 colchicine 0.6 mg Tablet 0.3 mg PO 2XWK RF: 0 midodrine 5 mg Tablet 5 mg PO TIDM RF: 0 furosemide 40 mg Tablet 40 mg PO QAM Qty: 30 RF: 0 metoprolol succinate 25 mg Tablet Extended Release 24 Hr 12.5 mg PO QAM Qty: 45 RF: 0 Pulmicort Flexhaler 90 mcg/actuation Aerosol Powdr Breath Activated 1 puff inhalation BID Qty: 1 RF: 0 lidocaine [Lidoderm] 5 % Adhesive Patch,Medicated 2 patch TOPICAL UD RF: 0 docusate sodium 100 mg Tablet 100 mg PO QAM RF: 0 fexofenadine [Briana Allergy] 180 mg Tablet 180 mg PO HS RF: 0 acetaminophen [Tylenol Extra Strength] 500 mg Tablet 500 mg PO Q6H PRN (Reason: Pain) RF: 0 omeprazole 20 mg capsule,delayed release(DR/EC) 20 mg PO BID RF: 0 cholecalciferol (vitamin D3) [Vitamin D3] 1,000 unit Capsule 1,000 unit PO QDL RF: 0 atorvastatin 20 mg tablet 20 mg PO HS RF: 0 Arnuity Ellipta 100 mcg/actuation blister with device 100 mcg inhalation DAILY RF: 0 Stand-Alone Forms: Call Back Authorization, [facility] Discharge Orders: Discharge Order (Routine); Ordered 12/21/18 Ordered By: Marjorie German Admission Data Admit Date/Time: 12/19/18 09:43 Attending Provider: Marjorie German Admit Provider: Constanza Yepez Primary Care Provider: Pedro Silveira Other Providers: MIKHAIL DAVIES ; Marjorie German ; Thomas Calabrese ; Micheal Vera ; Yuniel Meade ; Edwin Grey Service: Intensive Care Unit Other Pending Studies at Discharge: No
[2018-12-21 08:47] LABS: Albumin Globulin Ratio 0.6 (0.9-2); Alkaline Phosphatase 64 U/L (45-117); Bilirubin,Total 0.3 mg/dl (0.2-1); Globulin 4.3 gm/dl (2.5-4.0); Troponin I < 0.015 ng/ml (0-0.045)
--- NOTE | 2018-12-21 08:58 | Progress Note ---
DATE: 12/21/2018 PULMONARY MEDICINE PROGRESS NOTE Chart reviewed, the patient examined. SUBJECTIVE: I walked in to see the patient who complained of experiencing worsening abdominal discomfort, bloating throughout the course of the evening. He was tachypneic, pale and very uncomfortable. No true pleuritic pain noted. The pain in the abdomen was diffuse, but more accentuated in the right upper quadrant. PHYSICAL EXAMINATION: VITAL SIGNS: Blood pressure 107/74, pulse 88 and irregular, respiratory rate 20, temperature 36.8, O2 sat 99% on 2 liters. SKIN: Without lesion. HEENT: Atraumatic, normocephalic. PERRLA. LUNGS: Decreased breath sounds, right base with rales at the left base. CARDIAC: Irregularly irregular rhythm with a variable ventricular response. No obvious gallop, no obvious pulsus paradoxus by bedside exam. ABDOMEN: Diffusely tender without true rebound and slightly accentuated discomfort in the right upper quadrant. No palpable masses. The patient is distended. EXTREMITIES: No significant pedal edema, clubbing or cyanosis. NEUROLOGIC: Intact. No lateralizing signs. LABORATORY DATA: White count 16,000 yesterday, H and H 8.7 and 26.9, platelet count 476,000. BUN 27, creatinine 1.98, AST 12, albumin 2.6. Chest CT/abdominal CT scan from yesterday and repeated this morning. There is a loculated area of hemorrhage or hematoma at the right base, difficult to tell if it involves the chest wall, just pleural space or even parenchyma, but I believe it tracks down below the diaphragm to this large area of the right retroperitoneal hematoma with stranding and inflammatory changes seen involving the peritoneum is also a pericardial effusion, and progressive left basilar nodule appearing infiltrate that is worse. Other labs pending. OVERALL ASSESSMENT: A 53-year-old white male status post STEMI, acute anterior wall myocardial infarction, on 12/11/2018 was post-PCI complicated by LM dissection and cardiogenic shock with prolonged multiple intubations with a resultant ejection fraction of 25% and with obvious multivessel disease. The patient has received a great deal of blood in the remote past for retroperitoneal bleed and is currently off anticoagulant therapy receiving aspirin and Plavix. I think there is a good chance that the hematoma we seen in the right chest and retroperitoneal area are contiguous or communicating and that they were now dealing with an abscess and sepsis, certainly making his atrial fibrillation much more difficult to control. I have discussed the case with Dr. Grey, the general handling supervisor, who I have asked to see patient in consultation and discussed the care with Dr. Marjorie German. At a minimum, a drain needs to be inserted into this large hematoma to see if it is infected, which I believe it is and I suspect the patient will require additional drainage, perhaps surgical drainage laparoscopically given the appearance and the chronicity. We will be attempted to transfer the patient to [facility]'s ICU for further evaluation. I believe the nodular densities in confluence of parenchymal infiltrate, especially at the left base were the result of probable bacteremia and sepsis and potential ARDS. The patient's prognosis remains guarded.
[2018-12-21 09:01] LABS: Basophils # (auto) 0.03 K/uL (0-0.2); Basophils % (auto) 0.1 %; Echinocytes 1+; Eosinophils # (auto) 0.06 K/uL (0-0.5); Eosinophils % (auto) 0.3 %; Immature Granulocytes # (auto) 0.07 K/uL (0.00-0.02); Immature Granulocytes % (auto) 0.3 %; Lymphocytes # (auto) 0.97 K/uL (1.2-3.4); Lymphocytes % (auto) 4.1 %; Monocytes # (auto) 1.47 K/uL (0.11-0.59); Monocytes % (auto) 6.2 %; Neutrophils # (auto) 21.25 K/uL (1.4-6.5)
[2018-12-21] MEDS: MIDODRINE HCL 2.5 MG TAB PO SCH (09:01)
[2018-12-21] MEDS: NORMOSOL-R 1,000 ML IV SCH ×2 (09:01→09:12)
[2018-12-21] MEDS: DOCUSATE SODIUM 100 MG CAP PO SCH (09:01)
[2018-12-21] MEDS: AMIODARONE 200 MG TAB PO SCH (09:01)
--- NOTE | 2018-12-21 09:01 | Cardiology Progress Note ---
Date of Service December 21, 2018 Assessment & Plan (1) AMI (acute mesenteric ischemia): Per surgery and ICU team. (2) Atrial fibrillation with RVR: Continue IV amiodarone. PO amiodarone held due to impending abdominal surgery. If any recurrent atrial fibrillation with rapid ventricular response use a IV metoprolol on a p.r.n. basis. No anticoagulation given impending surgery. (3) Ischemic cardiomyopathy: Currently compensated, but echo suggests poor cardiac reserve (basal segments hyperdynamic yet LVEF only 20-25%), he has had recurrent afib/rvr, and a persistent pericardial effusion (without evidence of tamponade). During the fluid shifts and physiologic stress of major abdominal surgery for presumed ischemic bowel he may need additional LV support. Therefore, he is being transferred to [place] in anticipation of a potentially complicated perioperative course. (4) CKD (chronic kidney disease) stage 4, GFR 15-29 ml/min: Renal function stable overnight. (5) CAD (coronary artery disease), [place] coronary artery: Negative enzymes, no evidence of ongoing ischemia. (6) Hypotension: BP low normal currently. Tendency to hypotension may limit administration of vaso active medications to control his atrial fibrillation. Subjective 53-year-old man with ischemic cardiomyopathy after acute FL August 2018 with multiple complications admitted 12/19/2018 for the with epigastric discomfort and atypical palpitations (pounding in the epigastric region). Patient ruled out for myocardial ischemia by serial ECGs and enzymes, but did demonstrate paroxysmal atrial fibrillation. Treated with IV and oral amiodarone, he has fluctuated between sinus and atrial fibrillation overnight, currently in sinus rhythm at 92 bpm. He has demonstrated no cardiac symptoms during his episodes of atrial fibrillation despite rapid ventricular response (up to 150 bpm), noting no chest pain, dyspnea, lightheadedness. This morning, he developed abdominal pain. CT scan and surgical evaluation suggest ischemic bowel. Echocardiogram just performed showed EF 20-25 % with extensive wall motion abnormalities which are not new, no obvious LV thrombus on noncontrast study, moderate pericardial effusion without evidence of tamponade, moderate mitral regurgitation and [id number] tricuspid regurgitation with mild pulmonary hypertension. IVC diameter normal, no evidence of right heart volume overload. Currently, the patient is being prepared for transfer to [facility] for urgent abdominal surgery and postoperative management which will be complex given his limited cardiac reserve, pericardial effusion, recurrent atrial dysrhythmias, and complicated recent medical history Aside from abdominal pain, he had no complaints at the time my evaluation this morning. Currently, he is hemodynamically stable with no evidence for heart failure Review of Systems Respiratory: no dyspnea Cardiovascular: as per Subjective / HPI Gastrointestinal: + abdominal pain Musculoskeletal: no problem reported Neurologic: no problem reported Physical Exam Physical Exam: Appears uncomfortable and moderately distressed. Skin: No unusual lesions or ecchymosis. HEENT: Unremarkable. Neck: Jugular venous pulse just above the clavicle at 90, no carotid bruits. Lungs: Few bibasilar crackles, no wheezing, generally clear. Cardiac: Regular rhythm currently with normal S1 and S2. No obvious murmur or gallop. Abdomen: diffusely tender. Extremities: Nontender with trace pretibial edema. . Neurologic: Normal affect, nonfocal Results & Data Vital Signs (Past 12 Hours) Vital Signs Temp Pulse Pulse Resp BP BP BP 12/21/18 08:41 91 H 12/21/18 08:39 93 H 106/77 12/21/18 08:30 92 H 12/21/18 08:20 91 H 12/21/18 08:10 92 H 12/21/18 08:01 36.4 C L 93 H 107/78 12/21/18 08:00 94 H 12/21/18 07:57 95 H 118/83 12/21/18 07:56 94 H 12/21/18 07:16 88 20 107/74 12/21/18 07:05 36.8 C 88 24 106/64 12/21/18 03:50 36.5 C 82 18 95/61 L 12/20/18 23:36 37.1 C 83 20 93/59 L Pulse Ox 12/21/18 08:41 99 12/21/18 08:39 100 12/21/18 08:30 100 12/21/18 08:20 100 12/21/18 08:10 99 12/21/18 08:01 99 12/21/18 08:00 99 12/21/18 07:57 96 12/21/18 07:56 12/21/18 07:16 99 12/21/18 07:05 98 12/21/18 03:50 99 12/20/18 23:36 98 Laboratory Results Laboratory Tests 05/12/19/18 12/20/18 14:10 21:58 05:42 WBC 16.47 H Hgb 8.7 L Plt Count 476 H Sodium BUN Creatinine Troponin I < 0.015 0.020 12/20/18 12/21/18 12/21/18 05:42 05:50 08:20 WBC Hgb Plt Count Sodium 135 L 134 L BUN 27 H 27 H 26 H Creatinine 1.98 H 1.80 H 1.85 H Troponin I 12/21/18 08:28 WBC 23.85 H Hgb 9.8 L Plt Count 497 H Sodium BUN Creatinine Troponin I Diagnostic Findings CT abdomen results: 1. Interval development of a small amount of portal venous gas as well as thickening of the ascending colon and transverse colon. This is consistent with ischemic colitis. 2. No significant change in the right retroperitoneal hematoma and right basilar focal hemothorax. 3. Small to moderate pericardial effusion, unchanged. 4. Small bilateral pleural effusions, unchanged. 5. Left basilar airspace opacity consistent with a pneumonia. 6. These findings were discussed with Dr. Grey at 8:00 AM on 12/21/2018.
[2018-12-21] MEDS: PANTOprazole 40 MG TAB PO SCH (09:05)
[2018-12-21] MEDS: METOPROLOL SUCC 25MG EXT REL TAB PO SCH (09:05)
[2018-12-21] MEDS: BUDESONIDE 90 MCG INH INH SCH (09:06)
[2018-12-21] MEDS: LIDOCAINE 5% 1 PATCH TD SCH (09:06)
--- NOTE | 2018-12-21 09:07 | Surgery Consultation ---
Date of Consultation December 21, 2018 Assessment & Plan (1) Abdominal pain: Patient seen and examined with Dr. Anderson. Recent labwork, imaging, provider consultations and notes reviewed. Patient has a multitude of health issues- Ischemic colitis, rapid atrial fibrillation, pericardial effusion, pneumonia. He is a high risk surgical candidate. At this time, recommend that patient be transferred to [facility] for evaluation for possible surgical intervention. Currently, patient is stable for transfer. Treatment plan discussed with patient and patient verbalized understanding and agreement with treatment plan. History of Present Illness Reason for Consultation: Worsening abdominal pain, possible ischemic colitis. Attending Physician: Marjorie German MD History of Present Illness History obtained from patient, Dr. Marjorie German, and Dr. Edwin Grey. Mr. Rivera is a 53-year-old male who sustained an anterior STEMI on 09/02/2018 requiring PTCI. During the procedure, dissection was noted of the LM, which was repaired. The patient developed cardiogenic shock and required placement of Impella device. Patient was transferred to [facility]'s ICU. Mr. Rivera was hospitalized at [facility] for 50 days. During the 50 days, patient had ECMO placed in the right groin. He suffered acute renal failure that required central veno-venous hemofiltration. He was eventually able to transition to dialysis. In addition to renal failure, patient suffered pericardial effusion with resultant tamponade that did require pericardiocentesis. Patient also suffered a spontaneous retroperitoneal bleed with abdominal compression syndrome undergoing intercostal choroidal embolization of right T 11 intercostal artery. After the 50 day hospital stay, patient was transferred to [facility] for 2 weeks. From 11/05-11/17/2018- patient was readmitted to [facility] for evaluation of swelling of the right groin. The right groin was opened surgically (Dr. Gleason) and evaluated. There was a large size hematoma that was evacuated and washed out no obvious signs of bleeding from the arterial site. During his stay, patient was found to have a liver laceration (11/11)- did not require surgical intervention. The patient was discharged on 11/17/2018 back to [facility]. Patient was discharged to home from [facility] approximately 3 weeks ago. Patient reports that he was doing well until he developed chest pain 2 days ago and came to the ED for evaluation. Patient developed abdominal pain late yesterday, which has increased overnight. CT scan was ordered this AM which shows: 1. Interval development of a small amount of portal venous gas as well as thickening of the ascending colon and transverse colon. This is consistent with ischemic colitis. 2. No significant change in the right retroperitoneal hematoma and right basilar focal hemothorax. 3. Small to moderate pericardial effusion, unchanged. 4. Small bilateral pleural effusions, unchanged. 5. Left basilar airspace opacity consistent with a pneumonia. Dr. Grey personally called Dr. Anderson to evaluate patient. Allergies Allergy/AdvReac Type Severity Reaction Status Date / Time cefepime Allergy Intermediate Rash Verified 12/19/18 08:24 vancomycin Allergy Intermediate Rash Verified 12/19/18 08:24 Home Medications Home Medications Medication Instructions Recorded Confirmed Type aspirin 81 mg PO QAM 11/05/18 12/19/18 History clopidogrel 75 mg PO QAM 11/05/18 12/19/18 History colchicine 0.3 mg PO 2XWK 11/05/18 12/19/18 History midodrine 5 mg PO TIDM 11/05/18 12/19/18 History Pulmicort Flexhaler 1 puff INHALATION BID #1 ea 11/17/18 12/19/18 Rx furosemide 40 mg PO QAM #30 tab 11/17/18 12/19/18 Rx metoprolol succinate 12.5 mg PO QAM #45 tab 11/17/18 12/19/18 Rx lidocaine [Lidoderm] 2 patch TOPICAL UD 11/21/18 12/19/18 History docusate sodium 100 mg PO QAM 12/08/18 12/19/18 History acetaminophen [Tylenol Extra 500 mg PO Q6H PRN 12/19/18 12/19/18 History Strength] atorvastatin 20 mg PO HS 12/19/18 12/19/18 History cholecalciferol (vitamin D3) 1,000 unit PO QDL 12/19/18 12/19/18 History [Vitamin D3] fexofenadine [Briana Allergy] 180 mg PO HS 12/19/18 12/19/18 History fluticasone furoate [Arnuity 100 mcg INHALATION DAILY 12/19/18 12/19/18 History Ellipta] omeprazole 20 mg PO BID 12/19/18 12/19/18 History Heparin IV Standard WITH Bolus 1 ea IV Q10M #1 bag 12/21/18 Rx Piperacill/Tazobac Consult 1 ea N/A UD #1 bag 12/21/18 Rx [Consult] amiodarone 200 mg PO BID #60 tab 12/21/18 Rx ferrous sulfate 325 mg PO BIDM #60 tab 12/21/18 Rx lorazepam 0.5 mg PO HS PRN #10 tab 12/21/18 Rx Patient History Medical History History of atrial fibrillation (Acute) Hx of pleural effusion (Acute) Anemia CAD (coronary artery disease) Cardiogenic shock Chronic systolic CHF (congestive heart failure) Hx of extracorporeal membrane oxygenation treatment Hypotension Ischemic cardiomyopathy Myocardial infarct STEMI (ST elevation myocardial infarction) 09/02/2018--heart cath with stents placed Surgical History History of thoracentesis (Acute) Hx of heart artery stent (Acute) 2 stents History of cardiac cath 09/02/2018 with stents placed @ [facility], follows with Dr. 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 Beliefs That Will Affect Care: None marital status: Life Partner Current Living Situation: Significant Other Current Living Situation Comment: "LIVES WITH SOMEONE" current occupational status: employed Other Information That Helps Us Care for You: No Feels Safe at Home: Yes Safety Concerns: Feels Safe At This Time Smoking Status: Never smoker Do You Dip or Chew Tobacco: No Second Hand Exposure: No Tobacco Cessation Education Requested by Patient: No Hx Alcohol Use: Yes Alcohol type: wine Hx Substance Use: No Physical Exam Gastrointestinal (Abdomen): Percussion/Palpation: + abdomen tender and + guarding patient has generalized tenderness in his abdomen, has guarding especially in right upper quadrant. Results & Data Vital Signs (Past 12 Hours) Vital Signs Temp Pulse Pulse Resp BP BP BP 12/21/18 08:41 91 H 12/21/18 08:39 93 H 106/77 12/21/18 08:30 92 H 12/21/18 08:20 91 H 12/21/18 08:10 92 H 12/21/18 08:01 36.4 C L 93 H 107/78 12/21/18 08:00 94 H 12/21/18 07:57 95 H 118/83 12/21/18 07:56 94 H 12/21/18 07:16 88 20 107/74 12/21/18 07:05 36.8 C 88 24 106/64 12/21/18 03:50 36.5 C 82 18 95/61 L 12/20/18 23:36 37.1 C 83 20 93/59 L Pulse Ox 12/21/18 08:41 99 12/21/18 08:39 100 12/21/18 08:30 100 12/21/18 08:20 100 12/21/18 08:10 99 12/21/18 08:01 99 12/21/18 08:00 99 12/21/18 07:57 96 12/21/18 07:56 12/21/18 07:16 99 12/21/18 07:05 98 12/21/18 03:50 99 12/20/18 23:36 98
[2018-12-21] MEDS ORDERED: HEPARIN IV BOLUS 6,000 UNITS in SYRINGE 0 ML IV ONE (09:15)
[2018-12-21] MEDS ORDERED: Heparin Adult STANDARD Wt-Based Dextrose 5% 25,000 units/500 mL IV SCH (09:15)
[2018-12-22] MEDS ORDERED: COLCHICINE 0.6 MG TAB PO SCH (09:00)
== END 2018-12-21 10:19 | disposition short-term general hospital (02) | DRG 393 ==
LOC: ED 07:48 → 2S 09:43 → 1E 12-21 07:50
DX: I31.3 Pericardial effusion (noninflammatory); I50.22 Chronic systolic (congestive) heart failure; I48.0 Paroxysmal atrial fibrillation; J38.3 Other diseases of vocal cords; K55.059 Acute (reversible) ischemia of intestine, part and extent unspecified; S31.109D Unspecified open wound of abdominal wall, unspecified quadrant without penetration into peritoneal cavity, subsequent encounter; N18.4 Chronic kidney disease, stage 4 (severe); J18.9 Pneumonia, unspecified organism; Y92.239 Unspecified place in hospital as the place of occurrence of the external cause; I25.5 Ischemic cardiomyopathy; Z82.49 Family history of ischemic heart disease and other diseases of the circulatory system; Y71.2 Prosthetic and other implants, materials and accessory cardiovascular devices associated with adverse incidents; Z79.02 Long term (current) use of antithrombotics/antiplatelets; I25.10 Atherosclerotic heart disease of native coronary artery without angina pectoris; Z95.5 Presence of coronary angioplasty implant and graft; I21.09 ST elevation (STEMI) myocardial infarction involving other coronary artery of anterior wall; I25.2 Old myocardial infarction; Y84.8 Other medical procedures as the cause of abnormal reaction of the patient, or of later complication, without mention of misadventure at the time of the procedure

== ENCOUNTER 2021-05-10 12:31 | Inpatient (IN) ==
--- NOTE | 2021-05-10 15:30 | Emergency Department Note ---
History of Present Illness General Chief complaint: Elbow Injury/Pain Stated complaint: SWOLLEN LEFT ELBOW AND ARM Time Seen by Provider: 05/10/21 15:15 History of Present Illness Maximum Pain Intensity: 2 This is a 55-year-old male with a complex and extensive past medical history the presents to the emergency department via private vehicle with complaints of "swollen left elbow and arm". The patient notes that he began with some minor discomfort to the left olecranon region over the past few days. No known trauma or injury. He now notes edema and as of today erythema overlying the left posterior elbow region. Current pain 10/05. He denies any fever, chills, nausea, vomiting, chest pain or shortness of breath. He is right-hand dominant. Patient currently on Eliquis and Plavix and has been compliant with these medications. He has been on these medications for several years. He has never had this happen previously. Home Medications Medication Instructions Recorded Confirmed Type cholecalciferol (vitamin D3) 25 1,000 unit PO QAM cap 12/30/18 05/10/21 History mcg (1,000 unit) capsule (Vitamin D3) benzonatate 100 mg capsule 100 mg PO TID PRN #90 cap 07/07/19 05/10/21 Rx (Vargas Zhang) metoprolol succinate 25 mg 25 mg PO QPM tab 03/28/20 05/10/21 History tablet,extended release 24 hr apixaban 5 mg tablet (Eliquis) 5 mg PO BID 05/30/20 05/10/21 History clopidogrel 75 mg tablet 75 mg PO DAILY 05/30/20 05/10/21 History lisinopril 5 mg tablet 5 mg PO DAILY #90 tab 05/30/20 05/10/21 Rx atorvastatin 40 mg tablet 40 mg PO DAILY #90 tab 07/26/20 05/10/21 Rx Allergies Allergy/AdvReac Type Severity Reaction Status Date / Time cefepime Allergy Intermediate Rash Verified 05/10/21 14:39 vancomycin Allergy Intermediate Rash Verified 05/10/21 14:39 Past Med/Surg History Medical History Acute [place] Anemia CAD (coronary artery disease) Cardiogenic shock Chronic systolic CHF (congestive heart failure) Hematoma of groin History of atrial fibrillation Hx of extracorporeal membrane oxygenation treatment Hx of pleural effusion Hypotension Ischemic cardiomyopathy Myocardial infarct Stage 3b chronic kidney disease Stage 3b chronic kidney disease STEMI (ST elevation myocardial infarction) 09/02/2018--heart cath with stents placed Vitamin D deficiency Surgical History H/O right inguinal hernia repair (04/19/20) Right Open Inguinal Hernia Repair with Mesh Dr. Herman 04/19/20 History of cardiac cath 09/02/2018 with stents placed @ [facility], follows with Dr. Gabriel History of colonoscopy History of hernia repair 03/2020 [facility] History of thoracentesis History of tooth extraction Hx of angioplasty Hx of heart artery stent 2 stents Hx of LASIK ICD (implantable cardioverter-defibrillator) in place S/P vascular surgery Status post insertion of hemodialysis catheter removed--no longer has Status post insertion of percutaneous endoscopic gastrostomy (PEG) tube Status post pericardiocentesis Family History Mother Coronary heart disease Hypertension Cardiac disorder Father Alcohol abuse Unknown Myocardial infarction Cardiac disorder Other No family history of adverse response to anesthesia Social History Smoking Status: Never smoker Second Hand Exposure: No; Do You Dip or Chew Tobacco: No; Hx Alcohol Use: Yes Alcohol type: wine Alcohol Intake Frequency: Monthly or L ess Hx Substance Use: No Preferred Language: Kittitian Communication Ability: Effective Visual Impairment: No Limitations Hearing Ability: Normal [employer] Required: No Beliefs That Will Affect Care: None marital status: Current Living Situation: Significant Other Current Living Situation Comment: "LIVES WITH SOMEONE" current occupational status: employed current occupation: [employer] How many Children do You have: 0 Other Information That Helps Us Care for You: No Feels Safe at Home: Yes Safety Concerns: Feels Safe At This Time Childhood Exposure to Second-Hand Smoke: No Dental Care, Regularly: Yes Physical Activity Frequency: Daily Seatbelt Use: always Sunscreen Use: Yes Assistive Devices: None Review of Systems A total of 10 systems reviewed and were otherwise negative Physical Exam Vital Signs Vital Signs - 24 hr 05/10/21 13:25 05/10/21 15:41 Temperature 36.6 C Temperature Source Temporal Artery Scan Pulse Rate 77 Pulse Rate [Finger] 67 Respiratory Rate 18 16 Respiratory Effort / Characteristics Non-Labored Spontaneous Respiratory Depth Normal Blood Pressure 126/84 Blood Pressure [Right Arm] 121/78 Blood Pressure Mean 98 Blood Pressure Mean [Right Arm] 92 Blood Pressure Position Sitting Pulse Oximetry 97 100 Oxygen Delivery Method Room Air Room Air Sepsis Recent Fever Within 48 Hours No Sepsis New/Unexplained Change in Mental Status N/A Sepsis Action Taken by Nursing No Action Required VITAL SIGNS - Vital signs and nursing notes were reviewed. Stable and afebrile. GENERAL -55-year-old male appearing his stated age who is in no acute distress. Communicates well with provider and answers questions appropriately. SKIN -diffuse erythema within the soft tissue overlying the left olecranon region. There is edema to the left olecranon bursa region. No break in the integument. No fluctuance to palpation. HEAD - NC/AT. EYES - PERRL with EOMI bilaterally. Sclera anicteric. LUNGS - Chest wall symmetric without accessory muscle use, intercostals retractions, or central cyanosis. Normal vesicular breath sounds CTA B/L. No wheezes, rales, or rhonchi appreciated. CARDIAC - RRR with S1/S2. No murmur, rubs, or gallops appreciated. EXTREMITIES - No clubbing or peripheral cyanosis. Skin as above. There is mild tenderness palpation overlying the left olecranon region. Right upper extremity within normal limits. Left radial pulse intact. +5/5 strength noted in UE/LE bilaterally. NEUROLOGIC - Cranial nerves II through XII grossly intact. PSYCH - A&Ox3 and cooperates fully with examiner. Pt is very pleasant and interacts well with examiner. Course Administered Medications Apixaban (Apixaban 5 Mg Tablet) 5 mg PO BID JIMMY Stop: 06/09/21 20:59 Last Admin: 05/10/21 21:37 Dose: 5 mg Documented by: [id number] Metoprolol Succinate (Metoprolol Succ 25mg Ext Rel Tab) 25 mg PO QPM JIMMY Stop: 06/09/21 20:59 Last Admin: 05/10/21 21:38 Dose: 25 mg Documented by: [id number] Discontinued Medications Daptomycin 300 mg/ Syringe 6 mls @ 3 mls/min IV NOW ONE; Protocol Stop: 05/10/21 17:03 Last Admin: 05/10/21 19:58 Dose: 3 mls/min Documented by: [id number] Lidocaine/Epinephrine (Lido/Epinephrine/Sod Bicarb 20 Ml Vial) 20 ml INFIL NOW ONE Stop: 05/10/21 16:04 Last Admin: 05/10/21 17:01 Dose: Not Given Documented by: [id number] Lisinopril (Lisinopril 5 Mg Tab) 5 mg PO NOW ONE Stop: 05/10/21 21:01 Last Admin: 05/10/21 21:38 Dose: 5 mg Documented by: [id number] Medical Decision Making Laboratory Data Result diagrams: 05/10/21 15:43 05/10/21 15:43 Lab Results 05/10/21 05/10/21 05/10/21 Range/Units 15:43 15:43 15:43 WBC 12.58 H (4.8-10.8) K/uL RBC 4.58 L (4.7-6.1) M/uL Hgb 14.1 (14.0-18.0) g/dL Hct 41.1 L (42-52) % MCV 89.7 (80-100) fL MCH 30.8 (25-34) pg MCHC 34.3 (32-36) g/dL RDW Std Deviation 42.1 (36.4-46.3) fL RDW Coeff of Luna 12.8 (11.5-14.5) % Plt Count 264 (130-400) K/uL MPV 10.9 H (7.4-10.4) fL Immature Gran % (Auto) 0.2 % Neut % (Auto) 76.9 % Lymph % (Auto) 9.5 % [place] % (Auto) 11.8 % Eos % (Auto) 1.4 % Baso % (Auto) 0.2 % Neut # (Auto) 9.68 H (1.4-6.5) K/uL Lymph # (Auto) 1.19 L (1.2-3.4) K/uL [place] # (Auto) 1.49 H (0.11-0.59) K/uL Eos # (Auto) 0.17 (0-0.5) K/uL Baso # (Auto) 0.03 (0-0.2) K/uL Immature Gran # (Auto) 0.02 (0.00-0.02) K/uL ESR 42 H (0-20) mm/hr PT 10.7 (9.0-12.0) Seconds INR 1.1 (0.9-1.1) APTT 34.2 H (21.0-31.0) Seconds PTT Ratio 1.3 Sodium (136-145) mmol/L Potassium (3.5-5.1) mmol/L Chloride (98-107) mmol/L Carbon Dioxide (21-32) mmol/L Anion Gap (3-11) BUN (7-18) mg/dl Creatinine (0.6-1.4) mg/dl Est Cr Clr Drug Dosing ml/min Est GFR ( Amer) ml/min Est GFR (Non-Af Amer) ml/min BUN/Creatinine Ratio (10-20) Glucose (70-99) mg/dl Lactate (0.4-2.0) mmol/L Calcium (8.5-10.1) mg/dl Total Bilirubin (0.2-1) mg/dl AST (15-37) U/L ALT (12-78) U/L Alkaline Phosphatase (45-117) U/L C-Reactive Protein (0-0.29) mg/dl Total Protein (6.4-8.2) gm/dl Albumin (3.4-5.0) gm/dl Globulin (2.5-4.0) gm/dl Albumin/Globulin Ratio (0.9-2) Procalcitonin (0-0.5) ng/ml COVID-19 Eval Order SARS-CoV-2 (PCR) (Negative) 05/10/21 05/10/21 05/10/21 Range/Units 15:43 15:43 15:51 WBC (4.8-10.8) K/uL RBC (4.7-6.1) M/uL Hgb (14.0-18.0) g/dL Hct (42-52) % MCV (80-100) fL MCH (25-34) pg MCHC (32-36) g/dL RDW Std Deviation (36.4-46.3) fL RDW Coeff of Luna (11.5-14.5) % Plt Count (130-400) K/uL MPV (7.4-10.4) fL Immature Gran % (Auto) % Neut % (Auto) % Lymph % (Auto) % [place] % (Auto) % Eos % (Auto) % Baso % (Auto) % Neut # (Auto) (1.4-6.5) K/uL Lymph # (Auto) (1.2-3.4) K/uL [place] # (Auto) (0.11-0.59) K/uL Eos # (Auto) (0-0.5) K/uL Baso # (Auto) (0-0.2) K/uL Immature Gran # (Auto) (0.00-0.02) K/uL ESR (0-20) mm/hr PT (9.0-12.0) Seconds INR (0.9-1.1) APTT (21.0-31.0) Seconds PTT Ratio Sodium 138 (136-145) mmol/L Potassium 4.3 (3.5-5.1) mmol/L Chloride 108 H (98-107) mmol/L Carbon Dioxide 23 (21-32) mmol/L Anion Gap 7.0 (3-11) BUN 32 H (7-18) mg/dl Creatinine 1.39 (0.6-1.4) mg/dl Est Cr Clr Drug Dosing 67.7 ml/min Est GFR ( Amer) 65.2 ml/min Est GFR (Non-Af Amer) 56.3 ml/min BUN/Creatinine Ratio 22.7 H (10-20) Glucose 97 (70-99) mg/dl Lactate 0.9 (0.4-2.0) mmol/L Calcium 9.6 (8.5-10.1) mg/dl Total Bilirubin 0.7 (0.2-1) mg/dl AST 20 (15-37) U/L ALT 43 (12-78) U/L Alkaline Phosphatase 51 (45-117) U/L C-Reactive Protein 9.31 H (0-0.29) mg/dl Total Protein 7.7 (6.4-8.2) gm/dl Albumin 3.8 (3.4-5.0) gm/dl Globulin 3.9 (2.5-4.0) gm/dl Albumin/Globulin Ratio 1.0 (0.9-2) Procalcitonin 0.08 (0-0.5) ng/ml COVID-19 Eval Order SARS-CoV-2 (PCR) (Negative) 05/10/21 05/10/21 Range/Units 17:20 17:20 WBC (4.8-10.8) K/uL RBC (4.7-6.1) M/uL Hgb (14.0-18.0) g/dL Hct (42-52) % MCV (80-100) fL MCH (25-34) pg MCHC (32-36) g/dL RDW Std Deviation (36.4-46.3) fL RDW Coeff of Luna (11.5-14.5) % Plt Count (130-400) K/uL MPV (7.4-10.4) fL Immature Gran % (Auto) % Neut % (Auto) % Lymph % (Auto) % [place] % (Auto) % Eos % (Auto) % Baso % (Auto) % Neut # (Auto) (1.4-6.5) K/uL Lymph # (Auto) (1.2-3.4) K/uL [place] # (Auto) (0.11-0.59) K/uL Eos # (Auto) (0-0.5) K/uL Baso # (Auto) (0-0.2) K/uL Immature Gran # (Auto) (0.00-0.02) K/uL ESR (0-20) mm/hr PT (9.0-12.0) Seconds INR (0.9-1.1) APTT (21.0-31.0) Seconds PTT Ratio Sodium (136-145) mmol/L Potassium (3.5-5.1) mmol/L Chloride (98-107) mmol/L Carbon Dioxide (21-32) mmol/L Anion Gap (3-11) BUN (7-18) mg/dl Creatinine (0.6-1.4) mg/dl Est Cr Clr Drug Dosing ml/min Est GFR ( Amer) ml/min Est GFR (Non-Af Amer) ml/min BUN/Creatinine Ratio (10-20) Glucose (70-99) mg/dl Lactate (0.4-2.0) mmol/L Calcium (8.5-10.1) mg/dl Total Bilirubin (0.2-1) mg/dl AST (15-37) U/L ALT (12-78) U/L Alkaline Phosphatase (45-117) U/L C-Reactive Protein (0-0.29) mg/dl Total Protein (6.4-8.2) gm/dl Albumin (3.4-5.0) gm/dl Globulin (2.5-4.0) gm/dl Albumin/Globulin Ratio (0.9-2) Procalcitonin (0-0.5) ng/ml COVID-19 Eval Order Covid19 at [facility] SARS-CoV-2 (PCR) NEGATIVE (Negative) Imaging Data Radiologist's Impression: Elbow X-Ray 05/10/21 15:26 LEFT ELBOW 3 VIEWS CLINICAL HISTORY: Soft tissue swelling. FINDINGS: 3 views of the left elbow are obtained. No prior studies are available for comparison at the time of dictation. The skeletal structures are well mineralized. No fracture is seen. The joint spaces are maintained. There is no joint effusion. There is marked dorsal soft tissue edema overlying the olecranon process. No soft tissue gas or radiodense foreign body is identified. IMPRESSION: 1. No osseous abnormality is identified. 2. There is significant soft tissue edema overlying the olecranon process. Correlate clinically for evidence of olecranon bursitis. Electronically signed by: Loyd Ennis M.D. 05/10/2021 3:54 PM MDM Narrative Patient was seen and evaluated as above in room C05. Review was performed of nursing notes and vital signs. I did review pertinent previous visits and patient history. After obtaining a thorough history and physical examination the above work up was performed. Patient presents to us today with atraumatic left elbow discomfort overlying the left olecranon. Clinically he has what appears to be olecranon bursitis with a fair amount of edema and erythema overlying the left olecranon. Options of care were discussed with the patient. IV access was established. Labs were drawn. Labs reveal leukocytosis 12.58. No concerning anemia. ESR and CRP are elevated. Pro-Jeremie within normal range. Lactic normal. Blood cultures pending. Aspiration culture pending from the bursa. Given the patient's comorbidities and speed of progression it is felt that further evaluation and management the inpatient setting is warranted. Daptomycin was ordered noting his allergies. Case discussed with the hospitalist. Please refer to further documentation regarding his stay. Case was discussed with the attending physician. GCS: 15 PROCEDURE: Left olecranon bursa aspiration. The indication is suspected olecranon bursitis. Consent was obtained. Benefit versus risk discussed. Area was prepped with Betadine. Area was sterilely draped. I offered to anesthetize however at this time patient amenable to proceeding without anesthetization. An 18-gauge needle was utilized to aspirate the bursa without difficulty. Small amount amount of fluid was obtained and sent for analysis. Patient tolerated this well. Only a few drops of blood present after removing the needle. Bandage applied. No progressive or expansive edema post procedure. Impression & Plan Infection of left olecranon bursa Discharge Plan Visit Data Chief Complaint: Elbow Injury/Pain Stated Complaint: SWOLLEN LEFT ELBOW AND ARM ED Provider: Renate Yee ED Midlevel Provider: Kaleb Heaton Discharge Problem: Infection of left olecranon bursa Patient Disposition: Admitted As Inpatient Condition: Good Discharge Instructions Interventions: ED Discharge Assessment Last Done: 05/10/21 20:11
[2021-05-10 15:54] LABS: Basophils # (auto) 0.03 K/uL (0-0.2); Basophils % (auto) 0.2 %; Eosinophils # (auto) 0.17 K/uL (0-0.5); Eosinophils % (auto) 1.4 %; Hematocrit (blood only) 41.1 % (42-52); Hemoglobin 14.1 g/dL (14.0-18.0); Immature Granulocytes # (auto) 0.02 K/uL (0.00-0.02); Immature Granulocytes % (auto) 0.2 %; Lymphocytes # (auto) 1.19 K/uL (1.2-3.4); Lymphocytes % (auto) 9.5 %; Mean Corpuscular Hemoglobin 30.8 pg (25-34); Mean Corpuscular Hgb Conc 34.3 g/dL (32-36); Mean Corpuscular Volume 89.7 fL (80-100); Mean Platelet Volume 10.9 fL (7.4-10.4); Monocytes # (auto) 1.49 K/uL (0.11-0.59); Monocytes % (auto) 11.8 %; Neutrophils # (auto) 9.68 K/uL (1.4-6.5); Neutrophils % (auto) 76.9 %; Platelet Count 264 K/uL (130-400); RDW Coefficient of Variation 12.8 % (11.5-14.5); RDW Standard Deviation 42.1 fL (36.4-46.3); Red Blood Count 4.58 M/uL (4.7-6.1); White Blood Count 12.58 K/uL (4.8-10.8)
--- NOTE | 2021-05-10 15:56 | XRay Report ---
LEFT ELBOW 3 VIEWS CLINICAL HISTORY: Soft tissue swelling. FINDINGS: 3 views of the left elbow are obtained. No prior studies are available for comparison at th e time of dictation. The skeletal structures are well mineralized. No fracture is seen. The joint spa lizandro are maintained. There is no joint effusion. There is marked dorsal soft tissue edema overlying th e olecranon process. No soft tissue gas or radiodense foreign body is identified. IMPRESSION: 1. No osseous abnormality is identified. 2. There is significant soft tissue edema overlying the olecranon process. Correlate clinically for e vidence of olecranon bursitis. Electronically signed by: Loyd Ennis M.D. 05/10/2021 3:54 PM
[2021-05-10 16:05] LABS: INR 1.1 (0.9-1.1); Partial Thromboplastin Ratio 1.3; Partial Thromboplastin Time 34.2 Seconds (21.0-31.0); Prothrombin Time 10.7 Seconds (9.0-12.0)
[2021-05-10 16:10] LABS: Albumin Level 3.8 gm/dl (3.4-5.0); BUN Creatinine Ratio 22.7 (10-20); C Reactive Protein 9.31 mg/dl (0-0.29); Calcium 9.6 mg/dl (8.5-10.1); Creatinine Clr Calc Pharmacy 67.7 ml/min; Est GFR (African American) 65.2 ml/min; Est GFR (Non-African American) 56.3 ml/min; Potassium 4.3 mmol/L (3.5-5.1)
[2021-05-10 16:13] LABS: Bilirubin,Total 0.7 mg/dl (0.2-1); Globulin 3.9 gm/dl (2.5-4.0); Total Protein 7.7 gm/dl (6.4-8.2)
[2021-05-10] MEDS: LIDO/EPINEPHRINE/SOD BICARB 20 ML VIAL INFIL ONE ×2 (16:29→17:01)
[2021-05-10] MEDS ORDERED: DAPTOmycin 300 MG in SYRINGE 0 ML IV ONE (17:02)
--- NOTE | 2021-05-10 17:33 | History & Physical Report ---
Date of Service May 10, 2021 Assessment & Plan (1) Infection of left olecranon bursa: Plan: Admit to general medical bed Patient was started on daptomycin in the emergency room as he is allergic to cefepime and vancomycin. I will continue this for now pending fluid studies and culture. Check blood cultures. We will ask orthopedics to see for further recommendations. Tylenol as needed, can use Toradol IV for pain if needed (2) CAD (coronary artery disease), tetlin coronary artery: Plan: Continue outpatient regimen which includes metoprolol succinate, aspirin/Plavix, lisinopril, and atorvastatin (3) Paroxysmal atrial fibrillation: Plan: Patient is currently rate controlled normal sinus rhythm. I do see he is on Eliquis 5 mg twice daily which we will continue (4) CKD (chronic kidney disease) stage 4, GFR 15-29 ml/min: Plan: Renal function appears to be better than previous documented results dating back to at least 2019. Continue to monitor (5) Asthma: Plan: No medications for this, continue to monitor. Expressing no respiratory complaints History of Present Illness Chief Complaint: Left elbow pain Primary Care Provider: Pedro Silveira MD This is a 55-year-old male with past medical history of coronary artery disease, status post [place] in the past with a prolonged hospitalization, CKD, and asthma that presents today with left elbow pain. Patient is pleasant a good historian. Patient states that over the past few days he has noted some worsening redness and pain in his left elbow over the olecranon process. This initially started swelling and then proceeded to some erythema around the area. The area is very tender. He denies any systemic symptoms such as fever, chills, nausea, vomiting, diarrhea, constipation, abdominal pain, or chest pain. Patient was seen in the emergency room, work-up was negative for any process in the joint itself per imaging. The bursa was aspirated by the PA-Demetrius in the emergency room with a minimal amount of fluid. Patient is now being referred to us for admission. Patient appears to be in no distress. He is unclear how this occurred, he does not recall any trauma to his arm prior to symptoms. Patient is otherwise stable. Allergies Allergy/AdvReac Type Severity Reaction Status Date / Time cefepime Allergy Intermediate Rash Verified 05/10/21 14:39 vancomycin Allergy Intermediate Rash Verified 05/10/21 14:39 Home Medications Medication Instructions Recorded Confirmed Type cholecalciferol (vitamin D3) 25 1,000 unit PO QAM cap 12/30/18 05/10/21 History mcg (1,000 unit) capsule (Vitamin D3) benzonatate 100 mg capsule 100 mg PO TID PRN #90 cap 07/07/19 05/10/21 Rx (Vargas Zhang) metoprolol succinate 25 mg 25 mg PO QPM tab 03/28/20 05/10/21 History tablet,extended release 24 hr apixaban 5 mg tablet (Eliquis) 5 mg PO BID 05/30/20 05/10/21 History clopidogrel 75 mg tablet 75 mg PO DAILY 05/30/20 05/10/21 History lisinopril 5 mg tablet 5 mg PO DAILY #90 tab 05/30/20 05/10/21 Rx atorvastatin 40 mg tablet 40 mg PO DAILY #90 tab 07/26/20 05/10/21 Rx Past Med/Surg History Medical History Acute [place] Anemia CAD (coronary artery disease) Cardiogenic shock Chronic systolic CHF (congestive heart failure) Hematoma of groin History of atrial fibrillation Hx of extracorporeal membrane oxygenation treatment Hx of pleural effusion Hypotension Ischemic cardiomyopathy Myocardial infarct Stage 3b chronic kidney disease Stage 3b chronic kidney disease STEMI (ST elevation myocardial infarction) 09/02/2018--heart cath with stents placed Vitamin D deficiency Surgical History H/O right inguinal hernia repair (04/19/20) Right Open Inguinal Hernia Repair with Mesh Dr. Herman 04/19/20 History of cardiac cath 09/02/2018 with stents placed @ [facility], follows with Dr. Gabriel History of colonoscopy History of hernia repair 03/2020 [facility] [place] of thoracentesis History of tooth extraction Hx of angioplasty Hx of heart artery stent 2 stents Hx of LASIK ICD (implantable cardioverter-defibrillator) in place S/P vascular surgery Status post insertion of hemodialysis catheter removed--no longer has Status post insertion of percutaneous endoscopic gastrostomy (PEG) tube Status post pericardiocentesis Family History Mother Coronary heart disease Hypertension Cardiac disorder Father Alcohol abuse Unknown Myocardial infarction Cardiac disorder Other No family history of adverse response to anesthesia Social History Smoking Status: Never smoker Second Hand Exposure: No; Hx Alcohol Use: Yes Alcohol type: wine Alcohol Intake Frequency: Monthly or Less Hx Substance Use: No Preferred Language: Syriac Communication Ability: Effective Visual Impairment: No Limitations Hearing Ability: Normal Phlebotomy Specialist Required: No Beliefs That Will Affect Care: None marital status: Current Living Situation: Significant Other Current Living Situation Comment: "LIVES WITH SOMEONE" current occupational status: employed current occupation: [employer] How many Children do You have: 0 Feels Safe at Home: Yes Childhood Exposure to Second-Hand Smoke: No Dental Care, Regularly: Yes Physical Activity Frequency: Daily Seatbelt Use: always Sunscreen Use: Yes Assistive Devices: None Review of Systems Constitutional: no fever, no chills, no weakness, no weight loss and no weight gain Eyes: as per Subjective / HPI Respiratory: no cough, no chest congestion, no dyspnea and no dyspnea on exertion Cardiovascular: no chest pain, no orthopnea, no palpitations, no lightheadedness and no edema Gastrointestinal: no abdominal pain, no nausea, no vomiting, no constipation and no diarrhea/loose stools Musculoskeletal: + joint pain, + stiffness and + problem reported; no back pain, no neck pain and no myalgia Integumentary: no rash Neurologic: no gait abnormality, no unsteadiness, no falls and no generalized weakness Physical Exam Constitutional: cooperative; no acute distress Neck: trachea midline, no thyromegaly Respiratory: normal respiratory effort Auscultation: lungs clear to auscultation bilaterally; no crackles, no rales, no rhonchi and no wheezes Cardiovascular: Rate/Rhythm: regular rate and regular rhythm Heart Sounds: normal S1 and normal S2 Gastrointestinal (Abdomen): Inspection/Auscultation: abdomen normal to inspection Percussion/Palpation: abdomen soft; abdomen nontender, no guarding, abdomen not rigid and no hepatosplenomegaly Musculoskeletal: Left olecranon bursa erythematous/edematous and boggy. Small wound from needle aspiration. Extensive erythema tracking both up and down the posterior of the arm. No other wound or drainage noted. Skin: no rashes, warm and dry Results & Data Results & Data ([facility]) Vital Signs (Past 12 Hours) Vital Signs Temp Pulse Pulse Resp BP BP Pulse Ox 05/10/21 15:41 67 16 121/78 100 05/10/21 13:25 36.6 C 77 18 126/84 97 Laboratory Results Laboratory Results WBC 12.58 K/uL (4.8-10.8) H 05/10/21 15:43 RBC 4.58 M/uL (4.7-6.1) L 05/10/21 15:43 Hgb 14.1 g/dL (14.0-18.0) 05/10/21 15:43 Hct 41.1 % (42-52) L 05/10/21 15:43 MCV 89.7 fL (80-100) 05/10/21 15:43 MCH 30.8 pg (25-34) 05/10/21 15:43 MCHC 34.3 g/dL (32-36) 05/10/21 15:43 RDW Std Deviation 42.1 fL (36.4-46.3) 05/10/21 15:43 RDW Coeff of Luna 12.8 % (11.5-14.5) 05/10/21 15:43 Plt Count 264 K/uL (130-400) 05/10/21 15:43 MPV 10.9 fL (7.4-10.4) H 05/10/21 15:43 Immature Gran % (Auto) 0.2 % 05/10/21 15:43 Neut % (Auto) 76.9 % 05/10/21 15:43 Lymph % (Auto) 9.5 % 05/10/21 15:43 [place] % (Auto) 11.8 % 05/10/21 15:43 Eos % (Auto) 1.4 % 05/10/21 15:43 Baso % (Auto) 0.2 % 05/10/21 15:43 Neut # (Auto) 9.68 K/uL (1.4-6.5) H 05/10/21 15:43 Lymph # (Auto) 1.19 K/uL (1.2-3.4) L 05/10/21 15:43 [place] # (Auto) 1.49 K/uL (0.11-0.59) H 05/10/21 15:43 Eos # (Auto) 0.17 K/uL (0-0.5) 05/10/21 15:43 Baso # (Auto) 0.03 K/uL (0-0.2) 05/10/21 15:43 Immature Gran # (Auto) 0.02 K/uL (0.00-0.02) 05/10/21 15:43 ESR 42 mm/hr (0-20) H 05/10/21 15:43 PT 10.7 Seconds (9.0-12.0) 05/10/21 15:43 INR 1.1 (0.9-1.1) 05/10/21 15:43 APTT 34.2 Seconds (21.0-31.0) H 05/10/21 15:43 PTT Ratio 1.3 05/10/21 15:43 Sodium 138 mmol/L (136-145) 05/10/21 15:43 Potassium 4.3 mmol/L (3.5-5.1) 05/10/21 15:43 Chloride 108 mmol/L (98-107) H 05/10/21 15:43 Carbon Dioxide 23 mmol/L (21-32) 05/10/21 15:43 Anion Gap 7.0 (3-11) 05/10/21 15:43 BUN 32 mg/dl (7-18) H 05/10/21 15:43 Creatinine 1.39 mg/dl (0.6-1.4) 05/10/21 15:43 Est Cr Clr Drug Dosing 67.7 ml/min 05/10/21 15:43 Est GFR ( Amer) 65.2 ml/min 05/10/21 15:43 Est GFR (Non-Af Amer) 56.3 ml/min 05/10/21 15:43 BUN/Creatinine Ratio 22.7 (10-20) H 05/10/21 15:43 Glucose 97 mg/dl (70-99) 05/10/21 15:43 Lactate 0.9 mmol/L (0.4-2.0) 05/10/21 15:51 Calcium 9.6 mg/dl (8.5-10.1) 05/10/21 15:43 Total Bilirubin 0.7 mg/dl (0.2-1) 05/10/21 15:43 AST 20 U/L (15-37) 05/10/21 15:43 ALT 43 U/L (12-78) 05/10/21 15:43 Alkaline Phosphatase 51 U/L (45-117) 05/10/21 15:43 C-Reactive Protein 9.31 mg/dl (0-0.29) H 05/10/21 15:43 Total Protein 7.7 gm/dl (6.4-8.2) 05/10/21 15:43 Albumin 3.8 gm/dl (3.4-5.0) 05/10/21 15:43 Globulin 3.9 gm/dl (2.5-4.0) 05/10/21 15:43 Albumin/Globulin Ratio 1.0 (0.9-2) 05/10/21 15:43 Procalcitonin 0.08 ng/ml (0-0.5) 05/10/21 15:43 Impressions Elbow X-Ray 05/10/21 15:26 LEFT ELBOW 3 VIEWS CLINICAL HISTORY: Soft tissue swelling. FINDINGS: 3 views of the left elbow are obtained. No prior studies are available for comparison at the time of dictation. The skeletal structures are well mineralized. No fracture is seen. The joint spaces are maintained. There is no joint effusion. There is marked dorsal soft tissue edema overlying the olecranon process. No soft tissue gas or radiodense foreign body is identified. IMPRESSION: 1. No osseous abnormality is identified. 2. There is significant soft tissue edema overlying the olecranon process. Correlate clinically for evidence of olecranon bursitis. Electronically signed by: Loyd Ennis M.D. 05/10/2021 3:54 PM PG Care Time/CCT Total # of Minutes Spent Total Time Spent with Patient: Total time spent is greater than 50% in coordination of care (as documented) at patient's floor/unit and/or counseling patient: Coding Level of Care Code 16674 Initial Inpt Care Lvl 3 Diagnoses Infection of left olecranon bursa M71.122 CAD (coronary artery disease), tetlin coronary artery I25.10 Paroxysmal atrial fibrillation I48.0 CKD (chronic kidney disease) stage 4, GFR 15-29 ml/min N18.4 Asthma J45.909
[2021-05-10] MEDS ORDERED: BENZONATATE 100 MG CAPSULE PO PRN (20:25)
[2021-05-10] MEDS ORDERED: ACETAMINOPHEN 325 MG TAB PO PRN (20:25)
[2021-05-10] MEDS ORDERED: KETOROLAC TROMETHAMINE 15 MG/ML VIAL IV PRN (20:25)
[2021-05-10] MEDS ORDERED: Nursing to Pharmacy Communication SCH (20:30)
[2021-05-10] MEDS ORDERED: METOPROLOL SUCC 25MG EXT REL TAB PO SCH (21:00)
[2021-05-10] MEDS ORDERED: lisinopril 5 MG TAB PO ONE (21:00)
[2021-05-10] MEDS: APIXABAN 5 MG TABLET PO SCH (21:37)
[2021-05-11 07:08] LABS: Basophils # (auto) 0.02 K/uL (0-0.2); Basophils % (auto) 0.2 %; Eosinophils # (auto) 0.24 K/uL (0-0.5); Eosinophils % (auto) 2.1 %; Hematocrit (blood only) 39.3 % (42-52); Hemoglobin 13.1 g/dL (14.0-18.0); Immature Granulocytes # (auto) 0.02 K/uL (0.00-0.02); Immature Granulocytes % (auto) 0.2 %; Lymphocytes # (auto) 1.54 K/uL (1.2-3.4); Lymphocytes % (auto) 13.7 %; Mean Corpuscular Hemoglobin 29.8 pg (25-34); Mean Corpuscular Hgb Conc 33.3 g/dL (32-36); Mean Corpuscular Volume 89.5 fL (80-100); Mean Platelet Volume 11.4 fL (7.4-10.4); Monocytes # (auto) 1.61 K/uL (0.11-0.59); Monocytes % (auto) 14.3 %; Neutrophils % (auto) 69.5 %; Platelet Count 265 K/uL (130-400); RDW Coefficient of Variation 12.8 % (11.5-14.5); RDW Standard Deviation 41.6 fL (36.4-46.3); Red Blood Count 4.39 M/uL (4.7-6.1); White Blood Count 11.23 K/uL (4.8-10.8)
[2021-05-11 07:45] LABS: BUN Creatinine Ratio 21.8 (10-20); Calcium 9.2 mg/dl (8.5-10.1); Est GFR (African American) 63.5 ml/min; Est GFR (Non-African American) 54.8 ml/min; Potassium 4.1 mmol/L (3.5-5.1)
[2021-05-11] MEDS: APIXABAN 5 MG TABLET PO SCH (08:40)
[2021-05-11] MEDS ORDERED: lisinopril 5 MG TAB PO SCH (09:00)
[2021-05-11] MEDS ORDERED: CLOPIDOGREL BISULFATE 75 MG TAB PO SCH (09:00)
[2021-05-11] MEDS ORDERED: CHOLECALCIFEROL 1,000 UNITS 25 MCG TAB PO SCH (09:00)
[2021-05-11] MEDS ORDERED: ATORVASTATIN 40 MG TAB PO SCH (09:00)
--- NOTE | 2021-05-11 09:52 | Orthopedic Consultation ---
Date of Consultation May 11, 2021 Assessment & Plan (1) Olecranon bursitis of left elbow: Patient was evaluated in his room this morning. I did place him in a Gabriel dressing to help with edema control. Continue with his IV antibiotics. There is nothing to drain at this point and currently he does not require operative management. White count is trending in the right direction and he is afebrile. Once an organism is identified he can be switched to oral medication and followed as an outpatient. Care plan will be discussed with Dr. Coon. Present on Admission?: Yes Supervising Physician Co-Signing Physician Notes I, Dr. Coon, saw and examined the patient and agree with the above findings and plan of care discussed with my PA. Will follow-up in the office in 1 week. History of Present Illness Reason for Consultation: Left elbow swelling and discomfort Attending Physician: Joe Ibarra, History of Present Illness This 55-year-old male was seen today in consultation for his left elbow. Patient states he has had several day history of increasing discomfort in his left elbow. He denies any trauma. He denies putting any excessive pressure on the elbow. He noticed some swelling directly over the tip 2 or 3 days ago. It became worse and now extends into the forearm. He also notes some redness and warmth in the area. No prior history of similar episode in this elbow. He believes he had a similar episode in the right elbow many years ago while having heart surgery at [place]. He states they drained it at that time. He currently denies any fevers or chills. No sweats. He does not feel ill. Pain is rated as 3/10. [id number]. He denies any numbness or tingling. He denies loss of motion. Patient was seen in the ED last night and had the bursa a spirated. He has been started on daptomycin due to known cephalosporin and vancomycin allergies. He currently takes Eliquis and Plavix. Allergies Allergy/AdvReac Type Severity Reaction Status Date / Time cefepime Allergy Intermediate Rash Verified 05/10/21 14:39 vancomycin Allergy Intermediate Rash Verified 05/10/21 14:39 Home Medications Medication Instructions Recorded Confirmed Type cholecalciferol (vitamin D3) 25 1,000 unit PO QAM cap 12/30/18 05/10/21 History mcg (1,000 unit) capsule (Vitamin D3) benzonatate 100 mg capsule 100 mg PO TID PRN #90 cap 07/07/19 05/10/21 Rx (Tessalon Perlmaddy) metoprolol succinate 25 mg 25 mg PO QPM tab 03/28/20 05/10/21 History tablet,extended release 24 hr apixaban 5 mg tablet (Eliquis) 5 mg PO BID 05/30/20 05/10/21 History clopidogrel 75 mg tablet 75 mg PO DAILY 05/30/20 05/10/21 History lisinopril 5 mg tablet 5 mg PO DAILY #90 tab 05/30/20 05/10/21 Rx atorvastatin 40 mg tablet 40 mg PO DAILY #90 tab 07/26/20 05/10/21 Rx doxycycline hyclate 100 mg capsule 100 mg PO BID 7 Days #14 cap 05/11/21 Rx Patient History Medical History Acute [place] Anemia CAD (coronary artery disease) Cardiogenic shock Chronic systolic CHF (congestive heart failure) Hematoma of groin History of atrial fibrillation Hx of extracorporeal membrane oxygenation treatment Hx of pleural effusion Hypotension Ischemic cardiomyopathy Myocardial infarct Stage 3b chronic kidney disease Stage 3b chronic kidney disease STEMI (ST elevation myocardial infarction) 09/02/2018--heart cath with stents placed Vitamin D deficiency Surgical History H/O right inguinal hernia repair (04/19/20) Right Open Inguinal Hernia Repair with Mesh Dr. Herman 04/19/20 History of cardiac cath 09/02/2018 with stents placed @ [facility], follows with Dr. Gabriel History of colonoscopy History of hernia repair 03/2020 [facility] [place] History of thoracentesis History of tooth extraction Hx of angioplasty Hx of heart artery stent 2 stents Hx of LASIK ICD (implantable cardioverter-defibrillator) in place S/P vascular surgery Status post insertion of hemodialysis catheter removed--no longer has Status post insertion of percutaneous endoscopic gastrostomy (PEG) tube Status post pericardiocentesis Family History Mother Coronary heart disease Hypertension Cardiac disorder Father Alcohol abuse Unknown Myocardial infarction Cardiac disorder Other No family history of adverse response to anesthesia Social History Smoking Status: Never smoker Second Hand Exposure: No; Hx Alcohol Use: Yes Alcohol type: wine Alcohol Intake Frequency: Monthly or Less Hx Substance Use: No Preferred Language: Irish Communication Ability: Effective Visual Impairment: No Limitations Hearing Ability: Normal Project Management It Specialist Required: No Beliefs That Will Affect Care: None marital status: Current Living Situation: Significant Other Current Living Situation Comment: "LIVES WITH SOMEONE" current occupational status: employed current occupation: [employer] How many Children do You have: 0 Feels Safe at Home: Yes Childhood Exposure to Second-Hand Smoke: No Dental Care, Regularly: Yes Physical Activity Frequency: Daily Seatbelt Use: always Sunscreen Use: Yes Assistive Devices: None Review of Systems Review of Systems: All systems reviewed & are unremarkable except as noted in HPI & below A total of 10 systems were reviewed. Physical Exam Physical Exam: General: Well-developed, well-nourished, middle-aged male, in no acute distress. Laying in bed. Alert and oriented. Conversive. Somewhat of a poor historian. Skin: Warm and dry with good turgor. No rashes. Patient does have erythema present around his left elbow. It extends from around the medial epicondyle across the olecranon, and to the lateral epicondyle. Span is approximately 12 cm. It is light red, and edema is present. He does have a punctate scab present over the olecranon from his aspiration yesterday. There is no active drainage. Mild warmth compared to the surrounding skin. He does have edema extending into the ulnar forearm. No edema of the wrist or hand. There is no lymphangitis. Musculoskeletal: Patient has discomfort with palpation over the tip of his olecranon. Bursa is thickened. It is nonfluctuant. I do not think there is anything to drain at this point. The generalized edema extending into the forearm is also nonfluctuant. There is nothing localized. No pain with palpa tion over the epicondyles. He has full range of motion of his elbow. Full supination and pronation. Strength is 5/5 for resisted flexion and extension as well as supination/pronation. Full range of motion of his wrist and digits. Neurologic: Gross sensation is intact across the left arm by soft touch. Radial, median, and ulnar nerve functions are intact for both sensory and motor. Peripheral pulses are 2+. Results & Data ([facility]) Vital Signs (Past 12 Hours) Vital Signs Temp Pulse Resp BP Pulse Ox 05/11/21 07:18 36.8 C 66 18 112/71 97 05/10/21 22:32 36.6 C 76 16 119/77 95 Laboratory Results CBC from yesterday and today have been reviewed. White count of 12.58 yesterday. It is 11.23 this morning. H&H are reasonable at 13.1 and 39.3. Neutrophils yesterday were 9.68 and today are at 7.0. Sed rate yesterday was 42. PRP shows BUN of 31 and creatinine 1.42. C-reactive protein is elevated at 9.31. Blood cultures and bursa aspiration fluid results are pending Diagnostic Findings Radiographic imaging obtained yesterday of the elbow shows no bony abnormality. Soft tissue edema is noted.
--- NOTE | 2021-05-11 16:17 | Discharge Summary ---
Date of Service May 11, 2021 Admission HPI Per Admitting Provider This is a 55-year-old male with past medical history of coronary artery disease, status post [place] in the past with a prolonged hospitalization, CKD, and asthma that presents today with left elbow pain. Patient is pleasant a good historian. Patient states that over the past few days he has noted some worsening redness and pain in his left elbow over the olecranon process. This initially started swelling and then proceeded to some erythema around the area. The area is very tender. He denies any systemic symptoms such as fever, chills, nausea, vomiting, diarrhea, constipation, abdominal pain, or chest pain. Patient was seen in the emergency room, work-up was negative for any process in the joint itself per imaging. The bursa was aspirated by the PANCHITO in the emergency room with a minimal amount of fluid. Patient is now being referred to us for admission. Patient appears to be in no distress. He is unclear how this occurred, he does not recall any trauma to his arm prior to symptoms. Patient is otherwise stable. Principal Diagnosis 1. Olecranon bursitis- +/- infection 2. Leukocytosismay be reactive. Cannot rule out underlying infection Discharge Exam General: Resting comfortably in his hospital bed. He does not appear ill or toxic. NAD. HEENT: Head is AT/NC buccal mucosa is moist and pink Neck: No JVD. Negative hepatojugular reflex Cardiac: Currently sinus with controlled ventricular rate Lungs: CTA without W/R/R Abdomen: Normoactive X4. Soft and nontender in all quadrants. Extremities: Left arm with bogginess/edema at the left olecranon bursa. Approximately the size of a $0.50 piece. There is no superimposed erythema over the elbow or the arm Neuro: A&O X4 cranial nerves II through XII are grossly intact no focal neuro deficits Skin: No obvious skin lesions or rashes Psych: Appropriate affect pleasant and cooperative Discharge Data Allergies Allergy/AdvReac Type Severity Reaction Status Date / Time cefepime Allergy Intermediate Rash Verified 05/10/21 14:39 vancomycin Allergy Intermediate Rash Verified 05/10/21 14:39 Consultations 05/10/21 17:02 ED Decision to Admit Stat 05/10/21 17:33 Consult Orthopedic Surgery Routine Assessment & Plan (1) Olecranon bursitis of left elbow: Patient was evaluated in his room this morning. I did place him in a Gabriel dressing to help with edema control. Continue with his IV antibiotics. There is nothing to drain at this point and currently he does not require operative management. White count is trending in the right direction and he is afebrile. Once an organism is identified he can be switched to oral medication and followed as an outpatient. Care plan will be discussed with Dr. Coon. Procedures Performed Aspiration of the left olecranon bursa Gram stain showing no organisms. Final culture data pending but no growth to date at 24 hours Hospital Course (1) Olecranon bursitis of left elbow: -Patient presented to the ED with swelling/pain of the left elbow with superimposed erythema -X-ray showed soft tissue edema over the left olecranon process -White blood cell count was slightly elevated at 12.58. 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 -On exam today, I do not appreciate any erythema overlying the left elbow. He does have findings consistent with olecranon bursitis and that the bursa is slightly enlarged and boggy but does not appear red, hot, or tender -I cannot argue that he does not have a superimposed infection; however, the culture data is showing no growth to date at 24 hours -At any rate, it is documented that he did have some superimposed erythema so perhaps he had a mild/early infection ( ? more consistent with cellulitis) but I am not convinced. At any rate, seeing as he did have some mild leukocytosis with an elevated ESR (which both of these could be reactive from olecranon bursitis) and documented erythema down into the forearmI will continue antibiotic therapy for now. He has chronic kidney disease thus I will avoid Bactrim. 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 Given the fact that he has shown improvement with daptomycin, I would like to keep similar coverage so we will discharge with doxycycline. Can follow-up with orthopedics in the clinic who can follow-up on culture data and potentially stop antibiotic therapy if needed -Patient has been seen by orthopedics who agrees with this plan. Patient should keep left arm wrapped tightly (not tight enough to impede blood flow of course) to prevent olecranon bursa from reaccumulating/getting larger and follow-up with orthopedics next week -Lengthy discussion with behavioral modifications that could be made. Patient should avoid sitting with his arm resting on the car door, avoid resting his elbows when working at work (when working in the aggarwal in the lab and on the computer) (2) Leukocytosis: - mild elevated. ? infectious vs reactive (3) CAD (coronary artery disease), apache coronary artery: - continue home meds (4) Paroxysmal atrial fibrillation: -Currently in a sinus rhythm with controlled ventricular rate -Continue prehospital medications including Eliquis and metoprolol (5) CKD (chronic kidney disease) stage 4, GFR 15-29 ml/min: -Renal function at baseline Discharged home today with doxycycline and recommendations for continued compression/Mane wrap to the left elbow and avoid repetitive trauma Follow-up with orthopedics next week Total Time Total Time Spent Total Time Spent (In Minutes): 30 minutes Discharge Plan Discharge Items Patient Disposition: Home - Self-Care Reason For Visit: SEPTIC BURSITIS Discharge Diagnosis: 1. Olecranon Bursitis- Does not appear to be overtly infected Condition on Discharge: Good Activity: Resume your previous activity Non-emergency contact: Primary Care Provider and Specialist Call non-emergency contact if: you have any medication questions Follow-up/Referrals: Pedro Silveira MD [Primary Care Provider] - 05/23/21 3:15 pm (If you are unable to attend this appt, please phone the office to schedule to an appt that fits your schedule.) Omar Coon MD [Physician] - 05/18/21 8:30 am Diet: Heart Healthy Addtl Attending Provider Instructions: -You were hospitalized with concern for septic olecranon bursitis. As discussed, this is an infection of the bursa (fluid-filled sac) overlying the elbow -I am not convinced that the bursa is infected. I do believe it is inflamed -At any rate, you were started on IV antibiotic therapy upon presentation. Given the fact that it was reported to be red and this has since resolved, I cannot say that it is not from the antibiotics -Perhaps it was an early/mild infection -You have been seen by orthopedics who agrees that the bursa does not need to be surgically excised -You will be sent home to complete a full course of antibiotics -Doxycycline (antibiotic) is to be taken twice a day. Avoid taking it with dairy as this will block its absorption. Take it with a full glass of water and remain upright for at least an hour as it can give you a sensation as "if it is stuck in your throat" and can cause some esophageal irritation -Follow-up with orthopedics next week -Keep the Mane bandage in place with applied pressure to help the bursa from continuing to fill with fluid and get larger -As discussed, avoid repetitive trauma to the elbow (like sitting at a desk and resting on the elbow, resting her arm up on the car door when you drive, letting her elbow rest when you eat dinner, etc.). A contributing factor for you is likely work-- having your arms in the aggarwal. Pending Studies at Discharge: Yes Studies:: final culture from left olecranon bursa Stand-Alone Forms: My [facility] Medications and DC Order Prescriptions: New doxycycline hyclate 100 mg capsule 100 mg PO BID 7 Days Qty: 14 RF: 0 Continued cholecalciferol (vitamin D3) [Vitamin D3] 1,000 unit capsule 1,000 unit PO QAM RF: 0 atorvastatin 40 mg tablet 40 mg PO DAILY Qty: 90 RF: 3 benzonatate [Tessalon Perles] 100 mg capsule 100 mg PO TID PRN (Reason: cough) Qty: 90 RF: 3 metoprolol succinate 25 mg tablet extended release 24 hr 25 mg PO QPM RF: 0 clopidogrel 75 mg tablet 75 mg PO DAILY RF: 0 Eliquis 5 mg tablet 5 mg PO BID RF: 0 lisinopril 5 mg tablet 5 mg PO DAILY Qty: 90 RF: 3 Discharge Orders: Discharge Order (Routine); Ordered 05/11/21 Ordered By: Babita Basilio/Other Patient Handouts: ED Bursitis of the Elbow (Olecranon) Admission Data Admit Date/Time: 05/10/21 17:33 Attending Provider: Rajinder Tang Admit Provider: Joe Ibarra Primary Care Provider: Pedro Silveira Other Providers: Omar Coon Kenneth A. Other Interventions: Discharge Summary Assessment (RN) Last Done: 05/11/21 16:39 Supervising Physician Co-Signing Physician Notes Patient seen and examined on the day of discharge. I agree with the discharge summary by Babita ONTIVERSO. I have reviewed the chart including labs, imaging and plans for discharge. patient with olecranon bursitis, feeling much better after fluid drained and 24 hours of antibiotics appreciate orthopedic consultation no growth on fluid culture, gram stain negative - Olecranon bursitis, possible cellulitis: discharge on Doxycycline no pain, moving elbow follow up with orthopedic surgery in the clinic follow up on culture but gram stain showed no organisms Coding [place] [address] OBS Care - Discharge Patient Type Established Diagnoses Olecranon bursitis of left elbow M70.22 Leukocytosis D72.829 CAD (coronary artery disease), apache coronary artery I25.10 Paroxysmal atrial fibrillation I48.0 CKD (chronic kidney disease) stage 4, GFR 15-29 ml/min N18.4
--- NOTE | 2021-05-11 16:21 | Communication Note ---
Date of Service: May 11, 2021 By CMS guidelines, a determination that the admission or continued stay is not medically necessary has been made by a member of the UR committee and a ph ysician for this hospital stay, therefore a Code 44 will be completed and the Inpatient admission will be changed to outpatient.
[2021-05-11] MEDS ORDERED: DAPTOmycin 300 MG in SYRINGE 0 ML IV SCH (20:00)
== END 2021-05-11 17:47 | disposition home or self-care (01) | DRG 558 ==
LOC: ED 12:31 → 3N 17:33 → SUATTDRO 17:33 → 3N 20:11